=== PATIENT | female | born 1945 | race Caucasian/White ===

== ENCOUNTER → 2020-04-28 13:54 | Outpatient (CLI) | payer MEDICARE, SELFPAY ==
--- NOTE | ~2020-04-28 | MM_ITS ---
EXAMINATION: MM screening [facility] BI w елена HISTORY: Screening mammogram TECHNIQUE: Craniocaudal and mediolateral oblique 3-D tomosynthesis images were obtained and synthetic 2-D images were generated. CAD analysis was submitted and interpreted. COMPARISON: 01/28/2019, 02/08/2018, 02/01/2017 BREAST PARENCHYMAL COMPOSITION: There are scattered areas of fibroglandular density. FINDINGS: Stable left breast masses are considered benign given the lack of interval change. There is no evidence of suspicious mass, calcification, or architectural distortion to suggest malignancy in either breast. There has been no suspicious interval change. IMPRESSION: 1. No mammographic evidence of malignancy. 2. Recommend routine screening mammography in one year. BI-RADS Category 1: Negative Reviewed, dictated and finalized at location A. T TELLER
== END ==
PROVIDERS: Visit Provider Obstetrics & Gynecology Gynecology
DX: Z12.31 Encounter for screening mammogram for malignant neoplasm of breast (principal)
CPT/HCPCS: 77063; 77067

== ENCOUNTER → 2020-09-24 09:38 | Outpatient (CLI) | payer MEDICARE, SELFPAY ==
--- NOTE | ~2020-09-24 | XR_ITS ---
XR thoracic spine 2V DATE: 09/24/2020 10:04 INDICATION: Back pain TECHNIQUE: Standing AP, lateral, swimmer views COMPARISON: None FINDINGS: Degenerative disc disease at C5-6 and C6-7. Diffuse osteopenia. There is degenerative spurring of the thoracic spine, most prominent in the lower thoracic area. No fracture or bone destruction is evident. The thoracic pedicles are intact. No paraspinal soft tiss ue thickening. IMPRESSION: Diffuse osteopenia Degenerative spurring of the thoracic spine Degenerative disc disease at C5-6 and C6-7 Reviewed, dictated and finalized at location A.
--- NOTE | ~2020-09-24 | XR_ITS ---
XR shoulder LT min 2V DATE: 09/24/2020 10:04 INDICATION: Left shoulder pain TECHNIQUE: 4 views COMPARISON: None FINDINGS: There is diffuse osteopenia. No fracture or dislocation, periosteal reaction or bone destru ction or abnormal soft tissue calcification of the left shoulder. IMPRESSION: Diffuse osteopenia Reviewed, dictated and finalized at location A. IMPRESSION: Diffuse osteopenia
== END ==
PROVIDERS: PCP Internal Medicine; Visit Provider Nurse Practitioner
DX: M85.88 Other specified disorders of bone density and structure, other site (principal); M50.323 Other cervical disc degeneration at C6-C7 level; M50.322 Other cervical disc degeneration at C5-C6 level; M85.812 Other specified disorders of bone density and structure, left shoulder
CPT/HCPCS: 72070; 73030

== ENCOUNTER → 2020-12-02 14:53 | Outpatient (CLI) | payer MEDICARE, SELFPAY ==
--- NOTE | ~2020-12-02 | US_ITS ---
EXAMINATION: US transvaginal EXAM DATE: 12/02/2020 15:32 INDICATION: Post menopausal bleeding. TECHNIQUE: Pelvic transabdominal and transvaginal sonogram was performed. There are multiple graysca le and Doppler images available for interpretation. Comparison is made to prior examination from 03/15. FINDINGS: Uterus measures 5.1 x 3.0 x 3.5 cm, with left fundal region likely an exophytic fibroid me asuring 3.5 cm, unchanged compared to prior CT 2018. Endometrial stripe measures 4 mm, within normal limits. There is no free pelvic fluid. Right adnexa: The ovary is not identified. There is no adnexal mass. Left adnexa: The ovary is not identified. There is no adnexal mass. IMPRESSION: 1. Probable exophytic fibroid. 2. Normal endometrial thickness. Reviewed, dictated and finalized at location A.
== END ==
PROVIDERS: Visit Provider Obstetrics & Gynecology Gynecology
DX: N95.0 Postmenopausal bleeding (principal)
CPT/HCPCS: 76830

== ENCOUNTER 2020-12-07 11:00 | Outpatient (RCR) | payer MEDICARE, SELFPAY ==
[2020-10-19 09:10] VITALS: BP_SYST 140
--- NOTE | 2020-10-19 10:16 | PTOPEVAL ---
PHYSICAL THERAPY EVALUATION AND PLAN OF CARE 10-19-20 Thank you for referring Harsha Wood to [facility], for the diagnosis of L shoulder pain and dorsalgia.? She is scheduled to be seen for therapy? 2 x/week for 4 weeks. Please review, sign, date and return this plan of care KAROLINA. I agree with and certify that the following plan of care is medically necessary. Referring Physician Date Attending Provider: ADDY RiojasC PT Outpatient Evaluation Document 10/19/20 09:10 LUCINDA (Rec: 10/19/20 10:14 LUCINDA [id number]) Outpatient Past Medical History Past Medical History Source of Past Medical History Patient Neurological History Hx Neurological Disorders No Significant History Cardiovascular History Hx Hypertension Yes: meds Hx Other Cardiac Disorders Yes: A-FLUTTER Respiratory History Hx Respiratory Disorders No Significant History Gastrointestinal History Hx Gall Bladder Disease Yes: REMOVED 1999 Hx Gastroesophageal Reflux Disease Yes Hx Hemorrhoids Yes Hx Polyps Yes Genitourinary History Hx Genitourinary Disorders No Significant History Musculoskeletal History Hx Back Pain Yes: chronic back pain- previous chiropractor treatment Hx Joint Replacement Yes: TOTAL RIGHT KNEE REPLACEMENT 2014 Hx Other Musculoskeletal Disorders Yes: L knee pain, need to have L TKR; Hematological History Hx Hematological Disorders No Significant History Endocrine History Hx Endocrine Disorders No Significant History HEENT History Hx Cataracts Yes: STARTING Integumentary History Hx Excision Skin Lesion Yes: melanoma Reproductive History Hx Reproductive Disorders No Significant History Psychosocial History Hx Psychiatric Disorders No Significant History Pain History Has Past Pain Affected Your Daily Life Yes Effective Methods of Pain Control TYLENOL PRN Anesthesia History Hx Anesthesia Reactions No Significant History Other History Hx Cancer Yes: SKIN MELANOMA IN SITU Hx Other Medical Conditions Yes: obesity Evaluation Information Problem Diagnosis L shoulder pain, dorsalgia Onset July 2020 Subjective Information PT orders for shoulder and Query Text:As Reported By Patient/ back pain; pt reports Family shoulder most issues, wanted to begin treatment on shoulder first; then after shoulder completed then will assess back pain; gradual increase in L shoulder pain, without trau
[2020-11-16 10:00] VITALS: BP_SYST 135
--- NOTE | 2020-11-16 10:58 | PTOPEVAL ---
PHYSICAL THERAPY REEVALUATION AND UPDATED PLAN OF CARE 11-16-20 Refer to the clinical summary below for her status today, compared to the initial eval. Continue PT treatment 2x/week for 3 weeks. Thank you for referring Harsha Wood to [facility].? Please review, sign, date and return this plan of care KAROLINA. I agree with and certify that the following plan of care is medically necessary. Referring Physician Date Attending Provider: Kaye Arrington, ADDYC PT Outpatient Re-Evaluation Document 11/16/20 10:00 LUCINDA (Rec: 11/16/20 10:58 LUCINDA [id number]) Subjective Information Harsha reports: is using her Query Text:As Reported By Patient/ arm to do things at home, but Family cannot reach bra strap; frustrated that shoulder is not better; Pain Assessment Timing of Pain Assessment Timing of Pain Assessment Assessment Pain Scale Pain Scale Used Numeric (1 - 10) Self Report Pain Assessment Left Shoulder(s) Reported Pain Level 0 Radicular Pain Location pulling, tight, keep from moving, hurts; pain in thoracic spine/scapula Pain Frequency Chronic,Intermittent Other Pain Description anterior and medial upper humerus Lowest Pain Intensity 0 Greatest Pain Intensity 4 Pain Aggravating Factors Exercise/Activity Other Pain Aggravating Factors reach behind back, reach up/ forward Pain Behaviors Anxious,Grimacing,Guarding Pain Score Pain Score 0: Self Report Additional Pain Score Comments Quick DASH 20% limitation in activity; report can lie on L side 15 min; pain does not wake her up from sleeping, tend to stay on her R side; with L arm cannot reach bra or wash back; can reach into her cabinet; sometimes with sleeping, L 4-5 fingers numb, 1-2x/wk is frustrated with her shoulder and upper back pain; said dr may refer her to orthopedic Discussed with pt MRI, her limitations, her functional level; shoulder anatomy, cervical limitations and upper quadrant complex and issues; she stated she does not want any shoulde
--- NOTE | 2020-11-26 08:21 | PCPTNOTE ---
LATE ENTRY: 11-25-20: Discussed pt with SAL Johnson; added dry needling to plan of care for pain modality; Will discuss pt with Radha Blood PT, who will perform the dry needling.
--- NOTE | 2020-12-07 11:49 | PTOPEVAL ---
PHYSICAL THERAPY DISCHARGE 12-07-20 Refer to the clinical summary below, for her status today, compared to the last reevaluation. Discharge PT services. Thank you for referring Harsha Wood to [facility].? Please review, sign, date and return this Discharge KAROLINA. I agree with and certify that the following plan of care is medically necessary. Referring Physician Date Attending Provider: Kaye Arrington, GUERO-C Document 12/07/20 11:05 LUCINDA (Rec: 12/07/20 11:44 LUCINDA [id number]) Assessment Status Discharge Subjective Information Mrs. Irwin reports: Query Text:As Reported By Patient/ shoulder feels about the same; Family still problems reaching behind back; nothing really helping it; doing exercises at home; before COVID, she was going to the pool and swimming, wants to return to swimming; discussed swimming as a great option for exercise, to gradually increase her activity as tolerated. Harsha agreed to discharge from PT and to contact dr if pain increases or she wants further assessment. Pain Assessment Timing of Pain Assessment Timing of Pain Assessment Assessment Pain Scale Pain Scale Used Numeric (1 - 10) Self Report Pain Assessment Left Shoulder(s) Reported Pain Level 0 Pain Description Aching,Sharp Radicular Pain Location pain at L mid thoracic paraspinals/scapula Pain Frequency Chronic,Intermittent Other Pain Description eases quickly- as soon as stop the motion/pain position Lowest Pain Intensity 0 Greatest Pain Intensity 4 Pain Aggravating Factors Exercise/Activity Other Pain Aggravating Factors reach behind back; take off shirt; can lie on L side 30-60 min; Pain Behaviors Anxious,Grimacing,Guarding Pain Score Pain Score 0: Self Report Additional Pain Score Comments self assessment Quick DASH score of 18% limitation problems with washing back and reaching bra; is R handed, so do not use L arm much, do not notice any problems with it when doing home tasks;
== END 2021-01-05 11:23 | disposition home or self-care (01) ==
LOC: ANHPT 11:00
PROVIDERS: PCP Internal Medicine; Visit Provider Nurse Practitioner
DX: M54.9 Dorsalgia, unspecified (principal); M25.512 Pain in left shoulder
CPT/HCPCS: 97014; 97035; 97110; 97140; 97161; G0283

== ENCOUNTER → 2021-04-30 10:46 | Outpatient (CLI) | payer MEDICARE, SELFPAY ==
--- NOTE | ~2021-04-30 | DEXA_ITS ---
Bone Density Report Name: MILEY RANDALL Age: 76 Sex: Female Ethnicity: White Date of : 1945 Indication: postmenopausal; screening for osteoporosis; Referring Provider: KIERSTEN PARRA Study: Bone densitometry was performed. Exam Date: April 30, 2021 Accession number: [id number] Bone Density: Region BMD T-score Z-score Classification AP Spine (L1-L4) 0.886 -1.5 0.9 Osteopenia Femoral Neck (Left) 0.756 -0.8 1.3 Normal Total Hip (Left) 1.019 0.6 2.4 Normal Femoral Neck (Right) 0.754 -0.9 1.2 Normal Total Hip (Right) 1.041 0.8 2.6 Normal Total Hip Mean 1.030 0.7 2.5 Normal World Health Organization criteria for BMD impression classify patients as: Normal (T-score at or above -1.0), Osteopenia (T-score between -1.0 and -2.5), or Osteoporosis (T-score at or below -2.5). 10-year Fracture Risk(1): Major Osteoporotic Fracture 8.1% Hip Fracture 1.1% Reported Risk Factors: [place] (), Neck BMD=0.754, BMI=43.9 (1) FRAX(R) Version 3.08. Fracture probability calculated for an untreated patient. Fracture probability may be lower if the patient has received treatment. Previous Exams: Region Exam Age BMD T-score BMD Change BMD Change Date g/cm2 vs Baseline vs Previous AP Spine(L1-L4) 04/30/2021 76 0.886 -1.5 -0.033 -0.066* 03/15/2018 73 0.952 -0.9 0.033 0.030* 01/25/2016 70 0.922 -1.1 0.003 0.038* 12/10/2013 68 0.884 -1.5 -0.035 -0.078* 10/03/2010 65 0.962 -0.8 0.043 0.043 06/24/2007 62 0.919 -1.2 Total Hip(Left) 04/30/2021 76 1.019 0.6 -0.081 0.020 03/15/2018 73 1.000 0.5 -0.101 -0.063* 01/25/2016 70 1.062 1.0 -0.039 0.011 12/10/2013 68 1.051 0.9 -0.049 -0.014 10/03/2010 65 1.065 1.0 -0.036 -0.036 06/24/2007 62 1.101 1.3 Total Hip(Right) 04/30/2021 76 1.041 0.8 -0.082 0.041* 03/15/2018 73 0.999 0.5 -0.123 -0.014 01/25/2016 70 1.013 0.6 -0.110 -0.038* 12/10/2013 68 1.051 0.9 -0.071 0.064* 10/03/2010 65 0.988 0.4 -0.135 -0.135 06/24/2007 62 1.123 1.5 *Denotes significance at 95% confidence level, LSC for AP Spine = 0.022 g/cm2, LSC for Total Hip = 0.027 g/cm2 Clinical Information Provided by Patient: Has
--- NOTE | ~2021-04-30 | MM_ITS ---
EXAMINATION: MM screening [facility] BI w елена HISTORY: Screening mammogram TECHNIQUE: Craniocaudal and mediolateral oblique 3-D tomosynthesis images were obtained and synthetic 2-D images were generated. CAD analysis was submitted and interpreted. COMPARISON: 04/28/2020, 02/27/2019, 01/31/2018 BREAST PARENCHYMAL COMPOSITION: There are scattered areas of fibroglandular density. FINDINGS: Scattered benign-appearing calcifications are present. In addition, there are stable bilate ral breast masses considered benign given the lack of interval change. There is no evidence of suspic ious mass, calcification, or architectural distortion to suggest malignancy in either breast. There h as been no suspicious interval change. IMPRESSION: 1. No mammographic evidence of malignancy. 2. Recommend routine screening mammography in one year. BI-RADS Category 2: Benign finding(s). Reviewed, dictated and finalized at location A. AL CARE GIVER
== END ==
PROVIDERS: PCP Internal Medicine; Visit Provider Obstetrics & Gynecology Gynecology
DX: Z12.31 Encounter for screening mammogram for malignant neoplasm of breast (principal); Z78.0 Asymptomatic menopausal state; M85.88 Other specified disorders of bone density and structure, other site
CPT/HCPCS: 77063; 77067; 77080

== ENCOUNTER 2021-10-31 12:27 | Emergency (ER) | payer MEDICARE, SELFPAY ==
[2021-10-31 12:41] VITALS: BP 152/94; PULSE 57; RESP 18; TEMP 36.7; O2SAT 98
--- NOTE | 2021-10-31 12:43 | ECG_ITS ---
Measurements Intervals [place] Rate: 150 P: NM: 0 QRS: 10 QRSD: 89 T: 60 QT: 276 QTc: 436 Interpretive Statements ATRIAL FIBRILLATION WITH RAPID VENTRICULAR RESPONSE NONSPECIFIC ST & T-WAVE ABNORMALITY ABNORMAL ECG NO PREVIOUS ECG AVAILABLE FOR COMPARISON Electronically Signed On 10-31-2021 14:53:31 CDT by Ayo Gregg M.D.
--- NOTE | 2021-10-31 12:52 | ED.ARRPALP ---
HPI - Arrhythmia/Palpitations General Chief Complaint: Arrhythmia/Palpitations Stated Complaint: Fast Heart Rate Time Seen by Provider: 10/31/21 12:52 Source: patient Mode of arrival: ambulatory Limitations: no limitations History of Present Illness HPI narrative: 76-year-old female with history of A. fib presents with complaint of palpitations, fatigue, and dyspnea on exertion since this morning. Reports when she woke up and got out of bed she felt like her heart was racing . States that she took her Cardizem and metoprolol and felt better. Did a few chores around the house and when she sat down in chair she noticed that she was still feeling like her heart was racing. Checked her heart rate on a pulse ox and it was 140. Patient states she called both her PCP and her transportation planning technician and they did not answer the phone so she came to the urgent care. She denies chest pain. All systems reviewed and negative except as noted above. Related Data Home Medications Medication Instructions Recorded Confirmed apixaban 5 mg tablet (Eliquis) 5 mg PO BID 03/27/19 10/31/21 cholecalciferol (vitamin D3) 125 50,000 unit PO WEEKLY 03/27/19 10/31/21 mcg (5,000 unit) tablet (Vitamin D3) cranberry 400 mg capsule 400 mg PO DAILY 03/27/19 10/31/21 glucosam 750 mg-chondroi 100 2 tablet PO DAILY 03/27/19 10/31/21 mg-hyalur 1.65 mg-CF borate 108 mg tablet ([facility]) metoprolol succinate 25 mg 25 mg PO DAILY 03/27/19 10/31/21 tablet,extended release 24 hr magnesium oxide,aspartate,citr 400 mg PO DAILY 10/28/19 10/31/21 (Triple Magnesium Complex) conjugated estrogens 0.625 mg/gram 0.625 mg vaginal DAILY 05/03/20 10/31/21 vaginal cream (Premarin) Allergies Allergy/AdvReac Type Severity Reaction Status Date / Time codeine Allergy Mild sick to Verified 10/31/21 12:33 stomach Review of Systems Review of Systems: CONSTITUTIONAL: Denies fever, chills, or sweats. Reports fatigue. EYES: Denies visual changes, redness, or discharge. ENT: Denies rhinorrhea, congestion, sore throat, or otalgia. CARDIOVASCULAR: Denies chest pain. Reports palpitations. RESPIRATORY: Denies cough. Reports dyspnea on exertion. GASTROINTESTINAL: Denies abdominal pain, nausea, vomiting, or diarrhea. GENITOURINARY: Denies dysuria or hematuria. SKIN: Denies rash or itching. MUSCULOSKELETAL: Denies back pain, joint pain, or myalgia. NEUROLOGIC: Denies headache, numbness, or weakness. PSYCHIATRIC: Denies anxiety or depression. All other systems reviewed are negative, except as documented in HPI. [facility] Past Medical History Medical History (Updated 10/31/21 @ 16:06 by Lauren Flaherty PA-C) Atrial flutter GERD (gastroesophageal reflux disease) Hypertension Mixed hyperlipidemia Morbid obesity Osteopenia Family History Family History Mother Asthma Carcinoma of colon Sibling Asthma Family history of malignant melanoma Patient's brother is in good health Diabetes mellitus Father Family history of coronary artery disease, Onset Age: 70 Family history of diabetes mellitus in first degree relative Family history of heart disease in male family member before age 55 Patient's father is Diabetes mellitus Social History Social History Smoking packs per day: 1 Smoking cigarettes per day: 20.0 Years smoked: 20 Smoking pack-years: 20.00 Smoking status: Former smoker Tobacco type: cigarettes Second hand tobacco smoke exposure: Yes Smoking end date: 05/14/84 Alcohol intake: current Alcohol use details: rarely Comments At time of signature, agree with nursing past medical, surgical, social and family history. There is no relevant family history pertinent to the presenting complaint. Exam Narrative: GENERAL: This is a well-nourished, well-developed patient, in no apparent distress. HEAD: n
== END 2021-10-31 13:10 | disposition short-term general hospital (02) ==
PROVIDERS: Emergency Provider Nurse Practitioner Family; PCP Internal Medicine
DX: I48.91 Unspecified atrial fibrillation (principal); Z87.891 Personal history of nicotine dependence; K21.9 Gastro-esophageal reflux disease without esophagitis; I10 Essential (primary) hypertension; E78.2 Mixed hyperlipidemia; E66.01 Morbid (severe) obesity due to excess calories; Z68.41 Body mass index [BMI] 40.0-44.9, adult; M85.80 Other specified disorders of bone density and structure, unspecified site
CPT/HCPCS: 93005; 99213; G0463

== ENCOUNTER 2021-10-31 13:19 | Emergency (ER) | payer MEDICARE, SELFPAY ==
--- NOTE | ~2021-10-31 | XR_ITS ---
EXAMINATION: XR chest 2V DATE: 10/31/2021 13:38 INDICATION: Heart palpitations TECHNIQUE: PA and lateral views of the chest are obtained. COMPARISON: 06/30/2017 FINDINGS: The lungs are free of acute opacities. There is no pleural effusion or pneumothorax. The ca rdiomediastinal silhouette is normal. There is moderate thoracic spondylosis. Surgical clips in the r ight upper quadrant are likely from prior cholecystectomy. IMPRESSION: 1. No acute cardiopulmonary abnormality. Reviewed, dictated and finalized at location A.
--- NOTE | 2021-10-31 13:28 | ECG_ITS ---
Measurements Intervals [place] Rate: 81 P: 43 [place]: 185 QRS: -5 QRSD: 85 T: 25 QT: 342 QTc: 398 Interpretive Statements SINUS RHYTHM MINIMAL VOLTAGE CRITERIA FOR LVH, CONSIDER NORMAL VARIANT BORDERLINE ECG COMPARED TO ECG 10/31/2021 12:53:33 SINUS RHYTHM HAS REPLACED ATRIAL FIBRILLATION WITH RVR Electronically Signed On 10-31-2021 14:57:57 CDT by Ayo Gregg M.D.
[2021-10-31 13:31] VITALS: PULSE 81; RESP 18; O2SAT 98
[2021-10-31 13:36] VITALS: BP 131/78; PULSE 71; RESP 18; TEMP 37.1; O2SAT 98
[2021-10-31 13:59] LABS: Basophils Percent Auto 0.4 % (0.2-1.2); Eosinophils Percent Auto 0.4 % (0-4.4); Hematocrit 42.7 % (37.0-47.0); Hemoglobin 13.6 g/dL (12.0-15.0); Immature Granulocyte Absolute 0.01 K/mm3 (0.00-0.031); Immature Granulocyte Percent A 0.2 % (0-0.5); Lymphocytes Absolute Auto 0.96 K/mm3 (0.9-3.2); Lymphocytes Percent Auto 17.5 % (18.3-44.2); Mean Corpuscular HGB Conc 31.9 g/dl (32-36); Mean Corpuscular Hemoglobin 28.7 pg (26-34); Mean Corpuscular Volume 90.1 fl (80-100); Mean Platelet Volume 10.2 fl (7.4-10.4); Monocytes Absolute Auto 0.4 K/mm3 (0.1-0.6); Monocytes Percent Auto 6.8 % (2.6-8.5); Neutrophils Absolute Auto 4.1 K/mm3 (1.3-6.7); Neutrophils Percent Auto 74.7 % (45.5-73.1); Platelet Count Result 194 k/mm3 (150-375); Red Blood Count 4.74 M/mm3 (4.2-5.4); White Blood Count 5.5 K/mm3 (4.5-10.0)
--- NOTE | 2021-10-31 14:04 | ED.ARRPALP ---
HPI - Arrhythmia/Palpitations General Chief Complaint: Arrhythmia/Palpitations Stated Complaint: abnormal EKG Time Seen by Provider: 10/31/21 13:27 Source: patient Mode of arrival: ambulatory Limitations: no limitations History of Present Illness HPI narrative: This is a 76-year-old female that presents to the emergency department for heart racing. She noted a couple of episodes of feeling as though her heart was racing today. She has known history of atrial flutter. Takes metoprolol, diltiazem and is on Eliquis. Reports she has been taking her medications as prescribed. She noted her heart rate to be in the 140s at home which prompted her to be initially seen at urgent care. She was sent here for further evaluation as her EKG showed A. fib with RVR. Denies any current complaints. Denies chest pain or shortness of breath. Related Data Home Medications Medication Instructions Recorded Confirmed apixaban 5 mg tablet (Eliquis) 5 mg PO BID 03/27/19 10/31/21 cholecalciferol (vitamin D3) 125 50,000 unit PO WEEKLY 03/27/19 10/31/21 mcg (5,000 unit) tablet (Vitamin D3) cranberry 400 mg capsule 400 mg PO DAILY 03/27/19 10/31/21 glucosam 750 mg-chondroi 100 2 tablet PO DAILY 03/27/19 10/31/21 mg-hyalur 1.65 mg-CF borate 108 mg tablet ([facility]) metoprolol succinate 25 mg 25 mg PO DAILY 03/27/19 10/31/21 tablet,extended release 24 hr magnesium oxide,aspartate,citr 400 mg PO DAILY 10/28/19 10/31/21 (Triple Magnesium Complex) conjugated estrogens 0.625 mg/gram 0.625 mg vaginal DAILY 05/03/20 10/31/21 vaginal cream (Premarin) Allergies Allergy/AdvReac Type Severity Reaction Status Date / Time codeine Allergy Mild sick to Verified 10/31/21 12:33 stomach Review of Systems Review of Systems: CONSTITUTIONAL: Denies fever CARDIOVASCULAR: Reports palpitations. Denies chest pain, or edema. RESPIRATORY: Denies dyspnea. All systems reviewed & are unremarkable except as noted in HPI and below PMFSH Past Medical History Medical History (Updated 10/31/21 @ 16:06 by Lauren L. Flaherty, PA-C) Atrial flutter GERD (gastroesophageal reflux disease) Hypertension Mixed hyperlipidemia Morbid obesity Osteopenia Family History Family History Mother Asthma Carcinoma of colon Sibling Asthma Family history of malignant melanoma Patient's brother is in good health Diabetes mellitus Father Family history of coronary artery disease, Onset Age: 70 Family history of diabetes mellitus in first degree relative Family history of heart disease in male family member before age 55 Patient's father is Diabetes mellitus Social History Social History Smoking packs per day: 1 Smoking cigarettes per day: 20.0 Years smoked: 20 Smoking pack-years: 20.00 Smoking status: Former smoker Tobacco type: cigarettes Second hand tobacco smoke exposure: Yes Smoking end date: 05/14/84 Alcohol intake: current Alcohol use details: rarely Exam Narrative: GENERAL: Well-appearing, well-nourished, and in no acute distress. HEAD: Normocephalic, atraumatic. EYES: EOMI. CHEST: Clear to auscultation. No respiratory distress. No wheezes rales or rhonchi HEART: Regular rate and rhythm. No murmur heard. Normal peripheral pulses. EXTREMITIES: Normal range of motion. No edema. SKIN: Warm, dry, no rash. NEURO: No focal deficits. Alert and oriented x3. PSYCH: Normal mood and affect Course Consultations Consultation #1: Spoke with cardiology about patient and work-up who will follow-up in clinic. Date: 10/31/21 Time: 16:03 Vital Signs Vital signs: Vital Signs Pulse Rate 81 10/31/21 13:31 Respiratory Rate 18 10/31/21 13:31 Pulse Oximetry 98 10/31/21 13:31 Temperature 98.7 F 10/31/21 13:36 Pulse Rate 71 10/31/21 13:36 Respiratory Rate 18 10/31/21
[2021-10-31 14:11] LABS: INR 1.1; Prothrombin Time 14.2 Seconds (11.1-14.7)
[2021-10-31 14:29] LABS: Alanine Aminotransferase 13 U/L (6-35); Albumin Level 4.1 g/dL (3.5-5.1); Alkaline Phosphatase 60 U/L (38-126); Anion Gap 5 mmol/L (8-16); Aspartate Amino Transferase 21 U/L (14-36); Bilirubin,Total 0.1 mg/dL (0.2-1.3); Blood Urea Nitrogen 12 mg/dL (7-17); Calcium 8.9 mg/dL (8.4-10.2); Carbon Dioxide 27 mmol/L (22-30); Chloride 108 mmol/L (98-107); Estimated CRCL calculation 58 ml/min; Estimated Glomerular Filt Rate > 60; Glucose 92 mg/dL (65-110); Lipase 72 U/L (23-300); Magnesium 2.1 mg/dL (1.6-2.3); Potassium 4.6 mmol/L (3.4-5.0); Sodium 140 mmol/L (137-145)
[2021-10-31 16:44] VITALS: BP 144/87; PULSE 69; RESP 16; O2SAT 98
== END 2021-10-31 16:30 | disposition home or self-care (01) ==
PROVIDERS: Physician Assistant; Emergency Provider Emergency Medicine; PCP Internal Medicine
DX: I48.92 Unspecified atrial flutter (principal); I10 Essential (primary) hypertension; E78.2 Mixed hyperlipidemia; K21.9 Gastro-esophageal reflux disease without esophagitis; M85.80 Other specified disorders of bone density and structure, unspecified site; E66.01 Morbid (severe) obesity due to excess calories; Z68.41 Body mass index [BMI] 40.0-44.9, adult; Z79.01 Long term (current) use of anticoagulants; Z87.891 Personal history of nicotine dependence; R94.31 Abnormal electrocardiogram [ECG] [EKG]
CPT/HCPCS: 36415; 71046; 80053; 83690; 83735; 84443; 85025; 85610; 85730; 93005; 99284

== ENCOUNTER 2021-12-23 07:34 | Outpatient (CLI) | payer MEDICARE, SELFPAY ==
--- NOTE | 2022-01-22 16:44 | WPDSLEEPSTUD ---
Sleep Study Date of Study: 12/23/21 Ordering Provider: Vale Donnelly MD Interpreting Physician: Ninfa Frazier DO Sleep Study Type: Split Polysomnogram Height: 1.63 m Weight: 113.398 kg Body Mass Index: 42.9 Neck Circumference (inches): 15.5 [place]: 8 Reason for Sleep Study Snoring, nocturia, daytime hypersomnia Sleep History The patient is a 76-year-old female with paroxysmal atrial flutter, hypertension, osteoporosis, GERD and history of tobacco use that had a sleep study ordered by her rn referral for evaluation of sleep apnea. The patient denies awakening from sleep short of breath. She rarely awakens at night with heartburn, belching or cough. She frequently snores and is constantly loud enough that others complain. She occasionally has trouble sleeping when she has a cold. She denies waking up gasping for air throughout the night. She denies having breathing problems at night observed by herself or others. She denies sweating excessively at night. She occasionally has heart palpitations or irregular heartbeats during the night. She occasionally falls asleep during the day but never while driving. She denies sleep paralysis, cataplexy and hypnagogic / hypnopompic hallucinations. She denies having trouble at school or work due to sleepiness. She denies feeling afraid of going to sleep. She occasionally has nightmares. She occasionally remembers her dreams. She denies having thoughts racing through her mind. She denies feeling sad or depressed. She rarely has anxiety. She occasionally has muscular tension. She occasionally notices parts of her body jerk. She occasionally kicks during the night. She denies having crawling and aching feelings in her legs but occasionally has leg pain during the night. She occasionally grinds her teeth during sleep but denies awakening with morning jaw pain. She is occasionally bothered by pain during the day and occasionally awakened by pain during the night. She occasionally wakes up feeling stiff in the morning. She rarely wakes up with sore achy muscles. She denies waking up with pain in the neck, spine or other joints. She goes to bed at 11:00 p.m. on both weekdays and weekends. That length of time it takes her to fall asleep is variable. She wakes up 3 times throughout the night to urinate. He amount of time it takes for her to fall back asleep is variable. She wakes up at 7:30 a.m. on weekdays and at 6:45 a.m. on the weekends. She typically gets 7-9 hours of sleep per night. She stays in bed for 30 minutes after waking up in the morning. She currently lives with her . She denies consuming any caffeinated beverages within 2 hours of bedtime. She does not engage in physical exercise before bedtime. She does watch television before falling asleep. She will occasionally take naps in the afternoon or the evening. The patient drinks 1 caffeinated beverage per day. She quit smoking cigarettes 35 years ago. She denies alcohol and recreational drug use. [facility] Past Medical History Medical History Atrial flutter GERD (gastroesophageal reflux disease) Hypertension Mixed hyperlipidemia Morbid obesity Osteopenia Family History Family History Mother Asthma Carcinoma of colon Sibling Asthma Family history of malignant melanoma Patient's brother is in good health Diabetes mellitus Father Family history of coronary artery disease, Onset Age: 70 Family history of diabetes mellitus in first degree relative Family history of heart disease in male family member before age 55 Patient's father is Diabetes mellitus Social History Social History Smoking packs per day: 1 Smoking cigarettes per day: 20.0 Years smoked: 20 Smoking pack-years: 20.00 Smoking status: Former s
[2022-01-22 16:52] VITALS: BMI 42.9
== END 2021-12-24 07:00 | disposition home or self-care (01) ==
LOC: ANHCSM 12-26 07:34
PROVIDERS: PCP Internal Medicine; Visit Provider Internal Medicine Cardiovascular Disease
DX: G47.30 Sleep apnea, unspecified (principal); G47.33 Obstructive sleep apnea (adult) (pediatric)
CPT/HCPCS: 95811

== ENCOUNTER → 2022-06-14 15:59 | Outpatient (CLI) | payer MEDICARE, SELFPAY ==
--- NOTE | ~2022-06-14 | MM_ITS ---
EXAMINATION: MM screening jeremy BI w елена HISTORY: Screening TECHNIQUE: Craniocaudal and mediolateral oblique 3-D tomosynthesis images were obtained and synthetic 2-D images were generated. CAD analysis was submitted and interpreted. COMPARISON: Comparison to multiple prior studies sequentially, with oldest reviewed study dated 07/2016. BREAST PARENCHYMAL COMPOSITION: There are scattered areas of fibroglandular density. FINDINGS: Stable benign-appearing left breast mass centered in the upper outer quadrant. There is no evidence of suspicious mass, calcification, or architectural distortion to suggest malignancy in eith er breast. There has been no suspicious interval change. IMPRESSION: 1. No mammographic evidence of malignancy. 2. Recommend routine screening mammography in one year. BI-RADS Category 2: Benign finding(s). Reviewed, dictated and finalized at location A. [employer] [employer]
== END ==
PROVIDERS: PCP Internal Medicine; Visit Provider Obstetrics & Gynecology Gynecology
DX: Z12.31 Encounter for screening mammogram for malignant neoplasm of breast (principal)
CPT/HCPCS: 77063; 77067

== ENCOUNTER 2023-09-20 10:12 | Outpatient (CLI) | payer OTHER, SELFPAY ==
--- NOTE | ~2023-09-20 | DEXA_ITS ---
Bone Density Report Name: MILEY RANDALL Age: 78 Sex: Female Ethnicity: White Date of : 1945 Indication: osteopenia; monitoring treatment; Referring Provider: KIERSTEN PARRA Study: Bone densitometry was performed. Exam Date: September 20, 2023 Accession number: [id number] Bone Density: Region BMD T-score Z-score Classification AP Spine (L1-L4) 0.938 -1.0 1.5 Normal Femoral Neck (Left) 0.723 -1.1 1.1 Osteopenia Total Hip (Left) 1.041 0.8 2.7 Normal Femoral Neck (Right) 0.760 -0.8 1.4 Normal Total Hip (Right) 1.035 0.8 2.7 Normal Total Hip Mean 1.038 0.8 2.7 Normal World Health Organization criteria for BMD impression classify patients as: Normal (T-score at or above -1.0), Osteopenia (T-score between -1.0 and -2.5), or Osteoporosis (T-score at or below -2.5). 10-year Fracture Risk: FRAX not reported because: Treated for osteoporosis Previous Exams: Region Exam Age BMD T-score BMD Change BMD Change Date g/cm2 vs Baseline vs Previous AP Spine(L1-L4) 09/20/2023 78 0.938 -1.0 0.018 0.052* 04/30/2021 76 0.886 -1.5 -0.033 -0.066* 03/15/2018 73 0.952 -0.9 0.033 0.030* 01/25/2016 70 0.922 -1.1 0.003 0.038* 12/10/2013 68 0.884 -1.5 -0.035 -0.078* 10/03/2010 65 0.962 -0.8 0.043 0.043 06/24/2007 62 0.919 -1.2 Total Hip(Left) 09/20/2023 78 1.041 0.8 -0.060 0.021 04/30/2021 76 1.019 0.6 -0.081 0.020 03/15/2018 73 1.000 0.5 -0.101 -0.063* 01/25/2016 70 1.062 1.0 -0.039 0.011 12/10/2013 68 1.051 0.9 -0.049 -0.014 10/03/2010 65 1.065 1.0 -0.036 -0.036 06/24/2007 62 1.101 1.3 Total Hip(Right) 09/20/2023 78 1.035 0.8 -0.088 -0.006 04/30/2021 76 1.041 0.8 -0.082 0.041* 03/15/2018 73 0.999 0.5 -0.123 -0.014 01/25/2016 70 1.013 0.6 -0.110 -0.038* 12/10/2013 68 1.051 0.9 -0.071 0.064* 10/03/2010 65 0.988 0.4 -0.135 -0.135 06/24/2007 62 1.123 1.5 *Denotes significance at 95% confidence level, LSC for AP Spine = 0.022 g/cm2, LSC for Total Hip = 0.027 g/cm2 Clinical Information Provided by Patient: Is being treated for osteoporosis Has used the following medications: Fosamax (i.e. alendronate), Vitamin D Patient maximum height was 64.0 Menopause Age: 51
--- NOTE | ~2023-09-20 | MM_ITS ---
EXAMINATION: MM screening jeremy BI w елена HISTORY: Screening mammogram TECHNIQUE: Craniocaudal and mediolateral oblique 3-D tomosynthesis images were obtained and synthetic 2-D images were generated. CAD analysis was submitted and interpreted. COMPARISON: June 14, 2022, April 30, 2021 bilateral screening mammogram examinations BREAST PARENCHYMAL COMPOSITION: There are scattered areas of fibroglandular density. FINDINGS: Biopsy marker on the left; history of prior bilateral benign breast biopsies. Scattered bilateral benign calcifications. There is no evidence of suspicious mass, calcification, or architectural distortion to suggest malignancy in either breast. There has been no suspicious interv al change. IMPRESSION: 1. No mammographic evidence of malignancy. 2. Recommend routine screening mammography in one year. BI-RADS Category 2: Benign finding(s). Reviewed, dictated and finalized at location B.
== END 2023-09-20 10:13 ==
LOC: MICIMG 10:13
PROVIDERS: PCP Obstetrics & Gynecology Gynecology; Visit Provider Obstetrics & Gynecology Gynecology
DX: Z12.31 Encounter for screening mammogram for malignant neoplasm of breast (principal); Z78.0 Asymptomatic menopausal state; M85.852 Other specified disorders of bone density and structure, left thigh
CPT/HCPCS: 77063; 77067; 77080

== ENCOUNTER 2024-09-03 00:51 | Day surgery (SDC) | payer OTHER, SELFPAY ==
[2024-08-25 14:49] VITALS: BMI 42.9
--- NOTE | 2024-08-25 15:06 | PC.NURSE ---
Spoke with patient regarding medication Eliquis. Patient verbalizes understanding that the last dose is to be taken on 08/30/24 and the Endoscopist will instruct them when to restart after the procedure.
[2024-09-03] VITALS (14 sets, daily range): BP systolic 138–174; BP diastolic 64–103; PULSE 87–133; RESP 16–29; TEMP 35.9; O2SAT 96–98
--- OUTSIDE RECORDS SUMMARY | 2024-09-03 00:55 | XMS_ITS | Clinical Summary ---
Author Organization [facility] Address [address] [address] Care Team Providers Care Wash Driller Helper Name Role Phone Seven Duran MD Primary Care Provider [phone] Source Comments [facility],non-owned Affiliates and Associated Physician Practices is amultiple site organization consisting of ambulatory clinics and hospital sitesin [place], [place], [place] and [place]. This disclosure is being madepursuant to the Care Everywhere program and may not contain all information available regarding this patient. Last updated 18.[facility] [employer] Allergies Active Allergy Reactions Criticality Noted Date Comments Codeine Nausea and/or Vomiting Low 06/22/2016 Medications * Be aware that medications may not be up to date on this document. Alwaysverify current medications with the patient. vitamin D, ergocalciferol, (DRISDOL) 95080 UNITS capsule 3 04/18/2016 Activ e solifenacin (VESICARE) 5 MG tablet 4 06/06/2016 Active verapamil CR (ISOPTIN-SR) 240 MG tablet 0 06/06/2016 Active raloxifene (EVISTA) 60 MG tablet 4 06/06/2016 Active aspirin (ASPIRIN) 81 MG tablet Take 81 mg by mouth DAILY. 06/22/2016 Active omeprazole (PRILOSEC) 40 MG capsule 1 05/23/2016 Active lisinopril (PRINIVIL; ZESTRIL) 20 MG tablet 1 05/23/2016 Active Encounters Date Type Department Care Team Description 08/25/2024 Lab Requisition [facility] - DermPath Lab [address] [place] [address] Kaye Santos DO 07/24/2024 Lab Requisition 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 Gender Identity Not on file Sexual Orientation Not on file Last Filed Vital Signs Vital Sign Reading Time Taken Comments Blood Pressure 119/88 07/25/2016 3:22 PM CDT Pulse 74 07/25/2016 3:22 PM CDT Temperature - - Respiratory Rate - - Oxygen Saturation 92% 07/25/2016 3:22 PM CDT Inhaled Oxygen Concentration - - Weight 113.9 kg (251 lb) 07/25/2016 1:56 PM CDT Height 162.6 cm (5' 4 ) 07/25/2016 1:56 PM CDT Body Mass Index 43.08 07/25/2016 1:56 PM CDT Plan of Treatment Health Maintenance Due Date Last Done Comments BONE DENSITY TESTING 1945 MEDICARE AWV 12 MONTHS 1945 HEPATITIS C SCREENING 02/03/1964 DTAP/TDAP/TD VACCINES (1 - Tdap) 1965 PNEUMOCOCCAL VACCINE 50+ (1 of 1 - PCV) 02/08/1996 ZOSTER VACCINE (1 of 2) 02/08/1996 Respiratory Syncytial Virus (RSV) Vaccine Pt: or over 60 yrs (1 - 1-dose 75+ series) 2021 COVID-19 VACCINE ( - 2023-2 5 season) 2024 DEPRESSION SCREENING 05/14/2024 INFLUENZA VACCINE (Season Ended) 2025 HEPATITIS B VACCINE Aged Out No longe r eligible based on patient's age to complete this topic HIB VACCINE Aged Out No longer eligi ble based on patient's age to complete this topic HPV VACCINE Aged Out No longer eligi ble based on patient's age to complete this topic MENINGOCOCCAL (Group B) VACC INE SHARED DECISION-MAKING Aged Out No longer eligibl e based on patient's age to complete this topic MENINGOCOCCAL GROUPS A/C/Y/W VACCINE Aged Out No longer eligible b ased on patient's age to complete this topic Procedures Procedure Name Priority Date/Time Associated Diagnosis Comments DERMATOPATHOLOGY Routine 08/25/2024 7:56 AM CDT DERMATOPATHOLOGY Routine 07/24/2024 10:1 0 AM CDT from Last 3 Months Results * DERMATOPATHOLOGY (08/25/2024 7:56 AM CDT) Only the most recent of2 resultswithin the time period is included. Case Report Dermatopathology Report Case: [id number] Authorizing Provider: Kaye Santos DO Collected: 08/25/2024 07:56 AM Ordering Location: [facility] - Received: 08/26/2024 07:01 AM DermPath Lab Pathologist: Apolonia Horan MD Specimen: Skin, right lower back 12:07 PM CDT DERMATOPATHOLOGY LABORATORY Final Diagnosis Specimen A. SKIN, right lower back: DERMAL SCAR RESIDUAL SQUAMOUS CELL CARCINOMA IN SITU NOT IDENTIFIED (L90.5) 12:07 PM CDT DERMATOPATHOLOGY LABORATORY at 1207 CDT Clinical History SCCIS bx Proven Please check margins/prior biopsy 12:07 PM CDT DERMATOPATHOLOGY LABORATORY Gross Description Specimen A: Received is one formalin filled container labeled with the patient's name and designated right lower back. The specimen consists of a non-oriented ellipse of skin measuring [id number] mm. The epidermal surface is unremarkable. The margin is inked green. The 12 o'clock and 6 o'clock tips are submitted in cassette 1. The remainder of the ellipse is serially sectioned and submitted in cassette 2-3. Jar 0. 5 12:07 PM CDT DERMATOPATHOLOGY LABORATORY Microscopic Description Specimen A. SKIN, right lower back: There are fibroblasts and collagen bundles oriented parallel to the skin surface. There are elongated blood vessels, some of which are oriented perpendicular to the skin surface. No residual squamous cell carcinoma in situ is identified. 5 12:07 PM CDT DERMATOPATHOLOGY LABORATORY Disclaimer An external and internal positive and negative controls are appropriate for the histochemical, immunohistochemical and immunofluorescence stain(s) in this case (if any), except where stated explicitly. The performance characteristics of the stain(s) cited in this report were developed and its performance characteristic determined by the Dermatopathology Laboratory at [facility], directed by Dr. Tri Echavarria. These tests need not be, and therefore are not, approved by the [place] Food and Drug Administration. The tests are used for clinical purposes. Billing Codes Specimen Charges Stain Charges 56254 1 5 12:07 PM CDT DERMATOPATHOLOGY LABORATORY Embedded Images 5 12:07 PM CDT DERMATOPATHOLOGY LABORATORY Pathology/Cytolo gy TISSUE SPECIMEN FROM SKIN / Unknown 08/25/2024 7:56 AM CDT 08/26/2024 7:01 AM CDT us Kaye Santos DO LAB - PATHOLOGY/CYTOLOGY ORDERABLES Final Result DERMATOPATHOLOGY LABORATORY [facility] - Department of Dermatology [address], [address] [phone] from Last 3 Months Insurance MEDICARE [facility] [place] MEDICARE Care Teams Wash Driller Helper Relationship Specialty Start Date End Date Seven Duran MD [address] [facility] [address] [place] [address] PCP - General 06/01/16
--- OUTSIDE RECORDS SUMMARY | 2024-09-03 00:55 | XMS_ITS | Encounter Summary ---
Author Organization [facility] Address [facility] [facility] [place] [address] Care Team Providers Care Electrical Software Engineer Name Role Phone Seven Duran MD Primary Care Provider [phone] Encounter Details Date Type Department Care Team (Late st Contact Info) Description 08/25/2024 Lab Requisition [facility] - DermPath Lab [address] [place] [phone] Kaye Santos DO [address] 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 Gender Identity Not on file Sexual Orientation Not on file documented as of this encounter Plan of Treatment Not on file documented as of this encounter Procedures Procedure Name Priority Date/Time Associated Diagnosis Comments DERMATOPATHOLOGY Routine 08/25/2024 7:56 AM CDT documented in this encounter Results * DERMATOPATHOLOGY (08/25/2024 7:56 AM CDT) Case Report Dermatopathology Report Case: [id number] Authorizing Provider: Kaye Santos DO Collected: 08/25/2024 07:56 AM Ordering Location: [facility] - Received: 08/26/2024 07:01 AM DermPath Lab Pathologist: Apolonia Horan MD Specimen: Skin, right lower back 12:07 PM T DERMATOPATHOLOGY LABORATORY Final Diagnosis Specimen A. SKIN, [...] of a non-oriented ellipse of skin measuring [id number] mm. The epidermal surface is unremarkable. The margin is inked green. The 12 o'clock and 6 o'clock tips are submitted in cassette 1. The remainder of the ellipse is serially sectioned and submitted in cassette 2-3. Jar 0. 12:07 PM CDT DERMATOPATHOLOGY LABORATORY Microscopic Description Specimen A. SKIN, right lower back: There are fibroblasts and collagen bundles oriented parallel to the skin surface. There are elongated blood vessels, some of which are oriented perpendicular to the skin surface. No residual squamous cell carcinoma in situ is identified. 12:07 PM CDT DERMATOPATHOLOGY LABORATORY Disclaimer An external and internal positive and negative controls are appropriate for the histochemical, immunohistochemical and immunofluorescence stain(s) in this case (if any), except where stated explicitly. The performance characteristics of the stain(s) cited in this report were developed and its performance characteristic determined by the Dermatopathology Laboratory at [facility], directed by Dr. Tri Echavarria. These tests need not be, and therefore are not, approved by the [place] Food and Drug Administration. The tests are used for clinical purposes. Billing Codes Specimen Charges Stain Charges 79233 1 12:07 PM CDT DERMATOPATHOLOGY LABORATORY Embedded Images 12:07 PM CDT DERMATOPATHOLOGY LABORATORY Pathology/Cytolo gy TISSUE SPECIMEN FROM SKIN / Unknown 08/25/2024 7:56 AM CDT 08/26/2024 7:01 AM CDT us Kaye Santos DO LAB - PATHOLOGY/CYTOLOGY ORDERABLES Final Result DERMATOPATHOLOGY LABORATORY [facility] - Department of Dermatology [facility] Specialized Medicine [address], [address] [phone] documented in this encounter Visit Diagnoses Not on filedocumented in this encounter Care Teams Electrical Software Engineer Relationship Specialty Start Date End Date Seven Duran MD [address] [place] [phone] PCP - General 06/01/16 documented as of this encounter
--- OUTSIDE RECORDS SUMMARY | 2024-09-03 00:55 | XMS_ITS | Encounter Summary ---
Author Organization [facility] Address [address] [place] [address] Care Team Providers Care Wild Life Manager Name Role Phone Seven Duran MD Primary Care Provider [phone] Encounter Details Date Type Department Care Team (Late st Contact Info) Description 09/23/[address] 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 DermPath Lab Received: 09/23/2020 12:59 PM Pathologist: Jeanine mEmanuel MD Specimen: Skin, nail clippings 1:36 PM CDT DERMATOPATHOLOGY LABORATORY Final Diagnosis Specimen A. SKIN, nail clippings: COMPACT KERATIN CONSISTENT WITH NAIL PLATE (L60.8) (see microscopic description) 1:36 PM CDT DERMATOPATHOLOGY LABORATORY Clinical History PAS stain, R/O fungus. 1:36 PM CDT DERMATOPATHOLOGY LABORATORY Gross Description Specimen A: Received is one formalin filled container labeled with the patient's name and designated nail clippings. The specimen consists of a nail clipping (5 pieces) measuring [id number], [id number], 1v9n6rv, 0a7g2ui, & 7g4n6ix. 1:36 PM CDT DERMATOPATHOLOGY LABORATORY Microscopic Description Specimen A. SKIN, nail clippings: Sections show nail plate. Periodic acid-Aba (PAS) stained sections do not highlight fungal organisms. Clusters of bacteria are present. 1:36 PM CDT DERMATOPATHOLOGY LABORATORY Disclaimer An external and internal positive and negative controls are appropriate for the histochemical, immunohistochemical and immunofluorescence stain(s) in this case (if any), except where stated explicitly. The performance characteristics of the stain(s) cited in this report were developed and its performance characteristic determined by the Dermatopathology Laboratory at [facility], directed by Dr. Tri Echavarria. These tests need not be, and therefore are not, approved by the [place] Food and Drug Administration. The tests are used for clinical purposes. Billing Codes Specimen Charges Stain Charges 80327 1 35322 1 1:36 PM CDT DERMATOPATHOLOGY LABORATORY Embedded Images 1:36 PM CDT DERMATOPATHOLOGY LABORATORY Pathology/Cytolo gy TISSUE SPECIMEN FROM SKIN / Unknown 09/22/2020 3:33 AM CDT 09/23/2020 12:59 PM CDT Yoel Patricio MD LAB - PATHOLOGY/CYTOLOGY ORD ERABLES Final Result DERMATOPATHOLOGY LABORATORY [facility] - Department of Dermatology [facility] Specialized Medicine [address] [place] [address], [address] [phone] documented in this encounter Visit Diagnoses Not on filedocumented in this encounter Care Teams Wild Life Manager Relationship Specialty Start Date End Date Seven Duran MD [address] [facility] [address] [place] [address] PCP - General 06/01/16 documented as of this encounter
--- OUTSIDE RECORDS SUMMARY | 2024-09-03 00:55 | XMS_ITS | Clinical Summary ---
Author Organization [facility] [address] Address [address] [place] [address] Care Team Providers Care Utility Helicopter Repairer Name Role Phone Jesus Bolanos NP Primary Care Provider Allergies Active Allergy Reactions Criticality Noted Date Comments Codeine Nausea only,Nausea And Vomiting Low 01/2017 Medications lisinopril (PRINIVIL,ZESTRIL ) 10 mg tabletIndications :Essential hypertension Take 1 tablet (10 mg total) by mouth daily 90 tablet 3 9 Active ergocalciferol (VITAMIN D) 50,000 unit capsule TK 1 C PO Q WEEK 0 Active glucosamine-chond roitin 500-400 mg tablet Take 1 tablet by mouth 3 (three) times a day Active cranberry fruit extract (cranberry extract) 300 mg tablet Take 1 tablet by mouth daily Active alendronate (FOSAMAX) 70 mg tablet 2 Active omeprazole (PriLOSEC) 40 mg capsule 2 Active apixaban (Eliquis) 5 mg tabletIndications :atrial fibrillation Take 1 tablet (5 mg total) by mouth 2 (two) times a day 180 tablet 3 4 Active metoprolol tartrate (LOPRESSOR) 25 mg immediate release tabletIndications :PAF (paroxysmal atrial fibrillation) (HCC) Take 1 tablet (25 mg total) by mouth every hour as needed (fast heart beats) Maximum two tablets, then seek medical attention. 180 tablet 1 4 Active Tiadylt ER 120 mg 24 hr capsuleIndication s:Typical atrial flutter (HCC),Essential hypertension TAKE 1 CAPSULE BY MOUTH EVERY DAY 90 capsule 1 5 Active metoprolol XL (TOPROL-XL) 50 mg extended release tabletIndications :Typical atrial flutter (HCC) TAKE 1 TABLET BY MOUTH EVERY DAY 90 tablet 1 5 Active Active Problems Problem Noted Date Diagnosed Date SILVERIO (obstructive sleep apnea) 01/29/2022 Lower extremity edema 01/23/2022 Paroxysmal atrial fibrillation 12/13/2021 Excessive daytime sleepiness 12/13/2021 Sleep-disordered breathing 12/13/2021 Class 3 obesity 12/13/2021 Body mass index 40.0-44.9, adult (CMS/HCC) 12/13 Bradycardia 12/30/2019 Hypercholesteremia 12/30/2019 Morbid obesity with BMI of 40.0-44.9, adult 01/2019 Chronic anticoagulation 12/30/2017 Diastolic dysfunction without heart failure 09/2017 Essential hypertension 07/16/2017 Paroxysmal atrial flutter (CMS/HCC) Resolved Problems Problem Noted Date Diagnosed Date Resolved Date Dizziness 12/30/2019 01/10/2021 Surgical History Surgery Date Site/Laterality Comments CHOLECYSTECTOMY REPLACEMENT TOTAL KNEE JOINT REPLACEMENT Medical History Medical History Date Comments Atrial flutter (HCC) Arthritis 05/2020 Heart disease 2017 Hypertension 1990 Osteoporosis 2019 Sleep apnea 2021 Family History Medical History Relation Name Comments Heart attack Father Manjit age 70 of heart attck Hypertension Father Manjit Kidney failure Maternal Grandmother Asthma Mother Rosa Atrial fibrillation Mother Rosa Cancer Mother Rosa Colon cancer Mother Rosa Asthma Sister Stacy Diabetes Sister Stacy Hearing loss Sister Stacy Obesity Sister Stacy Relation Name Status Comments Father Manjit Maternal Grandmother Mother Rosa Sister Stacy Social History Tobacco Use Types Packs/Day Years Used Date Smoking Tobacco: Former Cigarettes 0.8 20 0 10/12/1964 - 05/14/1984 Smokeless Tobacco: Never Alcohol Use Standard Drinks/Week Comments Yes 0 (1 standard drink = 0.6 oz pur e alcohol) Personal Safety Answer Date Recorded Getting School Help Needed Not on file 05/03 Comments Unknown Sex and Gender Information Value Date Recorded Sex Assigned at Not on file 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 Gender Identity Female 01/03/2021 12:55 PM CDT Sexual Orientation Straight 01/03/2021 12 :55 PM CDT Obstetrics History Last Filed Vital Signs Vital Sign Reading Time Taken Comments Blood Pressure 118/80 09/07/2023 3:37 PM CDT Pulse 62 09/07/2023 3:37 PM CDT Temperature - - Respiratory Rate 29 12/25/2017 2:14 PM CDT Oxygen Saturation 97% 09/07/2023 3:37 PM CDT Inhaled Oxygen Concentration - - Weight 120.3 kg (265 lb 4.8 oz) 09/07/2023 3:37 PM CDT Height 162.6 cm (5' 4 ) 09/07/2023 3:37 PM CDT Body Mass Index 45.54 09/07/2023 3:37 PM CDT Plan of Treatment Health Maintenance Due Date Last Done Comments Depression Screening 1945 Fall Risk Assessment 1945 Hepatitis C Screening 1945 Osteoporosis Screening-Bone Density Scan 1945 Hepatitis B Screening 02/08/1964 Zoster Vaccine (1 of 2) 02/08/1996 Well Visit 65+ 2011 Covid-19 Vaccine (3 - 2023-2 5 season) 2024 07/21/2020, 06/22/2020 DTaP/Tdap/Td Vaccine (2 - Td or Tdap) 11/27/2027 11/26/2017 Pneumococcal vaccine 65+ Completed 019, 02/10/2019, 02/24/2015 Influenza Vaccine Completed 02/19/2024, , 02/10/2019, Additional history exists [facility] [employer] PPO Care Teams Utility Helicopter Repairer Relationship Specialty Start Date End Date Jesus Bolanos NP [address] [place] [address] PCP - General Nurse Practitioner 12/05/22
--- OUTSIDE RECORDS SUMMARY | 2024-09-03 00:55 | XMS_ITS | Encounter Summary ---
Author Organization [facility] Address [address] [facility] [place] [address] Care Team Providers Care Structural Design Engineer Name Role Phone Seven Duran MD Primary Care Provider [phone] Encounter Details Date Type Department Care Team (Late st Contact Info) Description 05/31/2018 Lab Requisition [facility] DermPath Lab [address] [place] [address] Yoel Patricio MD [address] [place] [address] Social History Tobacco Use Types Packs/Day Years Used Date Smoking Tobacco: Former Alcohol Use Standard Drinks/Week Comments Yes 0 (1 standard drink = 0.6 oz pur e alcohol) Comments Unknown Sex and Gender Information Value Date Recorded Sex Assigned at Not on file Legal Sex Female 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 INDUSTRIAL Gender Identity Not on file Sexual Orientation Not on file documented as of this encounter Plan of Treatment Not on file documented as of this encounter Procedures Procedure Name Priority Date/Time Associated Diagnosis Comments DERMATOPATHOLOGY Routine 05/30/2018 12:0 0 AM MANAGER INDUSTRIAL documented in this encounter Results * DERMATOPATHOLOGY (05/30/2018 12:00 AM MANAGER INDUSTRIAL) Case Report Dermatopathology Report Case: [id number] Authorizing Provider: Yoel Patricio MD Collected: 05/30/2018 12:00 AM Pathologist: Zahida Crowley MD Received: 05/31/2018 01:33 PM Specimen: Skin, left upper back 1:04 PM [facility] DERMATOPATHOLOGY LABORATORY Final Diagnosis Specimen A. 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 Check margins. 1:04 PM [facility] DERMATOPATHOLOGY LABORATORY Gross Description Specimen A: Received is one formalin filled container labeled with the patients name and designated left upper back. The specimen consists of a shave (2 pieces) removal measuring [id number], [id number], the margin is inked green. Jar 0. 1:04 PM [facility] DERMATOPATHOLOGY LABORATORY Microscopic Description Specimen A. SKIN, left upper back: Sections show hyperkeratosis, papillomatosis, hypergranulosis, and acanthosis. These histological findings can be seen in a verruca vulgaris or a seborrheic keratosis. This lesion is present at the margin of the specimen. The epidermis also shows parakeratosis, full thickness disorderly maturation of keratinocytes, mitoses at different levels, and dyskeratotic cells. This lesion is not present at the sampled margin of the specimen. 1:04 PM [facility] DERMATOPATHOLOGY LABORATORY Disclaimer An external and internal positive and negative controls are appropriate for the histochemical, immunohistochemical and immunofluorescence stain(s) in this case (if any), except where stated explicitly. The performance characteristics of the stain(s) cited in this report were developed and its performance characteristic determined by the Dermatopathology Laboratory at [facility], directed by Dr. Tri Echavarria. These tests need not be, and therefore are not, approved by the [place] Food and Drug Administration. The tests are used for clinical purposes. Billing Codes Specimen Charges Stain Charges 15389 1 1:04 PM [facility] DERMATOPATHOLOGY LABORATORY Embedded Images 1:04 PM [facility] DERMATOPATHOLOGY LABORATORY Pathology/Cytolog y TISSUE SPECIMEN FROM SKIN / Unknown 05/30/2018 05/31/2018 1:33 PM MANAGER INDUSTRIAL us Yoel Patricio MD LAB - PATHOLOGY/CYTOLOGY ORD ERABLES Final Result DERMATOPATHOLOGY LABORATORY [facility] - Department of Dermatology [address] [place] [address], 5th Floor Lab [address] [phone] documented in this encounter Visit Diagnoses Not on filedocumented in this encounter Care Teams Structural Design Engineer Relationship Specialty Start Date End Date Seven Duran MD [address] [facility] [address] [place] [address] PCP - General 06/01/16 documented as of this encounter
--- OUTSIDE RECORDS SUMMARY | 2024-09-03 00:55 | XMS_ITS | Clinical Summary ---
Author Organization [facility] Address [address] [place] [address] Care Team Providers Care Biology Instructor Name Role Phone Unavailable Primary Care Provider Unavailabl e Immunizations Immunization Administration Dates Next Due Covid-19, Mrna, Lnp-s, PF, 1 00 mcg/0.5 mL Dose (Moderna) 07/21/2020,06/22/2020 Social History Tobacco Use Types Packs/Day Years Used Date Smoking Tobacco: Never Assessed Comments Unknown Sex and Gender Information Value Date Recorded Sex Assigned at Not on file Legal Sex Female 10:47 AM CDT Gender Identity Not on file Sexual Orientation Not on file Plan of Treatment Health Maintenance Due Date Last Done Comments DEXA Bone Density 1945 Hepatitis C Virus (HCV) Screening 1945 Zoster Immunization (1 of 2) 02/08/1996 Respiratory Syncytial Virus (RSV) Immunization (Adult) (1 - 1-dose 75+ series) 2021 Influenza Immunization (#1) 01/13/202401/12, 02/12/2019, 02/10/2019, Additional history exists SARS-COV-2 Immunization ( season) 2024 08/19/2021, 03/10/2021, 07/21/2020, Additional history exists DTaP/Tdap/Td Immunization Discontinued 11/26/2017 TdaP Immunization Completed 11/26/2017 Pneumococcal Immunization (50+ years) Completed 02/12/2019, 02/10/2019, 02/24/2015 Hepatitis B Immunization Aged Out No longer eligible based on patient's age to complete this topic Meningococcal Immunization (ACWY) Aged Out No longer eligible based on patient's age to complete this topic Rotavirus Immunization Aged Out No lo nger eligible based on patient's age to complete this topic
--- OUTSIDE RECORDS SUMMARY | 2024-09-03 00:55 | XMS_ITS | Encounter Summary ---
Author Organization [facility] Address [facility] [place] [address] Care Team Providers Care Asphalt Screed Operator Name Role Phone Seven Duran MD Primary Care Provider [phone] Encounter Details Date Type Department Care Team (Late st Contact Info) Description 07/24/2024 Lab Requisition [facility] - DermPath Lab [address] [facility] [place] [phone] Kaye Santos DO [address] [facility] [address] [place] [address] Social History Tobacco Use Types Packs/Day Years Used Date Smoking Tobacco: Former Alcohol Use Standard Drinks/Week Comments Yes 0 (1 standard drink = 0.6 oz pur e alcohol) Comments Unknown Sex and Gender Information Value Date Recorded Sex Assigned at Not on file Legal Sex Female 5:39 PM VIDEO TAPE DUPLICATOR Gender Identity Not on file Sexual Orientation Not on file documented as of this encounter Plan of Treatment Not on file documented as of this encounter Procedures Procedure Name Priority Date/Time Associated Diagnosis Comments DERMATOPATHOLOGY Routine 07/24/2024 10:1 0 AM CDT documented in this encounter Results * DERMATOPATHOLOGY (07/24/2024 10:10 AM CDT) Case Report Dermatopathology Report Case: [id number] Authorizing Provider: Kaye Santos DO Collected: 07/24/2024 10:10 AM Ordering Location: [facility] - Received: 07/25/2024 07:09 AM DermPath Lab Pathologist: Jeanine Emmanuel MD Specimens: A) - Skin, right ventral forearm B) - Skin, right lower back 2:22 PM [facility] DERMATOPATHOLOGY LABORATORY Final Diagnosis Specimen A. SKIN, right ventral forearm: SEBORRHEIC KERATOSIS, IRRITATED AND INFLAMED (L82.0) Specimen B. 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 The specimen consists of a shave biopsy measuring 4x3x1 mm. Jar 0. Specimen B: Received is one formalin filled container labeled with the patient's name and designated right lower back. The specimen consists of a shave biopsy measuring 9x6x1 mm. Jar 0. 2:22 PM [facility] DERMATOPATHOLOGY LABORATORY Microscopic Description Specimen A. SKIN, right ventral forearm: Sections show acanthosis, papillomatosis, hyperkeratosis, and squamous eddies. There is a lymphohistiocytic infiltrate within the papillary dermis. Specimen B. SKIN, right lower back: The epidermis shows parakeratosis, full thickness disorderly maturation of keratinocytes, mitoses at different levels, and dyskeratotic cells. 2:22 PM [facility] DERMATOPATHOLOGY LABORATORY Disclaimer An external and internal positive and negative controls are appropriate for the histochemical, immunohistochemical and immunofluorescence stain(s) in this case (if any), except where stated explicitly. The performance characteristics of the stain(s) cited in this report were developed and its performance characteristic determined by the Dermatopathology Laboratory at [facility], directed by Dr. Tri Echavarria. These tests need not be, and therefore are not, approved by the [place] Food and Drug Administration. The tests are used for clinical purposes. Billing Codes Specimen Charges Stain Charges 78500 98250 1 1 2:22 PM CDT DERMATOPATHOLOGY LABORATORY Embedded Images 2:22 PM CDT DERMATOPATHOLOGY LABORATORY Pathology/Cytology TISSUE SPECIMEN FROM SKIN / Unknown 07/24/2024 10:10 AM CDT 07/25/2024 7:09 AM CDT Miscellaneous samples (specimen) TISSUE SPECIMEN FROM SKIN / Unknown 07/24/2024 10:10 AM CDT 07/25/2024 7:09 AM CDT us Kaye Santos DO LAB - PATHOLOGY/CYTOLOGY ORDERABLES Final Result DERMATOPATHOLOGY LABORATORY [facility] - Department of Dermatology [facility] [address] [place] [address], [address] [phone] documented in this encounter Visit Diagnoses Not on filedocumented in this encounter Care Teams Asphalt Screed Operator Relationship Specialty Start Date End Date Seven Duran MD [address] [facility] [address] [place] [address] PCP - General 06/01/16 documented as of this encounter
--- OUTSIDE RECORDS SUMMARY | 2024-09-03 00:55 | XMS_ITS | Referral Summary ---
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
--- OUTSIDE RECORDS SUMMARY | 2024-09-03 00:55 | XMS_ITS | Encounter Summary ---
Author Organization [facility] Address [address] [facility] [place] [address] Care Team Providers Care Olive Packer Name Role Phone Seven Duran MD Primary Care Provider [phone] Encounter Details Date Type Department Care Team (Late st Contact Info) Description 04/28/2020 Lab Requisition [facility] DermPath Lab [address] [place] [address] Yoel Patricio MD [address] [place] [address] Social History Tobacco Use Types Packs/Day Years Used Date Smoking Tobacco: Former Alcohol Use Standard Drinks/Week Comments Yes 0 (1 standard drink = 0.6 oz pur e alcohol) Comments Unknown Sex and Gender Information Value Date Recorded Sex Assigned at Not on file Legal Sex Female 5:39 PM CMM OPERATOR Gender Identity Not on file Sexual Orientation Not on file documented as of this encounter Plan of Treatment Not on file documented as of this encounter Procedures Procedure Name Priority Date/Time Associated Diagnosis Comments DERMATOPATHOLOGY Routine 04/27/2020 12:0 0 AM CMM OPERATOR documented in this encounter Results * DERMATOPATHOLOGY (04/27/2020 12:00 AM CMM OPERATOR) Case Report Dermatopathology Report Case: [id number] Authorizing Provider: Yoel Patricio MD Collected: 04/27/2020 12:00 AM Ordering Location: [facility] DermPath Lab Received: 04/28/2020 12:00 PM Pathologist: Kim Echavarria MD Specimen: Skin, right lower lat calf 0 4:48 PM CMM OPERATOR DERMATOPATHOLOGY LABORATORY Final Diagnosis Specimen A. SKIN, right lower lat calf: BASAL CELL CARCINOMA, NODULAR TYPE (C44.712) 0 4:48 PM CMM OPERATOR DERMATOPATHOLOGY LABORATORY Clinical History R/O HAK, BCC, SCC, other dermatitis. 0 4:48 PM CMM OPERATOR DERMATOPATHOLOGY LABORATORY Gross Description Specimen A: Received is one formalin filled container labeled with the patient's name and designated right lower lat calf. The specimen consists of a shave biopsy measuring [id number]. Jar 0. 0 4:48 PM CMM OPERATOR DERMATOPATHOLOGY LABORATORY Microscopic Description Specimen A. SKIN, right lower lat calf: Within the dermis there are aggregates of basaloid cells with a high nuclear to cytoplasmic ratio and peripheral palisading. 0 4:48 PM CMM OPERATOR DERMATOPATHOLOGY LABORATORY Disclaimer An external and internal positive and negative controls are appropriate for the histochemical, immunohistochemical and immunofluorescence stain(s) in this case (if any), except where stated explicitly. The performance characteristics of the stain(s) cited in this report were developed and its performance characteristic determined by the Dermatopathology Laboratory at [facility], directed by Dr. Tri Echavarria. These tests need not be, and therefore are not, approved by the [place] Food and Drug Administration. The tests are used for clinical purposes. Billing Codes Specimen Charges Stain Charges 88832 1 0 4:48 PM CMM OPERATOR DERMATOPATHOLOGY LABORATORY Embedded Images 0 4:48 PM CMM OPERATOR DERMATOPATHOLOGY LABORATORY Pathology/Cytolog y TISSUE SPECIMEN FROM SKIN / Unknown 04/27/2020 04/28/2020 12:00 PM CMM OPERATOR us Yoel Patricio MD LAB - PATHOLOGY/CYTOLOGY ORD ERABLES Final Result DERMATOPATHOLOGY LABORATORY [facility] - Department of Dermatology [address], [address] [phone] documented in this encounter Visit Diagnoses Not on filedocumented in this encounter Care Teams Olive Packer Relationship Specialty Start Date End Date Seven Duran MD [address] [facility] [address] [place] [phone] PCP - General 06/01/16 documented as of this encounter
--- OUTSIDE RECORDS SUMMARY | 2024-09-03 00:55 | XMS_ITS | Encounter Summary ---
Author Organization [facility] Address [address] [facility] [place] [address] Care Team Providers Care Water Team Leader Name Role Phone Seven Duran MD Primary Care Provider [phone] Encounter Details Date Type Department Care Team (Late st Contact Info) Description 01/08/2019 Lab Requisition [facility] DermPath Lab [address] [place] [address] Yoel Patricio MD [address] [place] [address] Social History Tobacco Use Types Packs/Day Years Used Date Smoking Tobacco: Former Alcohol Use Standard Drinks/Week Comments Yes 0 (1 standard drink = 0.6 oz pur e alcohol) Comments Unknown Sex and Gender Information Value Date Recorded Sex Assigned at Not on file 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 Female 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 Gender Identity Not on file Sexual Orientation Not on file documented as of this encounter Plan of Treatment Not on file documented as of this encounter Procedures Procedure Name Priority Date/Time Associated Diagnosis Comments DERMATOPATHOLOGY Routine 01/07/2019 12:0 0 AM CDT documented in this encounter Results * DERMATOPATHOLOGY (01/07/2019 12:00 AM CDT) Case Report Dermatopathology Report Case: [id number] Authorizing Provider: Yoel Patricio MD Collected: 01/07/2019 12:00 AM Ordering Location: [facility] DermPath Lab Received: 01/08/2019 12:49 PM Pathologist: Kim Echavarria MD Specimen: Skin, left lat AC fossa 4:46 PM CDT DERMATOPATHOLOGY LABORATORY Final Diagnosis Specimen A. SKIN, left lat AC fossa: LICHEN PLANUS-LIKE KERATOSIS (BENIGN LICHENOID KERATOSIS) (L82.1) 4:46 PM CDT DERMATOPATHOLOGY LABORATORY Clinical History R/O Arrieta's, HAK, SCC, BCC. 4:46 PM CDT DERMATOPATHOLOGY LABORATORY Gross Description Specimen A: Received is one formalin filled container labeled with the patient's name and designated left lat AC fossa. The specimen consists of a shave biopsy measuring [id number]. Jar 0. 4:46 PM CDT DERMATOPATHOLOGY LABORATORY Microscopic Description Specimen A. SKIN, left lat AC fossa: The epidermis is mildly acanthotic. There is a lichenoid infiltrate with vacuolar changes of basilar keratinocytes and scattered necrotic keratinocytes. 4:46 PM CDT DERMATOPATHOLOGY LABORATORY Disclaimer An external and internal positive and negative controls are appropriate for the histochemical, immunohistochemical and immunofluorescence stain(s) in this case (if any), except where stated explicitly. The performance characteristics of the stain(s) cited in this report were developed and its performance characteristic determined by the Dermatopathology Laboratory at [facility], directed by Dr. Tri Echavarria. These tests need not be, and therefore are not, approved by the [place] Food and Drug Administration. The tests are used for clinical purposes. Billing Codes Specimen Charges Stain Charges [id number] 1 4:46 PM CDT DERMATOPATHOLOGY LABORATORY Embedded Images 4:46 PM CDT DERMATOPATHOLOGY LABORATORY Pathology/Cytolog y TISSUE SPECIMEN FROM SKIN / Unknown 01/07/2019 01/08/2019 12:49 PM CDT us Yoel Patricio MD LAB - PATHOLOGY/CYTOLOGY ORD ERABLES Final Result DERMATOPATHOLOGY LABORATORY [facility] - Department of Dermatology [address] 5[address] Lab [address] [phone] documented in this encounter Visit Diagnoses Not on filedocumented in this encounter Care Teams Water Team Leader Relationship Specialty Start Date End Date Seven Duran MD [address] [facility] [address] [place] [phone] PCP - General 06/01/16 documented as of this encounter
[2024-09-03] MEDS: LACTATED RINGERS 1,000 ML 150 ML IV CONT (06:34)
--- NOTE | 2024-09-03 06:46 | P.PNAN_ITS ---
Anes - Initial Pre Proc Eval Procedure: Operation Date: 09/03/24 07:30 Proposed Procedures p Colonoscopy - Cody Dominguez MD Date/Time: 09/03/24 06:46 Surgeon: Cody Dominguez MD Pre Op Diagnosis: personal hx of colon polyps Patient Data Age: 79 Gender: F Height: 1.63 m Weight: 118.9 kg Last Vital Signs Temp 35.9 C L 09/03/24 06:24 Pulse 87 09/03/24 06:24 Resp 18 09/03/24 06:24 BP 168/91 H 09/03/24 06:24 Pulse Ox 97 09/03/24 06:24 O2 Del Method Room Air 09/03/24 06:24 Allergies Allergy/AdvReac Type Severity Reaction Status Date / Time codeine Allergy Mild sick to Verified 09/03/24 06:19 stomach Home Medications ?Medication ?Instructions ?Recorded ?Confirmed ?Type apixaban 5 mg tablet (Eliquis) 5 mg PO BID 03/27/19 09/03/24 History cranberry fruit 400 mg capsule 400 mg PO DAILY 03/27/19 09/03/24 History diltiazem HCl 120 mg capsule,24 120 mg PO DAILY #30 caps 05/03/20 09/03/24 Rx hr,extended release cholecalciferol (vitamin D3) 125 50,000 unit PO .COMPLEX 01/24/22 09/03/24 History mcg (5,000 unit) tablet (Vitamin D3) metoprolol succinate 25 mg 50 mg PO DAILY 01/24/22 09/03/24 History tablet,extended release 24 hr metoprolol tartrate 25 mg tablet 25 mg PO .prn 08/02/22 08/25/24 History glucosamine-chondroitin 250 mg-200 2 tablet PO DAILY 08/31/23 09/03/24 History mg tablet (Osteo Bi-Flex) lisinopril 10 mg tablet 10 mg PO DAILY #90 tabs 04/21/24 09/03/24 Rx omeprazole 40 mg capsule,delayed 40 mg PO .COMPLEX #90 caps 07/14/24 09/03/24 Rx release Patient hx anesthesia problems: none Family hx anesthesia problems: none Results Review: All pre-operative results and documents have been reviewed as part of the pre- operative evaluation. [facility] Past Medical History Medical History SILVERIO (obstructive sleep apnea) CPAP Gallbladder disorder Osteopenia Mixed hyperlipidemia GERD (gastroesophageal reflux disease) Morbid obesity Hypertension Atrial flutter Surgical History Surgical History Status post right knee replacement Hx of cholecystectomy Family History Family History Mother Asthma Carcinoma of colon Sibling Asthma Family history of malignant melanoma Patient's brother is in good health Diabetes mellitus Father Family history of coronary artery disease, Onset Age: 70 Family history of diabetes mellitus in first degree relative Family history of heart disease in male family member before age 55 Patient's father is Diabetes mellitus Social History Social History Smoking packs per day: 1 Smoking cigarettes per day: 20.0 Years smoked: 20 Smoking pack-years: 20.00 Smoking status: Former smoker Tobacco type: cigarettes Second hand tobacco smoke exposure: Yes Smoking end date: 05/14/84 Alcohol intake: current Alcohol use details: rarely Substance use: never Substance use type: does not use Current Housing: Decline to Answer Concerned About Future Housing: Decline to Answer Difficulty Paying Gas/Electric Bills: Decline to Answer Difficulty Paying for Meds: Decline to Answer Currently Unemployed: Decline to Answer Education: Decline to Answer Difficulty w/ Childcare or Family Care: Decline to Answer Living arrangements: with family Spiritual care concerns: No Anes - Eval Final PreProcedure Day of Procedure 09/03/24 06:46 Patient weight: morbidly obese Heart: regular rate and rhythm Lungs: clear to auscultation Airway: Mallampati scale class II Neurological: alert and oriented Last oral intake: >/= 8 hours ASA classification: III Emergent: no Anesthetic plan: proceed Anesthesia type and monitoring: general GIVS and standard monitoring Results Review: All pre-operative results and documents have been reviewed as part of the pre- operative evaluation. Informed Consent: The patient's anesthetic plan and its attendant risks and benefits were discussed with the patient/family/POA. Questions were solicited and answers provided to the satisfaction of the patient/family/POA.
--- NOTE | 2024-09-03 07:37 | PM.IMHP ---
H&P: HPI History of Present Illness Date/Time: 09/03/24 07:37 Chief Complaint: History of colon polyps Narrative: The patient has a history of colonic polyps, the last colonoscopy was 5 years ago. Review of Systems Review of Systems: All systems reviewed & are unremarkable except as noted in HPI and below PMFSH Past Medical History Medical History SILVERIO (obstructive sleep apnea) CPAP Gallbladder disorder Osteopenia Mixed hyperlipidemia GERD (gastroesophageal reflux disease) Morbid obesity Hypertension Atrial flutter Surgical History Surgical History Status post right knee replacement Hx of cholecystectomy Family History Family History Mother Asthma Carcinoma of colon Sibling Asthma Family history of malignant melanoma Patient's brother is in good health Diabetes mellitus Father Family history of coronary artery disease, Onset Age: 70 Family history of diabetes mellitus in first degree relative Family history of heart disease in male family member before age 55 Patient's father is Diabetes mellitus Social History Social History Smoking packs per day: 1 Smoking cigarettes per day: 20.0 Years smoked: 20 Smoking pack-years: 20.00 Smoking status: Former smoker Tobacco type: cigarettes Second hand tobacco smoke exposure: Yes Smoking end date: 05/14/84 Alcohol intake: current Alcohol use details: rarely Substance use: never Substance use type: does not use Current Housing: Decline to Answer Concerned About Future Housing: Decline to Answer Difficulty Paying Gas/Electric Bills: Decline to Answer Difficulty Paying for Meds: Decline to Answer Currently Unemployed: Decline to Answer Education: Decline to Answer Difficulty w/ Childcare or Family Care: Decline to Answer Living arrangements: with family Spiritual care concerns: No Meds Home Medications and Allergies Home Medications ?Medication ?Instructions ?Recorded ?Confirmed ?Type apixaban 5 mg tablet (Eliquis) 5 mg PO BID 03/27/19 09/03/24 History cranberry fruit 400 mg capsule 400 mg PO DAILY 03/27/19 09/03/24 History diltiazem HCl 120 mg capsule,24 120 mg PO DAILY #30 caps 05/03/20 09/03/24 Rx hr,extended release cholecalciferol (vitamin D3) 125 50,000 unit PO .COMPLEX 01/24/22 09/03/24 History mcg (5,000 unit) tablet (Vitamin D3) metoprolol succinate 25 mg 50 mg PO DAILY 01/24/22 09/03/24 History tablet,extended release 24 hr metoprolol tartrate 25 mg tablet 25 mg PO .prn 08/02/22 08/25/24 History glucosamine-chondroitin 250 mg-200 2 tablet PO DAILY 08/31/23 09/03/24 History mg tablet (Osteo Bi-Flex) lisinopril 10 mg tablet 10 mg PO DAILY #90 tabs 04/21/24 09/03/24 Rx omeprazole 40 mg capsule,delayed 40 mg PO .COMPLEX #90 caps 07/14/24 09/03/24 Rx release Allergies Allergy/AdvReac Type Severity Reaction Status Date / Time codeine Allergy Mild sick to Verified 09/03/24 06:19 stomach Vital Signs Vital Signs - 24 hr 09/03/24 06:24 Temperature 96.7 F L Pulse Rate 87 Respiratory Rate 18 Blood Pressure 168/91 H Pulse Oximetry 97 Oxygen Delivery Room Air Exam Const: General: cooperative and healthy appearing Resp: Effort & Inspection: normal respiratory effort and able to speak in complete sentences Auscultation: clear to auscultation bilaterally Cardio: Rate: regular rate Rhythm: regular rhythm GI: Inspection: normal to inspection GI Palp: No No hepatosplenomegaly present Auscultation: normal bowel sounds Rectal Exam: deferred Skin: General skin exam: normal color Psych: Appearance: grossly normal Mental Status: mental status grossly normal Assessment and Plan Assessment and plan (1) Encounter for colonoscopy due to history of colonic polyp: Code(s): Z12.11 - Encounter for screening for malignant neoplasm of colon; Z86.010 - Personal history of colon polyps Status: Acute Assessment and Plan: The patient is deemed a good candidate for the procedure. Consent signed. Will proceed.
[2024-09-03] MEDS: METOPROLOL TARTRATE INJ 5 MG/5 ML VIAL 2.5 MG IV PUSH (08:12)
[2024-09-03] MEDS: METOPROLOL TARTRATE INJ 5 MG/5 ML VIAL IV PUSH (08:28)
[2024-09-03] MEDS: dilTIAZem HCl INJ 25 MG/5 ML VIAL IV PUSH (08:53)
--- NOTE | 2024-09-03 09:16 | ECG_ITS ---
Test Date: 2024-09-03 09:24:24 Measurements Intervals [place] Rate: 126 P: 0 [place]: 0 QRS: 16 QRSD: 89 T: 71 QT: 297 QTc: 430 Interpretive Statements ATRIAL FIBRILLATION WITH RAPID VENTRICULAR RESPONSE NONSPECIFIC ST & T-WAVE ABNORMALITY- INF/HIGH LAT LEADS BASELINE ARTIFACT- I, II, III, AVR, AVL A,VF, V1-V2 ABNORMAL ECG No previous ECG available for comparison Electronically Signed On 09-03-2024 09:28:21 CDT by Chris Malone D.O.
--- NOTE | 2024-09-03 09:29 | SUR.PHASEII ---
Pt heart rate 100-130's. Pt EKG shows Atrial Fibrillation with RVR. Dr. Marinelli Anesthesiologist aware, pt given Metoprolol and Diltiazem IV as ordered. Heart rate continues to stay 100-130's. Call out to pt personal insurance advisor Santos Lowe per Dr. Marinelli.
--- NOTE | 2024-09-03 09:49 | SUR.PHASEII ---
Addendum entered by Saundra Thompson RN 09/03/24 10:17: Report given to embedded software design engineer in Emergency Dept. as well as bedside RN in ED. RN updated on medications given in PACU. EKG and cardiology note given to [employer]. Original Note: Dr. Marinelli spoke with Dr. Santos Lowe. Orders to admit pt at this time. Pt updated. Pt to go Emergency Room for admission.
== END 2024-09-03 10:01 | disposition home or self-care (01) ==
PROVIDERS: PCP Internal Medicine; Referring Provider Obstetrics & Gynecology Gynecology; Visit Provider Internal Medicine Gastroenterology
PROC: 0DJD8ZZ Inspection of Lower Intestinal Tract, Via Natural or Artificial Opening Endoscopic (ICD-10-PCS; CPT 45378; principal; 2024-09-03 07:30)
DX: Z12.11 Encounter for screening for malignant neoplasm of colon (principal); K51.40 Inflammatory polyps of colon without complications; K57.30 Diverticulosis of large intestine without perforation or abscess without bleeding; E78.2 Mixed hyperlipidemia; K21.9 Gastro-esophageal reflux disease without esophagitis; I10 Essential (primary) hypertension; I48.92 Unspecified atrial flutter; G47.33 Obstructive sleep apnea (adult) (pediatric); Z99.89 Dependence on other enabling machines and devices; K82.9 Disease of gallbladder, unspecified; M85.88 Other specified disorders of bone density and structure, other site; E66.01 Morbid (severe) obesity due to excess calories; Z68.42 Body mass index [BMI] 45.0-49.9, adult; Z79.01 Long term (current) use of anticoagulants; Z98.890 Other specified postprocedural states; Z90.49 Acquired absence of other specified parts of digestive tract; Z87.891 Personal history of nicotine dependence; Z80.0 Family history of malignant neoplasm of digestive organs; Z80.8 Family history of malignant neoplasm of other organs or systems; Z82.49 Family history of ischemic heart disease and other diseases of the circulatory system
CPT/HCPCS: 45385; 88305; 93005; J2003; J2704; J7120

== ENCOUNTER 2024-09-03 10:04 | Emergency (ER) | payer OTHER, SELFPAY ==
[2024-09-03] VITALS (27 sets, daily range): BP systolic 121–192; BP diastolic 77–111; PULSE 58–159; RESP 13–26; TEMP 36.1–36.9; O2SAT 94–98
--- NOTE | ~2024-09-03 | XR_ITS ---
Clinical Indication: Tachycardia PA and lateral views of the chest: Comparison: 10/31/2021 Findings: The lungs are clear, without evidence of focal consolidation or pleural effusion. Cardiome diastinal silhouette is within normal limits. Bones and soft tissues are unremarkable. Impression: Normal chest. Reviewed, dictated and finalized at location . Impression: Normal chest.
--- NOTE | 2024-09-03 10:12 | ECG_ITS ---
Test Date: 2024-09-03 10:15:07 Measurements Intervals [place] Rate: 131 P: 0 [place]: 0 QRS: 6 QRSD: 90 T: 67 QT: 291 QTc: 429 Interpretive Statements ATRIAL FIBRILLATION WITH RAPID VENTRICULAR RESPONSE LEFT VENTRICULAR HYPERTROPHY WITH ST-T CHANGE BASELINE ARTIFACT- I, II, III, AVR, AVL ABNORMAL ECG Compared to ECG 09/03/2024 09:24:24 NO SIGNIFICANT CHANGE Electronically Signed On 09-03-2024 10:41:42 CDT by Chris Malone D.O.
[2024-09-03 10:28] LABS: Basophils Percent Auto 0.5 % (0.2-1.2); Eosinophils Percent Auto 0.7 % (0-4.4); Hematocrit 44.1 % (37.0-47.0); Hemoglobin 13.8 g/dL (12.0-15.0); Immature Granulocyte Absolute 0.01 K/mm3 (0.00-0.031); Immature Granulocyte Percent A 0.2 % (0-0.5); Lymphocytes Absolute Auto 0.76 K/mm3 (0.9-3.2); Lymphocytes Percent Auto 12.7 % (18.3-44.2); Mean Corpuscular HGB Conc 31.3 g/dl (32-36); Mean Corpuscular Hemoglobin 27.9 pg (26-34); Mean Corpuscular Volume 89.1 fl (80-100); Mean Platelet Volume 10.3 fl (7.4-10.4); Monocytes Absolute Auto 0.3 K/mm3 (0.1-0.6); Monocytes Percent Auto 5.7 % (2.6-8.5); Neutrophils Absolute Auto 4.8 K/mm3 (1.3-6.7); Neutrophils Percent Auto 80.2 % (45.5-73.1); Platelet Count Result 191 k/mm3 (150-375); Red Blood Count 4.95 M/mm3 (4.2-5.4); Red Cell Distribution Width 13.4 % (11.5-14.5)
[2024-09-03 10:39] LABS: Alanine Aminotransferase 18 U/L (6-35); Albumin Level 4.3 g/dL (3.5-5.1); Alkaline Phosphatase 72 U/L (38-126); Anion Gap 11 mmol/L (4-12); Aspartate Amino Transferase 21 U/L (14-36); Bilirubin,Total 0.4 mg/dL (0.2-1.3); Blood Urea Nitrogen 10 mg/dL (7-17); Calcium 9.3 mg/dL (8.4-10.2); Carbon Dioxide 25 mmol/L (22-30); Chloride 107 mmol/L (98-107); Estimated CRCL calculation 65 ml/min; Estimated Glomerular Filt Rate > 60; Glucose 97 mg/dL (65-110); Lipase 62 U/L (23-300); Potassium 3.8 mmol/L (3.4-5.0); Sodium 143 mmol/L (137-145)
[2024-09-03 10:46] LABS: Prothrombin Time 13.2 Seconds (11.1-14.7)
[2024-09-03 10:47] LABS: Partial Thromboplastin Time 27.8 Seconds (22.3-36.8)
[2024-09-03 10:50] LABS: Troponin I < 0.012 ng/mL (0.000-0.034)
--- OUTSIDE RECORDS SUMMARY | 2024-09-03 11:26 | XMS_ITS | Encounter Summary ---
Author Organization [facility] Address [address] [place] [address] Care Team Providers Care Mounting Machine Operator Name Role Phone Seven Duran MD Primary Care Provider [phone] Encounter Details Date Type Department Care Team (Late st Contact Info) Description 04/28/2020 Lab Requisition [facility] [address] [place] [address] Yoel Patricio MD [address] [place] [address] Social History Tobacco Use Types Packs/Day Years Used Date Smoking Tobacco: Former Alcohol Use Standard Drinks/Week Comments Yes 0 (1 standard drink = 0.6 oz pur e alcohol) Comments Unknown Sex and Gender Information Value Date Recorded Sex Assigned at Not on file Legal Sex Female 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 PARK Gender Identity Not on file Sexual Orientation Not on file documented as of this encounter Plan of Treatment Not on file documented as of this encounter Procedures Procedure Name Priority Date/Time Associated Diagnosis Comments DERMATOPATHOLOGY Routine 04/27/2020 12:0 0 AM MANAGER PARK documented in this encounter Results * DERMATOPATHOLOGY (04/27/2020 12:00 AM MANAGER PARK) Case Report Dermatopathology Report Case: [id number] Authorizing Provider: Yoel Patricio MD Collected: 04/27/2020 12:00 AM Ordering Location: [facility] Received: 04/28/2020 12:00 PM Pathologist: Kim Echavarria MD Specimen: Skin, right lower lat calf 0 4:48 PM [facility] Final Diagnosis Specimen A. 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 0 4:48 PM [facility] Gross Description Specimen A: Received is one formalin filled container labeled with the patient's name and designated right lower lat calf. The specimen consists of a shave biopsy measuring [id number]. Jar 0. 0 4:48 PM [facility] Microscopic Description Specimen A. SKIN, right lower lat calf: Within the dermis there are aggregates of basaloid cells with a high nuclear to cytoplasmic ratio and peripheral palisading. 0 4:48 PM [facility] Disclaimer An external and internal positive and negative controls are appropriate for the histochemical, immunohistochemical and immunofluorescence stain(s) in this case (if any), except where stated explicitly. The performance characteristics of the stain(s) cited in this report were developed and its performance characteristic determined by the Dermatopathology Laboratory at [facility], directed by Dr. Tri Echavarria. These tests need not be, and therefore are not, approved by the [place] Food and Drug Administration. The tests are used for clinical purposes. Billing Codes Specimen Charges Stain Charges 32759 1 0 4:48 PM [facility] Embedded Images 0 4:48 PM [facility] Pathology/Cytolog y TISSUE SPECIMEN FROM SKIN / Unknown 04/27/2020 04/28/2020 12:00 PM MANAGER PARK us Yoel Patricio MD LAB - PATHOLOGY/CYTOLOGY ORD ERABLES Final Result DERMATOPATHOLOGY LABORATORY [facility] - Department of Dermatology [address], [address] [phone] documented in this encounter Visit Diagnoses Not on filedocumented in this encounter Care Teams Mounting Machine Operator Relationship Specialty Start Date End Date Seven Duran MD [address] [facility] [address] [place] [address] PCP - General 06/01/16 documented as of this encounter
--- OUTSIDE RECORDS SUMMARY | 2024-09-03 11:26 | XMS_ITS | Encounter Summary ---
Author Organization [facility] Address [address] [place] [address] Care Team Providers Care Music Box Mechanic Name Role Phone Seven Duran MD Primary Care Provider [phone] Encounter Details Date Type Department Care Team (Late st Contact Info) Description 05/31/2018 Lab Requisition [facility] [address] [place] [address] Yoel Patricio MD [address] [place] [address] Social History Tobacco Use Types Packs/Day Years Used Date Smoking Tobacco: Former Alcohol Use Standard Drinks/Week Comments Yes 0 (1 standard drink = 0.6 oz pur e alcohol) Comments Unknown Sex and Gender Information Value Date Recorded Sex Assigned at Not on file Legal Sex Female 5:39 PM BEEF SPECIALIST Gender Identity Not on file Sexual Orientation Not on file documented as of this encounter Plan of Treatment Not on file documented as of this encounter Procedures Procedure Name Priority Date/Time Associated Diagnosis Comments DERMATOPATHOLOGY Routine 05/30/2018 12:0 0 AM BEEF SPECIALIST documented in this encounter Results * DERMATOPATHOLOGY (05/30/2018 12:00 AM BEEF SPECIALIST) Case Report Dermatopathology Report Case: [id number] Authorizing Provider: Yoel Patricio MD Collected: 05/30/2018 12:00 AM Pathologist: Zahida Crowley MD Received: 05/31/2018 01:33 PM Specimen: Skin, left upper back 1:04 PM [facility] DERMATOPATHOLOGY LABORATORY Final Diagnosis Specimen A. 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 Check margins. 1:04 PM [facility] DERMATOPATHOLOGY LABORATORY Gross Description Specimen A: Received is one formalin filled container labeled with the patients name and designated left upper back. The specimen consists of a shave (2 pieces) removal measuring 3e0h1my, 0l9r3mt, the margin is inked green. Jar 0. 1:04 PM [facility] DERMATOPATHOLOGY LABORATORY Microscopic Description Specimen A. [...] sampled margin of the specimen. 1:04 PM [facility] DERMATOPATHOLOGY LABORATORY Disclaimer An external and internal positive and negative controls are appropriate for the histochemical, immunohistochemical and immunofluorescence stain(s) in this case (if any), except where stated explicitly. The performance characteristics of the stain(s) cited in this report were developed and its performance characteristic determined by the Dermatopathology Laboratory at [facility], directed by Dr. Tri Echavarria. These tests need not be, and therefore are not, approved by the [place] Food and Drug Administration. The tests are used for clinical purposes. Billing Codes Specimen Charges Stain Charges 28357 1 1:04 PM [facility] DERMATOPATHOLOGY LABORATORY Embedded Images 1:04 PM [facility] DERMATOPATHOLOGY LABORATORY Pathology/Cytolog y TISSUE SPECIMEN FROM SKIN / Unknown 05/30/2018 05/31/2018 1:33 PM BEEF SPECIALIST us Yoel Patricio MD LAB - PATHOLOGY/CYTOLOGY ORD ERABLES Final Result DERMATOPATHOLOGY LABORATORY [facility] - Department of Dermatology [address] [place] [address], 5th Floor Lab [address] [phone] documented in this encounter Visit Diagnoses Not on filedocumented in this encounter Care Teams Music Box Mechanic Relationship Specialty Start Date End Date Seven Duran MD [address] [facility] [address] [place] [address] PCP - General 06/01/16 documented as of this encounter
--- OUTSIDE RECORDS SUMMARY | 2024-09-03 11:26 | XMS_ITS | Referral Summary ---
Author Organization [facility] [address] Address [address] [place] [address] Care Team Providers Care Clinical Rehab Specialist Name Role Phone Jesus Bolanos NP Primary Care Provider Encounters Date Type Department Care Team Description 09/03/2024 Telephone [facility] Cardiology [address] [place] [address] Santos Lowe MD from Last 3 Months Allergies Active Allergy Reactions Criticality Noted Date [...] on file Legal Sex Female 12:31 AM PLANT SAFETY ENGINEER Gender Identity Female 01/03/2021 12:55 PM CDT [...] Plan of Treatment Not on file Insurance [facility] MEDICARE [employer] PPO Care Teams Clinical Rehab Specialist Relationship Specialty Start Date End Date Jesus Bolanos NP [address] [place], [place] [phone] PCP - General Nurse Practitioner 12/05/22
--- OUTSIDE RECORDS SUMMARY | 2024-09-03 11:26 | XMS_ITS | Clinical Summary ---
Author Organization [facility] [address] Address [address] [place] [address] Care Team Providers Care Priest Name Role Phone Jesus Bolanos NP Primary [...] Diagnosed Date Resolved Date Dizziness 12/30/2019 01/10/2021 Encounters Date Type Department Care Team Description 09/03/2024 Telephone [facility] Cardiology [address] [place] [address] Santos Lowe MD from Last 3 Months Surgical History Surgery Date Site/Laterality Comments CHOLECYSTECTOMY REPLACEMENT TOTAL KNEE JOINT REPLACEMENT Medical History Medical History Date Comments Atrial flutter (HCC) Arthritis 05/2020 Heart disease 2018 Hypertension 1990 Osteoporosis 2019 Sleep apnea 2021 [...] on file Legal Sex Female 12:31 AM HUMAN RESOURCE CONSULTANT Gender Identity Female 01/03/2021 12:55 PM CDT [...] 02/19/2024, , 02/10/2019, Additional history exists Insurance [employer] MEDICARE [facility] ADVANTAGE CHOICE PPO Care Teams Priest Relationship Specialty Start Date End Date Jesus Bolanos NP [address] [place] [address] PCP - General Nurse Practitioner 12/05/22
--- OUTSIDE RECORDS SUMMARY | 2024-09-03 11:26 | XMS_ITS | Encounter Summary ---
Author Organization [facility] Address [address] [facility] [place] [address] Care Team Providers Care Magnaflux Operator Name Role Phone Seven Duran MD Primary Care Provider [phone] Encounter Details Date Type Department Care Team (Late st Contact Info) Description 09/23/2020 Lab Requisition [facility] DermPath Lab [address] [place] [address] Yoel Patricio MD [address] [place] [address] Social History Tobacco Use Types Packs/Day Years Used Date Smoking Tobacco: Former Alcohol Use Standard Drinks/Week Comments Yes 0 (1 standard drink = 0.6 oz pur e alcohol) Comments Unknown Sex and Gender Information Value Date Recorded Sex Assigned at Not on file Legal Sex Female 5:39 PM INSPECTOR MOTOR VEHICLES Gender Identity Not on file Sexual Orientation Not on file documented as of this encounter Plan of Treatment Not on file documented as of this encounter Procedures Procedure Name Priority Date/Time Associated Diagnosis Comments DERMATOPATHOLOGY Routine 09/22/2020 3:33 AM CDT documented in this encounter Results * DERMATOPATHOLOGY (09/22/2020 3:33 AM CDT) Case Report Dermatopathology Report Case: [id number] Authorizing Provider: Yoel Patricio MD Collected: 09/22/2020 03:33 AM Ordering Location: [facility] Derm[facility] Lab Received: 09/23/2020 12:59 PM Pathologist: Jeanine Emmanuel MD Specimen: Skin, nail clippings 1:36 PM [...] of a nail clipping (5 pieces) measuring 7g5o6cf, 2e0x1nq, 9n6s3og, 6a2n1xx, & 0m7s0sr. 1:36 PM CDT DERMATOPATHOLOGY LABORATORY Microscopic Description [...] characteristic determined by the Dermatopathology Laboratory at [facility], directed by Dr. Tri Echavarria. These tests need not be, and therefore are not, approved by the [place] Food and Drug Administration. The tests are used for clinical purposes. Billing Codes Specimen Charges Stain Charges 64316 1 12806 1 1:36 PM CDT DERMATOPATHOLOGY LABORATORY Embedded Images 1:36 PM CDT DERMATOPATHOLOGY LABORATORY Pathology/Cytolo gy TISSUE SPECIMEN FROM SKIN / Unknown 09/22/2020 3:33 AM CDT 09/23/2020 12:59 PM CDT Yoel Patricio MD LAB - PATHOLOGY/CYTOLOGY ORD ERABLES Final Result DERMATOPATHOLOGY LABORATORY [facility] - Department of Dermatology [facility] [address] [place] [address], [address] [phone] documented in this encounter Visit Diagnoses Not on filedocumented in this encounter Care Teams Magnaflux Operator Relationship Specialty Start Date End Date Seven Duran MD [address] [facility] [address] [place] [address] PCP - General 06/01/16 documented as of this encounter
--- OUTSIDE RECORDS SUMMARY | 2024-09-03 11:26 | XMS_ITS | Encounter Summary ---
Author Organization [facility] Address [address] [place] [address] Care Team Providers Care Culinary Art Teacher Name Role Phone Jesus Bolanos NP Primary Care Provider [phone] Encounter Details Date Type Department Care Team (Late st Contact Info) Description 09/03/2024 Telephone [facility] Cardiology [address] [place] [address] Santos Lowe MD [address] [address] Social History Tobacco Use Types Packs/Day Years [...] on file Legal Sex Female 12:31 AM NUCLEAR TECHNOLOGIST Gender Identity Female 01/03/2021 12:55 PM CDT Sexual Orientation Straight 01/03/2021 12 :55 PM CDT documented as of this encounter Miscellaneous Notes * Telephone Encounter - Leonor Cline RN - 09/03/2024 9:36 AM CDT Forwarded message on to RP. * Telephone Encounter - Yolanda Garrido - 09/03/2024 9:18 AM CDT Hero DE LUNA from GI lab requesting call from RP in regard to patients HR being 137. States she justhad a colonscopy done. Dr. Marinelli #: [phone] documented in this encounter Plan of Treatment Not on file documented as of this encounter Visit Diagnoses Not on filedocumented in this encounter Care Teams Culinary Art Teacher Relationship Specialty Start Date End Date Jesus Bolanos NP [address] [place] [address] PCP - General Nurse Practitioner 12/05/22 documented as of this encounter
--- OUTSIDE RECORDS SUMMARY | 2024-09-03 11:26 | XMS_ITS | Encounter Summary ---
Author Organization [facility] Address [address] [facility] [place] [address] Care Team Providers Care Second Operator Name Role Phone Seven Duran MD Primary Care Provider [phone] Encounter Details Date Type Department Care Team (Late st Contact Info) Description 01/08/2019 Lab Requisition [facility] DermPath Lab [address] [place] [address] Yoel Patricio MD [address] [place] [address] Social History Tobacco Use Types Packs/Day Years Used Date Smoking Tobacco: Former Alcohol Use Standard Drinks/Week Comments Yes 0 (1 standard drink = 0.6 oz pur e alcohol) Comments Unknown Sex and Gender Information Value Date Recorded Sex Assigned at Not on file 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[employer] Gender Identity Not on file Sexual Orientation Not on file documented as of this encounter Plan of Treatment Not on file documented as of this encounter Procedures Procedure Name Priority Date/Time Associated Diagnosis Comments DERMATOPATHOLOGY Routine 01/07/2019 12:0 0 AM CDT documented in this encounter Results * DERMATOPATHOLOGY (01/07/2019 12:00 AM CDT) Case Report Dermatopathology Report Case: [id number] Authorizing Provider: Yoel Patricio MD Collected: 01/07/2019 12:00 AM Ordering Location: [facility] DermPath Lab Received: 01/08/2019 12:49 PM Pathologist: [...] specimen consists of a shave biopsy measuring 5q6v4ul. Jar 0. 4:46 PM CDT DERMATOPATHOLOGY LABORATORY [...] characteristic determined by the Dermatopathology Laboratory at [facility], directed by Dr. Tri Echavarria. These tests need not be, and therefore are not, approved by the [place] Food and Drug Administration. The tests are used for clinical purposes. Billing Codes Specimen Charges Stain Charges 56666 1 4:46 PM CDT DERMATOPATHOLOGY LABORATORY Embedded Images 4:46 PM CDT DERMATOPATHOLOGY LABORATORY Pathology/Cytolog y TISSUE SPECIMEN FROM SKIN / Unknown 01/07/2019 01/08/2019 12:49 PM CDT us Yoel Patricio MD LAB - PATHOLOGY/CYTOLOGY ORD ERABLES Final Result DERMATOPATHOLOGY LABORATORY [facility] - Department of Dermatology [address], 5[address] Floor Lab [address] [phone] documented in this encounter Visit Diagnoses Not on filedocumented in this encounter Care Teams Second Operator Relationship Specialty Start Date End Date Seven Duran MD [address] [facility] [address] [place] [address] PCP - General 06/01/16 documented as of this encounter
--- OUTSIDE RECORDS SUMMARY | 2024-09-03 11:26 | XMS_ITS | Encounter Summary ---
Author Organization [facility] Address [facility] [facility] [place] [address] Care Team Providers Care Third Rigger Name Role Phone Seven Duran MD Primary Care Provider [phone] Encounter Details Date Type Department Care Team (Late st Contact Info) Description 07/24/2024 Lab Requisition [facility] - DermPath Lab [address] [facility], [place] [phone] Kaye Santos DO [address] [facility] [place] 3 DEPT [place] [address] Social History Tobacco Use Types Packs/Day Years Used Date Smoking Tobacco: Former Alcohol Use Standard Drinks/Week Comments Yes 0 (1 standard drink = 0.6 oz pur e alcohol) Comments Unknown Sex and Gender Information Value Date Recorded Sex Assigned at Not on file 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 Gender Identity Not on file Sexual Orientation Not on file documented as of this encounter Plan of Treatment Not on file documented as of this encounter Procedures Procedure Name Priority Date/Time Associated Diagnosis Comments DERMATOPATHOLOGY Routine 07/24/2024 10:1 0 AM CDT documented in this encounter Results * DERMATOPATHOLOGY (07/24/2024 10:10 AM CDT) Case Report Dermatopathology Report Case: [id number] Authorizing Provider: Kaye Santos DO Collected: 07/24/2024 10:10 AM Ordering Location: [facility] - Received: 07/25/2024 07:09 AM DermPath Lab Pathologist: Jeanine Emmanuel MD Specimens: A) - Skin, right ventral forearm B) - Skin, right lower back 2:22 PM [facility] DERMATOPATHOLOGY LABORATORY Final Diagnosis Specimen A. SKIN, right ventral forearm: SEBORRHEIC KERATOSIS, IRRITATED AND INFLAMED (L82.0) Specimen B. 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 Jar 0. 2:22 PM [facility] DERMATOPATHOLOGY LABORATORY Microscopic Description Specimen A. SKIN, right ventral forearm: Sections show acanthosis, papillomatosis, hyperkeratosis, and squamous eddies. There is a lymphohistiocytic infiltrate within the papillary dermis. Specimen B. SKIN, right lower back: The epidermis shows parakeratosis, full thickness disorderly maturation of keratinocytes, mitoses at different levels, and dyskeratotic cells. 2:22 PM [facility] DERMATOPATHOLOGY LABORATORY Disclaimer An external and internal positive and negative controls are appropriate for the histochemical, immunohistochemical and immunofluorescence stain(s) in this case (if any), except where stated explicitly. The performance characteristics of the stain(s) cited in this report were developed and its performance characteristic determined by the Dermatopathology Laboratory at [facility], directed by Dr. Tri Echavarria. These tests need not be, and therefore are not, approved by the [place] Food and Drug Administration. The tests are used for clinical purposes. Billing Codes Specimen Charges Stain Charges 43693 27803 1 1 2:22 PM CDT DERMATOPATHOLOGY LABORATORY Embedded Images 2:22 PM CDT DERMATOPATHOLOGY LABORATORY Pathology/Cytology TISSUE SPECIMEN FROM SKIN / Unknown 07/24/2024 10:10 AM CDT 07/25/2024 7:09 AM CDT Miscellaneous samples (specimen) TISSUE SPECIMEN FROM SKIN / Unknown 07/24/2024 10:10 AM CDT 07/25/2024 7:09 AM CDT us Kaye Santos DO LAB - PATHOLOGY/CYTOLOGY ORDERABLES Final Result DERMATOPATHOLOGY LABORATORY [facility] - Department of Dermatology [facility] Specialized Medicine [address] [place] [address], [address] [phone] documented in this encounter Visit Diagnoses Not on filedocumented in this encounter Care Teams Third Rigger Relationship Specialty Start Date End Date Seven Duran MD [address] [facility] [address] [place] [phone] PCP - General 06/01/16 documented as of this encounter
--- OUTSIDE RECORDS SUMMARY | 2024-09-03 11:26 | XMS_ITS | Clinical Summary ---
Author Organization [facility] Address [address] [place] [id number] Care Team Providers Care Data Processing Equipment Repairer Name Role Phone Unavailable Primary Care Provider [...]
--- OUTSIDE RECORDS SUMMARY | 2024-09-03 11:26 | XMS_ITS | Clinical Summary ---
Author Organization [facility] Address [address] [place] [address] Care Team Providers Care Scrip Clerk Name Role Phone Seven Duran MD Primary Care Provider [phone] [facility],non-owned Affiliates and Associated Physician Practices is amultiple site organization consisting of ambulatory clinics and hospital sitesin [place], [place], [place] and [place]. This disclosure is being madepursuant to the Care Everywhere program and may not contain all information available regarding this patient. Last updated 18.[facility] [employer] Allergies Active Allergy Reactions Criticality Noted Date Comments Codeine Nausea and/or Vomiting Low 06/22/2016 Medications * Be aware that medications may not be up to date on this document. Alwaysverify current medications with the patient. vitamin D, ergocalciferol, (DRISDOL) 87959 UNITS capsule 3 04/18/2016 Activ e solifenacin [...] [facility] Derm[facility] Lab [address] [facility], [place] [address] Kaye Santos DO 07/24/2024 Lab Requisition [facility] - DermPath Lab [address] 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 Case Report Dermatopathology Report Case: [id number] Authorizing Provider: Kaye Santos DO Collected: 08/25/2024 07:56 AM Ordering Location: [facility] - Received: 08/26/2024 07:01 AM [...] of a non-oriented ellipse of skin measuring 73i12r3 mm. The epidermal surface is unremarkable. The [...] characteristic determined by the Dermatopathology Laboratory at [facility], directed by Dr. Tri Echavarria. These tests need not be, and therefore are not, approved by the [place] Food and Drug Administration. The tests are used for clinical purposes. Billing Codes Specimen Charges Stain Charges 76363 1 5 12:07 PM CDT DERMATOPATHOLOGY LABORATORY Embedded Images 5 12:07 PM CDT DERMATOPATHOLOGY LABORATORY Pathology/Cytolo gy TISSUE SPECIMEN FROM SKIN / Unknown 08/25/2024 7:56 AM CDT 08/26/2024 7:01 AM CDT us Kaye Santos DO LAB - PATHOLOGY/CYTOLOGY ORDERABLES Final Result DERMATOPATHOLOGY LABORATORY [facility] - Department of Dermatology [address], [address] [phone] from Last 3 Months Insurance MEDICARE [facility] MEDICARE Care Teams Scrip Clerk Relationship Specialty Start Date End Date Seven Duran MD [address] [facility] [address] [place] [address] PCP - General 06/01/16
--- OUTSIDE RECORDS SUMMARY | 2024-09-03 11:26 | XMS_ITS | Encounter Summary ---
Author Organization [facility] Address [facility] [place] [address] Care Team Providers Care Pumper Gauger Apprentice Name Role Phone Seven Duran MD Primary Care Provider [phone] Encounter Details Date Type Department Care Team (Late st Contact Info) Description 08/25/2024 Lab Requisition [facility] - DermPath Lab [address] [facility], [place] [phone] Kaye Santos DO [address] [facility] 3 [place] [address] Social History Tobacco Use Types Packs/Day Years Used Date Smoking Tobacco: Former Alcohol Use Standard Drinks/Week Comments Yes 0 (1 standard drink = 0.6 oz pur e alcohol) Comments Unknown Sex and Gender Information Value Date Recorded Sex Assigned at Not on file 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 Gender Identity Not on file Sexual Orientation Not on file documented as of this encounter Plan of Treatment Not on file documented as of this encounter Procedures Procedure Name Priority Date/Time Associated Diagnosis Comments DERMATOPATHOLOGY Routine 08/25/2024 7:56 AM CDT documented in this encounter Results * DERMATOPATHOLOGY (08/25/2024 7:56 AM CDT) Case Report Dermatopathology Report Case: [id number] Authorizing Provider: Kaye Santos DO Collected: 08/25/2024 07:56 AM Ordering Location: [facility] - Received: 08/26/2024 07:01 AM [...] of a non-oriented ellipse of skin measuring 68p09y8 mm. The epidermal surface is unremarkable. The [...] characteristic determined by the Dermatopathology Laboratory at [facility], directed by Dr. Tri Echavarria. These tests need not be, and therefore are not, approved by the [place] Food and Drug Administration. The tests are used for clinical purposes. Billing Codes Specimen Charges Stain Charges 12513 1 12:07 PM CDT DERMATOPATHOLOGY LABORATORY Embedded Images 12:07 PM CDT DERMATOPATHOLOGY LABORATORY Pathology/Cytolo gy TISSUE SPECIMEN FROM SKIN / Unknown 08/25/2024 7:56 AM CDT 08/26/2024 7:01 AM CDT us Kaye Santos DO LAB - PATHOLOGY/CYTOLOGY ORDERABLES Final Result DERMATOPATHOLOGY LABORATORY [facility] - Department of Dermatology [facility] Specialized Medicine [address] [facility], 3rd Floor [address] [phone] documented in this encounter Visit Diagnoses Not on filedocumented in this encounter Care Teams Pumper Gauger Apprentice Relationship Specialty Start Date End Date Seven Duran MD [address] [facility] [address] [place] [phone] PCP - General 06/01/16 documented as of this encounter
--- NOTE | 2024-09-03 11:41 | ED.ARRPALP ---
HPI - Arrhythmia/Palpitations General Chief Complaint: Arrhythmia/Palpitations Stated Complaint: Afib w RVR from GI lab Time Seen by Provider: 09/03/24 11:29 Source: patient Mode of arrival: ambulatory Limitations: no limitations History of Present Illness HPI narrative: 79 YEARS OLD WHITE FEMALE STATUS POST COLONOSCOPY THIS MORNING, DURING RECOVERY FOUND OUT TO HAVE AFIB WITH RVR. PATIENT DENYING ANY SYMPTOMS. HISTORY OF AFIB, A FLUTTER ON ELIQUIS WHICH STOPPED 5 DAYS AGO, HAD HER REGULAR METOPROLOL 50 MG THIS MORNING PRIOR TO COLONOSCOPY. CURRENTLY PATIENT IS ASYMPTOMATIC. SHE DENIES ANY FEVER, CHILLS, NAUSEA, VOMITING, CHEST PAIN, SHORTNESS OF BREATH OR BACK PAIN. Related Data Home Medications ?Medication ?Instructions ?Recorded ?Confirmed ?Last Taken ?Type apixaban 5 mg tablet (Eliquis) 5 mg PO BID 03/27/19 09/03/24 08/30/24 History cranberry fruit 400 mg capsule 400 mg PO DAILY 03/27/19 09/03/24 09/02/24 History cholecalciferol (vitamin D3) 125 50,000 unit PO .COMPLEX 01/24/22 09/03/24 08/26/24 History mcg (5,000 unit) tablet (Vitamin D3) metoprolol succinate 25 mg 50 mg PO DAILY 01/24/22 09/03/24 09/03/24 History tablet,extended release 24 hr metoprolol tartrate 25 mg tablet 25 mg PO .prn 08/02/22 08/25/24 Unknown History glucosamine-chondroitin 250 mg-200 2 tablet PO DAILY 08/31/23 09/03/24 09/02/24 History mg tablet (Osteo Bi-Flex) Allergies Allergy/AdvReac Type Severity Reaction Status Date / Time codeine Allergy Mild sick to Verified 09/03/24 10:11 stomach Review of Systems Review of Systems: All systems reviewed & are unremarkable except as noted in HPI and below PMFSH Past Medical History Medical History (Updated 09/03/24 @ 12:56 by Olesya Duncan PA-C) Vitamin D deficiency Diastolic dysfunction Paroxysmal atrial flutter Paroxysmal atrial fibrillation Gastroesophageal reflux disease Obstructive sleep apnea on CPAP Osteopenia Mixed hyperlipidemia Morbid obesity Hypertension Surgical History Surgical History (Updated 09/03/24 @ 12:43 by Olesya Duncan PA-C) History of colonoscopy with polypectomy History of cholecystectomy History of right knee joint replacement Family History Family History Mother Asthma Carcinoma of colon Sibling Asthma Family history of malignant melanoma Patient's brother is in good health Diabetes mellitus Father Family history of coronary artery disease, Onset Age: 70 Family history of diabetes mellitus in first degree relative Family history of heart disease in male family member before age 55 Patient's father is Diabetes mellitus Social History Social History (Updated 09/03/24 @ 12:50 by Olesya Duncan PA-C) 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 Smoking packs per day: 1 Smoking cigarettes per day: 20.0 Years smoked: 20 Smoking pack-years: 20.00 Smoking status: Former smoker Tobacco type: cigarettes Second hand tobacco smoke exposure: Yes Smoking end date: 05/14/84 Alcohol intake: current Alcohol use details: rarely Substance use: never Substance use type: does not use Current Housing: Decline to Answer Concerned About Future Housing: Decline to Answer Difficulty Paying Gas/Electric Bills: Decline to Answer Difficulty Paying for Meds: Decline to Answer Currently Unemployed: Decline to Answer Education: Decline to Answer Difficulty w/ Childcare or Family Care: Decline to Answer Living arrangements: with family Spiritual care concerns: No Exam Narrative: GENERAL APPEARANCE: WELL-DEVELOPED, WELL-NOURISHED SKIN: NORMAL COLOR HEAD: NORMOCEPHALIC, NONTRAUMATIC EYES: CLEAR CONJUNCTIVA ENT: OROPHARYNX NORMAL, EARS NORMAL, NOSE NORMAL NECK: SUPPLE, NONTENDER CHEST AND RESPIRATORY: AIRWAY PATENT, NO RESPIRATORY DISTRESS, NO ACCESSORY MUSCLE USE HEART: TACHYCARDIA, IRREGULAR IRREGULARITY ABDOMEN: SOFT, NONTENDER, NO ORGANOMEGALY, QUIET BOWEL SOUNDS VASCULAR: NORMAL PERIPHERAL PULSES, NORMAL CAPILLARY REFILL. MUSCULOSKELETAL: NORMAL RANGE OF MOTION, NONTENDER BACK NEUROLOGIC: ALERT AND ORIENTED ?3, DRAMATIC TEACHER IS NORMAL TESTED, NO GROSS MOTOR DEFICIT Course Consultations Consultation #1: DR. REYES DISCHARGED HOME Date: 09/03/24 Time: 13:52 Vital Signs Vital signs: Vital Signs Temperature 36.1 C L 09/03/24 10:06 Pulse Rate 127 H 09/03/24 10:06 Respiratory Rate 18 09/03/24 10:06 Blood Pressure 128/94 H 09/03/24 10:06 Pulse Oximetry 95 09/03/24 10:06 Oxygen Delivery Room Air 09/03/24 10:06 Temperature 36.9 C 09/03/24 10:13 Pulse Rate 62 09/03/24 13:48 Respiratory Rate 13 09/03/24 13:33 Blood Pressure 141/77 H 09/03/24 13:48 Pulse Oximetry 97 09/03/24 13:33 Oxygen Delivery Room Air 09/03/24 10:13 MDM - Arrhythmia/Palpitations MDM Narrative Medical decision making narrative: PATIENT CAME TO THE ED FROM GI LAB WITH AFIB WITH RVR POST COLONOSCOPY THIS MORNING. PATIENT IS ASYMPTOMATIC. VITAL SIGNS SHOWING BLOOD PRESSURE 128 OVER 94, HEART RATE OF 127 OTHERWISE WITHIN NORMAL LIMIT PHYSICAL EXAMINATION SHOWING A COMFORTABLE PATIENT, ASYMPTOMATIC, MONITOR SHOWING AFIB WITH RVR UP TO 140 BEATS PER MINUTE DIFFERENTIAL DIAGNOSIS ANXIETY LIKE SYMPTOMS, ELECTROLYTE IMBALANCE, DEHYDRATION, LESS LIKELY CORONARY ARTERY DISEASE, BLOOD WORKUP TODAY INCLUDES CBC, CMP, TROPONIN SHOWED INSIGNIFICANT ABNORMALITY CHEST X-RAY SHOWED NO ACUTE ABNORMALITY EKG ON ARRIVAL SHOWED AFIB WITH RVR. DIAGNOSIS AFIB WITH RVR, AT THE TIME OF ADMISSION PATIENT CONVERTED TO NORMAL SINUS RHYTHM, REPEATED EKG SHOWING NORMAL SINUS RHYTHM AT 61 BEATS PER MINUTE, PATIENT STILL ASYMPTOMATIC, DISCHARGED HOME DISCUSSED WITH DR. REYES Differential Diagnosis Differential diagnosis: Likely other ( ABOVE) Medical Records Attestation: I reviewed the patient's medical records. Lab Data Attestation: I reviewed the patient's lab results. 09/03/24 10:21 09/03/24 10:21 Labs: Lab Results 09/03/24 Range/Units 10:21 WBC 6.0 (4.5-10.0) K/mm3 RBC 4.95 (4.2-5.4) M/mm3 Hgb 13.8 (12.0-15.0) g/dL Hct 44.1 (37.0-47.0) % MCV 89.1 (80-100) fl MCH 27.9 (26-34) pg MCHC 31.3 L (32-36) g/dl RDW 13.4 (11.5-14.5) % Plt Count 191 (150-375) k/mm3 MPV 10.3 (7.4-10.4) fl Immature Gran % (Auto) 0.2 (0-0.5) % Neut % (Auto) 80.2 H (45.5-73.1) % Lymph % (Auto) 12.7 L (18.3-44.2) % [place] % (Auto) 5.7 (2.6-8.5) % Eos % (Auto) 0.7 (0-4.4) % Baso % (Auto) 0.5 (0.2-1.2) % Lymph # (Auto) 0.76 L (0.9-3.2) K/mm3 [place] # (Auto) 0.3 (0.1-0.6) K/mm3 Eos # (Auto) 0.0 (0-0.3) K/mm3 Baso # (Auto) 0.0 (0.0-0.1) K/mm3 Abs Immat Gran (auto) 0.01 (0.00-0.031) K/mm3 Absolute Neuts (auto) 4.8 (1.3-6.7) K/mm3 Absolute Nucleated RBC 0.000 (0.0-0.012) K/mm3 Nucleated RBC % 0.0 (0.0-0.2) % PT 13.2 (11.1-14.7) Seconds INR 1.0 APTT 27.8 (22.3-36.8) Seconds Sodium 143 (137-145) mmol/L Potassium 3.8 (3.4-5.0) mmol/L Chloride 107 (98-107) mmol/L Carbon Dioxide 25 (22-30) mmol/L Anion Gap 11 (4-12) mmol/L BUN 10 (7-17) mg/dL Creatinine 0.79 (0.7-1.0) mg/dL Estim Creat Clear Calc 65 ml/min Estimated GFR > 60 (59 - ) Glucose 97 (65-110) mg/dL Calcium 9.3 (8.4-10.2) mg/dL Total Bilirubin 0.4 (0.2-1.3) mg/dL AST 21 (14-36) U/L ALT 18 (6-35) U/L Alkaline Phosphatase 72 (38-126) U/L Troponin I < 0.012 (0.000-0.034) ng/mL Total Protein 8.0 (6.3-8.2) g/dL Albumin 4.3 (3.5-5.1) g/dL Lipase 62 (23-300) U/L Imaging Data Radiologist's impression: Impressions Chest X-Ray 09/03/24 10:53 Impression: Normal chest. Discharge Plan Discharge Clinical Impression: Atrial fibrillation with rapid ventricular response Patient Disposition: Still a Patient Condition: Stable
[2024-09-03] MEDS: dilTIAZem HCl INJ 25 MG/5 ML VIAL 10 MG IV PUSH (11:51)
[2024-09-03] MEDS: dilTIAZem 100 MG/100 ML 100 MG/100 ML BAG IV CONT (11:52)
--- NOTE | 2024-09-03 12:35 | PM.IMHP ---
[facility] Past Medical History Medical History (Updated 09/03/24 @ 12:56 by Olesya Duncan PA-C) Vitamin D deficiency Diastolic dysfunction Paroxysmal atrial flutter Paroxysmal atrial fibrillation Gastroesophageal reflux disease Obstructive sleep apnea on CPAP Osteopenia Mixed hyperlipidemia Morbid obesity Hypertension Surgical History Surgical History (Updated 09/03/24 @ 12:43 by Olesya Duncan PA-C) History of colonoscopy with polypectomy History of cholecystectomy History of right knee joint replacement Family History Family History Mother Asthma Carcinoma of colon Sibling Asthma Family history of malignant melanoma Patient's brother is in good health Diabetes mellitus Father Family history of coronary artery disease, Onset Age: 70 Family history of diabetes mellitus in first degree relative Family history of heart disease in male family member before age 55 Patient's father is Diabetes mellitus Social History Social History (Updated 09/03/24 @ 12:50 by Olesya Duncan PA-C) 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 Smoking packs per day: 1 Smoking cigarettes per day: 20.0 Years smoked: 20 Smoking pack-years: 20.00 Smoking status: Former smoker Tobacco type: cigarettes Second hand tobacco smoke exposure: Yes Smoking end date: 05/14/84 Alcohol intake: current Alcohol use details: rarely Substance use: never Substance use type: does not use Current Housing: Decline to Answer Concerned About Future Housing: Decline to Answer Difficulty Paying Gas/Electric Bills: Decline to Answer Difficulty Paying for Meds: Decline to Answer Currently Unemployed: Decline to Answer Education: Decline to Answer Difficulty w/ Childcare or Family Care: Decline to Answer Living arrangements: with family Spiritual care concerns: No Meds Home Medications and Allergies Home Medications ?Medication ?Instructions ?Recorded ?Confirmed ?Type apixaban 5 mg tablet (Eliquis) 5 mg PO BID 03/27/19 09/03/24 History cranberry fruit 400 mg capsule 400 mg PO DAILY 03/27/19 09/03/24 History diltiazem HCl 120 mg capsule,24 120 mg PO DAILY #30 caps 05/03/20 09/03/24 Rx hr,extended release cholecalciferol (vitamin D3) 125 50,000 unit PO .COMPLEX 01/24/22 09/03/24 History mcg (5,000 unit) tablet (Vitamin D3) metoprolol succinate 25 mg 50 mg PO DAILY 01/24/22 09/03/24 History tablet,extended release 24 hr metoprolol tartrate 25 mg tablet 25 mg PO .prn 08/02/22 08/25/24 History glucosamine-chondroitin 250 mg-200 2 tablet PO DAILY 08/31/23 09/03/24 History mg tablet (Osteo Bi-Flex) lisinopril 10 mg tablet 10 mg PO DAILY #90 tabs 04/21/24 09/03/24 Rx omeprazole 40 mg capsule,delayed 40 mg PO .COMPLEX #90 caps 07/14/24 09/03/24 Rx release Allergies Allergy/AdvReac Type Severity Reaction Status Date / Time codeine Allergy Mild sick to Verified 09/03/24 10:11 stomach
--- OUTSIDE RECORDS SUMMARY | 2024-09-03 13:31 | XMS_ITS | Encounter Summary ---
Author Organization [facility] Address [address] [facility] [place] [address] Care Team Providers Care Acute Care Surgeon Name Role Phone Seven Duran MD Primary Care Provider [phone] Encounter Details Date Type Department Care Team (Late st Contact Info) Description 04/28/2020 Lab Requisition [facility] DermPath Lab [address] [place] [address] Yoel Patricio MD [address] [place] [address] Social History Tobacco Use Types Packs/Day Years Used Date Smoking Tobacco: Former Alcohol Use Standard Drinks/Week Comments Yes 0 (1 standard drink = 0.6 oz pur e alcohol) Comments Unknown Sex and Gender Information Value Date Recorded Sex Assigned at Not on file Legal Sex Female 5:39 PM TECHNICAL ARTIST Gender Identity Not on file Sexual Orientation Not on file documented as of this encounter Plan of Treatment Not on file documented as of this encounter Procedures Procedure Name Priority Date/Time Associated Diagnosis Comments DERMATOPATHOLOGY Routine 04/27/2020 12:0 0 AM TECHNICAL ARTIST documented in this encounter Results * DERMATOPATHOLOGY (04/27/2020 12:00 AM TECHNICAL ARTIST) Case Report Dermatopathology Report Case: [id number] Authorizing Provider: Yoel Patricio MD Collected: 04/27/2020 12:00 AM Ordering Location: [facility] DermPath Lab Received: 04/28/2020 12:00 PM Pathologist: Kim Echavarria MD Specimen: Skin, right lower lat calf 0 4:48 PM TECHNICAL ARTIST DERMATOPATHOLOGY LABORATORY Final Diagnosis Specimen A. SKIN, right lower lat calf: BASAL CELL CARCINOMA, NODULAR TYPE (C44.712) 0 4:48 PM TECHNICAL ARTIST DERMATOPATHOLOGY LABORATORY Clinical History R/O HAK, BCC, SCC, other dermatitis. 0 4:48 PM TECHNICAL ARTIST DERMATOPATHOLOGY LABORATORY Gross Description Specimen A: Received is one formalin filled container labeled with the patient's name and designated right lower lat calf. The specimen consists of a shave biopsy measuring 9s2s4at. Jar 0. 0 4:48 PM TECHNICAL ARTIST DERMATOPATHOLOGY LABORATORY Microscopic Description Specimen A. SKIN, right lower lat calf: Within the dermis there are aggregates of basaloid cells with a high nuclear to cytoplasmic ratio and peripheral palisading. 0 4:48 PM TECHNICAL ARTIST DERMATOPATHOLOGY LABORATORY Disclaimer An external and internal positive and negative controls are appropriate for the histochemical, immunohistochemical and immunofluorescence stain(s) in this case (if any), except where stated explicitly. The performance characteristics of the stain(s) cited in this report were developed and its performance characteristic determined by the Dermatopathology Laboratory at [facility], directed by Dr. Tri Echavarria. These tests need not be, and therefore are not, approved by the [place] Food and Drug Administration. The tests are used for clinical purposes. Billing Codes Specimen Charges Stain Charges 96389 1 0 4:48 PM TECHNICAL ARTIST DERMATOPATHOLOGY LABORATORY Embedded Images 0 4:48 PM TECHNICAL ARTIST DERMATOPATHOLOGY LABORATORY Pathology/Cytolog y TISSUE SPECIMEN FROM SKIN / Unknown 04/27/2020 04/28/2020 12:00 PM TECHNICAL ARTIST us Yoel Patricio MD LAB - PATHOLOGY/CYTOLOGY ORD ERABLES Final Result DERMATOPATHOLOGY LABORATORY [facility] - Department of Dermatology [address], [address] [phone] documented in this encounter Visit Diagnoses Not on filedocumented in this encounter Care Teams Acute Care Surgeon Relationship Specialty Start Date End Date Seven Duran MD [address] [facility] [address] [place] [address] PCP - General 06/01/16 documented as of this encounter
--- OUTSIDE RECORDS SUMMARY | 2024-09-03 13:31 | XMS_ITS | Encounter Summary ---
Author Organization [facility] Address [address] [facility] [place] [address] Care Team Providers Care Arbor Press Operator Name Role Phone Seven Duran MD Primary Care Provider Encounter Details Date Type Department Care Team (Late st Contact Info) Description 05/31/2018 Lab Requisition [facility] DermPath Lab [address] [place] [address] Yoel Patricio MD [address] [place] [address] Social History Tobacco Use Types Packs/Day Years Used Date Smoking Tobacco: Former Alcohol Use Standard Drinks/Week Comments Yes 0 (1 standard drink = 0.6 oz pur e alcohol) Comments Unknown Sex and Gender Information Value Date Recorded Sex Assigned at Not on file Legal Sex Female 5:39 PM BUILDING COORDINATOR Gender Identity Not on file Sexual Orientation Not on file documented as of this encounter Plan of Treatment Not on file documented as of this encounter Procedures Procedure Name Priority Date/Time Associated Diagnosis Comments DERMATOPATHOLOGY Routine 05/30/2018 12:0 0 AM BUILDING COORDINATOR documented in this encounter Results * DERMATOPATHOLOGY (05/30/2018 12:00 AM BUILDING COORDINATOR) Case Report Dermatopathology Report Case: [id number] Authorizing Provider: Yoel Patricio MD Collected: 05/30/2018 12:00 AM Pathologist: Zahida Crowley MD Received: 05/31/2018 01:33 PM Specimen: Skin, left upper back 1:04 PM [facility] DERMATOPATHOLOGY LABORATORY Final Diagnosis Specimen A. 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 Check margins. 1:04 PM [facility] DERMATOPATHOLOGY LABORATORY Gross Description Specimen A: Received is one formalin filled container labeled with the patients name and designated left upper back. The specimen consists of a shave (2 pieces) removal measuring 9a6m5qa, 3p1i9xw, the margin is inked green. Jar 0. 1:04 PM [facility] DERMATOPATHOLOGY LABORATORY Microscopic Description Specimen [...] sampled margin of the specimen. 1:04 PM [facility] DERMATOPATHOLOGY LABORATORY Disclaimer An external and internal positive and negative controls are appropriate for the histochemical, immunohistochemical and immunofluorescence stain(s) in this case (if any), except where stated explicitly. The performance characteristics of the stain(s) cited in this report were developed and its performance characteristic determined by the Dermatopathology Laboratory at [facility], directed by Dr. Tri Echavarria. These tests need not be, and therefore are not, approved by the [place] Food and Drug Administration. The tests are used for clinical purposes. Billing Codes Specimen Charges Stain Charges 94900 1 1:04 PM [facility] DERMATOPATHOLOGY LABORATORY Embedded Images 1:04 PM [facility] DERMATOPATHOLOGY LABORATORY Pathology/Cytolog y TISSUE SPECIMEN FROM SKIN / Unknown 05/30/2018 05/31/2018 1:33 PM BUILDING COORDINATOR us Yoel Patricio MD LAB - PATHOLOGY/CYTOLOGY ORD ERABLES Final Result DERMATOPATHOLOGY LABORATORY [facility] - Department of Dermatology [address] [place] [address], 5th Floor Lab [address] [phone] documented in this encounter Visit Diagnoses Not on filedocumented in this encounter Care Teams Arbor Press Operator Relationship Specialty Start Date End Date Seven Duran MD [address] [facility] [address] [place] [address] PCP - General 06/01/16 documented as of this encounter
--- OUTSIDE RECORDS SUMMARY | 2024-09-03 13:31 | XMS_ITS | Clinical Summary ---
Author Organization [facility] Address [address] [place] [address] Care Team Providers Care Merchandising Professor Name Role Phone Unavailable Primary Care Provider [...]
--- OUTSIDE RECORDS SUMMARY | 2024-09-03 13:31 | XMS_ITS | Encounter Summary ---
Author Organization [facility] Address [address] [facility] [place] [address] Care Team Providers Care House Cleaner Supervisor Name Role Phone Seven Duran MD Primary Care Provider [phone] Encounter Details Date Type Department Care Team (Late st Contact Info) Description 01/08/2019 Lab Requisition [facility] DermPath Lab [address] [place] [address] Yoel Patricio MD [address] [place] [address] Social History Tobacco Use Types Packs/Day Years Used Date Smoking Tobacco: Former Alcohol Use Standard Drinks/Week Comments Yes 0 (1 standard drink = 0.6 oz pur e alcohol) Comments Unknown Sex and Gender Information Value Date Recorded Sex Assigned at Not on file Legal Sex Female 5:39 PM BARIATRIC COORDINATOR Gender Identity Not on file Sexual Orientation Not on file documented as of this encounter Plan of Treatment Not on file documented as of this encounter Procedures Procedure Name Priority Date/Time Associated Diagnosis Comments DERMATOPATHOLOGY Routine 01/07/2019 12:0 0 AM CDT documented in this encounter Results * DERMATOPATHOLOGY (01/07/2019 12:00 AM CDT) Case Report Dermatopathology Report Case: [id number] Authorizing Provider: Yoel Patricio MD Collected: 01/07/2019 12:00 AM Ordering Location: [facility] DermPath Lab Received: 01/08/2019 12:49 PM [...] specimen consists of a shave biopsy measuring 6y3f3ur. Jar 0. 4:46 PM CDT DERMATOPATHOLOGY LABORATORY [...] determined by the Dermatopathology Laboratory at [facility], directed by Dr. Tri Echavarria. These tests need not be, and therefore are not, approved by the [place] Food and Drug Administration. The tests are used for clinical purposes. Billing Codes Specimen Charges Stain Charges 25546 1 4:46 PM CDT DERMATOPATHOLOGY LABORATORY Embedded Images 4:46 PM CDT DERMATOPATHOLOGY LABORATORY Pathology/Cytolog y TISSUE SPECIMEN FROM SKIN / Unknown 01/07/2019 01/08/2019 12:49 PM CDT us Yoel Patricio MD LAB - PATHOLOGY/CYTOLOGY ORD ERABLES Final Result DERMATOPATHOLOGY LABORATORY [facility] - Department of Dermatology [address] 5[address] Lab [address] [phone] documented in this encounter Visit Diagnoses Not on filedocumented in this encounter Care Teams House Cleaner Supervisor Relationship Specialty Start Date End Date Seven Duran MD [address] [place] [address] [place] [address] PCP - General 06/01/16 documented as of this encounter
--- OUTSIDE RECORDS SUMMARY | 2024-09-03 13:31 | XMS_ITS | Clinical Summary ---
Author Organization [facility] [address] Address [address] [place] [address] Care Team Providers Care Photoengraving Etcher Apprentice Name Role Phone Jesus Bolanos NP Primary [...] Type Department Care Team Description 09/03/2024 Telephone [facility] Cardiology [address] [place] [address] Santos Lowe MD from Last [...] on file Legal Sex Female 12:31 AM [place] WAREHOUSE MANAGER Gender Identity Female 01/03/2021 12:55 PM CDT [...] 02/10/2019, Additional history exists Insurance [employer] MEDICARE [facility] ADVANTAGE CHOICE PPO Care Teams Photoengraving Etcher Apprentice Relationship Specialty Start Date End Date Jesus Bolanos NP [address] [place] [address] PCP - General Nurse Practitioner 12/05/22
--- OUTSIDE RECORDS SUMMARY | 2024-09-03 13:32 | XMS_ITS | Referral Summary ---
Author Organization [facility] [address] Address [address] [place] [address] Care Team Providers Care Fisheries Technical Officer Name Role Phone Jesus Bolanos NP Primary Care Provider Encounters Date Type Department Care Team Description 09/03/2024 Telephone [facility] Medical [facility] Cardiology [address] [place] [address] Santos Lowe MD from Last [...] on file Legal Sex Female 12:31 AM LEAD INFRASTRUCTURE ARCHITECT Gender Identity Female 01/03/2021 12:55 PM CDT [...] Plan of Treatment Not on file Insurance [facility] MEDICARE [employer] ADVANTAGE CHOICE PPO Care Teams Fisheries Technical Officer Relationship Specialty Start Date End Date Jesus Bolanos NP [address] [place], [place] [id number] PCP - General Nurse Practitioner 12/05/22
--- OUTSIDE RECORDS SUMMARY | 2024-09-03 13:32 | XMS_ITS | Encounter Summary ---
Author Organization [facility] Address [address] [place] [address] Care Team Providers Care Graduate Engineer Name Role Phone Jesus Bolanos NP Primary Care Provider Encounter Details Date Type Department Care Team (Late st Contact Info) Description 09/03/2024 Telephone [facility] Medical [facility] Cardiology [address] [place] [address] Santos Lowe MD [address] [address] Social History Tobacco Use Types [...] on file Legal Sex Female 12:31 AM TIE MAKER Gender Identity Female 01/03/2021 12:55 PM CDT [...] justhad a colonscopy done. Dr. Marinelli #: [phone] documented in this encounter Plan of Treatment Not on file documented as of this encounter Visit Diagnoses Not on filedocumented in this encounter Care Teams Graduate Engineer Relationship Specialty Start Date End Date Jesus Bolanos NP [address] [place] [address] PCP - General Nurse Practitioner 12/05/22 documented as of this encounter
--- OUTSIDE RECORDS SUMMARY | 2024-09-03 13:32 | XMS_ITS | Clinical Summary ---
Author Organization [facility] Address [address] [facility] [place] [address] Care Team Providers Care Wood Finisher Apprentice Name Role Phone Seven Duran MD Primary Care Provider Source Comments [facility],non-owned Affiliates and Associated Physician Practices is amultiple site organization consisting of ambulatory clinics and hospital sitesin [place], [place], [place] and [place]. This disclosure is being madepursuant to the Care Everywhere program and may not contain all information available regarding this patient. Last updated 18.[facility] Repair Report Allergies Active Allergy Reactions Criticality Noted Date Comments Codeine Nausea and/or Vomiting Low 06/22/2016 Medications * Be aware that medications may not be up to date on this document. Alwaysverify current medications with the patient. vitamin D, ergocalciferol, (DRISDOL) 56539 UNITS capsule 3 04/18/2016 Activ e solifenacin [...] [facility] - DermPath Lab [address] [facility], [place] [address] Kaye Santos DO 07/24/2024 Lab Requisition [facility] - DermPath Lab [address] [facility], [place] [address] Kaye Santos DO from Last 3 Months [...] on file Legal Sex Female 5:39 PM PHOTOGRAPHIC DEVELOPER AND PRINTER Gender Identity Not on file Sexual Orientation [...] is included. Case Report Dermatopathology Report Case: [id number] Authorizing Provider: Kaye Santos DO Collected: 08/25/2024 07:56 AM Ordering Location: [facility] - Received: [...] of a non-oriented ellipse of skin measuring 07l96b3 mm. The epidermal surface is unremarkable. The [...] characteristic determined by the Dermatopathology Laboratory at [facility], directed by Dr. Tri Echavarria. These tests need not be, and therefore are not, approved by the [place] Food and Drug Administration. The tests are used for clinical purposes. Billing Codes Specimen Charges Stain Charges 14365 1 5 12:07 PM CDT DERMATOPATHOLOGY LABORATORY Embedded Images 5 12:07 PM CDT DERMATOPATHOLOGY LABORATORY Pathology/Cytolo gy TISSUE SPECIMEN FROM SKIN / Unknown 08/25/2024 7:56 AM CDT 08/26/2024 7:01 AM CDT us Kaye Santos DO LAB - PATHOLOGY/CYTOLOGY ORDERABLES Final Result DERMATOPATHOLOGY LABORATORY [facility] - Department of Dermatology [address], [address] [phone] from Last 3 Months Insurance MEDICARE [facility] [employer]ENCE MEDICARE Care Teams Wood Finisher Apprentice Relationship Specialty Start Date End Date Seven Duran MD [address] [facility] [address] [place] [address] PCP - General 06/01/16
--- OUTSIDE RECORDS SUMMARY | 2024-09-03 13:32 | XMS_ITS | Encounter Summary ---
Author Organization [facility] Address [facility] [place] [address] Care Team Providers Care Associate Professor Of Biostatistics Name Role Phone Seven Duran MD Primary Care Provider Encounter Details Date Type Department Care Team (Late st Contact Info) Description 07/24/2024 Lab Requisition [facility] Lab [address] [facility], [place] [address] Kaye Santos DO [address] [facility] 3 [place] [address] Social History Tobacco Use Types Packs/Day Years Used Date Smoking Tobacco: Former Alcohol Use Standard Drinks/Week Comments Yes 0 (1 standard drink = 0.6 oz pur e alcohol) Comments Unknown Sex and Gender Information Value Date Recorded Sex Assigned at Not on file Legal Sex Female 5:39 PM PROTECTIVE SERVICES SOCIAL WORKER Gender Identity Not on file Sexual Orientation Not on file documented as of this encounter Plan of Treatment Not on file documented as of this encounter Procedures Procedure Name Priority Date/Time Associated Diagnosis Comments DERMATOPATHOLOGY Routine 07/24/2024 10:1 0 AM CDT documented in this encounter Results * DERMATOPATHOLOGY (07/24/2024 10:10 AM CDT) Case Report Dermatopathology Report Case: [id number] Authorizing Provider: Kaye Santos DO Collected: 07/24/2024 10:10 AM Ordering Location: [facility] - Received: 07/25/2024 07:09 AM DermPath Lab Pathologist: Jeanine Emmanuel MD Specimens: A) - Skin, right ventral forearm B) - Skin, right lower back 2:22 PM [facility] DERMATOPATHOLOGY LABORATORY Final Diagnosis Specimen A. SKIN, right ventral forearm: SEBORRHEIC KERATOSIS, IRRITATED AND INFLAMED (L82.0) Specimen B. 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 Jar 0. 2:22 PM [facility] DERMATOPATHOLOGY LABORATORY Microscopic Description Specimen A. SKIN, right ventral forearm: Sections show acanthosis, papillomatosis, hyperkeratosis, and squamous eddies. There is a lymphohistiocytic infiltrate within the papillary dermis. Specimen B. SKIN, right lower back: The epidermis shows parakeratosis, full thickness disorderly maturation of keratinocytes, mitoses at different levels, and dyskeratotic cells. 2:22 PM [facility] DERMATOPATHOLOGY LABORATORY Disclaimer An external and internal positive and negative controls are appropriate for the histochemical, immunohistochemical and immunofluorescence stain(s) in this case (if any), except where stated explicitly. The performance characteristics of the stain(s) cited in this report were developed and its performance characteristic determined by the Dermatopathology Laboratory at [facility], directed by Dr. Tri Echavarria. These tests need not be, and therefore are not, approved by the [place] Food and Drug Administration. The tests are used for clinical purposes. Billing Codes Specimen Charges Stain Charges 01171 18110 1 1 2:22 PM CDT DERMATOPATHOLOGY LABORATORY Embedded Images 2:22 PM CDT DERMATOPATHOLOGY LABORATORY Pathology/Cytology TISSUE SPECIMEN FROM SKIN / Unknown 07/24/2024 10:10 AM CDT 07/25/2024 7:09 AM CDT Miscellaneous samples (specimen) TISSUE SPECIMEN FROM SKIN / Unknown 07/24/2024 10:10 AM CDT 07/25/2024 7:09 AM CDT us Kaye Santos DO LAB - PATHOLOGY/CYTOLOGY ORDERABLES Final Result DERMATOPATHOLOGY LABORATORY [facility] - Department of Dermatology [facility] Specialized Medicine [address] [place] [address], [address] [phone] documented in this encounter Visit Diagnoses Not on filedocumented in this encounter Care Teams Associate Professor Of Biostatistics Relationship Specialty Start Date End Date Seven Duran MD [address] [facility] [address] [place] [address] PCP - General 06/01/16 documented as of this encounter
--- OUTSIDE RECORDS SUMMARY | 2024-09-03 13:32 | XMS_ITS | Encounter Summary ---
Author Organization [facility] Address [address] [facility] [place] [address] Care Team Providers Care Tube Turner Name Role Phone Seven Duran MD Primary Care Provider [phone] Encounter Details Date Type Department Care Team (Late st Contact Info) Description 09/23/2020 Lab Requisition [facility] DermPath Lab [address] [place] [address] Yoel Patricio MD [address] [place] [address] Social History Tobacco Use Types Packs/Day Years Used Date Smoking Tobacco: Former Alcohol Use Standard Drinks/Week Comments Yes 0 (1 standard drink = 0.6 oz pur e alcohol) Comments Unknown Sex and Gender Information Value Date Recorded Sex Assigned at Not on file Legal Sex Female 5:39 PM TECHNICAL SPECIALIST CYTOLOGY Gender Identity Not on file Sexual Orientation Not on file documented as of this encounter Plan of Treatment Not on file documented as of this encounter Procedures Procedure Name Priority Date/Time Associated Diagnosis Comments DERMATOPATHOLOGY Routine 09/22/2020 3:33 AM CDT documented in this encounter Results * DERMATOPATHOLOGY (09/22/2020 3:33 AM CDT) Case Report Dermatopathology Report Case: [id number] Authorizing Provider: Yoel Patricio MD Collected: 09/22/2020 03:33 AM Ordering Location: [facility] DermPath Lab Received: 09/23/2020 12:59 PM Pathologist: [...] of a nail clipping (5 pieces) measuring 2n4x7yg, 5n0w6bb, 3y4c4tk, 6k8d1mo, & 6q2e5tu. 1:36 PM CDT DERMATOPATHOLOGY LABORATORY Microscopic Description [...] by the Dermatopathology Laboratory at [facility], directed by Dr. Tri Echavarria. These tests need not be, and therefore are not, approved by the [place] Food and Drug Administration. The tests are used for clinical purposes. Billing Codes Specimen Charges Stain Charges 93768 1 44851 1 1:36 PM CDT DERMATOPATHOLOGY LABORATORY Embedded Images 1:36 PM CDT DERMATOPATHOLOGY LABORATORY Pathology/Cytolo gy TISSUE SPECIMEN FROM SKIN / Unknown 09/22/2020 3:33 AM CDT 09/23/2020 12:59 PM CDT Yoel Patricio MD LAB - PATHOLOGY/CYTOLOGY ORD ERABLES Final Result DERMATOPATHOLOGY LABORATORY [facility] - Department of Dermatology [facility] Specialized Medicine [address] [place] [address], [address] [phone] documented in this encounter Visit Diagnoses Not on filedocumented in this encounter Care Teams Tube Turner Relationship Specialty Start Date End Date Seven Duran MD [address] [facility] [address] [place] [address] PCP - General 06/01/16 documented as of this encounter
--- OUTSIDE RECORDS SUMMARY | 2024-09-03 13:32 | XMS_ITS | Encounter Summary ---
Author Organization [facility] Address [facility] [place] [address] Care Team Providers Care Narrow Fabrics Weaver Name Role Phone Seven Duran MD Primary Care Provider [phone] Encounter Details Date Type Department Care Team (Late st Contact Info) Description 08/25/2024 Lab Requisition [facility] - DermPath Lab [address] [facility], [place] [address] Kaye Santos DO [address] [facility] 3 [place] [address] Social History Tobacco Use Types Packs/Day Years Used Date Smoking Tobacco: Former Alcohol Use Standard Drinks/Week Comments Yes 0 (1 standard drink = 0.6 oz pur e alcohol) Comments Unknown Sex and Gender Information Value Date Recorded Sex Assigned at Not on file Legal Sex Female 5:39 PM CARD CHECKER Gender Identity Not on file Sexual Orientation Not on file documented as of this encounter Plan of Treatment Not on file documented as of this encounter Procedures Procedure Name Priority Date/Time Associated Diagnosis Comments DERMATOPATHOLOGY Routine 08/25/2024 7:56 AM CDT documented in this encounter Results * DERMATOPATHOLOGY (08/25/2024 7:56 AM CDT) Case Report Dermatopathology Report Case: [id number] Authorizing Provider: Kaye Santos DO Collected: 08/25/2024 07:56 AM Ordering Location: [facility] - Received: 08/26/2024 [...] of a non-oriented ellipse of skin measuring 30z68e1 mm. The epidermal surface is unremarkable. The [...] by the Dermatopathology Laboratory at [facility], directed by Dr. Tri Echavarria. These tests need not be, and therefore are not, approved by the [place] Food and Drug Administration. The tests are used for clinical purposes. Billing Codes Specimen Charges Stain Charges 46156 1 12:07 PM CDT DERMATOPATHOLOGY LABORATORY Embedded Images 12:07 PM CDT DERMATOPATHOLOGY LABORATORY Pathology/Cytolo gy TISSUE SPECIMEN FROM SKIN / Unknown 08/25/2024 7:56 AM CDT 08/26/2024 7:01 AM CDT us Kaye Santos DO LAB - PATHOLOGY/CYTOLOGY ORDERABLES Final Result DERMATOPATHOLOGY LABORATORY [facility] - Department of Dermatology [facility] Special[facility] Medicine [address] [facility], 3rd Floor [address] [phone] documented in this encounter Visit Diagnoses Not on filedocumented in this encounter Care Teams Narrow Fabrics Weaver Relationship Specialty Start Date End Date Seven Duran MD [address] [facility] [address] [place] [phone] PCP - General 06/01/16 documented as of this encounter
--- NOTE | 2024-09-03 13:53 | ECG_ITS ---
Test Date: 2024-09-03 13:37:44 Measurements Intervals [place] Rate: 61 P: 25 VA: 171 QRS: -3 QRSD: 88 T: 23 QT: 401 QTc: 406 Interpretive Statements SINUS RHYTHM LEFT VENTRICULAR HYPERTROPHY BORDERLINE R WAVE PROGRESSION, ANTERIOR LEADS BASELINE ARTIFACT- I, II, III, AVR, AVL, AVF, V1-V6 BORDERLINE ECG Compared to ECG 09/03/2024 10:15:07 Atrial fibrillation no longer present Electronically Signed On 09-03-2024 14:17:50 CDT by Chris Malone D.O.
[2024-09-03 14:06] LABS: Troponin I < 0.012 ng/mL (0.000-0.034)
== END 2024-09-03 14:10 | disposition home or self-care (01) ==
PROVIDERS: Emergency Provider Emergency Medicine; PCP Internal Medicine
DX: I48.20 Chronic atrial fibrillation, unspecified (principal); Z79.01 Long term (current) use of anticoagulants; E55.9 Vitamin D deficiency, unspecified; K21.9 Gastro-esophageal reflux disease without esophagitis; G47.33 Obstructive sleep apnea (adult) (pediatric); Z99.89 Dependence on other enabling machines and devices; E78.2 Mixed hyperlipidemia; I10 Essential (primary) hypertension; Z96.651 Presence of right artificial knee joint; Z87.891 Personal history of nicotine dependence
CPT/HCPCS: 36415; 71046; 80053; 83690; 84484; 85025; 85610; 85730; 93005; 96374; 99284

== ENCOUNTER 2024-09-23 08:09 | Outpatient (CLI) | payer OTHER, SELFPAY ==
--- NOTE | ~2024-09-23 | MM_ITS ---
EXAMINATION: MM screening [facility] BI w елена HISTORY: Screening mammogram TECHNIQUE: Craniocaudal and mediolateral oblique 3-D tomosynthesis images were obtained and synthetic 2-D images were generated. CAD analysis was submitted and interpreted. COMPARISON: 09/20/2023, 06/14/2022, 04/30/2021, 04/28/2020 BREAST PARENCHYMAL COMPOSITION:Not Dense. There are scattered areas of fibroglandular density. FINDINGS: No suspicious mass, calcification, or architectural distortion are identified in either denia ast to suggest malignancy. There has been no suspicious interval change. IMPRESSION: No mammographic evidence of malignancy. Recommend routine screening mammography in one year. BI-RADS Category 1: Negative Reviewed, dictated and finalized at location .
== END 2024-09-23 08:10 | disposition home or self-care (01) ==
LOC: MICIMG 08:09
PROVIDERS: PCP Internal Medicine; Visit Provider Obstetrics & Gynecology Gynecology
DX: Z12.31 Encounter for screening mammogram for malignant neoplasm of breast (principal)
CPT/HCPCS: 77063; 77067

== ENCOUNTER 2025-01-10 14:19 | Inpatient (IN) | payer OTHER, SELFPAY ==
[2025-01-10] VITALS (12 sets, daily range): BP systolic 120–163; BP diastolic 73–90; PULSE 90–137; RESP 12–18; TEMP 36.4–36.7; O2SAT 96–98; BMI 45.4; BMI 46.3
--- NOTE | ~2025-01-10 | XR_ITS ---
EXAMINATION: XR chest 1V portable, 01/10/2025 15:36 CDT HISTORY: heart racing, h/o AFIB COMPARISON: No comparisons available. Technique: Single view. Findings: The lungs are clear, no effusion. No pneumothorax. Heart is normal size. Mediastinal and hilar contours are within normal limits. Bony thorax no acute abnormality. Impression: No acute cardiopulmonary abnormality. Reviewed, dictated and finalized at location A. Impression: No acute cardiopulmonary abnormality.
--- OUTSIDE RECORDS SUMMARY | 2025-01-10 14:21 | XMS_ITS | Encounter Summary ---
Author Organization [facility] Address [address] [facility] [place] [address] Care Team Providers Care Clinical Nurse Name Role Phone Seven Duran MD Primary Care Provider [phone] Encounter Details Date Type Department Care Team (Late st Contact Info) Description 05/31/2018 Lab Requisition [facility] Care DermPath Lab [address] [place] [address] Yoel Patricio MD [address] [place] [address] Social History Tobacco Use Types Packs/Day Years Used Date Smoking Tobacco: Former Alcohol Use Standard Drinks/Week Comments Yes 0 (1 standard drink = 0.6 oz pur e alcohol) Comments Unknown Sex and Gender Information Value Date Recorded Sex Assigned at Not on file Legal Sex Female 5:39 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 Gender Identity Not on file Sexual Orientation Not on file documented as of this encounter Plan of Treatment Not on file documented as of this encounter Procedures Procedure Name Priority Date/Time Associated Diagnosis Comments DERMATOPATHOLOGY Routine 05/30/2018 12:0 0 AM GEODETIC COMPUTATOR documented in this encounter Results * DERMATOPATHOLOGY (05/30/2018 12:00 AM GEODETIC COMPUTATOR) Case Report Dermatopathology Report Case: [id number] Authorizing Provider: Yoel Patricio MD Collected: 05/30/2018 12:00 AM Pathologist: Zahida Crowley MD Received: 05/31/2018 01:33 PM Specimen: Skin, left upper back 1:04 PM [facility] DERMATOPATHOLOGY LABORATORY Final Diagnosis Specimen A. 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 Check margins. 1:04 PM [facility] DERMATOPATHOLOGY LABORATORY Gross Description Specimen A: Received is one formalin filled container labeled with the patients name and designated left upper back. The specimen consists of a shave (2 pieces) removal measuring 6b6y9jq, 0s7z9oc, the margin is inked green. Jar 0. 1:04 PM [facility] DERMATOPATHOLOGY LABORATORY Microscopic Description Specimen A. SKIN, [...] of the specimen. 1:04 PM [facility] DERMATOPATHOLOGY LABORATORY Disclaimer An external and internal positive and negative controls are appropriate for the histochemical, immunohistochemical and immunofluorescence stain(s) in this case (if any), except where stated explicitly. The performance characteristics of the stain(s) cited in this report were developed and its performance characteristic determined by the Dermatopathology Laboratory at [facility], directed by Dr. Tri Echavarria. These tests need not be, and therefore are not, approved by the [place] Food and Drug Administration. The tests are used for clinical purposes. Billing Codes Specimen Charges Stain Charges 41417 1 1:04 PM [facility] DERMATOPATHOLOGY LABORATORY Embedded Images 1:04 PM [facility] DERMATOPATHOLOGY LABORATORY Pathology/Cytolog y TISSUE SPECIMEN FROM SKIN / Unknown 05/30/2018 05/31/2018 1:33 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 us Yoel Patricio MD LAB - PATHOLOGY/CYTOLOGY ORD ERABLES Final Result DERMATOPATHOLOGY LABORATORY [facility] - Department of Dermatology [address] [place] [address], 5th Floor Lab [address] [phone] documented in this encounter Visit Diagnoses Not on filedocumented in this encounter Care Teams Clinical Nurse Relationship Specialty Start Date End Date Seven Duran MD [address] [facility] [address] [place] [address] PCP - General 06/01/16 documented as of this encounter
--- OUTSIDE RECORDS SUMMARY | 2025-01-10 14:21 | XMS_ITS | Clinical Summary ---
Author Organization [facility] Address [address] [facility] [place] [place] [address] Care Team Providers Care Cd Mixer Helper Name Role Phone Seven Duran MD Primary Care Provider [phone] Source Comments [facility],non-[facility] [place] Affiliates and Associated Physician Practices is amultiple site organization consisting of ambulatory clinics and hospital sitesin [place], [place], [place] and [place]. This disclosure is being madepursuant to the Care Everywhere program and may not contain all information available regarding this patient. Last updated 18.[facility] Allergies Active Allergy Reactions Criticality Noted Date Comments Codeine Nausea and/or Vomiting Low 06/22/2016 Medications * Be aware that medications may not be up to date on this document. Alwaysverify current medications with the patient. vitamin D, ergocalciferol, (DRISDOL) 48596 UNITS capsule 3 04/18/2016 Activ e solifenacin (VESICARE) 5 MG tablet 4 06/06/2016 Active verapamil CR (ISOPTIN-SR) 240 MG tablet 0 06/06/2016 Active raloxifene (EVISTA) 60 MG tablet 4 06/06/2016 Active aspirin (ASPIRIN) 81 MG tablet Take 81 mg by mouth DAILY. 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 Gender Identity Not on file Sexual Orientation [...] 1:56 PM CDT Height 162.6 cm (5' 4) 07/25/2016 1:56 PM CDT Body Mass Index [...] season) 2024 DEPRESSION SCREENING 05/14/2024 INFLUENZA VACCINE (#1) 2025 HEPATITIS B VACCINE Aged Out No [...] on patient's age to complete this topic Insurance MEDICARE [facility] [employer] MED[employer]ARE [employer]ENCE MEDICARE ADV PPO SELF PAY NO INSURANCE Member Subscriber Plan / Payer (Ef fective for All Dates) Name:Miley Wood Member ID:Not on file Relation to Subscriber:Not on file Name:MILEY WOOD Subscriber ID:Not on file (Home) Address: [address] [place] [id number] Payer ID:Not on file Group ID:Not on file Type:Self Pay Address: [place], [place] Care Teams Cd Mixer Helper Relationship Specialty Start Date End Date Seven Duran MD [address] [place] [address] [place] [phone] PCP - General 06/01/16
--- OUTSIDE RECORDS SUMMARY | 2025-01-10 14:21 | XMS_ITS | Encounter Summary ---
Author Organization [facility] Address [facility] [place] [address] Care Team Providers Care Network Management Specialist Name Role Phone Seven Duran MD Primary Care Provider [phone] Encounter Details Date Type Department Care Team (Late st Contact Info) Description 07/24/2024 Lab Requisition [facility] DermPath Lab [address] [facility], [place] [phone] Kaye Santos DO [address] [facility] 3 [place] [address] Social History Tobacco Use Types Packs/Day Years Used Date Smoking Tobacco: Former Alcohol Use Standard Drinks/Week Comments Yes 0 (1 standard drink = 0.6 oz pur e alcohol) Comments Unknown Sex and Gender Information Value Date Recorded Sex Assigned at Not on file 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 Gender Identity Not on file Sexual Orientation Not on file documented as of this encounter Plan of Treatment Not on file documented as of this encounter Procedures Procedure Name Priority Date/Time Associated Diagnosis Comments DERMATOPATHOLOGY Routine 07/24/2024 10:1 0 AM CDT documented in this encounter Results * DERMATOPATHOLOGY (07/24/2024 10:10 AM CDT) Case Report Dermatopathology Report Case: [id number] Authorizing Provider: Kaye Santos DO Collected: 07/24/2024 10:10 AM Ordering Location: [facility] - Received: 07/25/2024 07:09 AM DermPath Lab Pathologist: Jeanine Emmanuel MD Specimens: A) - Skin, right ventral forearm B) - Skin, right lower back 2:22 PM [facility] DERMATOPATHOLOGY LABORATORY Final Diagnosis Specimen A. SKIN, right ventral forearm: SEBORRHEIC KERATOSIS, IRRITATED AND INFLAMED (L82.0) Specimen B. 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 Jar 0. 2:22 PM [facility] DERMATOPATHOLOGY LABORATORY Microscopic Description Specimen A. SKIN, right ventral forearm: Sections show acanthosis, papillomatosis, hyperkeratosis, and squamous eddies. There is a lymphohistiocytic infiltrate within the papillary dermis. Specimen B. SKIN, right lower back: The epidermis shows parakeratosis, full thickness disorderly maturation of keratinocytes, mitoses at different levels, and dyskeratotic cells. 2:22 PM T DERMATOPATHOLOGY LABORATORY Disclaimer An external and internal [...] purposes. Billing Codes Specimen Charges Stain Charges 23737 44383 1 1 03/17/202 5 2:22 PM CDT DERMATOPATHOLOGY LABORATORY Embedded Images 2:22 PM CDT DERMATOPATHOLOGY LABORATORY Pathology/Cytology TISSUE SPECIMEN FROM SKIN / Unknown 07/24/2024 10:10 AM CDT 07/25/2024 7:09 AM CDT Miscellaneous samples (specimen) TISSUE SPECIMEN FROM SKIN / Unknown 07/24/2024 10:10 AM CDT 07/25/2024 7:09 AM CDT us Kaye Santos DO LAB - PATHOLOGY/CYTOLOGY ORDERABLES Final Result DERMATOPATHOLOGY LABORATORY [facility] - Department of Dermatology [facility] Specialized Medicine [address] [place] [address], [address] [phone] documented in this encounter Visit Diagnoses Not on filedocumented in this encounter Care Teams Network Management Specialist Relationship Specialty Start Date End Date Seven Duran MD [address] [facility] [address] [place] [address] PCP - General 06/01/16 documented as of this encounter
--- OUTSIDE RECORDS SUMMARY | 2025-01-10 14:21 | XMS_ITS | Encounter Summary ---
Author Organization [facility] Address [address] [place] [address] Care Team Providers Care Jacquard Card Cutter Name Role Phone Seven Duran MD Primary Care Provider [phone] Encounter Details Date Type Department Care Team (Late st Contact Info) Description 01/08/2019 Lab Requisition [facility] DermPath Lab [address] [place] [address] Yoel Patricio MD [address] [place] [address] Social History Tobacco Use Types Packs/Day Years Used Date Smoking Tobacco: Former Alcohol Use Standard Drinks/Week Comments Yes 0 (1 standard drink = 0.6 oz pur e alcohol) Comments Unknown Sex and Gender Information Value Date Recorded Sex Assigned at Not on file 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 Female 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 Gender Identity Not on file Sexual Orientation Not on file documented as of this encounter Plan of Treatment Not on file documented as of this encounter Procedures Procedure Name Priority Date/Time Associated Diagnosis Comments DERMATOPATHOLOGY Routine 01/07/2019 12:0 0 AM CDT documented in this encounter Results * DERMATOPATHOLOGY (01/07/2019 12:00 AM CDT) Case Report Dermatopathology Report Case: [id number] Authorizing Provider: Yoel Ptaricio MD Collected: 01/07/2019 12:00 AM Ordering Location: [facility] DermPath Lab Received: 01/08/2019 12:49 PM Pathologist: Kim Echavarria MD Specimen: Skin, left lat AC fossa 4:46 PM CDT DERMATOPATHOLOGY LABORATORY Final Diagnosis Specimen A. SKIN, left lat AC fossa: LICHEN PLANUS-LIKE KERATOSIS (BENIGN LICHENOID KERATOSIS) (L82.1) 4:46 PM CDT DERMATOPATHOLOGY LABORATORY at 1646 CDT Clinical History R/O Arrieta's, HAK, SCC, BCC. 4:46 PM CDT DERMATOPATHOLOGY LABORATORY Gross Description Specimen A: Received is one formalin filled container labeled with the patient's name and designated left lat AC fossa. The specimen consists of a shave biopsy measuring 7g3m5md. Jar 0. 4:46 PM CDT DERMATOPATHOLOGY LABORATORY [...] characteristic determined by the Dermatopathology Laboratory at [facility], directed by Dr. Tri Echavarria. These tests need not be, and therefore are not, approved by the [place] Food and Drug Administration. The tests are used for clinical purposes. Billing Codes Specimen Charges Stain Charges 08020 1 4:46 PM CDT DERMATOPATHOLOGY LABORATORY Embedded Images 4:46 PM CDT DERMATOPATHOLOGY LABORATORY Pathology/Cytolog y TISSUE SPECIMEN FROM SKIN / Unknown 01/07/2019 01/08/2019 12:49 PM CDT us Yoel Patricio MD LAB - PATHOLOGY/CYTOLOGY ORD ERABLES Final Result DERMATOPATHOLOGY LABORATORY [facility] - Department of Dermatology [address] [facility], 5th Floor Lab B [address] [phone] documented in this encounter Visit Diagnoses Not on filedocumented in this encounter Care Teams Jacquard Card Cutter Relationship Specialty Start Date End Date Seven Duran MD [address] [facility] [address] [place] [phone] PCP - General 06/01/16 documented as of this encounter
--- OUTSIDE RECORDS SUMMARY | 2025-01-10 14:21 | XMS_ITS | Encounter Summary ---
Author Organization [facility] Address [address] [facility] [place] [address] Care Team Providers Care Clinical Product Specialist Name Role Phone Seven Duran MD Primary Care Provider [phone] Encounter Details Date Type Department Care Team (Late st Contact Info) Description 09/23/2020 Lab Requisition [facility] DermPath Lab [address] [facility] [place] [address] Yoel Patricio MD [address] [place] [address] Social History Tobacco Use Types Packs/Day Years Used Date Smoking Tobacco: Former Alcohol Use Standard Drinks/Week Comments Yes 0 (1 standard drink = 0.6 oz pur e alcohol) Comments Unknown Sex and Gender Information Value Date Recorded Sex Assigned at Not on file 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 Gender Identity Not on file Sexual Orientation Not on file documented as of this encounter Plan of Treatment Not on file documented as of this encounter Procedures Procedure Name Priority Date/Time Associated Diagnosis Comments DERMATOPATHOLOGY Routine 09/22/2020 3:33 AM CDT documented in this encounter Results * DERMATOPATHOLOGY (09/22/2020 3:33 AM CDT) Case Report Dermatopathology Report Case: [id number] Authorizing Provider: Yoel Patricio MD Collected: 09/22/2020 03:33 AM Ordering Location: [facility] DermPath Lab Received: 09/23/2020 12:59 PM Pathologist: Jeanine Emmanuel MD Specimen: Skin, nail clippings 1:36 PM CDT DERMATOPATHOLOGY LABORATORY Final Diagnosis Specimen A. SKIN, nail clippings: COMPACT KERATIN CONSISTENT WITH NAIL PLATE (L60.8) (see microscopic description) 1:36 PM CDT DERMATOPATHOLOGY LABORATORY at 1336 CDT Clinical History PAS stain, R/O fungus. 1:36 PM CDT DERMATOPATHOLOGY LABORATORY Gross Description Specimen A: Received is one formalin filled container labeled with the patient's name and designated nail clippings. The specimen consists of a nail clipping (5 pieces) measuring 7p2s8qu, 2s1z0xd, 2q3j2wd, 1h3g8qf, & 1f9y8cp. 1:36 PM CDT DERMATOPATHOLOGY LABORATORY Microscopic Description [...] characteristic determined by the Dermatopathology Laboratory at [facility], directed by Dr. Tri Echavarria. These tests need not be, and therefore are not, approved by the [place] Food and Drug Administration. The tests are used for clinical purposes. Billing Codes Specimen Charges Stain Charges 72974 1 74614 1 1:36 PM CDT DERMATOPATHOLOGY LABORATORY Embedded Images 1:36 PM CDT DERMATOPATHOLOGY LABORATORY Pathology/Cytolo gy TISSUE SPECIMEN FROM SKIN / Unknown 09/22/2020 3:33 AM CDT 09/23/2020 12:59 PM CDT Yoel Patricio MD LAB - PATHOLOGY/CYTOLOGY ORD ERABLES Final Result DERMATOPATHOLOGY LABORATORY [facility] - Department of Dermatology [facility] Specialized Medicine [address] [place] [address], [address]rd Floor [address] [phone] documented in this encounter Visit Diagnoses Not on filedocumented in this encounter Care Teams Clinical Product Specialist Relationship Specialty Start Date End Date Seven Duran MD [address] [facility] [address] [place] [address] PCP - General 06/01/16 documented as of this encounter
--- OUTSIDE RECORDS SUMMARY | 2025-01-10 14:21 | XMS_ITS | Clinical Summary ---
Author Organization [facility] Address [address] [place] [phone] Care Team Providers Care Wood Car Builder Name Role Phone Unavailable Primary Care Provider [...] Health Maintenance Due Date Last Done Comments Hepatitis C Virus (HCV) Screening 1945 Zoster Immunization (1 of 2) 02/08/1996 Respiratory Syncytial Virus (RSV) Immunization (Adult) (1 - 1-dose 75+ series) 2021 SARS-COV-2 Immunization ( season) 2024 08/19/2021, 03/10/2021, 07/21/2020, Additional history exists Influenza Immunization (#1) 01/12/202501/12, 02/12/2019, 02/10/2019, Additional history exists DTaP/Tdap/Td Immunization Discontinued 11/26/2017 TdaP Immunization Completed 11/26/2017 Pneumococcal Immunization (50+ years) Completed 02/12/2019, 02/10/2019, 02/24/2015 Hepatitis B Immunization Aged Out No longer eligible based on patient's age to complete this topic Human Papillomavirus (HPV) Immunization Aged Out No longer eligible based on patient's age to complete this topic Meningococcal Immunization (ACWY) Aged Out No longer eligible based on patient's age to complete this topic Rotavirus Immunization Aged Out No lo nger eligible based on patient's age to complete this topic
--- OUTSIDE RECORDS SUMMARY | 2025-01-10 14:21 | XMS_ITS | Encounter Summary ---
Author Organization [facility] Address [address] [place] [address] Care Team Providers Care Bull Ladle Tender Name Role Phone Seven Duran MD Primary Care Provider [phone] Encounter Details Date Type Department Care Team (Late st Contact Info) Description 04/28/2020 Lab Requisition [facility] [address] [place] [address] Yoel Patricio MD [address] [place] [address] Social History Tobacco Use Types Packs/Day Years Used Date Smoking Tobacco: Former Alcohol Use Standard Drinks/Week Comments Yes 0 (1 standard drink = 0.6 oz pur e alcohol) Comments Unknown Sex and Gender Information Value Date Recorded Sex Assigned at Not on file 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 Sex Female 5:39 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 Gender Identity Not on file Sexual Orientation Not on file documented as of this encounter Plan of Treatment Not on file documented as of this encounter Procedures Procedure Name Priority Date/Time Associated Diagnosis Comments DERMATOPATHOLOGY Routine 04/27/2020 12:0 0 AM JOB DEVELOPER documented in this encounter Results * DERMATOPATHOLOGY (04/27/2020 12:00 AM JOB DEVELOPER) Case Report Dermatopathology Report Case: [id number] Authorizing Provider: Yoel Patricio MD Collected: 04/27/2020 12:00 AM Ordering Location: [facility] Received: 04/28/2020 12:00 PM Pathologist: Kim Echavarria MD Specimen: Skin, right lower lat calf 0 4:48 PM [facility] Final Diagnosis Specimen A. SKIN, right lower lat calf: BASAL CELL CARCINOMA, NODULAR TYPE (C44.712) 0 4:48 PM [facility] DERMATOPATHOLOGY [facility]ORATORY at 1648 JOB DEVELOPER Clinical History R/O HAK, BCC, SCC, other dermatitis. 0 4:48 PM JOB DEVELOPER DERMATOPATHOLOGY LABORATORY Gross Description Specimen A: Received is one formalin filled container labeled with the patient's name and designated right lower lat calf. The specimen consists of a shave biopsy measuring [id number]. Jar 0. 0 4:48 PM [facility] DERMATOPATHOLOGY [facility]OR[facility]ORY Microscopic Description Specimen A. SKIN, right lower lat calf: Within the dermis there are aggregates of basaloid cells with a high nuclear to cytoplasmic ratio and peripheral palisading. 0 4:48 PM [facility] DERMATOPATHOLOGY [facility]OR[facility]ORY Disclaimer An external and internal positive and negative controls are appropriate for the histochemical, immunohistochemical and immunofluorescence stain(s) in this case (if any), except where stated explicitly. The performance characteristics of the stain(s) cited in this report were developed and its performance characteristic determined by the Dermatopathology Laboratory at [facility], directed by Dr. Tri Echavarria. These tests need not be, and therefore are not, approved by the [place] Food and Drug Administration. The tests are used for clinical purposes. Billing Codes Specimen Charges Stain Charges 91020 1 0 4:48 PM [facility] DERMATOPATH[facility]Y [facility] Embedded Images 0 4:48 PM [facility]MAT[facility] Pathology/Cytolog y TISSUE SPECIMEN FROM SKIN / Unknown 04/27/2020 04/28/2020 12:00 PM [facility] Yoel Patricio MD LAB - PATHOLOGY/CYTOLOGY ORD ERABLES Final Result DERMATOPATHOLOGY LABORATORY [facility] - Department of Dermatology [address], [address] [phone] documented in this encounter Visit Diagnoses Not on filedocumented in this encounter Care Teams Bull Ladle Tender Relationship Specialty Start Date End Date Sevne Duran MD [address] [facility] [address] [place] [id number] PCP - General 06/01/16 documented as of this encounter
--- OUTSIDE RECORDS SUMMARY | 2025-01-10 14:21 | XMS_ITS | Encounter Summary ---
Author Organization [facility] Address [facility] [place] [address] Care Team Providers Care Registered Pharmacist Name Role Phone Seven Duran MD Primary Care Provider [phone] Encounter Details Date Type Department Care Team (Late st Contact Info) Description 08/25/2024 Lab Requisition [facility] - [facility] [address] [facility] [place] [id number] Kaye Santos DO [address] 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 Gender Identity Not on file Sexual Orientation Not on file documented as of this encounter Plan of Treatment Not on file documented as of this encounter Procedures Procedure Name Priority Date/Time Associated Diagnosis Comments DERMATOPATHOLOGY Routine 08/25/2024 7:56 AM CDT documented in this encounter Results * DERMATOPATHOLOGY (08/25/2024 7:56 AM CDT) Case Report Dermatopathology Report Case: [id number] Authorizing Provider: Kaye Santos DO Collected: 08/25/2024 07:56 AM Ordering Location: [facility] - Received: 08/26/2024 07:01 AM [...] of a non-oriented ellipse of skin measuring 61x13s6 mm. The epidermal surface is unremarkable. The [...] characteristic determined by the Dermatopathology Laboratory at [facility], directed by Dr. Tri Echavarria. These tests need not be, and therefore are not, approved by the [place] Food and Drug Administration. The tests are used for clinical purposes. Billing Codes Specimen Charges Stain Charges 55586 1 12:07 PM CDT DERMATOPATHOLOGY LABORATORY Embedded Images 12:07 PM CDT DERMATOPATHOLOGY LABORATORY Pathology/Cytolo gy TISSUE SPECIMEN FROM SKIN / Unknown 08/25/2024 7:56 AM CDT 08/26/2024 7:01 AM CDT us Kaye Santos DO LAB - PATHOLOGY/CYTOLOGY ORDERABLES Final Result DERMATOPATHOLOGY LABORATORY [facility] - Department of Dermatology [facility] [address] [place] [address], [address] [phone] documented in this encounter Visit Diagnoses Not on filedocumented in this encounter Care Teams Registered Pharmacist Relationship Specialty Start Date End Date Seven Duran MD [address] [facility] [address] [place] [id number] PCP - General 06/01/16 documented as of this encounter
--- NOTE | 2025-01-10 14:25 | ECG_ITS ---
Test Date: 2025-01-10 15:28:16 Measurements Intervals [place] Rate: 110 P: 0 NH: 0 QRS: -1 QRSD: 98 T: 22 QT: 321 QTc: 435 Interpretive Statements ATRIAL FIBRILLATION WITH RAPID VENTRICULAR RESPONSE LEFT VENTRICULAR HYPERTROPHY ABNORMAL ECG ABNORMAL RHYTHM ECG Compared to ECG 09/03/2024 13:37:44 Sinus rhythm no longer present Electronically Signed On 01-10-2025 15:42:11 CDT by Chris Malone D.O.
[2025-01-10 14:46] LABS: Hematocrit 44.0 % (37.0-47.0); Hemoglobin 14.0 g/dL (12.0-15.0); Immature Granulocyte Percent A 0.2 % (0-0.5); Lymphocytes Absolute Auto 1.86 K/mm3 (0.9-3.2); Mean Corpuscular HGB Conc 31.8 g/dl (32-36); Mean Corpuscular Hemoglobin 28.5 pg (26-34); Mean Corpuscular Volume 89.6 fl (80-100); Nucleated Red Blood Cells Absolute Auto 0.000 K/mm3 (0.0-0.012); Nucleated Red Blood Cells Perc 0.0 % (0.0-0.2); Platelet Count Result 203 k/mm3 (150-375); Red Blood Count 4.91 M/mm3 (4.2-5.4); White Blood Count 6.0 K/mm3 (4.5-10.0)
--- NOTE | 2025-01-10 14:46 | ED.GENADULT ---
HPI - General Adult General Chief complaint: Arrhythmia/Palpitations Stated complaint: high heart rate, afib rvr Time Seen by Provider: 01/10/25 14:30 History of Present Illness HPI narrative: 71-year-old female history of atrial fibrillation presenting to the emergency department for evaluation for AFib with RVR. Patient does take a long-acting metoprolol and she had been instructed by her cotton tipper to take additional short-acting metoprolol and if she was having episodes of rapid heart rate. Patient did this yesterday and felt that this did help with her symptoms but then he and today she began having rapid ventricular response again. Patient denies any nausea vomiting diarrhea recent illnesses coughs colds fevers pain with urination or other signs of infection. Patient states she has been taking medication as directed. Patient denies any associated chest pain or shortness of breath. Related Data Home Medications ?Medication ?Instructions ?Recorded ?Confirmed ?Last Taken ?Type apixaban 5 mg tablet (Eliquis) 5 mg PO BID 03/27/19 11/26/24 08/30/24 History cranberry fruit 400 mg capsule 400 mg PO DAILY 03/27/19 11/26/24 09/02/24 History cholecalciferol (vitamin D3) 125 50,000 unit PO .COMPLEX 01/24/22 11/26/24 08/26/24 History mcg (5,000 unit) tablet (Vitamin D3) metoprolol succinate 25 mg 50 mg PO DAILY 01/24/22 11/26/24 09/03/24 History tablet,extended release 24 hr metoprolol tartrate 25 mg tablet 25 mg PO .prn 08/02/22 11/26/24 Unknown History glucosamine-chondroitin 250 mg-200 2 tablet PO DAILY 08/31/23 11/26/24 09/02/24 History mg tablet (Osteo Bi-Flex) Allergies Allergy/AdvReac Type Severity Reaction Status Date / Time codeine Allergy Mild sick to Verified 11/26/24 08:39 stomach Review of Systems Review of Systems: All systems reviewed & are unremarkable except as noted in HPI and below PMFSH Past Medical History Medical History Vitamin D deficiency Diastolic dysfunction Paroxysmal atrial flutter Paroxysmal atrial fibrillation Gastroesophageal reflux disease Obstructive sleep apnea on CPAP Osteopenia Mixed hyperlipidemia Morbid obesity Hypertension Surgical History Surgical History History of colonoscopy with polypectomy History of cholecystectomy History of right knee joint replacement Family History Family History Mother Asthma Carcinoma of colon Sibling Asthma Family history of malignant melanoma Patient's brother is in good health Diabetes mellitus Father Family history of coronary artery disease, Onset Age: 70 Family history of diabetes mellitus in first degree relative Family history of heart disease in male family member before age 55 Patient's father is Diabetes mellitus Social History Social History 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 Smoking packs per day: 1 Smoking cigarettes per day: 20.0 Years smoked: 20 Smoking pack-years: 20.00 Smoking status: Never smoker Tobacco type: cigarettes Second hand tobacco smoke exposure: Yes Smoking end date: 05/14/84 Alcohol intake: never Alcohol use details: rarely Substance use: never Substance use type: does not use Lack of Transportation: No Lack of Food: Never True Current Housing: I Have Housing Concerned About Future Housing: No Difficulty Paying Gas/Electric Bills: No Difficulty Paying for Meds: No Currently Unemployed: No Education: Decline to Answer Difficulty w/ Childcare or Family Care: No Living arrangements: with family Spiritual care concerns: No Exam Narrative: APPEARANCE: Well appearing, no pain, no distress, well-nourished. HEAD: normocephalic, atraumatic. EYES: PERRLA/EOMI, conjunctivae clear. NOSE: Normal no drainage EARS:TMS clear with good light reflex. THROAT: Pharynx clear, no exudate. NECK: Supple. No adenopathy, no masses. RESPIRATORY: Airway patent, respirations nonlabored. Clear to auscultation bilaterally, no rales, rhonchi, wheezing. CARDIOVASCULAR: AFib with rapid ventricular response ABDOMINAL: Soft, nontender, nondistended, normal bowel sounds MUSCULOSKELETAL: Moves all extremities. Strength/ROM intact, No edema, No calf tenderness. NEURO: Alert. Cranial nerves II through XII intact. Grossly intact SKIN: Warm, dry. Normal Color Course Vital Signs Vital signs: Vital Signs Temperature 98.0 F 01/10/25 14:31 Pulse Rate 130 H 01/10/25 14:31 Respiratory Rate 12 01/10/25 14:31 Blood Pressure 155/87 H 01/10/25 14:31 Pulse Oximetry 97 01/10/25 14:31 Oxygen Delivery Room Air 01/10/25 14:31 Temperature 97.6 F 01/10/25 17:03 Pulse Rate 114 H 01/10/25 17:03 Respiratory Rate 17 01/10/25 16:16 Blood Pressure 163/77 H 01/10/25 17:03 Pulse Oximetry 98 01/10/25 17:03 Oxygen Delivery Room Air 01/10/25 14:31 Medical Decision Making MDM Narrative Medical decision making narrative: 79-year-old female on Eliquis presents emergency department for evaluation for AFib with rapid ventricular response. Patient is always in AFib but she is typically rate controlled. Patient does take a long-acting metoprolol and patient has not missed any of her meds. In the emergency department patient was started on Cardizem bolus and Cardizem infusion. Case was discussed with hospitalist patient was accepted for admission to the IMU. Critical Care Procedure Note Authorized and Performed by: Se Clayton Total critical care time: Approximately 36 minutes Due to a high probability of clinically significant, life threatening deterioration, the patient required my highest level of preparedness to intervene emergently and I personally spent this critical care time directly and personally managing the patient. This critical care time included obtaining a history; examining the patient; pulse oximetry; ordering and review of studies; arranging urgent treatment with development of a management plan; evaluation of patient's response to treatment; frequent reassessment; and, discussions with other providers. This critical care time was performed to assess and manage the high probability of imminent, life-threatening deterioration that could result in multi-organ failure. It was exclusive of separately billable procedures and treating other patients and teaching time. Please see MDM section and the rest of the note for further information on patient assessment and treatment. Vital Signs Vital Signs: Vital Signs Temperature 98.0 F 01/10/25 14:31 Pulse Rate 130 H 01/10/25 14:31 Respiratory Rate 12 01/10/25 14:31 Blood Pressure 155/87 H 01/10/25 14:31 Pulse Oximetry 97 01/10/25 14:31 Oxygen Delivery Room Air 01/10/25 14:31 Temperature 97.6 F 01/10/25 17:03 Pulse Rate 114 H 01/10/25 17:03 Respiratory Rate 17 01/10/25 16:16 Blood Pressure 163/77 H 01/10/25 17:03 Pulse Oximetry 98 01/10/25 17:03 Oxygen Delivery Room Air 01/10/25 14:31 Lab Data 01/10/25 14:40 01/10/25 14:40 Labs: Lab Results 01/10/25 01/10/25 Range/Units 14:39 14:40 WBC 6.0 (4.5-10.0) K/mm3 RBC 4.91 (4.2-5.4) M/mm3 Hgb 14.0 (12.0-15.0) g/dL Hct 44.0 (37.0-47.0) % MCV 89.6 (80-100) fl MCH 28.5 (26-34) pg MCHC 31.8 L (32-36) g/dl RDW 13.4 (11.5-14.5) % Plt Count 203 (150-375) k/mm3 MPV 10.8 H (7.4-10.4) fl Immature Gran % (Auto) 0.2 (0-0.5) % Neut % (Auto) 60.1 (45.5-73.1) % Lymph % (Auto) 31.2 (18.3-44.2) % Dolores % (Auto) 7.7 (2.6-8.5) % Eos % (Auto) 0.5 (0-4.4) % Baso % (Auto) 0.3 (0.2-1.2) % Lymph # (Auto) 1.86 (0.9-3.2) K/mm3 Dolores # (Auto) 0.5 (0.1-0.6) K/mm3 Eos # (Auto) 0.0 (0-0.3) K/mm3 Baso # (Auto) 0.0 (0.0-0.1) K/mm3 Abs Immat Gran (auto) 0.01 (0.00-0.031) K/mm3 Absolute Neuts (auto) 3.6 (1.3-6.7) K/mm3 Absolute Nucleated RBC 0.000 (0.0-0.012) K/mm3 Nucleated RBC % 0.0 (0.0-0.2) % PT 15.4 H (11.1-14.7) Seconds INR 1.2 APTT 31.5 (22.3-36.8) Seconds Sodium 141 (137-145) mmol/L Potassium 3.6 (3.4-5.0) mmol/L Chloride 103 (98-107) mmol/L Carbon Dioxide 27 (22-30) mmol/L Anion Gap 11 (4-12) mmol/L BUN 14 (7-17) mg/dL Creatinine 0.91 (0.7-1.0) mg/dL Estim Creat Clear Calc 57 ml/min Estimated GFR 60 (59 - ) Glucose 94 (65-110) mg/dL Calcium 9.6 (8.4-10.2) mg/dL Magnesium 1.9 (1.6-2.3) mg/dL Total Bilirubin 0.4 (0.2-1.3) mg/dL AST 24 (14-36) U/L ALT 17 (6-35) U/L Alkaline Phosphatase 63 (38-126) U/L Troponin I < 0.012 (0.000-0.034) ng/mL Total Protein 8.1 (6.3-8.2) g/dL Albumin 4.6 (3.5-5.1) g/dL Lipase 49 (23-300) U/L TSH (Reflex) 3.090 (0.465-4.68) uIU/mL Critical Care Time Critical Care Time Critical Care Time: Yes Total Critical Care Time: 36 Discharge Plan Discharge Clinical Impression: Atrial fibrillation with rapid ventricular response Patient Disposition: Still a Patient Condition: Serious
[2025-01-10] MEDS: dilTIAZem 100 MG/100 ML 100 MG/100 ML BAG IV CONT (14:50)
[2025-01-10] MEDS: ASPIRIN 81 MG CHEWABLE TABLET 324 MG PO (14:51)
[2025-01-10 14:58] LABS: INR 1.2; Partial Thromboplastin Time 31.5 Seconds (22.3-36.8); Prothrombin Time 15.4 Seconds (11.1-14.7)
[2025-01-10 15:00] LABS: Alanine Aminotransferase 17 U/L (6-35); Albumin Level 4.6 g/dL (3.5-5.1); Alkaline Phosphatase 63 U/L (38-126); Anion Gap 11 mmol/L (4-12); Aspartate Amino Transferase 24 U/L (14-36); Bilirubin,Total 0.4 mg/dL (0.2-1.3); Blood Urea Nitrogen 14 mg/dL (7-17); Calcium 9.6 mg/dL (8.4-10.2); Carbon Dioxide 27 mmol/L (22-30); Chloride 103 mmol/L (98-107); Estimated CRCL calculation 57 ml/min; Estimated Glomerular Filt Rate 60; Glucose 94 mg/dL (65-110); Lipase 49 U/L (23-300); Potassium 3.6 mmol/L (3.4-5.0); Sodium 141 mmol/L (137-145); Total Protein 8.1 g/dL (6.3-8.2)
[2025-01-10 15:07] LABS: Magnesium 1.9 mg/dL (1.6-2.3)
[2025-01-10 15:10] LABS: Troponin I < 0.012 ng/mL (0.000-0.034)
[2025-01-10 15:38] LABS: Thyroid Stimulating Hormone Reflex 3.090 uIU/mL (0.465-4.68)
[2025-01-10] MEDS: LACTATED RINGERS 1,000 ML 999 ML IV CONT (15:43)
--- NOTE | 2025-01-10 15:48 | P.HP_ITS ---
H&P: HPI History of Present Illness Date/Time: 01/10/25 15:48 Chief Complaint: AFib with RVR Narrative: 71-year-old female patient with AFib with RVR. Patient states that she is on extended-release metoprolol at home, and was told by her provider ever her rates over 120 to also add insert release metoprolol to help. She states that she did that yesterday and held with her rate. She states that when she tried to do that today it is per her a to not go below 100 so she presented to the hospital. Patient has no respiratory complaints, no GI complaints no signs of soft tissue infection. CBC and CMP within normal limits. Chest x-ray with no acute process. EKG in the emergency room shows AFib with RVR rate of 110. Patient was placed on a Cardizem drip and is now rate controlled. Review of Systems Review of Systems: 12 systems were reviewed and are negativ e except for as per HPI. [facility] Past Medical History Medical History Vitamin D deficiency Diastolic dysfunction Paroxysmal atrial flutter Paroxysmal atrial fibrillation Gastroesophageal reflux disease Obstructive sleep apnea on CPAP Osteopenia Mixed hyperlipidemia Morbid obesity Hypertension Surgical History Surgical History History of colonoscopy with polypectomy History of cholecystectomy History of right knee joint replacement Family History Family History Mother Asthma Carcinoma of colon Sibling Asthma Family history of malignant melanoma Patient's brother is in good health Diabetes mellitus Father Family history of coronary artery disease, Onset Age: 70 Family history of diabetes mellitus in first degree relative Family history of heart disease in male family member before age 55 Patient's father is Diabetes mellitus Social History Social History 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 Smoking packs per day: 1 Smoking cigarettes per day: 20.0 Years smoked: 20 Smoking pack-years: 20.00 Smoking status: Never smoker Tobacco type: cigarettes Second hand tobacco smoke exposure: Yes Smoking end date: 05/14/84 Alcohol intake: never Alcohol use details: rarely Substance use: never Substance use type: does not use Lack of Transportation: No Lack of Food: Never True Current Housing: I Have Housing Concerned About Future Housing: No Difficulty Paying Gas/Electric Bills: No Difficulty Paying for Meds: No Currently Unemployed: No Education: Decline to Answer Difficulty w/ Childcare or Family Care: No Living arrangements: with family Spiritual care concerns: No Meds Home Medications and Allergies Home Medications ?Medication ?Instructions ?Recorded ?Confirmed ?Type apixaban 5 mg tablet (Eliquis) 5 mg PO BID 03/27/19 History cranberry fruit 400 mg capsule 400 mg PO DAILY 9 01/10/25 History diltiazem HCl 120 mg capsule,24 120 mg PO DAILY #30 ca ps 05/03/20 01/10/25 Rx hr,extended release cholecalciferol (vitamin D3) 125 50,000 unit PO .COMPL EX 01/24/22 01/10/25 History mcg (5,000 unit) tablet (Vitamin D3) metoprolol succinate 25 mg 50 mg PO DAILY 01/24/22 History tablet,extended release 24 hr metoprolol tartrate 25 mg tablet 25 mg PO .prn 08/02/2 3 01/10/25 History glucosamine-chondroitin 250 mg-200 2 tablet PO DAILY 0 08/31/23 01/10/25 History mg tablet (Osteo Bi-Flex) omeprazole 40 mg capsule,delayed 40 mg PO .COMPLEX #90 caps 07/14/24 01/10/25 Rx release lisinopril 10 mg tablet See Rx Instructions .Route 0 10/15/24 01/10/25 Rx .COMPLEX #90 tabs Allergies Allergy/AdvReac Type Severity Reaction Status Date / Time codeine Allergy Mild sick to Verified 11/26/24 08:39 stomach Vital Signs Vital Signs - 24 hr 01/10/25 14:31 01/10/25 14:36 01/10/25 14:50 Temperature 98.0 F Pulse Rate 130 H 137 H 124 H Respiratory Rate 12 Blood Pressure 155/87 H 124/90 Pulse Oximetry 97 Oxygen Delivery Room Air 01/10/25 15:19 01/10/25 15:31 Temperature Pulse Rate 122 H 125 H Respiratory Rate 18 Blood Pressure 139/81 140/77 Pulse Oximetry 96 Oxygen Delivery Exam Narrative: General: well appearing, appears stated age. HEENT: normocephalic, atraumatic. Mucous membranes moist. EOMI, PERRLA, bilateral sclera anicteric, no conjunctival injection. Neck supple without JVD, lymphadenopathy, or bruit. Respiratory: clear to ascultation bilaterally. No rales/rhonic/wheezes. Cardiovascular: Regular rate and rhythm, normal S1-S2 upon ascultation. No murmurs, rubs, or clicks. PMI is nondisplaced, capillary refill less than 3 second. Abdomen: Soft, round, no pulsatile masses, nondistended and nontender. No rebound, no guarding. No CVA tenderness, no hepatosplenomegaly. Bowel sounds present to all four quadrants. No high pitch or tinkling sounds, resonant to percussion. Extremities: No cyanosis, clubbing, or edema present. Pulses are palpable 2/2. Active ROM to all four extremities. Neuro: Alert and orientated x 4. PERRLA. Cranial nerves 2-12 intact without focal deficit. Skin: Warm, dry, and intact, without rash, erythema, or lesion. Psych: pleasant, cooperative, normal speech, normal affect, no hallucinations, no dysarthia H&P: Results Labs Labs: Short CBC 01/10/25 Range/Units 14:40 WBC 6.0 (4.5-10.0) K/mm3 Hgb 14.0 (12.0-15.0) g/dL Hct 44.0 (37.0-47.0) % Plt Count 203 (150-375) k/mm3 BMP 01/10/25 14:40 Sodium 141 Potassium 3.6 Chloride 103 Carbon Dioxide 27 BUN 14 Creatinine 0.91 Glucose 94 Calcium 9.6 Cardiac Enzymes 01/10/25 Range/Units 14:40 Troponin I < 0.012 (0.000-0.034) ng/mL Liver Function 01/10/25 Range/Units 14:40 Total Bilirubin 0.4 (0.2-1.3) mg/dL AST 24 (14-36) U/L ALT 17 (6-35) U/L Alkaline Phosphatase 63 (38-126) U/L Albumin 4.6 (3.5-5.1) g/dL Assessment and Plan Assessment and plan (1) Atrial fibrillation with rapid ventricular response: Code(s): I48.91 - Unspecified atrial fibrillation Status: Acute Assessment and Plan: Unknown cause at this time Cardiology consulted Bina dsouza Admit to [facility] Holding p.o. diltiazem while on the drip Continue metoprolol Continue Eliquis (2) Essential (primary) hypertension: Code(s): I10 - Essential (primary) hypertension Status: Acute Assessment and Plan: Continue lisinopril (3) Diastolic dysfunction: Code(s): I51.89 - Other ill-defined heart diseases Status: Acute Assessment and Plan: Patient does not appear to be on diuretics Quality VTE Prophylaxis VTE prophylaxis: mechanical ordered and pharmacologic ordered Hospitalist MIPS Advance Care Plan I have confirmed that the patient's Advanced Care Plan is present, code status is documented, or surrogate decision maker is listed in patient medical record.: Yes Medication Reconciliation I have utilized all available resources to obtain, update and review the patients current medications (includes all prescriptions, OTC, herbals, cannabis , and nutritional supplements).: Yes
[2025-01-10 16:07] LABS: Add Urine Microscopic? YES; Appearance Urine Cloudy (Clear); Glucose Urine UA Negative (Negative); Leukocyte Esterase Ur Negative LEU/UL (Negative); Nitrate Urine Negative (Negative); Non Pathogenic Casts 0-2; Specific Grav Ur 1.006 (1.001-1.035)
--- NOTE | 2025-01-10 16:28 | ADMGEN ---
This patient, Harsha Wood, was admitted to IMU Room 202-01 @ 1628. Patient/family oriented to hospital policies and general routines including ID bracelet, bed and alarms, visiting hours, pain management, procedures, bathroom and other care routines, personal items, smoking policy, room service/diet, and visiting hours. Information on how to activate the Rapid Response Team has been discussed. Patient/Family are encouraged to report perceived risks to care and to ask questions if they do not understand what they are told or what they should do.
[2025-01-10 18:40] LABS: Troponin I < 0.012 ng/mL (0.000-0.034)
[2025-01-10 20:56] LABS: Troponin I < 0.012 ng/mL (0.000-0.034)
[2025-01-10] MEDS: DOCUSATE SODIUM 100 MG CAPSULE PO (21:09)
[2025-01-10] MEDS: APIXABAN 5 MG TABLET PO (22:28)
[2025-01-10] MEDS: ACETAMINOPHEN 325 MG TABLET 650 MG PO (23:25)
[2025-01-10] MEDS: dilTIAZem 100 MG/100 ML 100 MG/100 ML BAG 10 MG IV CONT (23:55)
[2025-01-11] VITALS (24 sets, daily range): BP systolic 102–151; BP diastolic 58–97; PULSE 57–138; RESP 14–25; TEMP 36.4–36.9; O2SAT 95–100
[2025-01-11 04:06] LABS: Hematocrit 38.9 % (37.0-47.0); Hemoglobin 12.4 g/dL (12.0-15.0); Immature Granulocyte Percent A 0.2 % (0-0.5); Lymphocytes Absolute Auto 1.37 K/mm3 (0.9-3.2); Mean Corpuscular HGB Conc 31.9 g/dl (32-36); Mean Corpuscular Hemoglobin 28.3 pg (26-34); Mean Corpuscular Volume 88.8 fl (80-100); Nucleated Red Blood Cells Absolute Auto 0.000 K/mm3 (0.0-0.012); Nucleated Red Blood Cells Perc 0.0 % (0.0-0.2); Platelet Count Result 182 k/mm3 (150-375); Red Blood Count 4.38 M/mm3 (4.2-5.4); White Blood Count 4.4 K/mm3 (4.5-10.0)
[2025-01-11 04:28] LABS: Anion Gap 6 mmol/L (4-12); Blood Urea Nitrogen 13 mg/dL (7-17); Calcium 9.1 mg/dL (8.4-10.2); Carbon Dioxide 29 mmol/L (22-30); Chloride 105 mmol/L (98-107); Estimated CRCL calculation 62 ml/min; Estimated Glomerular Filt Rate > 60; Glucose 95 mg/dL (65-110); Potassium 3.8 mmol/L (3.4-5.0); Sodium 140 mmol/L (137-145)
[2025-01-11] MEDS: DOCUSATE SODIUM 100 MG CAPSULE PO ×2 (08:17→21:18)
[2025-01-11] MEDS: APIXABAN 5 MG TABLET PO ×2 (08:17→21:18)
[2025-01-11] MEDS: PANTOPRAZOLE 40 MG TABLET PO ×2 (08:17→21:18)
[2025-01-11] MEDS: METOPROLOL SUCCINATE EXT REL 50 MG TABCR PO (08:17)
--- NOTE | 2025-01-11 08:48 | P.PNIM_ITS ---
Progress Note: A&P Assessment and Plan (1) Atrial fibrillation with rapid ventricular response: Code(s): I48.91 - Unspecified atrial fibrillation Status: Acute Assessment and Plan: Unknown cause at this time Cardiology consulted Cardizem drip Admit to U TSH normal Ordered echocardiogram Started on amiodarone drip Possible cardioversion Sunday Holding p.o. diltiazem while on the drip Continue metoprolol Continue Eliquis (2) Essential (primary) hypertension: Code(s): I10 - Essential (primary) hypertension Status: Acute Assessment and Plan: Continue lisinopril (3) Diastolic dysfunction: Code(s): I51.89 - Other ill-defined heart diseases Status: Acute Assessment and Plan: Patient does not appear to be on diuretics Subjective Date/time seen: 01/11/25 08:48 Interval history: Patient started on amiodarone drip. During the evaluation, the patient reports that she takes metoprolol 25 mg if her heart rate rises above 120, repeats the dose in 30 minutes, and if it still worsens to 120, seeks medical care. Review of Systems Review of Systems: 12 systems were reviewed and are negativ e except for as per HPI. Exam Narrative: General: well appearing, appears stated age. HEENT: normocephalic, atraumatic. Mucous membranes moist. EOMI, PERRLA, bilateral sclera anicteric, no conjunctival injection. Neck supple without JVD, lymphadenopathy, or bruit. Respiratory: clear to ascultation bilaterally. No rales/rhonic/wheezes. Cardiovascular: Regular rate and rhythm, normal S1-S2 upon ascultation. No murmurs, rubs, or clicks. PMI is nondisplaced, capillary refill less than 3 second. Abdomen: Soft, round, no pulsatile masses, nondistended and nontender. No rebound, no guarding. No CVA tenderness, no hepatosplenomegaly. Bowel sounds present to all four quadrants. No high pitch or tinkling sounds, resonant to percussion. Extremities: No cyanosis, clubbing, or edema present. Pulses are palpable 2/2. Active ROM to all four extremities. Neuro: Alert and orientated x 4. PERRLA. Cranial nerves 2-12 intact without focal deficit. Skin: Warm, dry, and intact, without rash, erythema, or lesion. Psych: pleasant, cooperative, normal speech, normal affect, no hallucinations, no dysarthia Objective Data Vital Signs Vital Signs: Vital Signs - 24 hr 01/10/25 14:31 01/10/25 14:36 01/10/25 14:50 Temperature 98.0 F Pulse Rate 130 H 137 H 124 H Respiratory Rate 12 Blood Pressure 155/87 H 124/90 Pulse Oximetry 97 Oxygen Delivery Room Air 01/10/25 15:19 01/10/25 15:31 01/10/25 16:16 Temperature Pulse Rate 122 H 125 H 90 Respiratory Rate 18 17 Blood Pressure 139/81 140/77 142/82 H Pulse Oximetry 96 96 Oxygen Delivery 01/10/25 17:03 01/10/25 17:43 01/10/25 18:00 Temperature 97.6 F Pulse Rate 114 H 111 H Respiratory Rate Blood Pressure 163/77 H Pulse Oximetry 98 Oxygen Delivery CPAP 01/10/25 20:00 01/10/25 20:00 01/10/25 20:00 Temperature 97.9 F Pulse Rate 100 102 H Respiratory Rate 16 Blood Pressure 120/73 Pulse Oximetry 96 Oxygen Delivery Room Air 01/10/25 22:00 01/10/25 22:47 01/10/25 23:55 Temperature Pulse Rate 96 107 H Respiratory Rate 18 Blood Pressure 147/87 H Pulse Oximetry Oxygen Delivery CPAP 01/11/25 00:00 01/11/25 00:00 01/11/25 00:00 Temperature 98.2 F Pulse Rate 107 H 85 Respiratory Rate 16 Blood Pressure 147/87 H Pulse Oximetry 100 Oxygen Delivery Room Air 01/11/25 01:56 01/11/25 02:00 01/11/25 02:03 Temperature 98.1 F Pulse Rate 91 100 91 Respiratory Rate 16 Blood Pressure 102/58 L 102/58 L Pulse Oximetry 97 Oxygen Delivery 01/11/25 04:00 01/11/25 04:00 01/11/25 04:00 Temperature 98.4 F Pulse Rate 85 84 Respiratory Rate 14 Blood Pressure 123/75 Pulse Oximetry 95 Oxygen Delivery Room Air 01/11/25 04:00 01/11/25 06:00 01/11/25 06:00 Temperature Pulse Rate 84 92 96 Respiratory Rate 16 Blood Pressure 123/84 120/77 129/65 Pulse Oximetry 97 Oxygen Delivery 01/11/25 06:00 01/11/25 07:58 01/11/25 08:00 Temperature 97.6 F Pulse Rate 82 108 H 109 H Respiratory Rate 20 16 Blood Pressure 146/88 H Pulse Oximetry 96 97 Oxygen Delivery Room Air 01/11/25 08:17 Temperature Pulse Rate 103 H Respiratory Rate Blood Pressure Pulse Oximetry Oxygen Delivery Intake/Output Intake/Output: Intake & Output 01/08/25 01/09/25 01/10/25 01/11/25 23:59 23:59 23:59 23:59 Intake Total 1242.4 410.8 Output Total 200 1550 Balance 1042.4 -1139.2 Meds/Results Medications: Active Medications Generic Name Dose Route Start Last Admin Trade Name Freq PRN Reason Stop Dose Admin Acetaminophen 650 mg 01/10/25 15:51 01/10/25 23:25 Acetaminophen 325 Mg Tablet PO 650 mg Q4H PRN Administration Mild Pain (1-3) or Fever Apixaban 5 mg 01/10/25 21:40 01/11/25 08:17 Apixaban 5 Mg Tablet PO 5 mg Q12HR MICHAEL Administration Docusate Sodium 100 mg 01/10/25 15:51 01/11/25 08:17 Docusate Sodium 100 Mg Capsule PO 100 mg BID PRN Administration Constipation Diltiazem HCl 100 mg in 100 mls @ 10 mls/hr 01/11/25 00:00 01/11/25 06:00 Cardizem 100 Mg/100 Ml IV CONT 10 mg/hr .Q10H MICHAEL 10 mls/hr 10 MG/HR Infusion Lisinopril 10 mg 01/10/25 22:05 01/10/25 22:29 Lisinopril 10 Mg Tablet BY MOUTH 10 mg QHS MICHAEL Administration Metoprolol Succinate 50 mg 01/11/25 09:00 01/11/25 08:17 Metoprolol Succinate Ext Rel 50 Mg Tabcr PO 50 mg DAILY MICHAEL Administration Pantoprazole Sodium 40 mg 01/11/25 09:00 01/11/25 08:17 Pantoprazole 40 Mg Tablet PO 40 mg Q48H MICHAEL Administration Pantoprazole Sodium 40 mg 01/11/25 21:00 Pantoprazole 40 Mg Tablet PO Q48H [facility] Radiology Results: ITS Impressions Chest X-Ray 01/10/25 15:45 Impression: No acute cardiopulmonary abnormality. Labs Labs: Laboratory Results - last 24 hr 01/10/25 01/10/25 01/10/25 14:39 14:40 15:59 WBC 6.0 RBC 4.91 Hgb 14.0 Hct 44.0 MCV 89.6 MCH 28.5 MCHC 31.8 L RDW 13.4 Plt Count 203 MPV 10.8 H Immature Gran % (Auto) 0.2 Neut % (Auto) 60.1 Lymph % (Auto) 31.2 Angelina % (Auto) 7.7 Eos % (Auto) 0.5 Baso % (Auto) 0.3 Lymph # (Auto) 1.86 Angelina # (Auto) 0.5 Eos # (Auto) 0.0 Baso # (Auto) 0.0 Abs Immat Gran (auto) 0.01 Absolute Neuts (auto) 3.6 Absolute Nucleated RBC 0.000 Nucleated RBC % 0.0 PT 15.4 H INR 1.2 APTT 31.5 Sodium 141 Potassium 3.6 Chloride 103 Carbon Dioxide 27 Anion Gap 11 BUN 14 Creatinine 0.91 Estim Creat Clear Calc 57 Estimated GFR 60 Glucose 94 Calcium 9.6 Magnesium 1.9 Total Bilirubin 0.4 AST 24 ALT 17 Alkaline Phosphatase 63 Troponin I < 0.012 Total Protein 8.1 Albumin 4.6 Lipase 49 TSH (Reflex) 3.090 Urine Color Yellow Urine Appearance Cloudy H Urine pH 6.5 Ur Specific [place] 1.006 Urine Protein Negative Urine Glucose (UA) Negative Urine Ketones Negative Ur Blood (Man) Negative Urine Nitrate Negative Urine Bilirubin Negative Urine Urobilinogen 0.2 Leukocyte Esterase Rfl Negative Urine RBC 0-2 Urine WBC 0-5 Ur Squamous Epith Cells Occasional Urine Bacteria None seen Urine Casts 0-2 01/10/25 01/10/25 01/11/25 18:08 20:08 03:42 WBC 4.4 L RBC 4.38 Hgb 12.4 Hct 38.9 MCV 88.8 MCH 28.3 MCHC 31.9 L RDW 13.4 Plt Count 182 MPV 10.7 H Immature Gran % (Auto) 0.2 Neut % (Auto) 60.0 Lymph % (Auto) 31.0 Angelina % (Auto) 7.2 Eos % (Auto) 0.9 Baso % (Auto) 0.7 Lymph # (Auto) 1.37 Angelina # (Auto) 0.3 Eos # (Auto) 0.0 Baso # (Auto) 0.0 Abs Immat Gran (auto) 0.01 Absolute Neuts (auto) 2.7 Absolute Nucleated RBC 0.000 Nucleated RBC % 0.0 PT INR APTT Sodium 140 Potassium 3.8 Chloride 105 Carbon Dioxide 29 Anion Gap 6 BUN 13 Creatinine 0.85 Estim Creat Clear Calc 62 Estimated GFR > 60 Glucose 95 Calcium 9.1 Magnesium Total Bilirubin AST ALT Alkaline Phosphatase Troponin I < 0.012 < 0.012 Total Protein Albumin Lipase TSH (Reflex) Urine Color Urine Appearance Urine pH Ur Specific [place] Urine Protein Urine Glucose (UA) Urine Ketones Ur Blood (Man) Urine Nitrate Urine Bilirubin Urine Urobilinogen Leukocyte Esterase Rfl Urine RBC Urine WBC Ur Squamous Epith Cells Urine Bacteria Urine Casts Quality VTE Prophylaxis VTE prophylaxis: mechanical ordered and pharmacologic ordered Hospitalist MIPS Advance Care Plan I have confirmed that the patient's Advanced Care Plan is present, code status is documented, or surrogate decision maker is listed in patient medical record.: Yes Medication Reconciliation I have utilized all available resources to obtain, update and review the patients current medications (includes all prescriptions, OTC, herbals, cannabis, and nutritional supplements).: Yes
--- NOTE | 2025-01-11 10:21 | P.CONCA_ITS ---
Assessment and Plan Assessment and plan (1) Atrial fibrillation with rapid ventricular response: Code(s): I48.91 - Unspecified atrial fibrillation Status: Acute Plan Paroxysmal in atrial fibrillation with RVR Hypertension controlled Mixed dyslipidemia Morbid Obesity Plan Continue diltiazem infusion and wean off as tolerated Start amiodarone 150 mg over 10 minutes in 1 milligram/minute for 6 hours and have a mg per minute afterward Continue Eliquis 5 mg b.i.d. Transthoracic echocardiogram History of Present Illness History of Present Illness Consult date/time: 01/11/25 10:21 Reason For Visit: atrial fibrillation with rvr Narrative: 79-year-old female patient presented hospital with acute onset palpitation. Palpitation started 2 days ago has been getting worse. She has been taking metoprolol XL 50 mg daily and she took 2 tablets of metoprolol tartrate 25 mg without improvement and her heart rate. Patient noted heart rate has been running 120s. She was admitted to the hospital started on diltiazem drip heart rate has been improving since then. She has been compliant with oral anticoagulation Eliquis 5 mg b.i.d.. [facility] Past Medical History Medical History Vitamin D deficiency Diastolic dysfunction Paroxysmal atrial flutter Paroxysmal atrial fibrillation Gastroesophageal reflux disease Obstructive sleep apnea on CPAP Osteopenia Mixed hyperlipidemia Morbid obesity Hypertension Surgical History Surgical History History of colonoscopy with polypectomy History of cholecystectomy History of right knee joint replacement Family History Family History Mother Asthma Carcinoma of colon Sibling Asthma Family history of malignant melanoma Patient's brother is in good health Diabetes mellitus Father Family history of coronary artery disease, Onset Age: 70 Family history of diabetes mellitus in first degree relative Family history of heart disease in male family member before age 55 Patient's father is Diabetes mellitus Social History Social History 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 Smoking packs per day: 1 Smoking cigarettes per day: 20.0 Years smoked: 20 Smoking pack-years: 20.00 Smoking status: Never smoker Tobacco type: cigarettes Second hand tobacco smoke exposure: Yes Smoking end date: 05/14/84 Alcohol intake: never Alcohol use details: rarely Substance use: never Substance use type: does not use Lack of Transportation: No Lack of Food: Never True Current Housing: I Have Housing Concerned About Future Housing: No Difficulty Paying Gas/Electric Bills: No Difficulty Paying for Meds: No Currently Unemployed: No Education: Decline to Answer Difficulty w/ Childcare or Family Care: No Living arrangements: with family Spiritual care concerns: No Meds Home Medications and Allergies Home Medications ?Medication ?Instructions ?Recorded ?Confirmed ?Type apixaban 5 mg tablet (Eliquis) 5 mg PO BID 03/27/19 History cranberry fruit 400 mg capsule 400 mg PO DAILY 9 01/10/25 History diltiazem HCl 120 mg capsule,24 120 mg PO DAILY #30 ca ps 05/03/20 01/10/25 Rx hr,extended release cholecalciferol (vitamin D3) 125 50,000 unit PO .COMPL EX 01/24/22 01/10/25 History mcg (5,000 unit) tablet (Vitamin D3) metoprolol succinate 25 mg 50 mg PO DAILY 01/24/22 History tablet,extended release 24 hr metoprolol tartrate 25 mg tablet 25 mg PO .prn 08/02/2 3 01/10/25 History glucosamine-chondroitin 250 mg-200 2 tablet PO DAILY 0 08/31/23 01/10/25 History mg tablet (Osteo Bi-Flex) omeprazole 40 mg capsule,delayed 40 mg PO .COMPLEX #90 caps 07/14/24 01/10/25 Rx release lisinopril 10 mg tablet See Rx Instructions .Route 0 10/15/24 01/10/25 Rx .COMPLEX #90 tabs Allergies Allergy/AdvReac Type Severity Reaction Status Date / Time codeine Allergy Mild sick to Verified 11/26/24 08:39 stomach Vital Signs Vital Signs - 24 hr 01/10/25 14:31 01/10/25 14:36 01/10/25 14:50 Temperature 36.7 C Pulse Rate 130 H 137 H 124 H Respiratory Rate 12 Blood Pressure 155/87 H 124/90 Pulse Oximetry 97 Oxygen Delivery Room Air 01/10/25 15:19 01/10/25 15:31 01/10/25 16:16 Temperature Pulse Rate 122 H 125 H 90 Respiratory Rate 18 17 Blood Pressure 139/81 140/77 142/82 H Pulse Oximetry 96 96 Oxygen Delivery 01/10/25 17:03 01/10/25 17:43 01/10/25 18:00 Temperature 36.4 C Pulse Rate 114 H 111 H Respiratory Rate Blood Pressure 163/77 H Pulse Oximetry 98 Oxygen Delivery CPAP 01/10/25 20:00 01/10/25 20:00 01/10/25 20:00 Temperature 36.6 C Pulse Rate 100 102 H Respiratory Rate 16 Blood Pressure 120/73 Pulse Oximetry 96 Oxygen Delivery Room Air 01/10/25 22:00 01/10/25 22:47 01/10/25 23:55 Temperature Pulse Rate 96 107 H Respiratory Rate 18 Blood Pressure 147/87 H Pulse Oximetry Oxygen Delivery CPAP 01/11/25 00:00 01/11/25 00:00 01/11/25 00:00 Temperature 36.8 C Pulse Rate 107 H 85 Respiratory Rate 16 Blood Pressure 147/87 H Pulse Oximetry 100 Oxygen Delivery Room Air 01/11/25 01:56 01/11/25 02:00 01/11/25 02:03 Temperature 36.7 C Pulse Rate 91 100 91 Respiratory Rate 16 Blood Pressure 102/58 L 102/58 L Pulse Oximetry 97 Oxygen Delivery 01/11/25 04:00 01/11/25 04:00 01/11/25 04:00 Temperature 36.9 C Pulse Rate 85 84 Respiratory Rate 14 Blood Pressure 123/75 Pulse Oximetry 95 Oxygen Delivery Room Air 01/11/25 04:00 01/11/25 06:00 01/11/25 06:00 Temperature Pulse Rate 84 92 96 Respiratory Rate 16 Blood Pressure 123/84 120/77 129/65 Pulse Oximetry 97 Oxygen Delivery 01/11/25 06:00 01/11/25 07:58 01/11/25 08:00 Temperature 36.4 C Pulse Rate 82 108 H 109 H Respiratory Rate 20 16 Blood Pressure 146/88 H Pulse Oximetry 96 97 Oxygen Delivery Room Air 01/11/25 08:17 01/11/25 10:04 01/11/25 10:05 Temperature Pulse Rate 103 H 103 H 117 H Respiratory Rate Blood Pressure 125/78 125/78 Pulse Oximetry Oxygen Delivery Exam 2 Const: General: comfortable and no acute distress Other: Able to lie flat HENMT: Face/Nose/Sinus: Normal nares present and no epistaxis Mouth: Yes moist mucous membranes Eyes: Sclera: sclerae normal Pupils: Equal, round and reactive pupils present Neck: Neck: supple and no JVD Carotids: no bruits Resp: Auscultation: clear to auscultation bilaterally and lung sounds not diminished Other: No chest wall tenderness Cardio: Rate: regular rate Rhythm: regular rhythm Heart sounds: no gallops, no murmurs and no rubs GI: GI Palp: Yes Soft to palpation and No Tenderness to palpation present (GI) Auscultation: normal bowel sounds Skin: General skin exam: normal color, rashes and/or lesions noted and no erythema Other: Warm Neuro: Cranial nerves: Yes Equal, round and reactive pupils present Speech: normal speech Other: No obvious focal deficit or facial asymmetry Extrem: General: no edema Other: Normal capillary refills Intact distal pulses. Results Labs and Meds 01/11/25 03:42 01/11/25 03:42 Lab results: Cardiac Enzymes 01/10/25 01/10/25 01/10/25 Range/Units 14:40 18:08 20:08 AST 24 (14-36) U/L Troponin I < 0.012 < 0.012 < 0.012 (0.000-0.034) ng/mL Coagulation 01/10/25 Range/Units 14:40 PT 15.4 H (11.1-14.7) Seconds APTT 31.5 (22.3-36.8) Seconds CBC 01/10/25 01/11/25 Range/Units 14:40 03:42 WBC 6.0 4.4 L (4.5-10.0) K/mm3 RBC 4.91 4.38 (4.2-5.4) M/mm3 Hgb 14.0 12.4 (12.0-15.0) g/dL Hct 44.0 38.9 (37.0-47.0) % Plt Count 203 182 (150-375) k/mm3 Lymph # (Auto) 1.86 1.37 (0.9-3.2) K/mm3 Person # (Auto) 0.5 0.3 (0.1-0.6) K/mm3 Eos # (Auto) 0.0 0.0 (0-0.3) K/mm3 Baso # (Auto) 0.0 0.0 (0.0-0.1) K/mm3 Comprehensive Metabolic Panel 01/10/25 01/11/25 Range/Units 14:40 03:42 Sodium 141 140 (137-145) mmol/L Potassium 3.6 3.8 (3.4-5.0) mmol/L Chloride 103 105 (98-107) mmol/L Carbon Dioxide 27 29 (22-30) mmol/L BUN 14 13 (7-17) mg/dL Creatinine 0.91 0.85 (0.7-1.0) mg/dL Glucose 94 95 (65-110) mg/dL Calcium 9.6 9.1 (8.4-10.2) mg/dL AST 24 (14-36) U/L ALT 17 (6-35) U/L Alkaline Phosphatase 63 (38-126) U/L Total Protein 8.1 (6.3-8.2) g/dL Albumin 4.6 (3.5-5.1) g/dL Intake and Output 01/10/25 01/11/25 01/11/25 23:59 07:59 15:59 Intake Total 1240 410.8 600 Output Total 200 1550 Balance 1040 -1139.2 600 Intake: IV 1000 60.8 Lactated Ringers 1,000 ml @ 999 1000 mls/hr IV CONT .Q1H1M STA Rx#: [id number] dilTIAZem 100 MG/100 ML 100 mg 60.8 In 100 ml @ 10 MG/HR 10 mls/hr IV CONT .Q10H [facility] Rx#:[id number] Oral 240 350 600 Output: Urine 200 1550 Patient Weight 01/11/25 23:59 Weight 117.5 kg
--- NOTE | 2025-01-11 23:30 | PCRCNOTE ---
RT visited patient to see if able to troubleshoot why she could not tolerate the CPAP mask the previous night. States that there was air blowing on her face and noise coming from the mask. She was agreeable to trying it on again; mask adjustment made and tubing adjusted for the relief area of the tubing to blow away from her. This solved the issue for her and she was willing and able to wear it this pm.
[2025-01-12] VITALS (13 sets, daily range): BP systolic 128–152; BP diastolic 60–76; PULSE 49–70; RESP 16–17; TEMP 36.8–36.9; O2SAT 94–100
--- NOTE | 2025-01-12 | ECHO_ITS ---
Patient Info Name: Harsha Wood Age: 79 years : 1945 Gender: Female Ht: 64 in Wt: 259 lbs BSA: 2.37 m2 HR: 60 bpm BP: 133 / 64 mmHg Heart Rhythm: Sinus Rhythm Technical Quality: Fair Exam Date: 01/12/2025 7:53 AM Patient Status: I Admit Date: 01/11/2025 Exam Type: CA echo doppler color flow Complete two-dimensional, color flow and Doppler transthoracic echocardiogram is performed. Staff Referring Physician: Se Clayton Computer Systems Designer: Ebony Morillo Attending Provider: Jackelyn Moralez Summary 1. Complete two-dimensional, color flow and Doppler transthoracic echocardiogram is performed. 2. Left ventricular chamber dimension is normal. 3. Left ventricular systolic function is normal, estimated at 65-70. 4. The left ventricular diastolic function is grade I diastolic dysfunction. 5. Right ventricular chamber dimension is normal. 6. Right ventricular systolic function is normal. Left Ventricle Left ventricular chamber dimension is normal. Left ventricular systolic function is normal, estimated at 65-70. There is no increased left ventricular wall thickness. Left ventricular septal wall motion is normal. The left ventricular diastolic function is grade I diastolic dysfunction. Right Ventricle Right ventricular chamber dimension is normal. Right ventricular systolic function is normal. Left Atria Left atrial chamber dimension is normal. Right Atria Right atrial chamber dimension is normal. Aortic Valve There is no aortic valve sclerosis. There is no aortic valve stenosis. There is no aortic valve regurgitation. Pulmonic Valve The pulmonic valve is not well visualized. Mitral Valve The mitral valve has normal leaflets. There is no mitral valve stenosis. There is no mitral valve regurgitation. Tricuspid Valve The tricuspid valve leaflets are normal. There is no significant tricuspid valve stenosis. There is no tricuspid valve regurgitation. Pericardium/Pleural The pericardium appears normal. There is no pericardial effusion. Inferior Vena Cava Normal inferior vena cava with >50% collapse upon inspiration consistent with normal right atrial pressure, 5 mmHg. Aorta The aortic root size at the sinus of Valsalva is normal. The prox ascending aorta size is normal. Left Ventricular Outflow Tract Name Value Normal LVOT 2D LVOT Diameter 2.0 cm LVOT Doppler LVOT Peak Velocity 98 cm/s LVOT Peak Gradient 4 mmHg LVOT Mean Gradient 2 mmHg LVOT VTI 20 cm LVOT VTI/AV VTI Ratio 0.5 LVOT Stroke Volume 60 ml LVOT CO 3.3 l/min LVOT CI 1.4 l/min/m2 Pulmonic Valve Name Value Normal RVOT Doppler RVOT Peak Velocity 73 cm/s RVOT Peak Gradient 2 mmHg PV Doppler PV Peak Velocity 95 cm/s PV Peak Gradient 4 mmHg Mitral Valve Name Value Normal MV Diastolic Function MV E Peak Velocity 85 cm/s MV A Peak Velocity 87 cm/s MV E/A 1.0 MV Decel Time (PW) 164 ms MV Annular TDI MV E/e' (Septal) 16.1 MV E/e' (Lateral) 13.0 MV E/e' (Average) 14.5 Tricuspid Valve Name Value Normal Estimated PAP/RSVP RA Pressure 5 mmHg <=5 TV Annular TDI TV Lateral Whit s' Velocity 12.5 cm/s >=9.5 Aortic Valve Name Value Normal AV Doppler AV Peak Velocity 150 cm/s AV Peak Gradient 9 mmHg AV Mean Gradient 4 mmHg AV VTI 37 cm AV Area (Cont Eq VTI) 1.6 cm2 >=3.0 AV Area (Cont Eq Samson) 2.0 cm2 AV DI (Samson) 0.65 AV Regurgitation 2D LVOT Area 3.0 cm2 Ventricles Name Value Normal LV Dimensions 2D/MM IVS Diastolic Thickness (2D) 0.9 cm 0.6-1.0 LVID Diastole (2D) 4.5 cm 3.8-5.2 LVIW Diastolic Thickness (2D) 0.9 cm 0.6-0.9 LVID Systole (2D) 2.7 cm 2.2-3.5 LVOT Diameter 2.0 cm LV Mass (2D Cubed) 130.86 g 67.00-162.00 LV Mass Index (2D Cubed) 55 g/m2 43-95 Relative Wall Thickness (2D) 0.42 <=0.42 LV Fractional Shortening/Ejection Fraction 2D/MM LV Fractional Shortening (2D) 40 % 27-45 LV EF (2D Teichholz) 71 % LV Diastolic Volume (4C MOD) 75 ml LV EF (4C MOD) 67 % LV Diastolic Volume (2C MOD) 85 ml LV EF (2C MOD) 69 % LV Diastolic Volume (BP MOD) 84 ml 46-106 LV Diastolic Volume Index (BP MOD) 35 ml/m2 29-61 LV Systolic Volume (BP MOD) 26 ml 14-42 LV Systolic Volume Index (BP MOD) 11 ml/m2 8-24 LV EF (BP MOD) 69 % 54-74 LV Diastolic Length (4C) 7.2 cm LV Systolic Length (4C) 5.7 cm LV Stroke Volume (4C MOD) 51 ml Atria Name Value Normal LA Dimensions LA Volume (4C A-L) 75 ml LA Volume (BP A-L) 74 ml RA Dimensions RA Area (4C) 16.3 cm2 <=18.0 Report Signatures
--- NOTE | 2025-01-12 02:07 | PC.NURSE ---
This RN inform Artillery Maintenance Supervisor Dr. Kendrick that patients HR has been dropping in to the mid 40s on Amiodarone 0.5mg continuos IV. Explained that patient converted to sinus rhythm. No new orders at this time, Per the Artillery Maintenance Supervisor the mid 40s is fine if the patient is sleeping.
[2025-01-12 03:46] LABS: Hematocrit 36.5 % (37.0-47.0); Hemoglobin 11.6 g/dL (12.0-15.0); Mean Corpuscular HGB Conc 31.8 g/dl (32-36); Mean Corpuscular Hemoglobin 28.2 pg (26-34); Mean Corpuscular Volume 88.6 fl (80-100); Platelet Count Result 173 k/mm3 (150-375); Red Blood Count 4.12 M/mm3 (4.2-5.4); White Blood Count 4.6 K/mm3 (4.5-10.0)
[2025-01-12 03:59] LABS: Alanine Aminotransferase 10 U/L (6-35); Albumin Level 3.5 g/dL (3.5-5.1); Alkaline Phosphatase 54 U/L (38-126); Anion Gap 6 mmol/L (4-12); Aspartate Amino Transferase 21 U/L (14-36); Bilirubin,Total 0.2 mg/dL (0.2-1.3); Blood Urea Nitrogen 14 mg/dL (7-17); Calcium 9.1 mg/dL (8.4-10.2); Carbon Dioxide 24 mmol/L (22-30); Chloride 107 mmol/L (98-107); Estimated CRCL calculation 60 ml/min; Estimated Glomerular Filt Rate > 60; Glucose 91 mg/dL (65-110); Potassium 3.7 mmol/L (3.4-5.0); Sodium 137 mmol/L (137-145); Total Protein 6.1 g/dL (6.3-8.2)
[2025-01-12] MEDS: METOPROLOL SUCCINATE EXT REL 50 MG TABCR PO (08:44)
[2025-01-12] MEDS: APIXABAN 5 MG TABLET PO (08:44)
--- NOTE | 2025-01-12 10:36 | P.PNCA_ITS ---
Progress Note: A&P Assessment and Plan (1) Atrial fibrillation with rapid ventricular response: Code(s): I48.91 - Unspecified atrial fibrillation Status: Acute Plan Paroxysmal atrial fibrillation currently in sinus rhythm Hypertension controlled Plan Metoprolol XL 50 mg daily Apixaban 5 mg b.i.d. Lisinopril 10 mg daily Follow-up in the cardiology clinic Subjective Date/time seen: 01/12/25 10:36 Interval history: Patient seen for follow-up for atrial fibrillation No acute events Converted back to sinus bradycardia Review of Systems Review of Systems: All systems reviewed & are unremarkable except as noted in HPI and below Exam Const: General: comfortable and no acute distress Other: Able to lie flat HENMT: Face/Nose/Sinus: Normal nares present and no epistaxis Mouth: Yes mo ist mucous membranes Eyes: Sclera: sclerae normal Pupils: Equal, round and reactive pupils present Neck: Neck: supple and no JVD Carotids: no bruits Resp: Auscultation: clear to auscultation bilaterally and lung sounds not diminished Other: No chest wall tenderness Cardio: Rate: regular rate Rhythm: regular rhythm Heart sounds: no gallops, no murmurs and no rubs GI: GI Palp: Yes Soft to palpation and No Tenderness to palpation present (GI) Auscultation: normal bowel sounds Skin: General skin exam: normal color, rashes and/or lesions noted and no erythema Other: Warm Neuro: Cranial nerves: Yes Equal, round and reactive pupils present Speech: normal speech Other: No obvious focal deficit or facial asymmetry Extrem: General: no edema Other: Normal capillary refills Intact distal pulses. Objective Data Vital Signs Vital Signs: Vital Signs - 24 hr 01/11/25 12:00 01/11/25 12:00 01/11/25 12:00 Temperature 36.5 C Pulse Rate 104 H 122 H Respiratory Rate 20 Blood Pressure 143/82 H Pulse Oximetry 98 98 Oxygen Delivery Room Air 01/11/25 12:00 01/11/25 14:00 01/11/25 14:00 Temperature Pulse Rate 104 H 138 H 102 H Respiratory Rate Blood Pressure 143/82 H 117/77 Pulse Oximetry Oxygen Delivery 01/11/25 16:00 01/11/25 16:00 01/11/25 16:00 Temperature 36.6 C Pulse Rate 115 H 115 H Respiratory Rate 20 Blood Pressure 142/97 H 142/97 H Pulse Oximetry 97 97 Oxygen Delivery Room Air 01/11/25 16:00 01/11/25 16:04 01/11/25 16:11 Temperature Pulse Rate 116 H 114 H 115 H Respiratory Rate Blood Pressure 142/97 H Pulse Oximetry Oxygen Delivery 01/11/25 17:50 01/11/25 18:00 01/11/25 18:00 Temperature 36.8 C Pulse Rate 111 H 109 H 111 H Respiratory Rate 20 Blood Pressure 151/94 H 151/94 H Pulse Oximetry 98 Oxygen Delivery 01/11/25 19:16 01/11/25 20:00 01/11/25 20:00 Temperature 36.5 C Pulse Rate 57 L 59 L Respiratory Rate 17 Blood Pressure 148/86 H Pulse Oximetry 99 Oxygen Delivery Room Air 01/11/25 20:00 01/11/25 22:00 01/11/25 22:00 Temperature Pulse Rate 57 L 59 L 59 L Respiratory Rate Blood Pressure 148/86 H 135/65 Pulse Oximetry Oxygen Delivery 01/11/25 23:20 01/12/25 00:00 01/12/25 00:00 Temperature Pulse Rate 59 L Respiratory Rate 25 H Blood Pressure Pulse Oximetry Oxygen Delivery Autopap Room Air 01/12/25 00:00 01/12/25 02:00 01/12/25 02:00 Temperature 36.8 C Pulse Rate 56 L 51 L 62 Respiratory Rate 17 Blood Pressure 142/74 H 131/60 137/65 Pulse Oximetry 94 Oxygen Delivery 01/12/25 02:00 01/12/25 02:59 01/12/25 03:22 Temperature 36.9 C Pulse Rate 49 L 56 L 56 L Respiratory Rate 16 Blood Pressure 128/62 128/62 Pulse Oximetry 94 Oxygen Delivery 01/12/25 03:22 01/12/25 04:00 01/12/25 04:00 Temperature Pulse Rate 56 L 55 L Respiratory Rate Blood Pressure 128/62 Pulse Oximetry Oxygen Delivery Room Air 01/12/25 04:33 01/12/25 06:00 01/12/25 06:00 Temperature Pulse Rate 55 L 58 L 60 Respiratory Rate 17 Blood Pressure 134/76 133/64 Pulse Oximetry Oxygen Delivery 01/12/25 06:12 01/12/25 08:00 01/12/25 08:44 Temperature 36.9 C Pulse Rate 60 61 60 Respiratory Rate 16 Blood Pressure 133/64 152/67 H Pulse Oximetry 100 Oxygen Delivery Intake/Output Intake/Output: Intake & Output 01/09/25 01/10/25 01/11/25 01/12/25 23:59 23:59 23:59 23:59 Intake Total 1242.4 2226.9 376.6 Output Total 200 2050 800 Balance 1042.4 176.9 -423.4 Meds/Results Medications: Active Medications Generic Name Dose Route Start Last Admin Trade Name Freq PRN Reason Stop Dose Admin Acetaminophen 650 mg 01/10/25 15:51 01/10/25 23:25 Acetaminophen 325 Mg Tablet PO 650 mg Q4H PRN Administration Mild Pain (1-3) or Fever Apixaban 5 mg 01/10/25 21:40 01/12/25 08:44 Apixaban 5 Mg Tablet PO 5 mg Q12HR MICHAEL Administration Docusate Sodium 100 mg 01/10/25 15:51 01/11/25 21:18 Docusate Sodium 100 Mg Capsule PO 100 mg BID PRN Administration Constipation Lisinopril 10 mg 01/10/25 22:05 01/11/25 21:18 Lisinopril 10 Mg Tablet BY MOUTH 10 mg QHS MICHAEL Administration Metoprolol Succinate 50 mg 01/11/25 09:00 01/12/25 08:44 Metoprolol Succinate Ext Rel 50 Mg Tabcr PO 50 mg DAILY MICHAEL Administration Pantoprazole Sodium 40 mg 01/11/25 09:00 01/11/25 08:17 Pantoprazole 40 Mg Tablet PO 40 mg Q48H MICHAEL Administration Pantoprazole Sodium 40 mg 01/11/25 21:00 01/11/25 21:18 Pantoprazole 40 Mg Tablet PO 40 mg Q48H MICHAEL Administration Perflutren Lipid Microsphere 0 ml 01/11/25 08:55 Perflutren Lipid Microspheres 1.5 Ml Vial Diluted To 10 Ml Total Volume IV PUSH 01/14/25 08:55 ONCE PRN adequate visualization Protocol Radiology Results: ITS Impressions Chest X-Ray 01/10/25 15:45 Impression: No acute cardiopulmonary abnormality. Labs Labs: Laboratory Results - last 24 hr 01/12/25 03:22 WBC 4.6 RBC 4.12 L Hgb 11.6 L Hct 36.5 L MCV 88.6 MCH 28.2 MCHC 31.8 L RDW 13.4 Plt Count 173 MPV 10.6 H Sodium 137 Potassium 3.7 Chloride 107 Carbon Dioxide 24 Anion Gap 6 BUN 14 Creatinine 0.85 Estim Creat Clear Calc 60 Estimated GFR > 60 Glucose 91 Calcium 9.1 Total Bilirubin 0.2 AST 21 ALT 10 Alkaline Phosphatase 54 Total Protein 6.1 L Albumin 3.5
--- NOTE | 2025-01-12 14:17 | P.DS_ITS ---
DS: Admitting Diagnosis Discharge Date 01/12/2025 Admitting Diagnosis Chest palpitations/chest pressure, found atrial fibrillation with RVR DS: Discharge Diagnosis Discharge Diagnosis (1) Atrial fibrillation with rapid ventricular response: Code(s): I48.91 - Unspecified atrial fibrillation Status: Acute (2) Mixed hyperlipidemia: Code(s): E78.2 - Mixed hyperlipidemia Status: Acute (3) BMI 40.0-44.9, adult: Code(s): Z68.41 - Body mass index [BMI] 40.0-44.9, adult Status: Acute (4) SILVERIO (obstructive sleep apnea): Code(s): G47.33 - Obstructive sleep apnea (adult) (pediatric) Status: Acute Plan Metoprolol XL 50 mg daily Eliquis 5 mg b.i.d. Lisinopril 10 mg daily Follow-up in the cardiology clinic as outpatient in 1 week DS: Summary Hospital Course Reason for hospitalization: Chest palpitation Atrial fibrillation with RVR Hospital Course: Harsha Wood is a 71 year old female with past medical history of will be obesity, obstructive sleep apnea on CPAP, hypertension, paroxysmal atrial fibrillation on Eliquis and metoprolol at home, bilateral lymphedema who is here for chest palpitations that started on Sunday-found to be atrial fibrillation with RVR. Patient was on amiodarone drip and Cardizem. Cardiology consulted and there was a tentative plan for cardioversion however patient was converted to sinus rhythm. This morning, Cardiology evaluated her and cleared her for discharge with metoprolol 50 mg daily, Eliquis 5 mg b.i.d. and lisinopril 10 mg daily. Thoracic echocardiogram was collected that shows EF 65-70% without wall motion abnormality. Grade 1 diastolic dysfunction was noted. 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 Patient was di scharged in stable condition. Patient was counseled to with the use of CPAP regularly. Time Spent with Patient Time attestation: Total time spent providing and/or coordinating discharge services: Exam Narrative: APPEARANCE: Morbid obesity EYES: EOMI HEENT: Normocephalic, atraumatic, OMM RESPIRATORY: No respiratory distress Clear to auscultation bilaterally with no rhonchi wheezing or rales. CARDIOVASCULAR: RRR, S1 and S2 without murmurs rubs or gallops. ABDOMINAL: Soft, nontender, nondistended, no rebound or guarding MSK: Bilateral lymphedema. No bony tenderness throughout either leg and no deformities. NEURO: Awake and alert. Following commands, speech normal, no focal deficits SKIN:: Dry skin, discoloration of the bilateral lower extremity PSYCHIATRIC: Appropriate affect DS: Data Data Completed and Pending Labs on day of discharge: Labs from last 24 hours 01/12/25 03:22 WBC 4.6 RBC 4.12 L Hgb 11.6 L Hct 36.5 L MCV 88.6 MCH 28.2 MCHC 31.8 L RDW 13.4 Plt Count 173 MPV 10.6 H Sodium 137 Potassium 3.7 Chloride 107 Carbon Dioxide 24 Anion Gap 6 BUN 14 Creatinine 0.85 Estim Creat Clear Calc 60 Estimated GFR > 60 Glucose 91 Calcium 9.1 Total Bilirubin 0.2 AST 21 ALT 10 Alkaline Phosphatase 54 Total Protein 6.1 L Albumin 3.5 Discharge Plan Discharge Attending physician on discharge: Jackelyn Moralez Consulting providers: Yan Phillip Discharging Clinician: Jackelyn Moralez Anticipated Discharge Date/Time: 01/12/25 14:08 Patient Disposition: Home Activity: unlimited Diet: regular Discharge Instructions: Please take metoprolol 50 mg once we have chest palpitation and your heart rate is beating more than 120 If you do not feel the chest palpitations,Please call your primary care physician or Cardiology Patient Instructions: Apixaban (By mouth), A-fib (Atrial Fibrillation) (ED) Patient Language: Solomon Islander Stand Alone Forms: General Discharge Information Follow-up/Referrals: Yogesh Tamayo DO [Primary Care Provider, Internal Medicine] - 1 Week Discharge Medications: New metoprolol tartrate 50 mg tablet 50 mg PO ONCE Qty: 20 0RF Continued metoprolol tartrate 25 mg tablet 25 mg PO .prn glucosamine-chondroitin [Osteo Bi-Flex] 250-200 mg tablet 2 tablet PO DAILY Rx Instructions: give after food/meal cholecalciferol (vitamin D3) [Vitamin D3] 125 mcg (5,000 unit) tablet 50,000 unit PO .COMPLEX Rx Instructions: 50,000 units orally the first and 15th every month cranberry fruit 400 mg Capsule 400 mg PO DAILY Eliquis 5 mg Tablet 5 mg PO BID Patient Comments: Instructed to stop pre-procedure on 03/29/19. metoprolol succinate 25 mg tablet extended release 24 hr 50 mg PO DAILY omeprazole 40 mg capsule,delayed release(DR/EC) 40 mg PO .COMPLEX Qty: 90 1RF Rx Instructions: 40 mg PO; every other day lisinopril 10 mg tablet See Rx Instructions .ROUTE .COMPLEX Qty: 90 1RF Dose Instruction: TAKE 1 TABLET BY MOUTH EVERY DAY Rx Instructions: TAKE 1 TABLET BY MOUTH EVERY DAY Held diltiazem HCl 120 mg capsule,extended release 24 hr 120 mg PO DAILY Qty: 30 0RF Hold Instructions: Resume on 02/21/25. Hold Cardizem and TIBC your director of online merchandising Date of admission: 01/11/25 14:20 Primary Care Provider: Yogesh Tamayo Admitting Provider: Jackelyn Moralez Attending physician on admission: Jackelyn Moralez Condition: Serious
== END 2025-01-12 15:33 | disposition home or self-care (01) | DRG 309 ==
LOC: ANHED 14:45 → ANHIMU 16:05
PROVIDERS: General Practice; Nurse Practitioner Gerontology; Admitting Provider Student in an Organized Health Care Education/Training Program; Emergency Provider Emergency Medicine; PCP Internal Medicine; Visit Provider Student in an Organized Health Care Education/Training Program
DX: I48.0 Paroxysmal atrial fibrillation (principal); Z68.41 Body mass index [BMI] 40.0-44.9, adult; E55.9 Vitamin D deficiency, unspecified; E78.2 Mixed hyperlipidemia; E66.01 Morbid (severe) obesity due to excess calories; G47.33 Obstructive sleep apnea (adult) (pediatric); I11.9 Hypertensive heart disease without heart failure; K21.9 Gastro-esophageal reflux disease without esophagitis; M85.80 Other specified disorders of bone density and structure, unspecified site; Z99.89 Dependence on other enabling machines and devices; Z90.49 Acquired absence of other specified parts of digestive tract; Z96.651 Presence of right artificial knee joint; Z79.01 Long term (current) use of anticoagulants
CPT/HCPCS: 36415; 71045; 80048; 80053; 81001; 83690; 83735; 84443; 84484; 85025; 85027; 85610; 85730; 93005; 93306; 94002; 96366; 96367; 96374; 99285; A9270; G0378; J0282; J1163; J7120

== ENCOUNTER 2025-05-07 13:54 | Inpatient (IN) | payer OTHER, SELFPAY ==
[2025-05-07] VITALS (28 sets, daily range): BP systolic 117–160; BP diastolic 71–102; PULSE 59–154; RESP 14–26; TEMP 36.4–36.6; O2SAT 92–98; BMI 45.1
--- NOTE | ~2025-05-07 | XR_ITS ---
EXAMINATION: XR chest 2V 05/07/2025 14:33 INDICATION: Chest palpitations PROCEDURE: 2 view chest COMPARISON: Comparison to multiple prior studies sequentially, with oldest reviewed study dated 06/30/2017. FINDINGS: The lungs are clear. The cardiomediastinal silhouette is within normal limits. There are no pleural effusions. There is no pneumothorax suspected. IMPRESSION: 1: NO ACUTE CARDIOPULMONARY DISEASE. Reviewed, dictated and finalized at location [facility]
--- NOTE | 2025-05-07 13:56 | ECG_ITS ---
Test Date: 2025-05-07 14:11:31 Measurements Intervals [place] Rate: 136 P: 0 CT: 0 QRS: 6 QRSD: 79 T: 71 QT: 281 QTc: 424 Interpretive Statements ATRIAL FIBRILLATION WITH RAPID VENTRICULAR RESPONSE BASELINE ARTIFACT- I, III, AVR, AVL, AVF ABNORMAL ECG Compared to ECG 01/10/2025 15:28:16 HEART RATE HAS INCREASED Electronically Signed On 05-07-2025 16:37:42 TODDLER NANNY by Chris Malone D.O.
--- OUTSIDE RECORDS SUMMARY | 2025-05-07 13:56 | XMS_ITS | Encounter Summary ---
Author Organization [facility] Address [address] [facility] [place] [address] Care Team Providers Care Pump Servicer Name Role Phone Seven Duran MD Primary Care Provider [phone] Encounter Details Date Type Department Care Team (Late st Contact Info) Description 01/08/2019 Lab Requisition [facility] DermPath Lab [address] [place] [address] Yoel Patricio MD [address] [place] [address] Social History Tobacco Use Types Packs/Day Years Used Date Smoking Tobacco: Former Alcohol Use Standard Drinks/Week Comments Yes 0 (1 standard drink = 0.6 oz pur e alcohol) Comments Unknown Sex and Gender Information Value Date Recorded Sex Assigned at Not on file 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.] specimen consists of a shave biopsy measuring 7o9n3rd. Jar 0. 4:46 PM CDT DERMATOPATHOLOGY LABORATORY [...] by the Dermatopathology Laboratory at [facility], directed by Dr. Tri Echavarria. These tests need not be, and therefore are not, approved by the [place] Food and Drug Administration. The tests are used for clinical purposes. Billing Codes Specimen Charges Stain Charges 91701 1 4:46 PM CDT DERMATOPATHOLOGY LABORATORY Embedded Images 4:46 PM CDT DERMATOPATHOLOGY LABORATORY Pathology/Cytolog y TISSUE SPECIMEN FROM SKIN / Unknown 01/07/2019 01/08/2019 12:49 PM CDT us Yoel Patricio MD LAB - PATHOLOGY/CYTOLOGY ORD ERABLES Final Result DERMATOPATHOLOGY LABORATORY [facility] - Department of Dermatology [address] [facility], 5th Floor Lab [address] [phone] documented in this encounter Visit Diagnoses Not on filedocumented in this encounter Care Teams Pump Servicer Relationship Specialty Start Date End Date Seven Duran MD [address] [facility] [address] [place] [address] PCP - General 06/01/16 documented as of this encounter
--- OUTSIDE RECORDS SUMMARY | 2025-05-07 13:56 | XMS_ITS | Encounter Summary ---
Author Organization [facility] Address [facility] [facility] [place] [address] Care Team Providers Care Electroplater Name Role Phone Seven Duran MD Primary Care Provider [phone] Encounter Details Date Type Department Care Team (Late st Contact Info) Description 02/05/2025 Lab Requisition [facility] - DermPath Lab [address] [facility] [place] [id number] Kaye Santos DO [address] [facility] [address] [place] [address] Neoplasm of uncertain behavior of skin Social History Tobacco Use Types Packs/Day Years Used Date Smoking Tobacco: Former Alcohol Use Standard Drinks/Week Comments Yes 0 (1 standard drink = 0.6 oz pur e alcohol) Comments Unknown Sex and Gender Information Value Date Recorded Sex Assigned at Not on file 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 Gender Identity Not on file Sexual Orientation Not on file documented as of this encounter Plan of Treatment Not on file documented as of this encounter Procedures Procedure Name Priority Date/Time Associated Diagnosis Comments DERMATOPATHOLOGY Routine 02/05/2025 9:00 AM CDT Neoplasm of uncertain behavior of skin documented in this encounter Results * DERMATOPATHOLOGY (02/05/2025 9:00 AM CDT) Case Report Dermatopathology Report Case: [id number] Authorizing Provider: Kaye Santos DO Collected: 02/05/2025 09:00 AM Ordering Location: [facility] - Received: 02/06/2025 07:03 AM DermPath Lab Pathologist: Jeanine Emmanuel MD Specimen: Skin, right upper back 3:05 PM CDT DERMATOPATHOLOGY LABORATORY Final Diagnosis Specimen A. 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 The specimen consists of a shave biopsy measuring 10x7x1 mm. Jar 0. 3:05 PM CDT DERMATOPATHOLOGY LABORATORY Microscopic Description Specimen A. SKIN, right upper back: The epidermis shows parakeratosis, full thickness disorderly maturation of keratinocytes, mitoses at different levels, and dyskeratotic cells. 3:05 PM CDT DERMATOPATHOLOGY LABORATORY Disclaimer An external and internal positive and negative controls are appropriate for the histochemical, immunohistochemical and immunofluorescence stain(s) in this case (if any), except where stated explicitly. The performance characteristics of the stain(s) cited in this report were developed and its performance characteristic determined by the Dermatopathology Laboratory at [facility], directed by Dr. Tri Echavarria. These tests need not be, and therefore are not, approved by the [place] Food and Drug Administration. The tests are used for clinical purposes. Billing Codes Specimen Charges Stain Charges 70517 1 3:05 PM CDT DERMATOPATHOLOGY LABORATORY Embedded Images 3:05 PM CDT DERMATOPATHOLOGY LABORATORY Pathology/Cytolo gy TISSUE SPECIMEN FROM SKIN / Unknown 02/05/2025 9:00 AM CDT 02/06/2025 7:03 AM CDT us Kaye Santos DO LAB - PATHOLOGY/CYTOLOGY ORDERABLES Final Result DERMATOPATHOLOGY LABORATORY [facility] - Department of Dermatology [facility] [address] [place] [address], [address] [phone] documented in this encounter Visit Diagnoses Diagnosis Neoplasm of uncertain behavior of skin documented in this encounter Care Teams Electroplater Relationship Specialty Start Date End Date Seven Duran MD [address] [facility] [address] [place] [address] PCP - General 06/01/16 documented as of this encounter
--- OUTSIDE RECORDS SUMMARY | 2025-05-07 13:56 | XMS_ITS | Encounter Summary ---
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 Social History Tobacco Use Types Packs/Day Years Used Date Smoking Tobacco: Former Alcohol Use Standard Drinks/Week Comments Yes 0 (1 standard drink = 0.6 oz pur e alcohol) Comments Unknown Sex and Gender Information Value Date Recorded Sex Assigned at Not on file 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 Gender Identity Not on file Sexual Orientation Not on file documented as of this encounter Plan of Treatment Not on file documented as of this encounter Procedures Procedure Name Priority Date/Time Associated Diagnosis Comments DERMATOPATHOLOGY Routine 03/05/2025 6:30 AM CDT 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 The specimen consists of a non-oriented ellipse of skin measuring 40a36v3 mm. The epidermal surface is unremarkable. The margin is inked green. The 12 o'clock and 6 o'clock tips are submitted in cassette 1. The remainder of the ellipse is serially sectioned and submitted in cassette 2-3. Jar 0. 2:31 PM CDT DERMATOPATHOLOGY LABORATORY Microscopic Description Specimen A. SKIN, right upper back: The epidermis shows parakeratosis, full thickness disorderly maturation of keratinocytes, mitoses at different levels, and dyskeratotic cells. This lesion is not present at the margin of the specimen. There are fibroblasts and collagen bundles oriented parallel to the skin surface with elongated blood vessels, some of which are oriented perpendicular to the skin surface. 2:31 PM CDT DERMATOPATHOLOGY LABORATORY Disclaimer An external and internal positive and negative controls are appropriate for the histochemical, immunohistochemical and immunofluorescence stain(s) in this case (if any), except where stated explicitly. The performance characteristics of the stain(s) cited in this report were developed and its performance characteristic determined by the Dermatopathology Laboratory at [facility], directed by Dr. Tri Echavarria. These tests need not be, and therefore are not, approved by the [place] Food and Drug Administration. The tests are used for clinical purposes. 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
--- OUTSIDE RECORDS SUMMARY | 2025-05-07 13:56 | XMS_ITS | Encounter Summary ---
Author Organization [facility] Address [facility] [place] [address] Care Team Providers Care Sole Tier Name Role Phone Seven Duran MD Primary Care Provider [phone] Encounter Details Date Type Department Care Team (Late st Contact Info) Description 07/24/2024 Lab Requisition [facility]нд[facility] - DermPath Lab [address] [facility], [place] [id number] Kaye Santos DO [address] 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 Gender Identity Not on file Sexual Orientation Not on file documented as of this encounter Plan of Treatment Not on file documented as of this encounter Procedures Procedure Name Priority Date/Time Associated Diagnosis Comments DERMATOPATHOLOGY Routine 07/24/2024 10:1 0 AM CDT documented in this encounter Results * DERMATOPATHOLOGY (07/24/2024 10:10 AM CDT) Case Report Dermatopathology Report Case: [id number] Authorizing Provider: Kaye Santos DO Collected: 07/24/2024 10:10 AM Ordering Location: [facility] - Received: 07/25/2024 07:09 [...] characteristic determined by the Dermatopathology Laboratory at [facility], directed by Dr. Tri Echavarria. These tests need not be, and therefore are not, approved by the [place] Food and Drug Administration. The tests are used for clinical purposes. Billing Codes Specimen Charges Stain Charges 32994 26478 1 1 03/17/202 5 2:22 PM CDT DERMATOPATHOLOGY LABORATORY Embedded Images 2:22 PM CDT DERMATOPATHOLOGY LABORATORY Pathology/Cytology TISSUE SPECIMEN FROM SKIN / Unknown 07/24/2024 10:10 AM CDT 07/25/2024 7:09 AM CDT Miscellaneous samples (specimen) TISSUE SPECIMEN FROM SKIN / Unknown 07/24/2024 10:10 AM CDT 07/25/2024 7:09 AM CDT us Kaye Santos DO LAB - PATHOLOGY/CYTOLOGY ORDERABLES Final Result DERMATOPATHOLOGY LABORATORY [facility] - Department of Dermatology [facility] Medicine [address] [place] [address], [address] [phone] documented in this encounter Visit Diagnoses Not on filedocumented in this encounter Care Teams Sole Tier Relationship Specialty Start Date End Date Seven Duran MD [address] [facility] [address] [place] [address] PCP - General 06/01/16 documented as of this encounter
--- OUTSIDE RECORDS SUMMARY | 2025-05-07 13:56 | XMS_ITS | Encounter Summary ---
Author Organization [facility] Address [facility] [place] [address] Care Team Providers Care Teacher Selection Specialist Name Role Phone Seven Duran MD Primary Care Provider [phone] Encounter Details Date Type Department Care Team (Late st Contact Info) Description 08/25/2024 Lab Requisition [facility] - Derm[facility] Lab [address] [facility], [place] [phone] Kaye Santos DO [address] [facility] 3 [place] [address] Social History Tobacco Use Types Packs/Day Years Used Date Smoking Tobacco: Former Alcohol Use Standard Drinks/Week Comments Yes 0 (1 standard drink = 0.6 oz pur e alcohol) Comments Unknown Sex and Gender Information Value Date Recorded Sex Assigned at Not on file 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 - Received: 08/26/2024 [...] of a non-oriented ellipse of skin measuring 12o21s9 mm. The epidermal surface is unremarkable. The [...] characteristic determined by the Dermatopathology Laboratory at [facility], directed by Dr. Tri Echavarria. These tests need not be, and therefore are not, approved by the [place] Food and Drug Administration. The tests are used for clinical purposes. Billing Codes Specimen Charges Stain Charges 73851 1 12:07 PM CDT DERMATOPATHOLOGY LABORATORY Embedded Images 12:07 PM CDT DERMATOPATHOLOGY LABORATORY Pathology/Cytolo gy TISSUE SPECIMEN FROM SKIN / Unknown 08/25/2024 7:56 AM CDT 08/26/2024 7:01 AM CDT us Kaye Santos DO LAB - PATHOLOGY/CYTOLOGY ORDERABLES Final Result DERMATOPATHOLOGY LABORATORY [facility] - Department of Dermatology [facility] Specialized Medicine [address] [place] [address], [address] [phone] documented in this encounter Visit Diagnoses Not on filedocumented in this encounter Care Teams Teacher Selection Specialist Relationship Specialty Start Date End Date Seven Duran MD [address] [facility] 204 [place] [address] PCP - General 06/01/16 documented as of this encounter
--- OUTSIDE RECORDS SUMMARY | 2025-05-07 13:56 | XMS_ITS | Clinical Summary ---
Author Organization [facility] Address [address] [place] [address] Care Team Providers Care Selling Manager Name Role Phone Unavailable Primary Care Provider [...] 1-dose 75+ series) 2021 Influenza Immunization (#1) 01/12/202501/12, 02/12/2019, 02/10/2019, Additional history exists SARS-COV-2 Immunization ( season) 2025 08/19/2021, 03/10/2021, 07/21/2020, Additional history exists DTaP/Tdap/Td [...]
--- OUTSIDE RECORDS SUMMARY | 2025-05-07 13:56 | XMS_ITS | Clinical Summary ---
Author Organization [facility] Address [address] [facility] [place] [address] Care Team Providers Care Occ Med Physician Name Role Phone Seven Duran MD Primary Care Provider [phone] Source Comments [facility],non-owned Affiliates and Associated Physician Practices is amultiple site organization consisting of ambulatory clinics and hospital sitesin [place], [place], [place] and [place]. This disclosure is being madepursuant to the Care Everywhere program and may not contain all information available regarding this patient. Last updated 18.[facility] Allergies Active Allergy Reactions Criticality Noted Date Comments Codeine Nausea and/or Vomiting Low 06/22/2016 Medications * Be aware that medications may not be up to date on this document. Alwaysverify current medications with the patient. 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 02/05/2025 Lab Requisition [facility] - DermPath Lab [address] [facility], [place] [address] Kaye Santos, DO Neoplasm of uncertain behavior of skin from Last 3 Months Family History Medical [...] on file 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 Gender Identity Not on file Sexual Orientation [...] TESTING 1945 MEDICARE AWV 12 MONTHS 1945 DTAP/TDAP/TD VACCINES (1 - Tdap) 1965 PNEUMOCOCCAL VACCINE 50+ (1 of 1 - PCV) 02/08/1996 ZOSTER VACCINE (1 of 2) 02/08/1996 Respiratory Syncytial Virus (RSV) Vaccine Pt: or over 60 yrs (1 - 1-dose 75+ series) 2021 DEPRESSION SCREENING 05/14/2024 COVID-19 VACCINE ( - 2024-2 6 season) 2025 INFLUENZA VACCINE (#1) 2025 HEPATITIS B VACCINE [...] 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 Case Report Dermatopathology Report Case: [id number] Authorizing Provider: Kaye Santos DO Collected: 03/05/2025 06:30 AM Ordering Location: [facility] - Received: 03/05/2025 02:00 PM [...] of a non-oriented ellipse of skin measuring 95g66s1 mm. The epidermal surface is unremarkable. The [...] purposes. Billing Codes Specimen Charges Stain Charges 81972 1 2:31 PM CDT DERMATOPATHOLOGY LABORATORY Embedded Images 2:31 PM CDT DERMATOPATHOLOGY LABORATORY Pathology/Cytolo gy TISSUE SPECIMEN FROM SKIN / Unknown 03/05/2025 6:30 AM CDT 03/05/2025 2:00 PM CDT us Kaye Santos DO LAB - PATHOLOGY/CYTOLOGY ORDERABLES Final Result DERMATOPATHOLOGY LABORATORY [facility] - Department of Dermatology [facility] Medicine [address] [place] [address], [address]rd [address] [phone] from Last 3 Months Insurance MEDICARE AARP [facility] MEDICARE ADV PPO SELF PAY NO INSURANCE Member Subscriber Plan / Payer (Ef fective for All Dates) Name:Miley Randall Member ID:Not on file Relation to Subscriber:Not on file Name:MILEY RANDALL Subscriber ID:Not on file (Home) Address: [address] [place] [id number] Payer ID:Not on file Group ID:Not on file Type:Self Pay Address: [place], [place] Care Teams Occ Med Physician Relationship Specialty Start Date End Date Seven Duran MD [address] [facility] [address] [place] [address] PCP - General 06/01/16
--- OUTSIDE RECORDS SUMMARY | 2025-05-07 13:56 | XMS_ITS | Encounter Summary ---
Author Organization [facility] Address [address] [facility] [place] [address] Care Team Providers Care Library Serials Assistant Name Role Phone Seven Duran MD Primary Care Provider [phone] Encounter Details Date Type Department Care Team (Late st Contact Info) Description 04/28/[address] 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 DermPath Lab Received: 04/28/2020 12:00 PM Pathologist: Kim Echavarria MD Specimen: Skin, right lower lat calf 0 4:48 PM [facility] DERMATOPATHOLOGY LABORATORY Final Diagnosis Specimen A. SKIN, right lower lat calf: BASAL CELL CARCINOMA, NODULAR TYPE (C44.712) 0 4:48 PM [facility] DERMATOPATHOLOGY LABORATORY at [address] MANAGER INTEGRATED Clinical History R/O HAK, BCC, SCC, other dermatitis. 0 4:48 PM MANAGER INTEGRATED DERMATOPATHOLOGY LABORATORY Gross Description Specimen A: Received is one formalin filled container labeled with the patient's name and designated right lower lat calf. The specimen consists of a shave biopsy measuring [id number]. Jar 0. 0 4:48 PM [facility] DERMATOPATHOLOGY LABORATORY Microscopic Description Specimen A. SKIN, right lower lat calf: Within the dermis there are aggregates of basaloid cells with a high nuclear to cytoplasmic ratio and peripheral palisading. 0 4:48 PM [facility] DERMATOPATHOLOGY LABORATORY Disclaimer An external and internal positive and negative controls are appropriate for the histochemical, immunohistochemical and immunofluorescence stain(s) in this case (if any), except where stated explicitly. The performance characteristics of the stain(s) cited in this report were developed and its performance characteristic determined by the Dermatopathology Laboratory at [facility], directed by Dr. Tri Echavarria. These tests need not be, and therefore are not, approved by the [place] Food and Drug Administration. The tests are used for clinical purposes. Billing Codes Specimen Charges Stain Charges 81537 1 0 4:48 PM [facility] DERMATOPATHOLOGY LABORATORY Embedded Images 0 4:48 PM [facility] DERMATOPATHOLOGY LABORATORY Pathology/Cytolog y TISSUE SPECIMEN FROM SKIN / Unknown 04/27/2020 04/28/2020 12:00 PM [facility] Yoel Patricio MD LAB - PATHOLOGY/CYTOLOGY ORD ERABLES Final Result DERMATOPATHOLOGY LABORATORY [facility] - Department of Dermatology [address], [address] [phone] documented in this encounter Visit Diagnoses Not on filedocumented in this encounter Care Teams Library Serials Assistant Relationship Specialty Start Date End Date Seven Duran MD [address] [facility] [address] [place] [address] PCP - General 06/01/16 documented as of this encounter
--- OUTSIDE RECORDS SUMMARY | 2025-05-07 13:56 | XMS_ITS | Encounter Summary ---
Author Organization [facility] Address [address] [facility] [place] [address] Care Team Providers Care Iron Piler Name Role Phone Seven Duran MD Primary Care Provider [phone] Encounter Details Date Type Department Care Team (Late st Contact Info) Description 09/23/2020 Lab Requisition [facility] DermPath Lab [address] [facility] [place] [address] Yoel Patricio MD [address] [place] [address] Social History Tobacco Use Types Packs/Day Years Used Date Smoking Tobacco: Former Alcohol Use Standard Drinks/Week Comments Yes 0 (1 standard drink = 0.6 oz pur e alcohol) Comments Unknown Sex and Gender Information Value Date Recorded Sex Assigned at Not on file 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 Gender Identity Not on file Sexual Orientation Not on file documented as of this encounter Plan of Treatment Not on file documented as of this encounter Procedures Procedure Name Priority Date/Time Associated Diagnosis Comments DERMATOPATHOLOGY Routine 09/22/2020 3:33 AM CDT documented in this encounter Results * DERMATOPATHOLOGY (09/22/2020 3:33 AM CDT) Case Report Dermatopathology Report Case: [id number] Authorizing Provider: Yoel Patricio MD Collected: 09/22/2020 03:33 AM Ordering Location: [facility] DermPath Lab Received: 09/23/2020 12:59 PM Pathologist: [...] of a nail clipping (5 pieces) measuring 7s2v6pr, 3t4s8fp, 6w2g4ri, 5u0v6zy, & 2x4i4dh. 1:36 PM CDT DERMATOPATHOLOGY LABORATORY Microscopic Description [...] purposes. Billing Codes Specimen Charges Stain Charges 61773 1 82492 1 1:36 PM CDT DERMATOPATHOLOGY LABORATORY Embedded Images 1:36 PM CDT DERMATOPATHOLOGY LABORATORY Pathology/Cytolo gy TISSUE SPECIMEN FROM SKIN / Unknown 09/22/2020 3:33 AM CDT 09/23/2020 12:59 PM CDT Yoel Patricio MD LAB - PATHOLOGY/CYTOLOGY ORD ERABLES Final Result DERMATOPATHOLOGY LABORATORY [facility] - Department of Dermatology [facility] Specialized Medicine [address] [place] [address], [address] [phone] documented in this encounter Visit Diagnoses Not on filedocumented in this encounter Care Teams Iron Piler Relationship Specialty Start Date End Date Seven Duran MD [address] [facility] [address] [place] [address] PCP - General 06/01/16 documented as of this encounter
--- OUTSIDE RECORDS SUMMARY | 2025-05-07 13:56 | XMS_ITS | Encounter Summary ---
Author Organization [facility] Address [address] [facility] [place] [address] Care Team Providers Care Optician Apprentice Name Role Phone Seven Duran MD Primary Care Provider [phone] Encounter Details Date Type Department Care Team (Late st Contact Info) Description 05/31/2018 Lab Requisition [facility] DermPath Lab [address] [place] [address] Yoel Patricio MD [address] [place] [address] Social History Tobacco Use Types Packs/Day Years Used Date Smoking Tobacco: Former Alcohol Use Standard Drinks/Week Comments Yes 0 (1 standard drink = 0.6 oz pur e alcohol) Comments Unknown Sex and Gender Information Value Date Recorded Sex Assigned at Not on file 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 Gender Identity Not on file Sexual Orientation Not on file documented as of this encounter Plan of Treatment Not on file documented as of this encounter Procedures Procedure Name Priority Date/Time Associated Diagnosis Comments DERMATOPATHOLOGY Routine 05/30/2018 12:0 0 AM SENIOR FINANCIAL ACCOUNTANT documented in this encounter Results * DERMATOPATHOLOGY (05/30/2018 12:00 AM SENIOR FINANCIAL ACCOUNTANT) Case Report Dermatopathology Report Case: [id number] Authorizing Provider: Yoel Patricio MD Collected: 05/30/2018 12:00 AM Pathologist: Zahida Crowley MD Received: 05/31/2018 01:33 PM Specimen: Skin, left upper back 1:04 PM [facility] DERMATOPATHOLOGY LABORATORY Final Diagnosis Specimen A. 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 Check margins. 1:04 PM [facility] DERMATOPATHOLOGY LABORATORY Gross Description Specimen A: Received is one formalin filled container labeled with the patients name and designated left upper back. The specimen consists of a shave (2 pieces) removal measuring 4h2a1be, 9j2w4em, the margin is inked green. Jar 0. 1:04 PM [facility] DERMATOPATHOLOGY LABORATORY Microscopic Description Specimen A. SKIN, [...] sampled margin of the specimen. 1:04 PM [facility] DERMATOPATHOLOGY LABORATORY Disclaimer An external and internal positive and negative controls are appropriate for the histochemical, immunohistochemical and immunofluorescence stain(s) in this case (if any), except where stated explicitly. The performance characteristics of the stain(s) cited in this report were developed and its performance characteristic determined by the Dermatopathology Laboratory at [facility], directed by Dr. Tri Echavarria. These tests need not be, and therefore are not, approved by the [place] Food and Drug Administration. The tests are used for clinical purposes. Billing Codes Specimen Charges Stain Charges 45110 1 1:04 PM [facility] DERMATOPATHOLOGY LABORATORY Embedded Images 1:04 PM [facility] DERMATOPATHOLOGY LABORATORY Pathology/Cytolog y TISSUE SPECIMEN FROM SKIN / Unknown 05/30/2018 05/31/2018 1:33 PM SENIOR FINANCIAL ACCOUNTANT us Yoel Patricio MD LAB - PATHOLOGY/CYTOLOGY ORD ERABLES Final Result DERMATOPATHOLOGY LABORATORY [facility] - Department of Dermatology [address] [place] [address], 5th Floor Lab [address] [phone] documented in this encounter Visit Diagnoses Not on filedocumented in this encounter Care Teams Optician Apprentice Relationship Specialty Start Date End Date Seven Duran MD [address] [facility] [address] [place] [address] PCP - General 06/01/16 documented as of this encounter
[2025-05-07 14:16] LABS: Hematocrit 43.8 % (37.0-47.0); Hemoglobin 14.1 g/dL (12.0-15.0); Immature Granulocyte Percent A 0.2 % (0-0.5); Lymphocytes Absolute Auto 1.36 K/mm3 (0.9-3.2); Mean Corpuscular HGB Conc 32.2 g/dl (32-36); Mean Corpuscular Hemoglobin 28.3 pg (26-34); Mean Corpuscular Volume 87.8 fl (80-100); Nucleated Red Blood Cells Absolute Auto 0.000 K/mm3 (0.0-0.012); Nucleated Red Blood Cells Perc 0.0 % (0.0-0.2); Platelet Count Result 249 k/mm3 (150-375); Red Blood Count 4.99 M/mm3 (4.2-5.4); White Blood Count 5.5 K/mm3 (4.5-10.0)
[2025-05-07 14:17] LABS: Add Urine Microscopic? NO; Appearance Urine Clear (Clear); Glucose Urine UA Negative (Negative); Leukocyte Esterase Ur Negative LEU/UL (Negative); Nitrate Urine Negative (Negative); Specific Grav Ur 1.006 (1.001-1.035)
[2025-05-07] MEDS: SODIUM CHLORIDE 0.9% IV 1,000 ML 999 ML IV CONT (14:23)
[2025-05-07 14:26] LABS: Alanine Aminotransferase 16 U/L (6-35); Albumin Level 4.3 g/dL (3.5-5.1); Alkaline Phosphatase 67 U/L (38-126); Anion Gap 11 mmol/L (4-12); Aspartate Amino Transferase 27 U/L (14-36); Bilirubin,Total 0.4 mg/dL (0.2-1.3); Blood Urea Nitrogen 17 mg/dL (7-17); Calcium 9.7 mg/dL (8.4-10.2); Carbon Dioxide 20 mmol/L (22-30); Chloride 110 mmol/L (98-107); Estimated CRCL calculation 50 ml/min; Estimated Glomerular Filt Rate 51; Glucose 99 mg/dL (65-110); Lipase 76 U/L (23-300); Potassium 4.3 mmol/L (3.4-5.0); Sodium 141 mmol/L (137-145); Total Protein 7.8 g/dL (6.3-8.2)
[2025-05-07 14:27] LABS: INR 1.1; Prothrombin Time 14.4 Seconds (11.1-14.7)
[2025-05-07 14:28] LABS: Partial Thromboplastin Time 32.1 Seconds (22.3-36.8)
--- NOTE | 2025-05-07 14:34 | ED_ITS ---
HPI - Arrhythmia/Palpitations General Chief Complaint: Arrhythmia/Palpitations Stated Complaint: I'm in afib Time Seen by Provider: 05/07/25 14:02 Source: patient Mode of arrival: ambulatory Limitations: no limitations History of Present Illness HPI narrative: This is a 80-year-old female with history of AFib on Eliquis, hyperlipidemia, SILVERIO who presents the ED for AFib. Patient states that she woke up this morning and felt that she was in AFib again. She checked her heart rate and it was 120 is 130 so she took her p.r.n. 50 mg metoprolol tartrate and addendum improved so she took an additional dose but it persisted prompting her to come to the ED. She does note some mild dyspnea on exertion. Denies chest pain, fevers, chills, nausea, vomiting. Does note that she had cataract surgery last week and was placed on a steroid for this. Related Data Home Medications ?Medication ?Instructions ?Recorded ?Confirmed ?Last Taken ?Type apixaban 5 mg tablet (Eliquis) 5 mg PO BID 03/27/1901/10/25 09:00 History 5 mg cranberry fruit 400 mg capsule 400 mg PO DAILY 9 04/29/25 01/10/25 09:00 History 400 mg cholecalciferol (vitamin D3) 125 50,000 unit PO .COMPL EX 01/24/22 04/29/25 12/26/24 History mcg (5,000 unit) tablet (Vitamin D3) glucosamine-chondroitin 250 mg-200 2 tablet PO DAILY 0 08/31/23 04/29/25 01/10/25 09:00 History mg tablet (Osteo Bi-Flex) 2 tabs Allergies Allergy/AdvReac Type Severity Reaction Status Date / Time codeine AdvReac Mild sick to Verified 05/07/25 14:17 stomach Review of Systems 2 Review of Systems: All systems reviewed & are unremarkable except as noted in HPI and below PMFSH Past Medical History Medical History Obstructive sleep apnea on CPAP Personal history 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 Chronic back pain History of hemorrhoids Vitamin D deficiency Diastolic dysfunction Paroxysmal atrial flutter Paroxysmal atrial fibrillation Gastroesophageal reflux disease Osteopenia Mixed hyperlipidemia Morbid obesity Hypertension Surgical History Surgical History History of colonoscopy with polypectomy History of cholecystectomy History of right knee joint replacement Family History Family History Mother Asthma Carcinoma of colon Sibling Asthma Family history of malignant melanoma Patient's brother is in good health Diabetes mellitus Father Family history of coronary artery disease, Onset Age: 70 Family history of diabetes mellitus in first degree relative Family history of heart disease in male family member before age 55 Patient's father is Diabetes mellitus Social History Social History 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 Smoking packs per day: 1 Smoking cigarettes per day: 20.0 Years smoked: 20 Smoking pack-years: 20.00 Smoking status: Never smoker Tobacco type: cigarettes Second hand tobacco smoke exposure: Yes Smoking end date: 05/14/84 Alcohol intake: never Alcohol use details: rarely Substance use: never Substance use type: does not use Lack of Transportation: No Lack of Food: Never True Current Housing: I Have Housing Concerned About Future Housing: No Difficulty Paying Gas/Electric Bills: No Difficulty Paying for Meds: No Currently Unemployed: No Education: Decline to Answer Difficulty w/ Childcare or Family Care: No Living arrangements: with family Spiritual care concerns: No Exam 2 Narrative: APPEARANCE: No acute distress, nontoxic, resting in bed EYES: EOMI HEENT: Normocephalic, atraumatic, OMM RESPIRATORY: No respiratory distress Clear to auscultation bilaterally with no rhonchi wheezing or rales. CARDIOVASCULAR: Irregularly irregular without murmurs rubs or gallops. ABDOMINAL: Soft, nontender, nondistended, no rebound or guarding MUSCULOSKELETAl: Moves all extremities. 1+ pitting edema to bilateral lower extremities up to the knees NEURO: Awake and alert. Following commands, speech normal, no focal deficits SKIN:: Warm, dry. No rashes lesions or abrasions PSYCHIATRIC: Normal affect/mood, Course Vital Signs Vital signs: Vital Signs Temperature 97.9 F 05/07/25 14:08 Pulse Rate 139 H 05/07/25 14:08 Respiratory Rate 19 05/07/25 14:08 Blood Pressure 135/78 05/07/25 14:08 Pulse Oximetry 95 05/07/25 14:08 Oxygen Delivery Room Air 05/07/25 14:08 Temperature 97.9 F 05/07/25 14:08 Pulse Rate 125 H 05/07/25 17:25 Respiratory Rate 20 05/07/25 17:16 Blood Pressure 117/87 05/07/25 17:25 Pulse Oximetry 97 05/07/25 17:16 Oxygen Delivery Room Air 05/07/25 14:08 [facility] MDM Narrative Medical decision making narrative: 80-year-old female Presenting for AFib. On initial evaluation patient was in no acute distress afebrile, hemodynamic stable. Differentials include but are not limited to: AFib with RVR, electrolyte abnormality, ACS Notable exam findings: Irregularly irregular her rhythm, heart and lungs otherwise clear. I personally reviewed the patient's lab result. Notable lab findings: CBC and CMP without significant abnormalities. UA clear. I personally reviewed the patient's images and interpret as follows: Chest x- ray: Normal cardiac silhouette, no consolidations, no pleural effusions, no pulmonary vascular congestion I personally reviewed the patient's EKGs: AFib with RVR rate of 136, normal axis, no acute ST or T-wave changes Patient was given Cardizem bolus with slight improvement of rate to the 120s. She is given additional bolus and started a Cardizem drip. She will require admission for further rate control. Case was discussed with hospitalist who will admit the patient. Differential Diagnosis Differential Diagnosis: AFib with RVR, electrolyte abnormality, ACS Lab Data 05/07/25 14:08 05/07/25 14:08 Labs: Lab Results 05/07/25 05/07/25 Range/Units 14:08 14:11 WBC 5.5 (4.5-10.0) K/mm3 RBC 4.99 (4.2-5.4) M/mm3 Hgb 14.1 (12.0-15.0) g/dL Hct 43.8 (37.0-47.0) % MCV 87.8 (80-100) fl MCH 28.3 (26-34) pg MCHC 32.2 (32-36) g/dl RDW 13.3 (11.5-14.5) % Plt Count 249 (150-375) k/mm3 MPV 10.0 (7.4-10.4) fl Immature Gran % (Auto) 0.2 (0-0.5) % Neut % (Auto) 64.5 (45.5-73.1) % Lymph % (Auto) 24.9 (18.3-44.2) % Telfair % (Auto) 8.2 (2.6-8.5) % Eos % (Auto) 1.5 (0-4.4) % Baso % (Auto) 0.7 (0.2-1.2) % Lymph # (Auto) 1.36 (0.9-3.2) K/mm3 Telfair # (Auto) 0.5 (0.1-0.6) K/mm3 Eos # (Auto) 0.1 (0-0.3) K/mm3 Baso # (Auto) 0.0 (0.0-0.1) K/mm3 Abs Immat Gran (auto) 0.01 (0.00-0.031) K/mm3 Absolute Neuts (auto) 3.5 (1.3-6.7) K/mm3 Absolute Nucleated RBC 0.000 (0.0-0.012) K/mm3 Nucleated RBC % 0.0 (0.0-0.2) % PT 14.4 (11.1-14.7) Seconds INR 1.1 APTT 32.1 (22.3-36.8) Seconds Sodium 141 (137-145) mmol/L Potassium 4.3 (3.4-5.0) mmol/L Chloride 110 H (98-107) mmol/L Carbon Dioxide 20 L (22-30) mmol/L Anion Gap 11 (4-12) mmol/L BUN 17 (7-17) mg/dL Creatinine 1.05 H (0.7-1.0) mg/dL Estim Creat Clear Calc 50 ml/min Estimated GFR 51 L (59 - ) Glucose 99 (65-110) mg/dL Calcium 9.7 (8.4-10.2) mg/dL Total Bilirubin 0.4 (0.2-1.3) mg/dL AST 27 (14-36) U/L ALT 16 (6-35) U/L Alkaline Phosphatase 67 (38-126) U/L Troponin I < 0.012 (0.000-0.034) ng/mL Total Protein 7.8 (6.3-8.2) g/dL Albumin 4.3 (3.5-5.1) g/dL Lipase 76 (23-300) U/L Urine Color Yellow (Yellow) Urine Appearance Clear (Clear) Urine pH 6.5 (5.0-9.0) Ur Specific Lee 1.006 (1.001-1.035) Urine Protein Negative (Negative) mg/dL Urine Glucose (UA) Negative (Negative) mg/dL Urine Ketones Negative (Negative) mg/dL Ur Blood (Man) Negative (Negative) Urine Nitrate Negative (Negative) Urine Bilirubin Negative (Negative) Urine Urobilinogen 0.2 (<2.0) mg/dL Leukocyte Esterase Rfl Negative (Negative) OLAYINKA/UL Imaging Data Radiologist's impression: ITS Impressions Chest X-Ray 05/07/25 14:41 IMPRESSION: 1: NO ACUTE CARDIOPULMONARY DISEASE. Critical Care Time Critical Care Time Critical Care Time: Yes Indication: Afib with RVR Time Type: Intermittent Initial evaluation, discuss w/ involved parties, attempting to gather old records: 10 minutes Documenting medical record: 5 minutes Review of results (EKG's, labs, imaging): 5 minutes Serial repeat bedside evaluation: 10 minutes Discussing case with multiple memebers of the care team and consultants: 5 minutes Total Critical Care Time: 35 Discharge Plan Discharge Clinical Impression: Atrial fibrillation with rapid ventricular response Patient Disposition: Still a Patient Condition: Stable
[2025-05-07 14:38] LABS: Troponin I < 0.012 ng/mL (0.000-0.034)
--- OUTSIDE RECORDS SUMMARY | 2025-05-07 15:32 | XMS_ITS | Clinical Summary ---
Author Organization [facility] Address [address] [place] [id number] Care Team Providers Care Consultant Intern Name Role Phone Unavailable Primary Care Provider [...]
--- OUTSIDE RECORDS SUMMARY | 2025-05-07 15:32 | XMS_ITS | Encounter Summary ---
Author Organization [facility] Address [address] [place] [address] Care Team Providers Care Outreach Specialist Name Role Phone Seven Duran MD Primary Care Provider [phone] Encounter Details Date Type Department Care Team (Late st Contact Info) Description 05/31/2018 Lab Requisition [facility] Care DermPath Lab [address] [place] [address] Yoel Patricio MD [address] [place] [address] Social History Tobacco Use Types Packs/Day Years Used Date Smoking Tobacco: Former Alcohol Use Standard Drinks/Week Comments Yes 0 (1 standard drink = 0.6 oz pur e alcohol) Comments Unknown Sex and Gender Information Value Date Recorded Sex Assigned at Not on file 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 Sex 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 Gender Identity Not on file Sexual Orientation Not on file documented as of this encounter Plan of Treatment Not on file documented as of this encounter Procedures Procedure Name Priority Date/Time Associated Diagnosis Comments DERMATOPATHOLOGY Routine 05/30/2018 12:0 0 AM FREIGHT TRUCKER documented in this encounter Results * DERMATOPATHOLOGY (05/30/2018 12:00 AM FREIGHT TRUCKER) Case Report Dermatopathology Report Case: [id number] Authorizing Provider: Yoel Patricio MD Collected: 05/30/2018 12:00 AM Pathologist: Zahida Crowley MD Received: 05/31/2018 01:33 PM Specimen: Skin, left upper back 1:04 PM [facility] DERMATOPATHOLOGY LABORATORY Final Diagnosis Specimen A. 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 Check margins. 1:04 PM [facility] DERMATOPATHOLOGY LABORATORY Gross Description Specimen A: Received is one formalin filled container labeled with the patients name and designated left upper back. The specimen consists of a shave (2 pieces) removal measuring [id number], [id number], the margin is inked green. Jar 0. 1:04 PM [facility] DERMATOPATHOLOGY LABORATORY Microscopic Description Specimen [...] sampled margin of the specimen. 1:04 PM [facility] DERMATOPATHOLOGY LABORATORY Disclaimer An external [...] purposes. Billing Codes Specimen Charges Stain Charges 50680 1 1:04 PM [facility] DERMATOPATHOLOGY LABORATORY Embedded Images 1:04 PM [facility] DERMATOPATHOLOGY LABORATORY Pathology/Cytolog y TISSUE SPECIMEN FROM SKIN / Unknown 05/30/2018 05/31/2018 1:33 PM FREIGHT TRUCKER us Yoel Patricio MD LAB - PATHOLOGY/CYTOLOGY ORD ERABLES Final Result DERMATOPATHOLOGY LABORATORY [facility] - Department of Dermatology [address] [place] [address], 5th Floor Lab [address] [phone] documented in this encounter Visit Diagnoses Not on filedocumented in this encounter Care Teams Outreach Specialist Relationship Specialty Start Date End Date Seven Duran MD [address] [facility] [address] [place] [address] PCP - General 06/01/16 documented as of this encounter
--- OUTSIDE RECORDS SUMMARY | 2025-05-07 15:32 | XMS_ITS | Encounter Summary ---
Author Organization [facility] Address [address] [facility] [place] [address] Care Team Providers Care Mounter Saxophones Name Role Phone Seven Duran MD Primary Care Provider [phone] Encounter Details Date Type Department Care Team (Late st Contact Info) Description 01/08/2019 Lab Requisition [facility] DermPath Lab [address] [place] [address] Yoel Patricio MD [address] [place] [address] Social History Tobacco Use Types Packs/Day Years Used Date Smoking Tobacco: Former Alcohol Use Standard Drinks/Week Comments Yes 0 (1 standard drink = 0.6 oz pur e alcohol) Comments Unknown Sex and Gender Information Value Date Recorded Sex Assigned at Not on file 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..] specimen consists of a shave biopsy measuring [id number]. Jar 0. 4:46 PM CDT DERMATOPATHOLOGY LABORATORY [...] determined by the Dermatopathology Laboratory at [facility], directed by Dr. Tri Echavarria. These tests need not be, and therefore are not, approved by the [place] Food and Drug Administration. The tests are used for clinical purposes. Billing Codes Specimen Charges Stain Charges 11387 1 4:46 PM CDT DERMATOPATHOLOGY LABORATORY Embedded Images 4:46 PM CDT DERMATOPATHOLOGY LABORATORY Pathology/Cytolog y TISSUE SPECIMEN FROM SKIN / Unknown 01/07/2019 01/08/2019 12:49 PM CDT us Yoel Patricio MD LAB - PATHOLOGY/CYTOLOGY ORD ERABLES Final Result DERMATOPATHOLOGY LABORATORY [facility] - Department of Dermatology [address] [facility], 5th Floor Lab [address] [phone] documented in this encounter Visit Diagnoses Not on filedocumented in this encounter Care Teams Mounter Saxophones Relationship Specialty Start Date End Date Seven Duran MD [address] [facility] [address] [place] [address] PCP - General 06/01/16 documented as of this encounter
--- OUTSIDE RECORDS SUMMARY | 2025-05-07 15:32 | XMS_ITS | Encounter Summary ---
Author Organization [facility] Address [address] [facility] [place] [address] Care Team Providers Care Horticulture Teacher Name Role Phone Seven Duran MD Primary Care Provider [phone] Encounter Details Date Type Department Care Team (Late st Contact Info) Description 04/28/2020 Lab Requisition [facility] DermPath Lab [address] [place] [address] Yoel Patricio MD [address] [place] [address] Social History Tobacco Use Types Packs/Day Years Used Date Smoking Tobacco: Former Alcohol Use Standard Drinks/Week Comments Yes 0 (1 standard drink = 0.6 oz pur e alcohol) Comments Unknown Sex and Gender Information Value Date Recorded Sex Assigned at Not on file Legal Sex Female 5:39 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 FABRICATING SUPERVISOR Gender Identity Not on file Sexual Orientation Not on file documented as of this encounter Plan of Treatment Not on file documented as of this encounter Procedures Procedure Name Priority Date/Time Associated Diagnosis Comments DERMATOPATHOLOGY Routine 04/27/2020 12:0 0 AM STEEL FABRICATING SUPERVISOR documented in this encounter Results * DERMATOPATHOLOGY (04/27/2020 12:00 AM STEEL FABRICATING SUPERVISOR) Case Report Dermatopathology Report Case: [id number] Authorizing Provider: Yoel Patricio MD Collected: 04/27/2020 12:00 AM Ordering Location: [facility] DermPath Lab Received: 04/28/2020 12:00 PM Pathologist: Kim Echavarria MD Specimen: Skin, right lower lat calf 0 4:48 PM [facility] DERMATOPATHOLOGY LABORATORY Final Diagnosis Specimen A. 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 0 4:48 PM STEEL FABRICATING SUPERVISOR DERMATOPATHOLOGY LABORATORY Gross Description Specimen A: Received is one formalin filled container labeled with the patient's name and designated right lower lat calf. The specimen consists of a shave biopsy measuring [id number]. Jar 0. 0 4:48 PM [facility] DERMATOPATHOLOGY LABORATORY Microscopic Description Specimen A. SKIN, right lower lat calf: Within the dermis there are aggregates of basaloid cells with a high nuclear to cytoplasmic ratio and peripheral palisading. 0 4:48 PM [facility] DERMATOPATHOLOGY LABORATORY Disclaimer An external and internal positive and negative controls are appropriate for the histochemical, immunohistochemical and immunofluorescence stain(s) in this case (if any), except where stated explicitly. The performance characteristics of the stain(s) cited in this report were developed and its performance characteristic determined by the Dermatopathology Laboratory at [facility], directed by Dr. Tri Echavarria. These tests need not be, and therefore are not, approved by the [place] Food and Drug Administration. The tests are used for clinical purposes. Billing Codes Specimen Charges Stain Charges 66615 1 0 4:48 PM [facility] DERMATOPATHOLOGY LABORATORY Embedded Images 0 4:48 PM [facility] DERMATOPATHOLOGY LABORATORY Pathology/Cytolog y TISSUE SPECIMEN FROM SKIN / Unknown 04/27/2020 04/28/2020 12:00 PM [facility] Yoel Patricio MD LAB - PATHOLOGY/CYTOLOGY ORD ERABLES Final Result DERMATOPATHOLOGY LABORATORY [facility] - Department of Dermatology [address], [address] [phone] documented in this encounter Visit Diagnoses Not on filedocumented in this encounter Care Teams Horticulture Teacher Relationship Specialty Start Date End Date Seven Duran MD [address] [facility] [address] [place] [address] PCP - General 06/01/16 documented as of this encounter
--- OUTSIDE RECORDS SUMMARY | 2025-05-07 15:33 | XMS_ITS | Encounter Summary ---
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 Social History Tobacco Use Types Packs/Day Years Used Date Smoking Tobacco: Former Alcohol Use Standard Drinks/Week Comments Yes 0 (1 standard drink = 0.6 oz pur e alcohol) Comments Unknown Sex and Gender Information Value Date Recorded Sex Assigned at Not on file 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 Sex 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 Gender Identity Not on file Sexual Orientation Not on file documented as of this encounter Plan of Treatment Not on file documented as of this encounter Procedures Procedure Name Priority Date/Time Associated Diagnosis Comments DERMATOPATHOLOGY Routine 03/05/2025 6:30 AM CDT 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 The epidermal surface is unremarkable. The [...] determined by the Dermatopathology Laboratory at [facility], directed by Dr. Tri Echavarria. These tests need not be, and therefore are not, approved by the [place] Food and Drug Administration. The tests are used for clinical purposes. 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
--- OUTSIDE RECORDS SUMMARY | 2025-05-07 15:33 | XMS_ITS | Encounter Summary ---
Author Organization [facility] Address [facility] [facility] [place] [address] Care Team Providers Care Outpatient Interviewing Clerk Name Role Phone Seven Duran MD Primary Care Provider [phone] Encounter Details Date Type Department Care Team (Late st Contact Info) Description 08/25/2024 Lab Requisition [facility] - DermPath Lab [address] [facility], [place] [phone] Kaye Santos DO [address] [facility] [address] [place] [address] Social History Tobacco Use Types Packs/Day Years Used Date Smoking Tobacco: Former Alcohol Use Standard Drinks/Week Comments Yes 0 (1 standard drink = 0.6 oz pur e alcohol) Comments Unknown Sex and Gender Information Value Date Recorded Sex Assigned at Not on file 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 Gender Identity Not on file Sexual Orientation Not on file documented as of this encounter Plan of Treatment Not on file documented as of this encounter Procedures Procedure Name Priority Date/Time Associated Diagnosis Comments DERMATOPATHOLOGY Routine 08/25/2024 7:56 AM CDT documented in this encounter Results * DERMATOPATHOLOGY (08/25/2024 7:56 AM CDT) Case Report Dermatopathology Report Case: [id number] Authorizing Provider: Kaye Santos DO Collected: 08/25/2024 07:56 AM Ordering Location: [facility] - Received: 08/26/2024 07:01 AM [...] of a non-oriented ellipse of skin measuring [id number] mm. The epidermal surface is unremarkable. The [...] determined by the Dermatopathology Laboratory at [facility], directed by Dr. Tri Echavarria. These tests need not be, and therefore are not, approved by the [place] Food and Drug Administration. The tests are used for clinical purposes. Billing Codes Specimen Charges Stain Charges 69903 1 12:07 PM CDT DERMATOPATHOLOGY LABORATORY Embedded Images 12:07 PM CDT DERMATOPATHOLOGY LABORATORY Pathology/Cytolo gy TISSUE SPECIMEN FROM SKIN / Unknown 08/25/2024 7:56 AM CDT 08/26/2024 7:01 AM CDT us Kaye Santos DO LAB - PATHOLOGY/CYTOLOGY ORDERABLES Final Result DERMATOPATHOLOGY LABORATORY [facility] - Department of Dermatology [facility] [address] [place] [address], [address] [phone] documented in this encounter Visit Diagnoses Not on filedocumented in this encounter Care Teams Outpatient Interviewing Clerk Relationship Specialty Start Date End Date Seven Duran MD [address] [facility] [address] [place] [phone] PCP - General 06/01/16 documented as of this encounter
--- OUTSIDE RECORDS SUMMARY | 2025-05-07 15:33 | XMS_ITS | Encounter Summary ---
Author Organization [facility] Address [address] [facility] [place] [address] Care Team Providers Care Sales Developer Name Role Phone Seven Duran MD Primary Care Provider [phone] Encounter Details Date Type Department Care Team (Late st Contact Info) Description 09/23/2020 Lab Requisition [facility] DermPath Lab [address] [facility] [place] [address] Yoel Patricio MD [address] [place] [address] Social History Tobacco Use Types Packs/Day Years Used Date Smoking Tobacco: Former Alcohol Use Standard Drinks/Week Comments Yes 0 (1 standard drink = 0.6 oz pur e alcohol) Comments Unknown Sex and Gender Information Value Date Recorded Sex Assigned at Not on file 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 Gender Identity Not on file Sexual Orientation Not on file documented as of this encounter Plan of Treatment Not on file documented as of this encounter Procedures Procedure Name Priority Date/Time Associated Diagnosis Comments DERMATOPATHOLOGY Routine 09/22/2020 3:33 AM CDT documented in this encounter Results * DERMATOPATHOLOGY (09/22/2020 3:33 AM CDT) Case Report Dermatopathology Report Case: [id number] Authorizing Provider: Yoel Patricio MD Collected: 09/22/2020 03:33 AM Ordering Location: [facility] Derm[facility] Received: 09/23/2020 12:59 PM [...] of a nail clipping (5 pieces) measuring 4a1v7sg, 3n3z3vr, 2g0c5od, 7h4d7zx, & 4q8q0ts. 1:36 PM CDT DERMATOPATHOLOGY LABORATORY Microscopic Description [...] purposes. Billing Codes Specimen Charges Stain Charges 25316 1 65740 1 1:36 PM CDT DERMATOPATHOLOGY LABORATORY Embedded Images 1:36 PM CDT DERMATOPATHOLOGY LABORATORY Pathology/Cytolo gy TISSUE SPECIMEN FROM SKIN / Unknown 09/22/2020 3:33 AM CDT 09/23/2020 12:59 PM CDT Yoel Patricio MD LAB - PATHOLOGY/CYTOLOGY ORD ERABLES Final Result DERMATOPATHOLOGY LABORATORY [facility] - Department of Dermatology [facility] Special[facility] Medicine [address] [place] [address], [address] [phone] documented in this encounter Visit Diagnoses Not on filedocumented in this encounter Care Teams Sales Developer Relationship Specialty Start Date End Date Seven Duran MD [address] [facility] [address] [place] [address] PCP - General 06/01/16 documented as of this encounter
--- OUTSIDE RECORDS SUMMARY | 2025-05-07 15:33 | XMS_ITS | Encounter Summary ---
Author Organization [facility] Address [facility] [place] [address] Care Team Providers Care Environmental Studies Department Chair Name Role Phone Seven Duran MD Primary Care Provider [phone] Encounter Details Date Type Department Care Team (Late st Contact Info) Description 02/05/2025 Lab Requisition [facility] - DermPath Lab [address] [facility] [place] [id number] Kaye Santos DO [address] [facility] 3 [place] [address] Neoplasm of uncertain behavior of skin Social History Tobacco Use Types Packs/Day Years Used Date Smoking Tobacco: Former Alcohol Use Standard Drinks/Week Comments Yes 0 (1 standard drink = 0.6 oz pur e alcohol) Comments Unknown Sex and Gender Information Value Date Recorded Sex Assigned at Not on file 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 Gender Identity Not on file Sexual Orientation Not on file documented as of this encounter Plan of Treatment Not on file documented as of this encounter Procedures Procedure Name Priority Date/Time Associated Diagnosis Comments DERMATOPATHOLOGY Routine 02/05/2025 9:00 AM CDT Neoplasm of uncertain behavior of skin documented in this encounter Results * DERMATOPATHOLOGY (02/05/2025 9:00 AM CDT) Case Report Dermatopathology Report Case: [id number] Authorizing Provider: Kaye Santos DO Collected: 02/05/2025 09:00 AM Ordering Location: [facility] - Received: 02/06/2025 07:03 [...] characteristic determined by the Dermatopathology Laboratory at [facility], directed by Dr. Tri Echavarria. These tests need not be, and therefore are not, approved by the [place] Food and Drug Administration. The tests are used for clinical purposes. Billing Codes Specimen Charges Stain Charges 25780 1 3:05 PM CDT DERMATOPATHOLOGY LABORATORY Embedded Images 3:05 PM CDT DERMATOPATHOLOGY LABORATORY Pathology/Cytolo gy TISSUE SPECIMEN FROM SKIN / Unknown 02/05/2025 9:00 AM CDT 02/06/2025 7:03 AM CDT us Kaye Santos DO LAB - PATHOLOGY/CYTOLOGY ORDERABLES Final Result DERMATOPATHOLOGY LABORATORY [facility] - Department of Dermatology [facility] [address] [place] [address], [address] [phone] documented in this encounter Visit Diagnoses Diagnosis Neoplasm of uncertain behavior of skin documented in this encounter Care Teams Environmental Studies Department Chair Relationship Specialty Start Date End Date Seven Duran MD [address] [facility] [address] [place] [address] PCP - General 06/01/16 documented as of this encounter
--- OUTSIDE RECORDS SUMMARY | 2025-05-07 15:33 | XMS_ITS | Encounter Summary ---
Author Organization [facility] Address [facility] [address] Care Team Providers Care Forestry Conservation Worker Name Role Phone Seven Duran MD Primary Care Provider [phone] Encounter Details Date Type Department Care Team (Late st Contact Info) Description 07/24/2024 Lab Requisition [facility] - DermPath Lab [address] [facility] [place] [id number] Kaye Santos DO [address] [facility] 3 [place] [address] Social History Tobacco Use Types Packs/Day Years Used Date Smoking Tobacco: Former Alcohol Use Standard Drinks/Week Comments Yes 0 (1 standard drink = 0.6 oz pur e alcohol) Comments Unknown Sex and Gender Information Value Date Recorded Sex Assigned at Not on file 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 Gender Identity Not on file Sexual Orientation Not on file documented as of this encounter Plan of Treatment Not on file documented as of this encounter Procedures Procedure Name Priority Date/Time Associated Diagnosis Comments DERMATOPATHOLOGY Routine 07/24/2024 10:1 0 AM CDT documented in this encounter Results * DERMATOPATHOLOGY (07/24/2024 10:10 AM CDT) Case Report Dermatopathology Report Case: [id number] Authorizing Provider: Kaye Santos DO Collected: 07/24/2024 10:10 AM Ordering Location: [facility] - Received: 07/25/2024 07:09 AM DermPath Lab Pathologist: Jeanine Emmanuel MD Specimens: A) - Skin, right ventral forearm B) - Skin, right lower back 2:22 PM [facility] DERMATOPATHOLOGY LABORATORY Final Diagnosis Specimen A. SKIN, right ventral forearm: SEBORRHEIC KERATOSIS, IRRITATED AND INFLAMED (L82.0) Specimen B. 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 Jar 0. 2:22 PM [facility] NAMED [facility] DERMATOPATHOLOGY LABORATORY Microscopic Description Specimen A. [...] purposes. Billing Codes Specimen Charges Stain Charges 16726 03216 1 1 03/17/202 5 2:22 PM CDT DERMATOPATHOLOGY LABORATORY Embedded Images 2:22 PM CDT DERMATOPATHOLOGY LABORATORY Pathology/Cytology TISSUE SPECIMEN FROM SKIN / Unknown 07/24/2024 10:10 AM CDT 07/25/2024 7:09 AM CDT Miscellaneous samples (specimen) TISSUE SPECIMEN FROM SKIN / Unknown 07/24/2024 10:10 AM CDT 07/25/2024 7:09 AM CDT us Kaye Santos DO LAB - PATHOLOGY/CYTOLOGY ORDERABLES Final Result DERMATOPATHOLOGY LABORATORY [facility] - Department of Dermatology [facility] Specialized Medicine [address] [place] [address], [address] [phone] documented in this encounter Visit Diagnoses Not on filedocumented in this encounter Care Teams Forestry Conservation Worker Relationship Specialty Start Date End Date Seven Duran MD [address] [facility] [address] [place] [address] PCP - General 06/01/16 documented as of this encounter
--- OUTSIDE RECORDS SUMMARY | 2025-05-07 15:33 | XMS_ITS | Clinical Summary ---
Author Organization [facility] [employer] Address [address] [facility] [place] [address] Care Team Providers Care Bill Hiker Name Role Phone Seven Duran MD Primary Care Provider [phone] Source Comments [facility],non-owned Affiliates and Associated Physician Practices is amultiple site organization consisting of ambulatory clinics and hospital sitesin [place], [place], [place] and [place]. This disclosure is being madepursuant to the Care Everywhere program and may not contain all information available regarding this patient. Last updated 18.[facility] [employer] Allergies Active Allergy Reactions Criticality Noted Date Comments Codeine Nausea and/or Vomiting Low 06/22/2016 Medications * Be aware that medications may not be up to date on this document. Alwaysverify current medications with the patient. vitamin D, ergocalciferol, (DRISDOL) 67962 UNITS capsule 3 04/18/2016 Activ e solifenacin [...] [facility] [address] [facility] [place] [address] Kaye Santos, DO Carcinoma in situ of skin of trunk 02/05/2025 Lab Requisition [facility] - DermPath Lab [address] 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 Case Report Dermatopathology Report Case: [id number] Authorizing Provider: Kaye Santos DO Collected: 03/05/2025 06:30 AM Ordering Location: [facility] - Received: 03/05/2025 02:00 [...] of a non-oriented ellipse of skin measuring 93a11l2 mm. The epidermal surface is unremarkable. The [...] purposes. Billing Codes Specimen Charges Stain Charges 78155 1 2:31 PM CDT DERMATOPATHOLOGY LABORATORY Embedded Images 2:31 PM CDT DERMATOPATHOLOGY LABORATORY Pathology/Cytolo gy TISSUE SPECIMEN FROM SKIN / Unknown 03/05/2025 6:30 AM CDT 03/05/2025 2:00 PM CDT us Kaye Santos DO LAB - PATHOLOGY/CYTOLOGY ORDERABLES Final Result DERMATOPATHOLOGY LABORATORY [facility] - Department of Dermatology [facility] Medicine [address] [place] [address], [address] [phone] from Last 3 Months Insurance MEDICARE [employer] [facility] MEDICARE ADV PPO SELF PAY NO INSURANCE Member Subscriber Plan / Payer (Ef fective for All Dates) Name:Miley Randall Member ID:Not on file Relation to Subscriber:Not on file Name:MILEY RANDALL Subscriber ID:Not on file (Home) Address: [address] [place] [id number] Payer ID:Not on file Group ID:Not on file Type:Self Pay Address: [place], [place] Care Teams Bill Hiker Relationship Specialty Start Date End Date Seven Duran MD [address] [facility] [address] [place] [address] PCP - General 06/01/16
[2025-05-07] MEDS: dilTIAZem 100 MG/100 ML 100 MG/100 ML BAG IV CONT (15:43)
--- NOTE | 2025-05-07 16:09 | PM.IMHP2 ---
H&P: HPI History of Present Illness Date/Time: 05/07/25 16:09 Chief Complaint: Palpitations Narrative: 80 y/o F with PMH of pAfib, pAFlutter, HTN, diastolic dysfunction, GERD, hyperlipidemia, and SILVERIO on CPAP presents here with palpitations. The patient presents here from home on 05/07 for further evaluation of palpitations. She reports onset of palpitations this morning upon awakening. She reports she took her home metoprolol 50 mg ER which initially improved her symptoms. However the feeling that her heart rate was going fast returned which prompted her to take 2 doses of metoprolol tartrate 25 mg (total 50 mg IR) around 11:30 a.m. She denies any associated chest pain, shortness of breath, recent illness, dizziness, lightheadedness, abdominal pain, nausea, or vomiting. She has a past medical history significant for paroxysmal atrial fibrillation and paroxysmal atrial flutter for which she is on the Metoprolol as well as Eliquis. She follows with Cardiology at [facility]. Patient does note that she recently had cataract surgery on Sunday, 05/04, and is now on prednisolone and moxifloxacin eyedrops. Initial VS at presentation: 97.9? F, HR 139, R 19, 135/78, and 95% on RA. ED workup showed: No leukocytosis, no anemia, normal coags, creatinine 1.05 and GFR 51, initial troponin negative, and UA unremarkable. CXR showed no acute cardiopulmonary disease. EKG showed AFib with RVR, rate 136. 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 Chronic back pain History of hemorrhoids Vitamin D deficiency Diastolic dysfunction Paroxysmal atrial flutter Paroxysmal atrial fibrillation Gastroesophageal reflux disease Osteopenia Mixed hyperlipidemia Morbid obesity Hypertension Surgical History Surgical History History of colonoscopy with polypectomy History of cholecystectomy History of right knee joint replacement Family History Family History Mother Asthma Carcinoma of colon Sibling Asthma Family history of malignant melanoma Patient's brother is in good health Diabetes mellitus Father Family history of coronary artery disease, Onset Age: 70 Family history of diabetes mellitus in first degree relative Family history of heart disease in male family member before age 55 Patient's father is Diabetes mellitus Social History Social History 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 Smoking packs per day: 1 Smoking cigarettes per day: 20.0 Years smoked: 20 Smoking pack-years: 20.00 Smoking status: Former smoker Tobacco type: cigarettes Second hand tobacco smoke exposure: Yes Smoking end date: 05/14/84 Alcohol intake: never Alcohol use details: rarely Substance use: never Substance use type: does not use Lack of Transportation: No Lack of Food: Never True Current Housing: I Have Housing Concerned About Future Housing: No Difficulty Paying Gas/Electric Bills: No Difficulty Paying for Meds: No Currently Unemployed: No Education: Associate Degree Difficulty w/ Childcare or Family Care: No Living arrangements: with family Spiritual care concerns: No Meds Home Medications and Allergies Home Medications ?Medication ?Instructions ?Recorded ?Confirmed ?Type apixaban 5 mg tablet (Eliquis) 5 mg PO BID 03/27/19 05/07/25 History cranberry fruit 400 mg capsule 400 mg PO DAILY 03/27/19 05/07/25 History cholecalciferol (vitamin D3) 125 50,000 unit PO .COMPLEX 01/24/22 05/07/25 History mcg (5,000 unit) tablet (Vitamin D3) omeprazole 40 mg capsule,delayed 40 mg PO .COMPLEX #90 caps 07/14/24 05/07/25 Rx release metoprolol tartrate 50 mg tablet 50 mg PO .COMPLEX #20 tabs 01/13/25 05/07/25 Rx metoprolol succinate 25 mg 50 mg (2 x 25 mg) PO DAILY #90 tabs 01/15/25 05/07/25 Rx tablet,extended release 24 hr lisinopril 10 mg tablet See Rx Instructions .Route 04/10/25 05/07/25 Rx .COMPLEX #90 tabs Allergies Allergy/AdvReac Type Severity Reaction Status Date / Time codeine AdvReac Mild sick to Verified 05/07/25 18:39 stomach Vital Signs Vital Signs - 24 hr 05/07/25 14:08 05/07/25 14:11 05/07/25 14:15 Temperature 97.9 F Pulse Rate 139 H 154 H 124 H Respiratory Rate 19 22 H Blood Pressure 135/78 Pulse Oximetry 95 96 Oxygen Delivery Room Air 05/07/25 14:15 05/07/25 14:16 05/07/25 14:37 Temperature Pulse Rate 125 H 126 H 99 Respiratory Rate 16 18 14 Blood Pressure 135/78 Pulse Oximetry 94 97 96 Oxygen Delivery 05/07/25 14:45 05/07/25 15:43 05/07/25 15:53 Temperature Pulse Rate 127 H 148 H 117 H Respiratory Rate 16 17 Blood Pressure 139/102 H 160/92 H Pulse Oximetry 92 98 Oxygen Delivery Exam Const: General: comfortable and no acute distress Other: , female, nontoxic appearance HENMT: Face/Nose/Sinus: Normal nares present Mouth: Yes moist mucous membranes Eyes: General: appearance normal, both eyes and all related structures Sclera: sclerae normal Pupils: Equal, round and reactive pupils present EOM: EOMs intact bilaterally Resp: Effort & Inspection: normal respiratory effort Auscultation: clear to auscultation bilaterally Cardio: Rate: tachycardic (110-120) Rhythm: abnormal rhythm Other: Rhythm consistent with atrial fibrillation. No murmur or rub. GI: Other: Abdomen soft, nondistended, nontender. Normoactive bowel sounds in all quadrants. Skin: General skin exam: normal color and no rashes or lesions noted Wounds: no wounds Neuro: Speech: normal speech Motor exam (neuro): 5/5 motor strength present throughout Sensory Exam: normal sensation Other: A&O x4 Extrem: Other: Trace edema to bilateral lower extremities, symmetric and nonpitting. Psych: Mental Status: mental status grossly normal Affect: normal affect Other: Good insight and judgment, pleasant Results Labs Labs: Short CBC 05/07/25 Range/Units 14:08 WBC 5.5 (4.5-10.0) K/mm3 Hgb 14.1 (12.0-15.0) g/dL Hct 43.8 (37.0-47.0) % Plt Count 249 (150-375) k/mm3 BMP 05/07/25 14:08 Sodium 141 Potassium 4.3 Chloride 110 H Carbon Dioxide 20 L BUN 17 Creatinine 1.05 H Glucose 99 Calcium 9.7 Cardiac Enzymes 05/07/25 Range/Units 14:08 Troponin I < 0.012 (0.000-0.034) ng/mL Liver Function 05/07/25 Range/Units 14:08 Total Bilirubin 0.4 (0.2-1.3) mg/dL AST 27 (14-36) U/L ALT 16 (6-35) U/L Alkaline Phosphatase 67 (38-126) U/L Albumin 4.3 (3.5-5.1) g/dL Urine 05/07/25 Range/Units 14:11 Urine Color Yellow (Yellow) Urine Appearance Clear (Clear) Urine pH 6.5 (5.0-9.0) Ur Specific [place] 1.006 (1.001-1.035) Urine Protein Negative (Negative) mg/dL Urine Glucose (UA) Negative (Negative) mg/dL Quality VTE Prophylaxis VTE prophylaxis: pharmacologic ordered Assessment and Plan Assessment and plan (1) Atrial fibrillation with rapid ventricular response: Code(s): I48.91 - Unspecified atrial fibrillation Status: Acute Assessment and Plan: Patient presents here with palpitations that started upon awakening the morning of 1225. Initially improved with 50 mg p.o. of metoprolol at home, however palpitations returned and she took additional dose of metoprolol 50 mg at home. Despite additional dose she continued to have palpitations. Upon arrival to the emergency department she was found to be in AFib with RVR, rate in the 130s-140s. She has a past medical history significant for paroxysmal atrial fibrillation and paroxysmal atrial flutter. She is on metoprolol ER 50 mg daily and Eliquis. She follows with [facility] for her cardiac care. -initially given to IV push doses of diltiazem 50 mg. Started on diltiazem gtt on 05/07, HR proved from 140s to 110/120. Will give additional 10 mg IVP. -hold home metoprolol -continue Eliquis -TSH last within normal limits on 11/18/2024 -echo, previous (01/2025) reviewed. Showed an estimated EF of 65-70%, grade 1 diastolic dysfunction, no significant valvular disease -initial troponin negative, trending -cardiology consulted -admission to IMU with telemetry monitoring (2) Essential (primary) hypertension: Code(s): I10 - Essential (primary) hypertension Status: Acute Assessment and Plan: - chronic, currently 138/75, stable. - continue home medications: Lisinopril - monitor (3) Diastolic dysfunction: Code(s): I51.89 - Other ill-defined heart diseases Status: Acute Assessment and Plan: - No current evidence of volume overload, does have trace edema to her bilateral ankles that is nonpitting in no adventitious lung sounds or evidence of pulmonary edema on CXR. - Patient has history of grade 1 diastolic dysfunction with and preserved EF. - Last echo completed in January of 2025, see report for details (4) SILVERIO (obstructive sleep apnea): Code(s): G47.33 - Obstructive sleep apnea (adult) (pediatric) Status: Acute Assessment and Plan: - continue home CPAP Plan Diet: Heart healthy GI Prophylaxis: N/a DVT Prophylaxis: Eliquis IV fluids: 1L bolus Lines/Tubes: pIV Code Status: Full code Prior Studies I have reviewed the following patient records and this information was taken into consideration when formulating the assessment and plan.: previous labs, previous ER visits, previous hospitalizations and previous clinic visits Time Spent with Patient Time with patient: less than 45 minutes Hospitalist MIPS Advance Care Plan I have confirmed that the patient's Advanced Care Plan is present, code status is documented, or surrogate decision maker is listed in patient medical record.: Yes Medication Reconciliation I have utilized all available resources to obtain, update and review the patients current medications (includes all prescriptions, OTC, herbals, cannabis, and nutritional supplements).: Yes
[2025-05-07] MEDS: dilTIAZem 100 MG/100 ML 100 MG/100 ML BAG 7.5 MG IV CONT (16:31)
--- NOTE | 2025-05-07 17:27 | WPCEDHO ---
ED Hand Off Checklist All vitals saved: yes IV Site documented: yes All med administrations documented: yes Triage Note Triage Note pt to ED for c/o afib RVR. pt 05/07/25 14:08 says she noticed her heart going this fast when she woke up this AM, pt was told to take metoprolol 50mg when this happens , pt took it and felt a little better but her HR went back up, pt took more metoprolol 50mg around 1130. pt takes Eliquis for her afib, last taken today. pt did have cataract surgery on Sunday and has been taking eye drops, prednisolone sodium phosphate moxifloxacin bromfenac. pt follows up with cardiology at this facility. pt denies chest pain and SOB Allergies codeine Adverse Reaction (Mild, Verified 05/07/25 14:17) sick to stomach Family History (Last Reviewed 05/07/25 @ 16:47 by Nancy Leos, PRINT OPERATOR) Mother Asthma Carcinoma of colon Sibling Asthma Family history of malignant melanoma Patient's brother is in good health Diabetes mellitus Father Family history of coronary artery disease Family history of diabetes mellitus in first degree relative Family history of heart disease in male family member before age 55 Patient's father is Diabetes mellitus Active Medications including assessments/comments Diltiazem HCl (Cardizem 100 Mg/100 Ml) 100 mg in 100 mls @ 10 mls/hr IV CONT .Q10H STA; Protocol Stop: 05/08/25 02:27 Last Titration: 05/07/25 17: Dose: 10 mg/hr, 10 mls/hr Documented By: LAZ Infusion/Titration Document 05/07/25 17: LAZ (Rec: 05/07/25 17: LAZ [id number]) Intake IV Site Peripheral Access Right Antecubital Intake 6.8 Cumulative Intake ( 6.8 bag) Cumulative Intake ( 6.8 Rx) Container Volume 93.2 Waste Amount 0 Dosing Dose Rate 10 Infusion Rate 10 Cumulative Dose 6.8 Increase/Decrease Increased Elapsed Time Elapsed Time ( 54m minutes) Diltiazem Infusion Assessment Document 05/07/25 17:25 LAZ (Rec: 05/07/25 17: LAZ [id number]) Infusion Action Diltiazem Infusion Titrated/Rate Changed Action Pulse Pulse Rate (60-100) 125 H Blood Pressure Blood Pressure (100/ 117/87 60-140/90) Blood Pressure Mean 97 Admin: 05/07/25 16:31 Dose: 7.5 mg/hr, 7.5 mls/hr Documented By: LAZ Infusion/Titration Document 05/07/25 16:31 LAZ (Rec: 05/07/25 16:31 LAZ [id number]) Intake IV Site Peripheral Access Right Antecubital Container Volume 100 Waste Amount 0 Dosing Dose Rate 7.5 Infusion Rate 7.5 Increase/Decrease Started Elapsed Time Elapsed Time ( 0m minutes) Diltiazem Infusion Assessment Document 05/07/25 16:31 LAZ (Rec: 05/07/25 16:31 LAZ [id number]) Infusion Action Diltiazem Infusion Titrated/Rate Changed Action Pulse Pulse Rate (60-100) 102 H Blood Pressure Blood Pressure (100/ 138/75 60-140/90) Blood Pressure Mean 96 Administered/Completed Medications Discontinued Medications Diltiazem HCl (Diltiazem Hcl Inj 25 Mg/5 Ml Vial) 15 mg IV PUSH ONCE STA Stop: 05/07/25 14:14 Last Admin: 05/07/25 14:23 Dose: 15 mg Documented By: LZA Diltiazem HCl (Diltiazem Hcl Inj 25 Mg/5 Ml Vial) 15 mg IV PUSH ONCE STA Stop: 05/07/25 15:20 Last Admin: 05/07/25 15:42 Dose: 15 mg Documented By: LAZ Sodium Chloride (Normal Saline Iv) 1,000 mls @ 999 mls/hr IV CONT .Q1H1M STA Stop: 05/07/25 15:13 Last Infusion: 05/07/25 15:24 Dose: Infused Documented By: Admin: 05/07/25 14:23 Dose: 999 mls/hr Documented By: LAZ Diltiazem HCl (Cardizem 100 Mg/100 Ml) 100 mg in 100 mls @ 5 mls/hr IV CONT .Q20H STA Stop: 05/08/25 11:18 Last Infusion: 05/07/25 16:43 Dose: Infused Documented By: Admin: 05/07/25 15:43 Dose: 5 mg/hr, 5 mls/hr Documented By: LAZ Interventions/Assessments Cardiac Monitoring Start: 05/07/25 13:55 Freq: Status: Active Protocol: Document 05/07/25 14:15 KNW (Rec: 05/07/25 14:15 KNW [id number]) Manager Metrology Assessment Manager Metrology Yes Applied Pulse Rate (60-100) 124 H EKG Rythm Atrial Fibrillation IV / Saline Lock, Insert Start: 05/07/25 13:56 Freq: STAT Status: Active Protocol: Document 05/07/25 15:43 KNW (Rec: 05/07/25 15:46 KNW [id number]) IV Assessment Peripheral Access Left Antecubital IV Catheter Access Initiated IV Insertion Date 05/07/25 IV Insertion Time 15:46 Catheter Gauge 20 IV Insertion 2 Attempts Ultrasound Used for No Placement IV Site Assessment WNL IV Care and WNL Maintenance PA: Cardiovascular Assessment Start: 05/07/25 13:55 Freq: Status: Active Protocol: Document 05/07/25 14:16 KNW (Rec: 05/07/25 14:16 KNW [id number]) Cardiovascular Assessment Cardiovascular Palpitations Symptoms Heart Sounds Normal Skin Description Normal Color Jugular Vein None Distention Chest Pain Assessment Chest Pain Intensity 0 Last Vital Signs Temperature 97.9 F 05/07/25 14:08 Pulse Rate 125 H 05/07/25 17:25 Respiratory Rate 20 05/07/25 17:16 Pulse Oximetry 97 05/07/25 17:16 Blood Pressure 117/87 05/07/25 17:25 Blood Pressure Mean 97 05/07/25 17:25 Blood Pressure Position Sitting 05/07/25 15:53 Oxygen Delivery Room Air 05/07/25 14:08 Weight 122.2 kg 05/07/25 14:08 Last Result - Abnormals Only Chloride 110 mmol/L (98-107) H 05/07/25 14:08 Carbon Dioxide 20 mmol/L (22-30) L 05/07/25 14:08 Creatinine 1.05 mg/dL (0.7-1.0) H 05/07/25 14:08 Estimated GFR 51 (59-) L 05/07/25 14:08 Most Recent Suicide Severity Rating Suicide Severity Rating NO RISK INDICATED 05/07/25 14:08
--- NOTE | 2025-05-07 18:15 | PC.NURSE ---
Patient arrived to the floor via stretcher from the ER. Denies chest pain or discomfort at this time. Vital signs obtained. monitor worker placed on and functioning at this time. Cardizem drip infusing through IV pump at the time of arrival. Patient states that she is comfortable at this time. Patient further states that she recently had cataract surgery and is on eye drops and wanted to verify with the provider if it is ok to take the medications as she was told that her irregular rhythm may have been caused by the eye drops. This RN verified with the provider that the eye drops are ok for her to take and not related to her heart rhythm. The patient also states that she is told she will need to tape her eye lids closed at night. This RN stated that she would pass that along. No acute distress noted at this time.
[2025-05-07 19:22] LABS: Troponin I < 0.012 ng/mL (0.000-0.034)
[2025-05-07 22:10] LABS: Troponin I < 0.012 ng/mL (0.000-0.034)
[2025-05-08] VITALS (24 sets, daily range): BP systolic 122–151; BP diastolic 55–94; PULSE 54–127; RESP 16–20; TEMP 36.4–36.8; O2SAT 94–99
[2025-05-08] MEDS: ACETAMINOPHEN 325 MG TABLET 650 MG PO (01:55)
[2025-05-08 04:13] LABS: Hematocrit 42.0 % (37.0-47.0); Hemoglobin 13.4 g/dL (12.0-15.0); Immature Granulocyte Percent A 0.2 % (0-0.5); Lymphocytes Absolute Auto 1.20 K/mm3 (0.9-3.2); Mean Corpuscular HGB Conc 31.9 g/dl (32-36); Mean Corpuscular Hemoglobin 28.0 pg (26-34); Mean Corpuscular Volume 87.9 fl (80-100); Nucleated Red Blood Cells Absolute Auto 0.000 K/mm3 (0.0-0.012); Nucleated Red Blood Cells Perc 0.0 % (0.0-0.2); Platelet Count Result 218 k/mm3 (150-375); Red Blood Count 4.78 M/mm3 (4.2-5.4); White Blood Count 5.3 K/mm3 (4.5-10.0)
[2025-05-08 04:36] LABS: Anion Gap 10 mmol/L (4-12); Blood Urea Nitrogen 13 mg/dL (7-17); Calcium 8.8 mg/dL (8.4-10.2); Carbon Dioxide 21 mmol/L (22-30); Chloride 109 mmol/L (98-107); Estimated CRCL calculation 58 ml/min; Estimated Glomerular Filt Rate > 60; Glucose 95 mg/dL (65-110); Potassium 3.6 mmol/L (3.4-5.0); Sodium 140 mmol/L (137-145)
[2025-05-08] MEDS: dilTIAZem 100 MG/100 ML 100 MG/100 ML BAG 10 MG IV CONT (04:49)
--- NOTE | 2025-05-08 08:04 | P.PNIM_ITS ---
Assessment and Plan Assessment and Plan (1) Atrial fibrillation with rapid ventricular response: Code(s): I48.91 - Unspecified atrial fibrillation Status: Acute Assessment and Plan: Patient presents here with palpitations that started upon awakening the morning of 1225. Upon arrival to the emergency department she was found to be in AFib with RVR, rate in the 130s-140s. She has a past medical history significant for paroxysmal atrial fibrillation and paroxysmal atrial flutter. She is on metoprolol ER 50 mg daily and Eliquis. - started on IV cardizem and converted to NSR -continue Eliquis -echo, previous (01/2025) reviewed. Showed an estimated EF of 65-70%, grade 1 diastolic dysfunction, no significant valvular disease -initial troponin negative, trending -cardiology consulted - stopped metoprolol and started sotalol load (2) Essential (primary) hypertension: Code(s): I10 - Essential (primary) hypertension Status: Acute Assessment and Plan: - chronic, currently 138/75, stable. - continue home medications: Lisinopril - monitor (3) Diastolic dysfunction: Code(s): I51.89 - Other ill-defined heart diseases Status: Acute Assessment and Plan: - No current evidence of volume overload, does have trace edema to her bilateral ankles that is nonpitting in no adventitious lung sounds or evidence of pulmonary edema on CXR. - Patient has history of grade 1 diastolic dysfunction with and preserved EF. - Last echo completed in January of 2025, see report for details (4) SILVERIO (obstructive sleep apnea): Code(s): G47.33 - Obstructive sleep apnea (adult) (pediatric) Status: Acute Assessment and Plan: - continue home CPAP Plan DVT Prophylaxis: Eliquis Code Status: Full code Dispo: home after sotalol load Medical Record Review I have reviewed the following patient records and this information was taken into consideration when formulating the assessment and plan.: previous labs Subjective Date/time seen: 05/08/25 08:04 Interval history: Patient seen and examined at bedside. Patient spontaneously converted to normal sinus rhythm this morning. Upon my evaluation she is complaining of some mild dizziness. Denies chest pain or shortness of breath. Noted Cardiology recommendations to start sotalol. Review of Systems Review of Systems: All systems reviewed & are unremarkable except as noted in HPI and below Exam Narrative: General: NAD Eyes: EOMI ENT: neck supple Cardiovascular: Regular rate, bradycardic Respiratory: Clear to auscultation, respirations even and unlabored on RA Gastrointestinal: Soft, non tender Genitourinary: no suprapubic tenderness Musculoskeletal: No edema Skin: warm, dry Neuro: Alert. Psych: Mood appropriate Objective Data Vital Signs Vital Signs: Vital Signs - 24 hr 05/07/25 14:08 05/07/25 14:11 05/07/25 14:15 Temperature 97.9 F Pulse Rate 139 H 154 H 124 H Respiratory Rate 19 22 H Blood Pressure 135/78 Pulse Oximetry 95 96 Oxygen Delivery Room Air 05/07/25 14:15 05/07/25 14:16 05/07/25 14:37 Temperature Pulse Rate 125 H 126 H 99 Respiratory Rate 16 18 14 Blood Pressure 135/78 Pulse Oximetry 94 97 96 Oxygen Delivery 05/07/25 14:45 05/07/25 15:28 05/07/25 15:30 Temperature Pulse Rate 127 H 133 H 119 H Respiratory Rate 16 14 26 H Blood Pressure Pulse Oximetry 92 98 Oxygen Delivery 05/07/25 15:31 05/07/25 15:43 05/07/25 15:45 Temperature Pulse Rate 127 H 148 H 129 H Respiratory Rate 19 14 Blood Pressure 139/102 H 139/102 H Pulse Oximetry 97 98 Oxygen Delivery 05/07/25 15:53 05/07/25 15:54 05/07/25 16:00 Temperature Pulse Rate 117 H 125 H 108 H Respiratory Rate 17 15 15 Blood Pressure 160/92 H 160/92 H Pulse Oximetry 98 98 96 Oxygen Delivery 05/07/25 16:01 05/07/25 16:15 05/07/25 16:16 Temperature Pulse Rate 105 H 111 H 118 H Respiratory Rate 16 18 17 Blood Pressure 124/85 126/85 Pulse Oximetry 96 96 97 Oxygen Delivery 05/07/25 16:31 05/07/25 16:43 05/07/25 16:54 Temperature Pulse Rate 102 H 102 H 108 H Respiratory Rate 18 Blood Pressure 138/75 138/75 Pulse Oximetry 97 Oxygen Delivery 05/07/25 17:00 05/07/25 17:01 05/07/25 17:15 Temperature Pulse Rate 125 H 135 H 109 H Respiratory Rate 17 18 16 Blood Pressure 127/83 Pulse Oximetry 98 97 97 Oxygen Delivery 05/07/25 17:16 05/07/25 17:25 05/07/25 17:55 Temperature 97.5 F L Pulse Rate 103 H 125 H 115 H Respiratory Rate 20 20 Blood Pressure 117/87 117/87 152/74 H Pulse Oximetry 97 97 Oxygen Delivery 05/07/25 19:58 05/07/25 20:00 05/07/25 20:00 Temperature 97.9 F Pulse Rate 59 L 85 Respiratory Rate 20 Blood Pressure 120/71 120/71 Pulse Oximetry 97 Oxygen Delivery Room Air 05/07/25 20:00 05/07/25 22:00 05/07/25 22:00 Temperature Pulse Rate 89 93 103 H Respiratory Rate Blood Pressure 140/77 Pulse Oximetry Oxygen Delivery 05/08/25 00:00 05/08/25 00:00 05/08/25 00:00 Temperature 97.9 F Pulse Rate 98 96 Respiratory Rate 20 Blood Pressure 132/69 Pulse Oximetry 94 Oxygen Delivery Room Air 05/08/25 00:00 05/08/25 01:42 05/08/25 02:00 Temperature Pulse Rate 99 104 H 104 H Respiratory Rate Blood Pressure 132/69 122/55 L 122/55 L Pulse Oximetry Oxygen Delivery 05/08/25 02:00 05/08/25 02:59 05/08/25 04:00 Temperature Pulse Rate 87 98 Respiratory Rate Blood Pressure Pulse Oximetry Oxygen Delivery Room Air 05/08/25 04:00 05/08/25 04:49 05/08/25 06:00 Temperature 97.6 F Pulse Rate 96 101 H 106 H Respiratory Rate 20 Blood Pressure 133/76 133/76 138/64 Pulse Oximetry 97 Oxygen Delivery 05/08/25 06:00 05/08/25 08:00 Temperature 98.3 F Pulse Rate 106 H 57 L Respiratory Rate 20 Blood Pressure 146/94 H Pulse Oximetry 95 Oxygen Delivery Intake/Output Intake/Output: Intake & Output 05/05/25 05/06/25 05/07/25 05/08/25 23:59 23:59 23:59 23:59 Intake Total 1402.6 171.8 Output Total 200 500 Balance 1202.6 -328.2 Meds/Results Medications: Active Medications Generic Name Dose Route Start Last Admin Trade Name Freq PRN Reason Stop Dose Admin Acetaminophen 650 mg 05/07/25 17:02 05/08/25 01:55 Acetaminophen 325 Mg Tablet PO 650 mg Q6H PRN Administration Mild Pain (1-3) or Fever Apixaban 5 mg 05/08/25 09:00 Apixaban 5 Mg Tablet PO BID MICHAEL Calcium Carbonate 200 mg 05/07/25 17:02 Calcium Carbonate (Tums) 500 Mg (200 Mg Elemental) PO Q6H PRN Indigestion Docusate Sodium 100 mg 05/07/25 17:02 Docusate Sodium 100 Mg Capsule PO Q12H PRN Constipation Ergocalciferol 1,250 mcg 05/28/25 09:00 Ergocalciferol (Vitamin D2) 1,250 Mcg (50,000 Units) Capsule PO MONTHLY MICHAEL Ergocalciferol 1,250 mcg 05/14/25 09:00 Ergocalciferol (Vitamin D2) 1,250 Mcg (50,000 Units) Capsule PO MONTHLY MICHAEL Diltiazem HCl 100 mg in 100 mls @ 10 mls/hr 05/08/25 04:45 05/08/25 06:00 Cardizem 100 Mg/100 Ml IV CONT 10 mg/hr .Q10H MICHAEL 10 mls/hr 10 MG/HR Infusion Lisinopril 10 mg 05/08/25 09:00 Lisinopril 10 Mg Tablet PO DAILY MICHAEL Nonformulary 1 each 05/07/25 19:47 Nutritional XX 05/08/25 19:46 Supplement PRN PRN Nonformulary Drug ( PROTOCOL Cranberry Fruit 400 Mg Capsule) Pantoprazole Sodium 40 mg 05/08/25 09:00 Pantoprazole 40 Mg Tablet PO Q12HR [facility] Radiology Results: ITS Impressions Chest X-Ray 05/07/25 14:41 IMPRESSION: 1: NO ACUTE CARDIOPULMONARY DISEASE. Labs Labs: Laboratory Results - last 24 hr 05/07/25 05/07/25 05/07/25 14:08 14:11 18:55 WBC 5.5 RBC 4.99 Hgb 14.1 Hct 43.8 MCV 87.8 MCH 28.3 MCHC 32.2 RDW 13.3 Plt Count 249 MPV 10.0 Immature Gran % (Auto) 0.2 Neut % (Auto) 64.5 Lymph % (Auto) 24.9 [place] % (Auto) 8.2 Eos % (Auto) 1.5 Baso % (Auto) 0.7 Lymph # (Auto) 1.36 [place] # (Auto) 0.5 Eos # (Auto) 0.1 Baso # (Auto) 0.0 Abs Immat Gran (auto) 0.01 Absolute Neuts (auto) 3.5 Absolute Nucleated RBC 0.000 Nucleated RBC % 0.0 PT 14.4 INR 1.1 APTT 32.1 Sodium 141 Potassium 4.3 Chloride 110 H Carbon Dioxide 20 L Anion Gap 11 BUN 17 Creatinine 1.05 H Estim Creat Clear Calc 50 Estimated GFR 51 L Glucose 99 Calcium 9.7 Total Bilirubin 0.4 AST 27 ALT 16 Alkaline Phosphatase 67 Troponin I < 0.012 < 0.012 Total Protein 7.8 Albumin 4.3 Lipase 76 Urine Color Yellow Urine Appearance Clear Urine pH 6.5 Ur Specific [place] 1.006 Urine Protein Negative Urine Glucose (UA) Negative Urine Ketones Negative Ur Blood (Man) Negative Urine Nitrate Negative Urine Bilirubin Negative Urine Urobilinogen 0.2 Leukocyte Esterase Rfl Negative 05/07/25 05/08/25 21:27 03:56 WBC 5.3 RBC 4.78 Hgb 13.4 Hct 42.0 MCV 87.9 MCH 28.0 MCHC 31.9 L RDW 13.2 Plt Count 218 MPV 10.5 H Immature Gran % (Auto) 0.2 Neut % (Auto) 67.6 Lymph % (Auto) 22.7 [place] % (Auto) 7.6 Eos % (Auto) 1.1 Baso % (Auto) 0.8 Lymph # (Auto) 1.20 [place] # (Auto) 0.4 Eos # (Auto) 0.1 Baso # (Auto) 0.0 Abs Immat Gran (auto) 0.01 Absolute Neuts (auto) 3.6 Absolute Nucleated RBC 0.000 Nucleated RBC % 0.0 PT INR APTT Sodium 140 Potassium 3.6 Chloride 109 H Carbon Dioxide 21 L Anion Gap 10 BUN 13 Creatinine 0.87 Estim Creat Clear Calc 58 Estimated GFR > 60 Glucose 95 Calcium 8.8 Total Bilirubin AST ALT Alkaline Phosphatase Troponin I < 0.012 Total Protein Albumin Lipase Urine Color Urine Appearance Urine pH Ur Specific [place] Urine Protein Urine Glucose (UA) Urine Ketones Ur Blood (Man) Urine Nitrate Urine Bilirubin Urine Urobilinogen Leukocyte Esterase Rfl
[2025-05-08] MEDS: PANTOPRAZOLE 40 MG TABLET PO ×2 (08:08→20:09)
[2025-05-08] MEDS: APIXABAN 5 MG TABLET PO ×2 (08:09→17:54)
--- NOTE | 2025-05-08 08:20 | PC.NURSE ---
spontaneous conversion to sr witnessed on tele, pt had pause and hr is now in the 50s, bp of 150/67 L arm, pt aox4, c/o light headache but no other complaints at this time, strip printed, will continue to monitor
--- NOTE | 2025-05-08 09:02 | ECG_ITS ---
Test Date: 2025-05-08 09:54:28 Measurements Intervals [place] Rate: 52 P: 25 DE: 184 QRS: -5 QRSD: 93 T: 17 QT: 474 QTc: 443 Interpretive Statements SINUS BRADYCARDIA VOLTAGE CRITERIA FOR LVH BORDERLINE T WAVE ABNORMALITY- ANTERIOR LEADS BASELINE ARTIFACT- I, II, AVR BORDERLINE ECG Compared to ECG 05/07/2025 14:11:31 Atrial fibrillation no longer present Electronically Signed On 05-08-2025 20:00:36 RHEUMATOLOGY SPECIALIST by Chris Malone D.O.
--- NOTE | 2025-05-08 09:03 | PM.CNCAR ---
Assessment and Plan Assessment and plan (1) Atrial fibrillation with rapid ventricular response: Code(s): I48.91 - Unspecified atrial fibrillation Status: Acute Plan 80-year-old lady with hypertension, sleep apnea and paroxysmal atrial fibrillation. She enters the hospital yesterday with her 3rd recurrence of her arrhythmia resulting in symptomatic palpitations this year. She had diltiazem added to her regimen from the emergency room and she has converted to sinus rhythm earlier this morning. I am going to recommend stopping the diltiazem infusion as well as shifting her from metoprolol to sotalol for her antiarrhythmic agent. I will start with a low dose of 40 mg q.12 hours since she is relatively bradycardic although this is not too surprising given her baseline metoprolol treatment. Explained to the patient she will be in the hospital for a couple of days getting started on sotalol. She understands this and is agreeable. The recurrences of her arrhythmia have resulted in at least several hospitalizations this year and I believe therefore it is time to consider advancing to a more aggressive antiarrhythmic agent Rolly Choi MD [facility] History of Present Illness History of Present Illness Consult date/time: 05/08/25 09:03 Reason For Visit: Afib with RVR Narrative: This is a very pleasant 80-year-old lady I am seeing at the request of the hospitalist to assist with management of atrial fibrillation. She is known to our practice and previously had been followed by Dr. Donnelly for several years. She was in her usual state of good health when yesterday she noted the onset of palpitations and irregularity of her heart rate earlier in the day and recognized this as a recurrence of her atrial fib and came into the emergency room for evaluation. She normally takes metoprolol succinate daily for her AFib and has a script for metoprolol tartrate to take in a PRN fashion. Despite taking some extra metoprolol she continued to experience atrial fib so she came into the hospital. She is anticoagulated with apixaban and has been compliant with that. She denies any symptoms of shortness of breath chest pain or any other distress other than being aware of her arrhythmia. The patient has a history of paroxysmal AFib dating back to 2018 she has had 5 recurrences of atrial fibrillation between then and today I believe this is her 3rd recurrence of atrial fibrillation in 2024. She has no other cardiac history echocardiogram have not demonstrated any structural pathology she has no history of ischemic heart disease. She does have a history of sleep apnea for which she uses a CPAP device she also has essential hypertension. Review of Systems Constitutional: Constitutional: Reports no additional constitutional complaints Eyes: Eyes: Reports no additional eye complaints ENT: Reports system reviewed and no additional complaints, except as documented Cardiovascular: Cardiovascular: Reports palpitations Respiratory: Respiratory: Reports no additional respiratory complaints Gastrointestinal: Gastrointestinal: Reports no additional gastrointestinal complaints Musculoskeletal: Musculoskeletal: Reports no additional musculoskeletal complaints Integumentary/Breasts: Skin/Breast: Reports system reviewed and no additional complaints, except as docu Neurologic: Reports system reviewed and no additional complaints, except as documented Endocrine: Endocrine: Reports no additional endocrine complaints Hematologic/Lymphatic: Hematologic/Lymphatic: Reports no additional hematologic/lymphatic complaints Allergic/Immunologic: Allergic/Immunologic: Reports no additional allergic/immunologic complaints [facility] Past Medical History Medical History Obstructive sleep apnea on CPAP Personal history 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 Chronic back pain History of hemorrhoids Vitamin D deficiency Diastolic dysfunction Paroxysmal atrial flutter Paroxysmal atrial fibrillation Gastroesophageal reflux disease Osteopenia Mixed hyperlipidemia Morbid obesity Hypertension Surgical History Surgical History History of colonoscopy with polypectomy History of cholecystectomy History of right knee joint replacement Family History Family History Mother Asthma Carcinoma of colon Sibling Asthma Family history of malignant melanoma Patient's brother is in good health Diabetes mellitus Father Family history of coronary artery disease, Onset Age: 70 Family history of diabetes mellitus in first degree relative Family history of heart disease in male family member before age 55 Patient's father is Diabetes mellitus Social History Social History 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 Smoking packs per day: 1 Smoking cigarettes per day: 20.0 Years smoked: 20 Smoking pack-years: 20.00 Smoking status: Former smoker Tobacco type: cigarettes Second hand tobacco smoke exposure: Yes Smoking end date: 05/14/84 Alcohol intake: never Alcohol use details: rarely Substance use: never Substance use type: does not use Lack of Transportation: No Lack of Food: Never True Current Housing: I Have Housing Concerned About Future Housing: No Difficulty Paying Gas/Electric Bills: No Difficulty Paying for Meds: No Currently Unemployed: No Education: Associate Degree Difficulty w/ Childcare or Family Care: No Living arrangements: with family Spiritual care concerns: No Meds Home Medications and Allergies Home Medications ?Medication ?Instructions ?Recorded ?Confirmed ?Type apixaban 5 mg tablet (Eliquis) 5 mg PO BID 03/27/19 05/07/25 History cranberry fruit 400 mg capsule 400 mg PO DAILY 03/27/19 05/07/25 History cholecalciferol (vitamin D3) 125 50,000 unit PO .COMPLEX 01/24/22 05/07/25 History mcg (5,000 unit) tablet (Vitamin D3) omeprazole 40 mg capsule,delayed 40 mg PO .COMPLEX #90 caps 07/14/24 05/07/25 Rx release metoprolol tartrate 50 mg tablet 50 mg PO .COMPLEX #20 tabs 01/13/25 05/07/25 Rx metoprolol succinate 25 mg 50 mg (2 x 25 mg) PO DAILY #90 tabs 01/15/25 05/07/25 Rx tablet,extended release 24 hr lisinopril 10 mg tablet See Rx Instructions .Route 04/10/25 05/07/25 Rx .COMPLEX #90 tabs Allergies Allergy/AdvReac Type Severity Reaction Status Date / Time codeine AdvReac Mild sick to Verified 05/07/25 18:39 stomach Vital Signs Vital Signs - 24 hr 05/07/25 14:08 05/07/25 14:11 05/07/25 14:15 Temperature 36.6 C Pulse Rate 139 H 154 H 124 H Respiratory Rate 19 22 H Blood Pressure 135/78 Pulse Oximetry 95 96 Oxygen Delivery Room Air 05/07/25 14:15 05/07/25 14:16 05/07/25 14:37 Temperature Pulse Rate 125 H 126 H 99 Respiratory Rate 16 18 14 Blood Pressure 135/78 Pulse Oximetry 94 97 96 Oxygen Delivery 05/07/25 14:45 05/07/25 15:28 05/07/25 15:30 Temperature Pulse Rate 127 H 133 H 119 H Respiratory Rate 16 14 26 H Blood Pressure Pulse Oximetry 92 98 Oxygen Delivery 05/07/25 15:31 05/07/25 15:43 05/07/25 15:45 Temperature Pulse Rate 127 H 148 H 129 H Respiratory Rate 19 14 Blood Pressure 139/102 H 139/102 H Pulse Oximetry 97 98 Oxygen Delivery 05/07/25 15:53 05/07/25 15:54 05/07/25 16:00 Temperature Pulse Rate 117 H 125 H 108 H Respiratory Rate 17 15 15 Blood Pressure 160/92 H 160/92 H Pulse Oximetry 98 98 96 Oxygen Delivery 05/07/25 16:01 05/07/25 16:15 05/07/25 16:16 Temperature Pulse Rate 105 H 111 H 118 H Respiratory Rate 16 18 17 Blood Pressure 124/85 126/85 Pulse Oximetry 96 96 97 Oxygen Delivery 05/07/25 16:31 05/07/25 16:43 05/07/25 16:54 Temperature Pulse Rate 102 H 102 H 108 H Respiratory Rate 18 Blood Pressure 138/75 138/75 Pulse Oximetry 97 Oxygen Delivery 05/07/25 17:00 05/07/25 17:01 05/07/25 17:15 Temperature Pulse Rate 125 H 135 H 109 H Respiratory Rate 17 18 16 Blood Pressure 127/83 Pulse Oximetry 98 97 97 Oxygen Delivery 05/07/25 17:16 05/07/25 17:25 05/07/25 17:55 Temperature 36.4 C L Pulse Rate 103 H 125 H 115 H Respiratory Rate 20 20 Blood Pressure 117/87 117/87 152/74 H Pulse Oximetry 97 97 Oxygen Delivery 05/07/25 19:58 05/07/25 20:00 05/07/25 20:00 Temperature 36.6 C Pulse Rate 59 L 85 Respiratory Rate 20 Blood Pressure 120/71 120/71 Pulse Oximetry 97 Oxygen Delivery Room Air 05/07/25 20:00 05/07/25 22:00 05/07/25 22:00 Temperature Pulse Rate 89 93 103 H Respiratory Rate Blood Pressure 140/77 Pulse Oximetry Oxygen Delivery 05/08/25 00:00 05/08/25 00:00 05/08/25 00:00 Temperature 36.6 C Pulse Rate 98 96 Respiratory Rate 20 Blood Pressure 132/69 Pulse Oximetry 94 Oxygen Delivery Room Air 05/08/25 00:00 05/08/25 01:42 05/08/25 02:00 Temperature Pulse Rate 99 104 H 104 H Respiratory Rate Blood Pressure 132/69 122/55 L 122/55 L Pulse Oximetry Oxygen Delivery 05/08/25 02:00 05/08/25 02:59 05/08/25 04:00 Temperature Pulse Rate 87 98 Respiratory Rate Blood Pressure Pulse Oximetry Oxygen Delivery Room Air 05/08/25 04:00 05/08/25 04:49 05/08/25 06:00 Temperature 36.4 C Pulse Rate 96 101 H 106 H Respiratory Rate 20 Blood Pressure 133/76 133/76 138/64 Pulse Oximetry 97 Oxygen Delivery 05/08/25 06:00 05/08/25 08:00 05/08/25 08:05 Temperature 36.8 C Pulse Rate 106 H 57 L 127 H Respiratory Rate 20 Blood Pressure 146/94 H 146/94 H Pulse Oximetry 95 Oxygen Delivery 05/08/25 08:43 05/08/25 08:53 Temperature Pulse Rate 56 L 54 L Respiratory Rate Blood Pressure Pulse Oximetry Oxygen Delivery Exam Const: General: comfortable and no acute distress Other: Pleasant obese woman in no distress HENMT: Mouth: Yes moist mucous membranes Eyes: Sclera: sclerae normal Neck: Neck: supple Resp: Effort & Inspection: normal respiratory effort Auscultation: clear to auscultation bilaterally Cardio: Rate: regular rate and bradycardic GI: GI Palp: Yes Soft to palpation Auscultation: normal bowel sounds Skin: General skin exam: normal color Neuro: Other: Alert and oriented x3 Extrem: General: normal to inspection Results Labs and Meds 05/08/25 03:56 05/08/25 03:56 Lab results: Cardiac Enzymes 05/07/25 05/07/25 05/07/25 Range/Units 14:08 18:55 21:27 AST 27 (14-36) U/L Troponin I < 0.012 < 0.012 < 0.012 (0.000-0.034) ng/mL Coagulation 05/07/25 Range/Units 14:08 PT 14.4 (11.1-14.7) Seconds APTT 32.1 (22.3-36.8) Seconds CBC 05/07/25 05/08/25 Range/Units 14:08 03:56 WBC 5.5 5.3 (4.5-10.0) K/mm3 RBC 4.99 4.78 (4.2-5.4) M/mm3 Hgb 14.1 13.4 (12.0-15.0) g/dL Hct 43.8 42.0 (37.0-47.0) % Plt Count 249 218 (150-375) k/mm3 Lymph # (Auto) 1.36 1.20 (0.9-3.2) K/mm3 [place] # (Auto) 0.5 0.4 (0.1-0.6) K/mm3 Eos # (Auto) 0.1 0.1 (0-0.3) K/mm3 Baso # (Auto) 0.0 0.0 (0.0-0.1) K/mm3 Comprehensive Metabolic Panel 05/07/25 05/08/25 Range/Units 14:08 03:56 Sodium 141 140 (137-145) mmol/L Potassium 4.3 3.6 (3.4-5.0) mmol/L Chloride 110 H 109 H (98-107) mmol/L Carbon Dioxide 20 L 21 L (22-30) mmol/L BUN 17 13 (7-17) mg/dL Creatinine 1.05 H 0.87 (0.7-1.0) mg/dL Glucose 99 95 (65-110) mg/dL Calcium 9.7 8.8 (8.4-10.2) mg/dL AST 27 (14-36) U/L ALT 16 (6-35) U/L Alkaline Phosphatase 67 (38-126) U/L Total Protein 7.8 (6.3-8.2) g/dL Albumin 4.3 (3.5-5.1) g/dL Intake and Output 05/07/25 05/08/25 05/08/25 23:59 07:59 15:59 Intake Total 402.6 51.8 147.9 Output Total 200 500 Balance 202.6 -448.2 147.9 Intake: IV 52.6 51.8 27.9 dilTIAZem 100 MG/100 ML 100 mg 52.6 51.8 27.9 In 100 ml @ 10 MG/HR 10 mls/hr IV CONT .Q10H REPLACED BY [facility] Rx#:[id number] Oral 350 120 Output: Urine 200 500 Patient Weight 05/08/25 23:59 Weight 118.1 kg
[2025-05-08 09:04] LABS: Thyroid Stimulating Hormone Reflex 3.870 uIU/mL (0.465-4.68)
[2025-05-08 09:29] LABS: Magnesium 1.9 mg/dL (1.6-2.3)
--- NOTE | 2025-05-08 09:52 | PC.NURSE ---
baseline ekg being performed now by cardio
[2025-05-08 09:55] LABS: Anion Gap 7 mmol/L (4-12); Blood Urea Nitrogen 12 mg/dL (7-17); Calcium 8.9 mg/dL (8.4-10.2); Carbon Dioxide 24 mmol/L (22-30); Chloride 107 mmol/L (98-107); Estimated CRCL calculation 61 ml/min; Estimated Glomerular Filt Rate > 60; Glucose 101 mg/dL (65-110); Magnesium 1.7 mg/dL (1.6-2.3); Potassium 3.7 mmol/L (3.4-5.0); Sodium 138 mmol/L (137-145)
--- OUTSIDE RECORDS SUMMARY | 2025-05-08 10:17 | XMS_ITS | Encounter Summary ---
Author Organization 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 Social History Tobacco Use Types Packs/Day Years Used Date Smoking Tobacco: Former Alcohol Use Standard Drinks/Week Comments Yes 0 (1 standard drink = 0.6 oz pur e alcohol) Comments Unknown Sex and Gender Information Value Date Recorded Sex Assigned at Not on file 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 The epidermal surface is unremarkable. The [...] purposes. 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
--- OUTSIDE RECORDS SUMMARY | 2025-05-08 10:17 | XMS_ITS | Clinical Summary ---
Author Organization [facility] Address [address] [facility] [place] [address] Care Team Providers Care Child Care Counselor Name Role Phone Seven Duran MD Primary Care Provider [phone] Source Comments [facility],non-owned Affiliates and Associated Physician Practices is amultiple site organization consisting of ambulatory clinics and hospital sitesin [place], [place], [place] and [place]. This disclosure is being madepursuant to the Care Everywhere program and may not contain all information available regarding this patient. Last updated 18.[facility] Allergies Active Allergy Reactions Criticality Noted Date Comments Codeine Nausea and/or Vomiting Low 06/22/2016 Medications * Be aware that medications may not be up to date on this document. Alwaysverify current medications with the patient. 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 The epidermal surface is unremarkable. The [...] purposes. Billing Codes Specimen Charges Stain Charges 57639 1 2:31 PM CDT DERMATOPATHOLOGY LABORATORY Embedded Images 2:31 PM CDT DERMATOPATHOLOGY LABORATORY Pathology/Cytolo gy TISSUE SPECIMEN FROM SKIN / Unknown 03/05/2025 6:30 AM CDT 03/05/2025 2:00 PM CDT Kaye Santos DO LAB - PATHOLOGY/CYTOLOGY ORDERABLES Final Result DERMATOPATHOLOGY LABORATORY [facility] - Department of Dermatology [facility] Medicine [address] [place] [address], [address] [phone] from Last [address] [facility] MEDICARE ADV PPO SELF PAY NO INSURANCE Member Subscriber Plan / Payer (Ef fective for All Dates) Name:Miley Randall Member ID:Not on file Relation to Subscriber:Not on file Name:MILEY RANDALL Subscriber ID:Not on file (Home) Address: [address] [place] [id number] Payer ID:Not on file Group ID:Not on file Type:Self Pay Address: [place], [place] Care Teams Child Care Counselor Relationship Specialty Start Date End Date Seven Duran MD [address] [facility] [address] [place] [address] PCP - General 06/01/16
--- OUTSIDE RECORDS SUMMARY | 2025-05-08 10:17 | XMS_ITS | Encounter Summary ---
Author Organization [facility] Address [facility] [facility] [place] [address] Care Team Providers Care Orthodontic Laboratory Technician Name Role Phone Seven Duran MD Primary Care Provider [phone] Encounter Details Date Type Department Care Team (Late st Contact Info) Description 08/25/2024 Lab Requisition [facility] - Derm[facility] Lab [address] [facility], [place] [id number] Kaye Santos DO [address] [facility] 3 [place] [address] Social History Tobacco Use Types Packs/Day Years Used Date Smoking Tobacco: Former Alcohol Use Standard Drinks/Week Comments Yes 0 (1 standard drink = 0.6 oz pur e alcohol) Comments Unknown Sex and Gender Information Value Date Recorded Sex Assigned at Not on file 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 Gender Identity Not on file Sexual Orientation Not on file documented as of this encounter Plan of Treatment Not on file documented as of this encounter Procedures Procedure Name Priority Date/Time Associated Diagnosis Comments DERMATOPATHOLOGY Routine 08/25/2024 7:56 AM CDT documented in this encounter Results * DERMATOPATHOLOGY (08/25/2024 7:56 AM CDT) Case Report Dermatopathology Report Case: [id number] Authorizing Provider: Kaye Santos DO Collected: 08/25/2024 07:56 AM Ordering Location: [facility] - Received: 08/26/2024 [...] of a non-oriented ellipse of skin measuring 84r60y9 mm. The epidermal surface is unremarkable. The [...] characteristic determined by the Dermatopathology Laboratory at [facility], directed by Dr. Tri Echavarria. These tests need not be, and therefore are not, approved by the [place] Food and Drug Administration. The tests are used for clinical purposes. Billing Codes Specimen Charges Stain Charges 09405 1 12:07 PM CDT DERMATOPATHOLOGY LABORATORY Embedded Images 12:07 PM CDT DERMATOPATHOLOGY LABORATORY Pathology/Cytolo gy TISSUE SPECIMEN FROM SKIN / Unknown 08/25/2024 7:56 AM CDT 08/26/2024 7:01 AM CDT us Kaye Santos DO LAB - PATHOLOGY/CYTOLOGY ORDERABLES Final Result DERMATOPATHOLOGY LABORATORY [facility] - Department of Dermatology [facility] Specialized Medicine [address] [place] [address], [address] [phone] documented in this encounter Visit Diagnoses Not on filedocumented in this encounter Care Teams Orthodontic Laboratory Technician Relationship Specialty Start Date End Date Seven Duran MD [address] [facility] [address] [place] [phone] PCP - General 06/01/16 documented as of this encounter
--- OUTSIDE RECORDS SUMMARY | 2025-05-08 10:17 | XMS_ITS | Encounter Summary ---
Author Organization [facility] Address [address] [facility] [place] [address] Care Team Providers Care Financial Institution Treasurer Name Role Phone Seven Duran MD Primary Care Provider [phone] Encounter Details Date Type Department Care Team (Late st Contact Info) Description 09/23/2020 Lab Requisition [facility] DermPath Lab [address] [facility] [place] [address] Yoel Patricio MD [address] [place] [address] Social History Tobacco Use Types Packs/Day Years Used Date Smoking Tobacco: Former Alcohol Use Standard Drinks/Week Comments Yes 0 (1 standard drink = 0.6 oz pur e alcohol) Comments Unknown Sex and Gender Information Value Date Recorded Sex Assigned at Not on file 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 Gender Identity Not on file Sexual Orientation Not on file documented as of this encounter Plan of Treatment Not on file documented as of this encounter Procedures Procedure Name Priority Date/Time Associated Diagnosis Comments DERMATOPATHOLOGY Routine 09/22/2020 3:33 AM CDT documented in this encounter Results * DERMATOPATHOLOGY (09/22/2020 3:33 AM CDT) Case Report Dermatopathology Report Case: [id number] Authorizing Provider: Yoel Patricio MD Collected: 09/22/2020 03:33 AM Ordering Location: [facility] DermPath Lab Received: 09/23/2020 12:59 [...] of a nail clipping (5 pieces) measuring 5y7c3aw, 3v1m4lr, 3y4u1py, 4r6u3gi, & 3w2o1ex. 1:36 PM CDT DERMATOPATHOLOGY LABORATORY Microscopic Description [...] purposes. Billing Codes Specimen Charges Stain Charges 43075 1 53954 1 1:36 PM CDT DERMATOPATHOLOGY LABORATORY Embedded Images 1:36 PM CDT DERMATOPATHOLOGY LABORATORY Pathology/Cytolo gy TISSUE SPECIMEN FROM SKIN / Unknown 09/22/2020 3:33 AM CDT 09/23/2020 12:59 PM CDT Yoel Patricio MD LAB - PATHOLOGY/CYTOLOGY ORD ERABLES Final Result DERMATOPATHOLOGY LABORATORY [facility] - Department of Dermatology [facility] Specialized Medicine [address] [place] [address], [address] [phone] documented in this encounter Visit Diagnoses Not on filedocumented in this encounter Care Teams Financial Institution Treasurer Relationship Specialty Start Date End Date Seven Duran MD [address] [facility] [address] [place] [address] PCP - General 06/01/16 documented as of this encounter
--- OUTSIDE RECORDS SUMMARY | 2025-05-08 10:17 | XMS_ITS | Encounter Summary ---
Author Organization [facility] Address [address] [place] [address] Care Team Providers Care Puttying And Calking Supervisor Name Role Phone Seven Duran MD Primary Care Provider [phone] Encounter Details Date Type Department Care Team (Late st Contact Info) Description 04/28/2020 Lab Requisition [facility] DermPath Lab [address] [place] [address] Yoel Patricio MD [address] [place] [address] Social History Tobacco Use Types Packs/Day Years Used Date Smoking Tobacco: Former Alcohol Use Standard Drinks/Week Comments Yes 0 (1 standard drink = 0.6 oz pur e alcohol) Comments Unknown Sex and Gender Information Value Date Recorded Sex Assigned at Not on file Legal Sex Female 5:39 PM MONOLOGIST Gender Identity Not on file Sexual Orientation Not on file documented as of this encounter Plan of Treatment Not on file documented as of this encounter Procedures Procedure Name Priority Date/Time Associated Diagnosis Comments DERMATOPATHOLOGY Routine 04/27/2020 12:0 0 AM MONOLOGIST documented in this encounter Results * DERMATOPATHOLOGY (04/27/2020 12:00 AM MONOLOGIST) Case Report Dermatopathology Report Case: [id number] Authorizing Provider: Yoel Patricio MD Collected: 04/27/2020 12:00 AM Ordering Location: [facility] DermPath Lab Received: 04/28/2020 12:00 PM Pathologist: Kim Echavarria MD Specimen: Skin, right lower lat calf 0 4:48 PM [facility] DERMATOPATHOLOGY LABORATORY Final Diagnosis Specimen A. SKIN, right lower lat calf: BASAL CELL CARCINOMA, NODULAR TYPE (C44.712) 0 4:48 PM [facility] DERMATOPATHOLOGY LABORATORY at 1648 MONOLOGIST Clinical History R/O HAK, BCC, SCC, other dermatitis. 0 4:48 PM MONOLOGIST DERMATOPATHOLOGY LABORATORY Gross Description Specimen A: Received is one formalin filled container labeled with the patient's name and designated right lower lat calf. The specimen consists of a shave biopsy measuring [id number]. Jar 0. 0 4:48 PM [facility] DERMATOPATHOLOGY LABORATORY Microscopic Description Specimen A. SKIN, right lower lat calf: Within the dermis there are aggregates of basaloid cells with a high nuclear to cytoplasmic ratio and peripheral palisading. 0 4:48 PM [facility] DERMATOPATHOLOGY LABORATORY Disclaimer An external and internal positive and negative controls are appropriate for the histochemical, immunohistochemical and immunofluorescence stain(s) in this case (if any), except where stated explicitly. The performance characteristics of the stain(s) cited in this report were developed and its performance characteristic determined by the Dermatopathology Laboratory at [facility], directed by Dr. Tri Echavarria. These tests need not be, and therefore are not, approved by the [place] Food and Drug Administration. The tests are used for clinical purposes. Billing Codes Specimen Charges Stain Charges 02089 1 0 4:48 PM [facility] DERMATOPATHOLOGY LABORATORY Embedded Images 0 4:48 PM [facility] DERMATOPATHOLOGY LABORATORY Pathology/Cytolog y TISSUE SPECIMEN FROM SKIN / Unknown 04/27/2020 04/28/2020 12:00 PM [facility] Yoel Patricio MD LAB - PATHOLOGY/CYTOLOGY ORD ERABLES Final Result DERMATOPATHOLOGY LABORATORY [facility] - Department of Dermatology [address], [address] [phone] documented in this encounter Visit Diagnoses Not on filedocumented in this encounter Care Teams Puttying And Calking Supervisor Relationship Specialty Start Date End Date Seven Duran MD [address] [facility] [address] [place] [address] PCP - General 06/01/16 documented as of this encounter
--- OUTSIDE RECORDS SUMMARY | 2025-05-08 10:17 | XMS_ITS | Clinical Summary ---
Author Organization [facility] Address [address] [place] [id number] Care Team Providers Care Dining Room Cashier Name Role Phone Unavailable Primary Care Provider [...]
--- OUTSIDE RECORDS SUMMARY | 2025-05-08 10:17 | XMS_ITS | Clinical Summary ---
Author Organization [facility] [address] Address [address] [place] [address] Care Team Providers Care Slab Inspector Name Role Phone Jesus Bolanos NP Primary Care Provider Allergies Active Allergy Reactions Criticality Noted Date Comments Codeine Nausea only,Nausea And Vomiting Low 01/2017 Medications lisinopril (PRINIVIL,ZESTRI L) 10 mg tabletIndication s:Essential hypertension Take 1 tablet (10 mg total) by mouth daily 90 tablet 3 9 Active Additional Information Patient not taking.Reported on 01/29/2025 ergocalciferol (VITAMIN D) 50,000 unit capsule TK 1 C PO Q WEEK 0 Active glucosamine-roma droitin 500-400 mg tablet Take 1 tablet by mouth 3 (three) times a day Active cranberry fruit extract (cranberry extract) 300 mg tablet Take 1 tablet by mouth daily Active omeprazole (PriLOSEC) 40 mg capsule 2 Active apixaban (Eliquis) 5 mg tabletIndication s:Typical atrial flutter (HCC) TAKE 1 TABLET BY MOUTH TWICE A DAY 180 tablet 3 5 Active metoprolol XL (TOPROL-XL) 50 mg extended release tabletIndication s:Typical atrial flutter (HCC) TAKE 1 TABLET BY MOUTH EVERY DAY 90 tablet 1 5 Active metoprolol tartrate (LOPRESSOR) 50 mg immediate release tablet 50 MG ORALLY TAKE IN ADDITION TO METOPROLOL SUCCINATE 50MG DAILY IF HEART RATE IS OVER 120. 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 Gender Identity Female 01/03/2021 12:55 PM CDT Sexual Orientation Straight 01/03/2021 12 :55 PM CDT Last Filed Vital Signs Vital Sign Reading Time Taken Comments Blood Pressure 132/80 01/29/2025 1:23 PM CDT Pulse 67 01/29/2025 1:23 PM CDT Temperature - - Respiratory Rate 29 12/25/2017 2:14 PM CDT Oxygen Saturation 98% 01/29/2025 1:23 PM CDT Inhaled Oxygen Concentration - - Weight 119.4 kg (263 lb 4.8 oz) 01/29/2025 1:23 PM CDT Height 162.6 cm (5' 4) 01/29/2025 1:23 PM CDT Body Mass Index 45.2 01/29/2025 1:23 PM CDT Plan of Treatment Health Maintenance Due Date Last Done Comments Depression Screening 1945 Fall Risk Assessment 1945 Hepatitis C Screening 1945 Osteoporosis Screening-Bone Density Scan 1945 Hepatitis B Screening 02/08/1964 Zoster Vaccine (2 of 3) 12/05/2010 10/10/2010 Well Visit 65+ 2011 Covid-19 Vaccine (6 - 2024-2 6 season) 2025 02/06/2023, 08/19/2021, 03/10/2021, Additional history exists Influenza Vaccine (#1) 2025 , 02/06/2023, 02/23/2022, Additional history exists DTaP/Tdap/Td Vaccine (3 - Td or Tdap) 11/27/2027 11/26/2017, 10/10/2010 Pneumococcal vaccine 65+ Completed 019, 02/10/2019, 02/25/2015, Additional history exists Insurance [facility] MEDICARE [employer] PPO Care Teams Slab Inspector Relationship Specialty Start Date End Date Jesus Bolanos NP [address] [place] [address] PCP - General Nurse Practitioner 12/05/22
--- OUTSIDE RECORDS SUMMARY | 2025-05-08 10:17 | XMS_ITS | Encounter Summary ---
Author Organization [facility] Address [address] [facility] [place] [address] Care Team Providers Care Director Of Outside Sales Name Role Phone Seven Duran MD Primary Care Provider [phone] Encounter Details Date Type Department Care Team (Late st Contact Info) Description 05/31/2018 Lab Requisition [facility] Care DermPath Lab [address] [place] [address] Yoel Patriico MD [address] [place] [address] Social History Tobacco Use Types Packs/Day Years Used Date Smoking Tobacco: Former Alcohol Use Standard Drinks/Week Comments Yes 0 (1 standard drink = 0.6 oz pur e alcohol) Comments Unknown Sex and Gender Information Value Date Recorded Sex Assigned at Not on file Legal Sex Female 5:39 PM HUMANE AGENT Gender Identity Not on file Sexual Orientation Not on file documented as of this encounter Plan of Treatment Not on file documented as of this encounter Procedures Procedure Name Priority Date/Time Associated Diagnosis Comments DERMATOPATHOLOGY Routine 05/30/2018 12:0 0 AM HUMANE AGENT documented in this encounter Results * DERMATOPATHOLOGY (05/30/2018 12:00 AM HUMANE AGENT) Case Report Dermatopathology Report Case: [id number] Authorizing Provider: Yoel Patricio MD Collected: 05/30/2018 12:00 AM Pathologist: Zahida Crowley MD Received: 05/31/2018 01:33 PM Specimen: Skin, left upper back 1:04 PM [facility] DERMATOPATHOLOGY LABORATORY Final Diagnosis Specimen A. 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 Check margins. 1:04 PM [facility] DERMATOPATHOLOGY LABORATORY Gross Description Specimen A: Received is one formalin filled container labeled with the patients name and designated left upper back. The specimen consists of a shave (2 pieces) removal measuring [id number], 6l2a9qg, the margin is inked green. Jar 0. 1:04 PM [facility] DERMATOPATHOLOGY LABORATORY Microscopic Description Specimen A. [...] margin of the specimen. 1:04 PM [facility] DERMATOPATHOLOGY LABORATORY Disclaimer An external and [...] purposes. Billing Codes Specimen Charges Stain Charges 84482 1 1:04 PM [facility] DERMATOPATHOLOGY LABORATORY Embedded Images 1:04 PM [facility] DERMATOPATHOLOGY LABORATORY Pathology/Cytolog y TISSUE SPECIMEN FROM SKIN / Unknown 05/30/2018 05/31/2018 1:33 PM HUMANE AGENT us Yoel Patricio MD LAB - PATHOLOGY/CYTOLOGY ORD ERABLES Final Result DERMATOPATHOLOGY LABORATORY [facility] - Department of Dermatology [address] [place] [address], 5th Floor Lab [address] [phone] documented in this encounter Visit Diagnoses Not on filedocumented in this encounter Care Teams Director Of Outside Sales Relationship Specialty Start Date End Date Seven Duran MD [address] [facility] [address] [place] [address] PCP - General 06/01/16 documented as of this encounter
--- OUTSIDE RECORDS SUMMARY | 2025-05-08 10:17 | XMS_ITS | Encounter Summary ---
Author Organization [facility] Address [address] [facility] [address] Care Team Providers Care Commercial Marketing Specialist Name Role Phone Seven Duran MD Primary Care Provider [phone] Encounter Details Date Type Department Care Team (Late st Contact Info) Description 01/08/2019 Lab Requisition [facility] DermPath Lab [address] [place] [address] Yoel Patricio MD [address] [place] [address] Social History Tobacco Use Types Packs/Day Years Used Date Smoking Tobacco: Former Alcohol Use Standard Drinks/Week Comments Yes 0 (1 standard drink = 0.6 oz pur e alcohol) Comments Unknown Sex and Gender Information Value Date Recorded Sex Assigned at Not on file Legal Sex Female 5:39 PM RN CVICU Gender Identity Not on file Sexual Orientation Not on file documented as of this encounter Plan of Treatment Not on file documented as of this encounter Procedures Procedure Name Priority Date/Time Associated Diagnosis Comments DERMATOPATHOLOGY Routine 01/07/2019 12:0 0 AM CDT documented in this encounter Results * DERMATOPATHOLOGY (01/07/2019 12:00 AM CDT) Case Report Dermatopathology Report Case: [id number] Authorizing Provider: Yoel Patricio MD Collected: 01/07/2019 12:00 AM Ordering Location: [facility] DermPath Lab Received: 01/08/2019 12:49 [...] specimen consists of a shave biopsy measuring 2v3h9mc. Jar 0. 4:46 PM CDT DERMATOPATHOLOGY LABORATORY [...] characteristic determined by the Dermatopathology Laboratory at [facility], directed by Dr. Tri Echavarria. These tests need not be, and therefore are not, approved by the [place] Food and Drug Administration. The tests are used for clinical purposes. Billing Codes Specimen Charges Stain Charges 73703 1 4:46 PM CDT DERMATOPATHOLOGY LABORATORY Embedded Images 4:46 PM CDT DERMATOPATHOLOGY LABORATORY Pathology/Cytolog y TISSUE SPECIMEN FROM SKIN / Unknown 01/07/2019 01/08/2019 12:49 PM CDT us Yoel Patricio MD LAB - PATHOLOGY/CYTOLOGY ORD ERABLES Final Result DERMATOPATHOLOGY LABORATORY [facility] - Department of Dermatology [address] [facility], 5th Floor Lab [address] [phone] documented in this encounter Visit Diagnoses Not on filedocumented in this encounter Care Teams Commercial Marketing Specialist Relationship Specialty Start Date End Date Seven Duran MD [address] [facility] [address] [place] [address] PCP - General 06/01/16 documented as of this encounter
--- OUTSIDE RECORDS SUMMARY | 2025-05-08 10:17 | XMS_ITS | Encounter Summary ---
Author Organization [facility] Address [facility] [facility] [address] Care Team Providers Care Welfare Eligibility Interviewer Name Role Phone Seven Duran MD Primary Care Provider [phone] Encounter Details Date Type Department Care Team (Late st Contact Info) Description 07/24/2024 Lab Requisition [facility] - DermPath Lab [address] [facility], [place] [phone] Kaye Santos DO [address] [facility] [address] [place] [address] Social History Tobacco Use Types Packs/Day Years Used Date Smoking Tobacco: Former Alcohol Use Standard Drinks/Week Comments Yes 0 (1 standard drink = 0.6 oz pur e alcohol) Comments Unknown Sex and Gender Information Value Date Recorded Sex Assigned at Not on file Legal Sex Female 5:39 PM 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 Gender Identity Not on file Sexual Orientation Not on file documented as of this encounter Plan of Treatment Not on file documented as of this encounter Procedures Procedure Name Priority Date/Time Associated Diagnosis Comments DERMATOPATHOLOGY Routine 07/24/2024 10:1 0 AM CDT documented in this encounter Results * DERMATOPATHOLOGY (07/24/2024 10:10 AM CDT) Case Report Dermatopathology Report Case: [id number] Authorizing Provider: Kaye Santos DO Collected: 07/24/2024 10:10 AM Ordering Location: [facility] - Received: 07/25/2024 07:09 AM DermPath Lab Pathologist: Jeanine Emmanuel MD Specimens: A) - Skin, right ventral forearm B) - Skin, right lower back 2:[address] [facility] DERMATOPATHOLOGY LABORATORY Final Diagnosis Specimen A. SKIN, right ventral forearm: SEBORRHEIC KERATOSIS, IRRITATED AND INFLAMED (L82.0) Specimen B. 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 DERMATOPATHOLOGY LABORATORY Gross Description Specimen A: [...] measuring 9x6x1 mm. Jar 0. 2:[address] [facility] DERMATOPATHOLOGY LABORATORY Microscopic Description Specimen A. [...] characteristic determined by the Dermatopathology Laboratory at [facility], directed by Dr. Tri Echavarria. These tests need not be, and therefore are not, approved by the [place] Food and Drug Administration. The tests are used for clinical purposes. Billing Codes Specimen Charges Stain Charges 37932 63659 1 1 03/17/202 5 2:22 PM CDT DERMATOPATHOLOGY LABORATORY Embedded Images 2:22 PM CDT DERMATOPATHOLOGY LABORATORY Pathology/Cytology TISSUE SPECIMEN FROM SKIN / Unknown 07/24/2024 10:10 AM CDT 07/25/2024 7:09 AM CDT Miscellaneous samples (specimen) TISSUE SPECIMEN FROM SKIN / Unknown 07/24/2024 10:10 AM CDT 07/25/2024 7:09 AM CDT us Kaye Santos DO LAB - PATHOLOGY/CYTOLOGY ORDERABLES Final Result DERMATOPATHOLOGY LABORATORY [facility] - Department of Dermatology Specialized Medicine [address] [place] [address], [address] [phone] documented in this encounter Visit Diagnoses Not on filedocumented in this encounter Care Teams Welfare Eligibility Interviewer Relationship Specialty Start Date End Date Seven Duran MD [address] [facility] [address] [place] [phone] PCP - General 06/01/16 documented as of this encounter
--- OUTSIDE RECORDS SUMMARY | 2025-05-08 10:17 | XMS_ITS | Encounter Summary ---
Author Organization [facility] Address [address] [facility] [address] Care Team Providers Care Blacksmith Assistant Name Role Phone Seven Duran MD Primary Care Provider [phone] Encounter Details Date Type Department Care Team (Late st Contact Info) Description 02/05/2025 Lab Requisition [facility] - DermPath Lab [address] [facility], [place] [phone] Kaye Santos DO [address] [facility] [address] [place] [address] Neoplasm of uncertain behavior of skin Social History Tobacco Use Types Packs/Day Years Used Date Smoking Tobacco: Former Alcohol Use Standard Drinks/Week Comments Yes 0 (1 standard drink = 0.6 oz pur e alcohol) Comments Unknown Sex and Gender Information Value Date Recorded Sex Assigned at Not on file Legal Sex Female 5:39 PM GIFT SHOP CLERK Gender Identity Not on file Sexual Orientation Not on file documented as of this encounter Plan of Treatment Not on file documented as of this encounter Procedures Procedure Name Priority Date/Time Associated Diagnosis Comments DERMATOPATHOLOGY Routine 02/05/2025 9:00 AM CDT Neoplasm of uncertain behavior of skin documented in this encounter Results * DERMATOPATHOLOGY (02/05/2025 9:00 AM CDT) Case Report Dermatopathology Report Case: [id number] Authorizing Provider: Kaye Santos DO Collected: 02/05/2025 09:00 AM Ordering Location: [facility] - Received: 02/06/2025 07:03 [...] characteristic determined by the Dermatopathology Laboratory at [facility], directed by Dr. Tri Echavarria. These tests need not be, and therefore are not, approved by the [place] Food and Drug Administration. The tests are used for clinical purposes. Billing Codes Specimen Charges Stain Charges 25892 1 3:05 PM CDT DERMATOPATHOLOGY LABORATORY Embedded Images 3:05 PM CDT DERMATOPATHOLOGY LABORATORY Pathology/Cytolo gy TISSUE SPECIMEN FROM SKIN / Unknown 02/05/2025 9:00 AM CDT 02/06/2025 7:03 AM CDT us Kaye Santos DO LAB - PATHOLOGY/CYTOLOGY ORDERABLES Final Result DERMATOPATHOLOGY LABORATORY [facility] - Department of Dermatology [facility] [address] [place] [address], [address] [phone] documented in this encounter Visit Diagnoses Diagnosis Neoplasm of uncertain behavior of skin documented in this encounter Care Teams Blacksmith Assistant Relationship Specialty Start Date End Date Seven Duran MD [address] [facility] [address] [place] [address] PCP - General 06/01/16 documented as of this encounter
--- NOTE | 2025-05-08 21:32 | ECG_ITS ---
Test Date: 2025-05-08 22:10:50 Measurements Intervals [place] Rate: 57 P: 55 SD: 195 QRS: 9 QRSD: 100 T: 21 QT: 465 QTc: 456 Interpretive Statements SINUS BRADYCARDIA BASELINE ARTIFACT- I, II, AVR, AVL, AVF, V1 BORDERLINE ECG Compared to ECG 05/08/2025 12:25:25 HEART RATE HAS DECREASED Electronically Signed On 05-09-2025 09:32:11 LEASING SALES CONSULTANT by Chris Malone D.O.
--- NOTE | 2025-05-08 22:13 | ECG_ITS ---
Test Date: 2025-05-08 12:25:25 Measurements Intervals [place] Rate: 64 P: 52 IN: 178 QRS: 10 QRSD: 85 T: 57 QT: 416 QTc: 429 Interpretive Statements SINUS RHYTHM BASELINE ARTIFACT- II, III, AVR, AVF BORDERLINE ECG Compared to ECG 05/08/2025 09:54:28 HEART RATE HAS INCREASED Electronically Signed On 05-08-2025 20:34:10 ROAD MACHINE OPERATOR by Chris Malone D.O.
--- NOTE | 2025-05-08 22:25 | PC.NURSE ---
eye block taped over pts right eye for protection while she sleeps since she had eye surgery on 05/04/25 for cataract removal.
[2025-05-09] VITALS (18 sets, daily range): BP systolic 134–153; BP diastolic 62–80; PULSE 56–77; RESP 14–20; TEMP 36.4–37.1; O2SAT 95–98
[2025-05-09 05:20] LABS: Anion Gap 6 mmol/L (4-12); Blood Urea Nitrogen 14 mg/dL (7-17); Calcium 8.9 mg/dL (8.4-10.2); Carbon Dioxide 24 mmol/L (22-30); Chloride 110 mmol/L (98-107); Estimated CRCL calculation 57 ml/min; Estimated Glomerular Filt Rate > 60; Glucose 89 mg/dL (65-110); Magnesium 1.9 mg/dL (1.6-2.3); Potassium 3.6 mmol/L (3.4-5.0); Sodium 140 mmol/L (137-145)
--- NOTE | 2025-05-09 08:45 | P.PNIM_ITS ---
Assessment and Plan Assessment and Plan (1) Atrial fibrillation with rapid ventricular response: Code(s): I48.91 - Unspecified atrial fibrillation Status: Acute Assessment and Plan: Patient presents here with palpitations that started upon awakening the morning of 1225. Upon arrival to the emergency department she was found to be in AFib with RVR, rate in the 130s-140s. She has a past medical history significant for paroxysmal atrial fibrillation and paroxysmal atrial flutter. She is on metoprolol ER 50 mg daily and Eliquis. - started on IV cardizem and converted to NSR -continue Eliquis -echo, previous (01/2025) reviewed. Showed an estimated EF of 65-70%, grade 1 diastolic dysfunction, no significant valvular disease -initial troponin negative, trending -cardiology consulted - stopped metoprolol and started sotalol load - monitor serial EKGs (2) Essential (primary) hypertension: Code(s): I10 - Essential (primary) hypertension Status: Acute Assessment and Plan: - chronic, currently 138/75, stable. - continue home medications: Lisinopril - monitor (3) Diastolic dysfunction: Code(s): I51.89 - Other ill-defined heart diseases Status: Acute Assessment and Plan: - No current evidence of volume overload, does have trace edema to her bilateral ankles that is nonpitting in no adventitious lung sounds or evidence of pulmonary edema on CXR. - Patient has history of grade 1 diastolic dysfunction with and preserved EF. - Last echo completed in January of 2025, see report for details (4) SILVERIO (obstructive sleep apnea): Code(s): G47.33 - Obstructive sleep apnea (adult) (pediatric) Status: Acute Assessment and Plan: - continue home CPAP Plan DVT Prophylaxis: Eliquis Code Status: Full code Dispo: home tomorrow after completion of sotalol load Medical Record Review I have reviewed the following patient records and this information was taken into consideration when formulating the assessment and plan.: previous labs Subjective Date/time seen: 05/09/25 08:45 Interval history: Patient seen and examined at bedside. Review of Systems Review of Systems: All systems reviewed & are unremarkable except as noted in HPI and below Exam Narrative: General: NAD Eyes: EOMI ENT: neck supple Cardiovascular: Regular rate and rhythm Respiratory: Clear to auscultation, respirations even and unlabored on RA Gastrointestinal: Soft, non tender Genitourinary: no suprapubic tenderness Musculoskeletal: No edema Skin: warm, dry Neuro: Alert. Psych: Mood appropriate Objective Data Vital Signs Vital Signs: Vital Signs - 24 hr 05/08/25 08:53 05/08/25 10:00 05/08/25 10:12 Temperature Pulse Rate 54 L 55 L 57 L Respiratory Rate Blood Pressure Pulse Oximetry Oxygen Delivery 05/08/25 10:49 05/08/25 11:53 05/08/25 12:00 Temperature 97.7 F Pulse Rate 57 L 58 L 63 Respiratory Rate 18 Blood Pressure 144/72 H Pulse Oximetry 95 Oxygen Delivery 05/08/25 14:00 05/08/25 15:58 05/08/25 16:00 Temperature 97.5 F L Pulse Rate 56 L 62 62 Respiratory Rate 16 Blood Pressure 141/67 H Pulse Oximetry 95 Oxygen Delivery 05/08/25 18:00 05/08/25 19:54 05/08/25 20:00 Temperature 97.6 F Pulse Rate 65 62 Respiratory Rate 16 Blood Pressure 136/57 L Pulse Oximetry 99 Oxygen Delivery Room Air 05/08/25 20:00 05/08/25 20:09 05/08/25 22:00 Temperature Pulse Rate 66 65 56 L Respiratory Rate Blood Pressure Pulse Oximetry Oxygen Delivery 05/08/25 23:10 05/08/25 23:46 05/09/25 00:00 Temperature 97.8 F Pulse Rate 63 63 Respiratory Rate 16 Blood Pressure 151/59 H Pulse Oximetry 96 Oxygen Delivery Room Air 05/09/25 02:00 05/09/25 03:35 05/09/25 04:00 Temperature Pulse Rate 60 59 L Respiratory Rate Blood Pressure Pulse Oximetry Oxygen Delivery Room Air 05/09/25 05:19 05/09/25 06:00 05/09/25 07:39 Temperature 98.8 F 97.7 F Pulse Rate 62 61 61 Respiratory Rate 15 20 Blood Pressure 148/65 H 142/71 H Pulse Oximetry 95 95 Oxygen Delivery Intake/Output Intake/Output: Intake & Output 05/06/25 05/07/25 05/08/25 05/09/25 23:59 23:59 23:59 23:59 Intake Total 1402.6 1279.7 400 Output Total 200 500 Balance 1202.6 779.7 400 Meds/Results Medications: Active Medications Generic Name Dose Route Start Last Admin Trade Name Freq PRN Reason Stop Dose Admin Acetaminophen 650 mg 05/07/25 17:02 05/08/25 01:55 Acetaminophen 325 Mg Tablet PO 650 mg Q6H PRN Administration Mild Pain (1-3) or Fever Apixaban 5 mg 05/08/25 09:00 05/08/25 17:54 Apixaban 5 Mg Tablet PO 5 mg BID MICHAEL Administration Calcium Carbonate 200 mg 05/07/25 17:02 Calcium Carbonate (Tums) 500 Mg (200 Mg Elemental) PO Q6H PRN Indigestion Docusate Sodium 100 mg 05/07/25 17:02 Docusate Sodium 100 Mg Capsule PO Q12H PRN Constipation Ergocalciferol 1,250 mcg 05/28/25 09:00 Ergocalciferol (Vitamin D2) 1,250 Mcg (50,000 Units) Capsule PO MONTHLY MICHAEL Ergocalciferol 1,250 mcg 05/14/25 09:00 Ergocalciferol (Vitamin D2) 1,250 Mcg (50,000 Units) Capsule PO MONTHLY [facility] Lisinopril 10 mg 05/08/25 21:00 05/08/25 20:09 Lisinopril 10 Mg Tablet PO 10 mg HS MICHAEL Administration Pantoprazole Sodium 40 mg 05/08/25 09:00 05/08/25 20:09 Pantoprazole 40 Mg Tablet PO 40 mg Q12HR MICHAEL Administration Sotalol HCl 40 mg 05/08/25 09:05 05/08/25 20:09 Sotalol Hcl 40 Mg Tablet PO 40 mg Q12HR MICHAEL Administration Radiology Results: ITS Impressions Chest X-Ray 05/07/25 14:41 IMPRESSION: 1: NO ACUTE CARDIOPULMONARY DISEASE. Labs Labs: Laboratory Results - last 24 hr 05/08/25 05/08/25 05/09/25 03:53 09:14 03:45 Sodium 138 140 Potassium 3.7 3.6 Chloride 107 110 H Carbon Dioxide 24 24 Anion Gap 7 6 BUN 12 14 Creatinine 0.83 0.89 Estim Creat Clear Calc 61 57 Estimated GFR > 60 > 60 Glucose 101 89 Calcium 8.9 8.9 Magnesium 1.9 1.7 1.9 TSH (Reflex) 3.870
[2025-05-09] MEDS: PANTOPRAZOLE 40 MG TABLET PO ×2 (08:57→20:55)
[2025-05-09] MEDS: APIXABAN 5 MG TABLET PO ×2 (08:57→16:58)
--- NOTE | 2025-05-09 11:00 | ECG_ITS ---
Test Date: 2025-05-09 11:42:24 Measurements Intervals [place] Rate: 54 P: 81 [place]: 186 QRS: 3 QRSD: 85 T: 13 QT: 458 QTc: 436 Interpretive Statements SINUS BRADYCARDIA VOLTAGE CRITERIA FOR LVH MINIMAL Q WAVES- HIGH LATERAL LEADS BORDERLINE T WAVE ABNORMALITY- INFERIOR LEADS BASELINE ARTIFACT- I, II, AVR, AVF, V1 BORDERLINE ECG Compared to ECG 05/08/2025 22:10:50 No significant changes Electronically Signed On 05-09-2025 21:52:22 [employer] OPER[employer] by Chris Malone D.O.
--- NOTE | 2025-05-09 12:40 | P.PNCA_ITS ---
Progress Note: A&P Assessment and Plan (1) Atrial fibrillation with rapid ventricular response: Code(s): I48.91 - Unspecified atrial fibrillation Status: Acute Plan 80-year-old lady with symptomatic paroxysmal AFib with frequent recurrences now taking sotalol for better rhythm control. She seems to be doing well for the last 24 hours with this. If she has no arrhythmias in the next 24 hours he can be discharged with outpatient follow-up. We will see her tomorrow Rolly Choi MD [facility] Subjective Date/time seen: Date of service: 05/09/25 12:40 Interval history: Follow-up visit in 80-year-old lady with: Recurrent paroxysmal atrial fibrillation started yesterday on sotalol for more aggressive rhythm control. She has had 3 doses no proarrhythmia QT interval looks fine. No complaints. Exam Const: General: comfortable and no acute distress Other: Pleasant obese woman no distress HENMT: Mouth: Yes moist mucous membranes Eyes: Sclera: sclerae normal Neck: Neck: supple Resp: Effort & Inspection: normal respiratory effort Auscultation: clear to auscultation bilaterally Cardio: Rate: regular rate Rhythm: regular rhythm GI: GI Palp: Yes Soft to palpation Auscultation: normal bowel sounds Skin: General skin exam: normal color Neuro: Other: Normal cognition, alert and oriented Extrem: General: normal to inspection Objective Data Vital Signs Vital Signs: Vital Signs - 24 hr 05/08/25 14:00 05/08/25 15:58 05/08/25 16:00 Temperature 36.4 C L Pulse Rate 56 L 62 62 Respiratory Rate 16 Blood Pressure 141/67 H Pulse Oximetry 95 Oxygen Delivery 05/08/25 18:00 05/08/25 19:54 05/08/25 20:00 Temperature 36.4 C Pulse Rate 65 62 Respiratory Rate 16 Blood Pressure 136/57 L Pulse Oximetry 99 Oxygen Delivery Room Air 05/08/25 20:00 05/08/25 20:09 05/08/25 22:00 Temperature Pulse Rate 66 65 56 L Respiratory Rate Blood Pressure Pulse Oximetry Oxygen Delivery 05/08/25 23:10 05/08/25 23:46 05/09/25 00:00 Temperature 36.6 C Pulse Rate 63 63 Respiratory Rate 16 Blood Pressure 151/59 H Pulse Oximetry 96 Oxygen Delivery Room Air 05/09/25 02:00 05/09/25 03:35 05/09/25 04:00 Temperature Pulse Rate 60 59 L Respiratory Rate Blood Pressure Pulse Oximetry Oxygen Delivery Room Air 05/09/25 05:19 05/09/25 06:00 05/09/25 07:39 Temperature 37.1 C 36.5 C Pulse Rate 62 61 61 Respiratory Rate 15 20 Blood Pressure 148/65 H 142/71 H Pulse Oximetry 95 95 Oxygen Delivery 05/09/25 08:00 05/09/25 08:00 05/09/25 08:57 Temperature Pulse Rate 65 77 65 Respiratory Rate 20 Blood Pressure Pulse Oximetry 95 Oxygen Delivery Room Air 05/09/25 10:00 05/09/25 11:49 Temperature 36.4 C Pulse Rate 60 56 L Respiratory Rate 18 Blood Pressure 149/77 H Pulse Oximetry 97 Oxygen Delivery Intake/Output Intake/Output: Intake & Output 05/06/25 05/07/25 05/08/25 05/09/25 23:59 23:59 23:59 23:59 Intake Total 1402.6 1279.7 640 Output Total 200 500 Balance 1202.6 779.7 640 Meds/Results Medications: Active Medications Generic Name Dose Route Start Last Admin Trade Name Freq PRN Reason Stop Dose Admin Acetaminophen 650 mg 05/07/25 17:02 05/08/25 01:55 Acetaminophen 325 Mg Tablet PO 650 mg Q6H PRN Administration Mild Pain (1-3) or Fever Apixaban 5 mg 05/08/25 09:00 05/09/25 08:57 Apixaban 5 Mg Tablet PO 5 mg BID MICHAEL Administration Calcium Carbonate 200 mg 05/07/25 17:02 Calcium Carbonate (Tums) 500 Mg (200 Mg Elemental) PO Q6H PRN Indigestion Docusate Sodium 100 mg 05/07/25 17:02 Docusate Sodium 100 Mg Capsule PO Q12H PRN Constipation Ergocalciferol 1,250 mcg 05/28/25 09:00 Ergocalciferol (Vitamin D2) 1,250 Mcg (50,000 Units) Capsule PO MONTHLY [facility] Ergocalciferol 1,250 mcg 05/14/25 09:00 Ergocalciferol (Vitamin D2) 1,250 Mcg (50,000 Units) Capsule PO MONTHLY [facility] Lisinopril 10 mg 05/08/25 21:00 05/08/25 20:09 Lisinopril 10 Mg Tablet PO 10 mg HS MICHAEL Administration Pantoprazole Sodium 40 mg 05/08/25 09:00 05/09/25 08:57 Pantoprazole 40 Mg Tablet PO 40 mg Q12HR MICHAEL Administration Sotalol HCl 40 mg 05/08/25 09:05 05/09/25 08:57 Sotalol Hcl 40 Mg Tablet PO 40 mg Q12HR MICHAEL Administration Radiology Results: ITS Impressions Chest X-Ray 05/07/25 14:41 IMPRESSION: 1: NO ACUTE CARDIOPULMONARY DISEASE. Labs Labs: Laboratory Results - last 24 hr 05/09/25 03:45 Sodium 140 Potassium 3.6 Chloride 110 H Carbon Dioxide 24 Anion Gap 6 BUN 14 Creatinine 0.89 Estim Creat Clear Calc 57 Estimated GFR > 60 Glucose 89 Calcium 8.9 Magnesium 1.9
[2025-05-10] VITALS (12 sets, daily range): BP systolic 140–157; BP diastolic 66–96; PULSE 53–92; RESP 12–20; TEMP 36.5–36.6; O2SAT 95–100
[2025-05-10 04:52] LABS: Anion Gap 5 mmol/L (4-12); Blood Urea Nitrogen 15 mg/dL (7-17); Calcium 8.9 mg/dL (8.4-10.2); Carbon Dioxide 25 mmol/L (22-30); Chloride 108 mmol/L (98-107); Estimated CRCL calculation 58 ml/min; Estimated Glomerular Filt Rate > 60; Glucose 88 mg/dL (65-110); Magnesium 1.8 mg/dL (1.6-2.3); Potassium 3.6 mmol/L (3.4-5.0); Sodium 138 mmol/L (137-145)
[2025-05-10] MEDS: PANTOPRAZOLE 40 MG TABLET PO (09:49)
[2025-05-10] MEDS: APIXABAN 5 MG TABLET PO (09:49)
--- NOTE | 2025-05-10 11:28 | PM.PNCARD ---
Progress Note: A&P Assessment and Plan (1) Atrial fibrillation with rapid ventricular response: Code(s): I48.91 - Unspecified atrial fibrillation Status: Acute Plan 80-year-old lady with paroxysmal atrial fibrillation she has been started on sotalol she is tolerating the medication without difficulty and has no evidence of proarrhythmia. She is stable for discharge today. She has follow-up scheduled in our office with Dr. Ramos for follow-up of this. Rolly Choi MD [facility] Subjective Date/time seen: Date of service: 05/10/25 11:28 Interval history: Follow-up visit in this 80-year-old lady with: Paroxysmal atrial fibrillation frequent recurrences resulting hospital admissions this year. Patient has therefore been transitioned to sotalol. She is tolerating it well maintaining sinus rhythm and has no complaints Exam Const: General: comfortable and no acute distress Other: Pleasant obese woman no distress HENMT: Mouth: Yes moist mucous membranes Eyes: Sclera: sclerae normal Neck: Neck: supple Resp: Effort & Inspection: normal respiratory effort Auscultation: clear to auscultation bilaterally Cardio: Rate: regular rate and bradycardic Rhythm: regular rhythm GI: Auscultation: normal bowel sounds Skin: General skin exam: normal color Neuro: Other: Normal cognition, alert and oriented Extrem: General: normal to inspection Objective Data Vital Signs Vital Signs: Vital Signs - 24 hr 05/09/25 11:49 05/09/25 12:00 05/09/25 12:00 Temperature 36.4 C Pulse Rate 56 L 56 L 67 Respiratory Rate 18 18 Blood Pressure 149/77 H Pulse Oximetry 97 97 Oxygen Delivery Room Air 05/09/25 14:00 05/09/25 16:00 05/09/25 16:00 Temperature 36.6 C Pulse Rate 68 67 67 Respiratory Rate 18 18 Blood Pressure 153/80 H Pulse Oximetry 96 96 Oxygen Delivery Room Air 05/09/25 16:00 05/09/25 18:00 05/09/25 19:36 Temperature 36.6 C Pulse Rate 67 70 65 Respiratory Rate 14 Blood Pressure 134/70 Pulse Oximetry 97 Oxygen Delivery 05/09/25 20:00 05/09/25 20:00 05/09/25 20:55 Temperature Pulse Rate 64 64 Respiratory Rate Blood Pressure Pulse Oximetry Oxygen Delivery Room Air 05/09/25 23:41 05/09/25 23:48 05/10/25 00:00 Temperature 36.4 C Pulse Rate 72 62 Respiratory Rate 14 Blood Pressure 143/62 H Pulse Oximetry 98 Oxygen Delivery Room Air 05/10/25 02:00 05/10/25 04:00 05/10/25 04:00 Temperature Pulse Rate 61 76 53 L Respiratory Rate Blood Pressure Pulse Oximetry Oxygen Delivery Room Air 05/10/25 04:49 05/10/25 06:00 05/10/25 08:00 Temperature 36.5 C Pulse Rate 62 70 Respiratory Rate 12 Blood Pressure 140/66 Pulse Oximetry 95 Oxygen Delivery Room Air 05/10/25 08:09 05/10/25 08:22 05/10/25 09:49 Temperature 36.6 C Pulse Rate 92 66 Respiratory Rate 20 Blood Pressure 151/69 H Pulse Oximetry 97 96 Oxygen Delivery Room Air Intake/Output Intake/Output: Intake & Output 05/07/25 05/08/25 05/09/25 05/10/25 23:59 23:59 23:59 23:59 Intake Total 1402.6 1279.7 1320 640 Output Total 200 500 Balance 1202.6 779.7 1320 640 Meds/Results Medications: Active Medications Generic Name Dose Route Start Last Admin Trade Name Freq PRN Reason Stop Dose Admin Acetaminophen 650 mg 05/07/25 17:02 05/08/25 01:55 Acetaminophen 325 Mg Tablet PO 650 mg Q6H PRN Administration Mild Pain (1-3) or Fever Apixaban 5 mg 05/08/25 09:00 05/10/25 09:49 Apixaban 5 Mg Tablet PO 5 mg BID [facility] Administration Calcium Carbonate 200 mg 05/07/25 17:02 Calcium Carbonate (Tums) 500 Mg (200 Mg Elemental) PO Q6H PRN Indigestion Docusate Sodium 100 mg 05/07/25 17:02 Docusate Sodium 100 Mg Capsule PO Q12H PRN Constipation Ergocalciferol 1,250 mcg 05/28/25 09:00 Ergocalciferol (Vitamin D2) 1,250 Mcg (50,000 Units) Capsule PO MONTHLY [facility] Ergocalciferol 1,250 mcg 05/14/25 09:00 Ergocalciferol (Vitamin D2) 1,250 Mcg (50,000 Units) Capsule PO MONTHLY [facility] Lisinopril 10 mg 05/08/25 21:00 05/09/25 20:54 Lisinopril 10 Mg Tablet PO 10 mg HS MICHAEL Administration Pantoprazole Sodium 40 mg 05/08/25 09:00 05/10/25 09:49 Pantoprazole 40 Mg Tablet PO 40 mg Q12HR MICHAEL Administration Sotalol HCl 40 mg 05/08/25 09:05 05/10/25 09:49 Sotalol Hcl 40 Mg Tablet PO 40 mg Q12HR MICHAEL Administration Radiology Results: ITS Impressions Chest X-Ray 05/07/25 14:41 IMPRESSION: 1: NO ACUTE CARDIOPULMONARY DISEASE. Labs Labs: Laboratory Results - last 24 hr 05/10/25 04:04 Sodium 138 Potassium 3.6 Chloride 108 H Carbon Dioxide 25 Anion Gap 5 BUN 15 Creatinine 0.87 Estim Creat Clear Calc 58 Estimated GFR > 60 Glucose 88 Calcium 8.9 Magnesium 1.8
--- NOTE | 2025-05-10 11:45 | P.DS_ITS ---
DS: Admitting Diagnosis Discharge Date 05/10/25 Admitting Diagnosis - AFib with RVR DS: Discharge Diagnosis Discharge Diagnosis (1) Atrial fibrillation with rapid ventricular response: Code(s): I48.91 - Unspecified atrial fibrillation Status: Acute (2) Essential (primary) hypertension: Code(s): I10 - Essential (primary) hypertension Status: Acute (3) Diastolic dysfunction: Code(s): I51.89 - Other ill-defined heart diseases Status: Acute (4) SILVERIO (obstructive sleep apnea): Code(s): G47.33 - Obstructive sleep apnea (adult) (pediatric) Status: Acute DS: Summary Hospital Course Reason for hospitalization: - afib with RVR Hospital Course: The patient is a 80-year-old female with a history of paroxysmal atrial fibrillation and atrial flutter on chronic anticoagulation with apixaban who presented on 05/07/25 with acute onset palpitations and was found to be in atrial fibrillation with rapid ventricular response. In the emergency department, heart rates were in the 130s?140s, and initial evaluation revealed no evidence of acute ischemia, infection, or electrolyte derangement. She was treated with IV diltiazem boluses followed by a continuous infusion with improvement in ventricular rate and was admitted to the IMU for telemetry monitoring. Serial troponins remained negative, and chest X-ray showed no acute cardiopulmonary disease. A prior echocardiogram from January 2025 was reviewed and demonstrated preserved left ventricular systolic function with an EF of 65?70%, grade 1 diastolic dysfunction, and no significant valvular disease. The patient spontaneously converted to normal sinus rhythm during hospitalization. Cardiology was consulted given recurrent symptomatic atrial fibrillation with multiple hospitalizations over the past year, and her home metoprolol was discontinued. She was transitioned from diltiazem to sotalol with inpatient loading and monitoring, which she tolerated well without evidence of arrhythmia or QT prolongation. She remained hemodynamically stable, maintained sinus rhythm, and had no recurrent symptoms. She was deemed stable for discharge home on sotalol and apixaban with close outpatient cardiology follow-up arranged. Status at Discharge Functional status at discharge: independent ambulation Time Spent with Patient Time attestation: Total time spent providing and/or coordinating discharge services: Time spent: Greater than 30 minutes Exam Narrative: General: NAD Eyes: EOMI ENT: neck supple Cardiovascular: Regular rate and rhythm Respiratory: Clear to auscultation, respirations even and unlabored on RA Gastrointestinal: Soft, non tender Genitourinary: no suprapubic tenderness Musculoskeletal: No edema Skin: warm, dry Neuro: Alert. Ambulates with steady gait. Psych: Mood appropriate DS: Data Data Completed and Pending Completed studies during hospitalization: ITS Impressions Chest X-Ray 05/07/25 14:41 IMPRESSION: 1: NO ACUTE CARDIOPULMONARY DISEASE. Labs on day of discharge: Labs from last 24 hours 05/10/25 04:04 Sodium 138 Potassium 3.6 Chloride 108 H Carbon Dioxide 25 Anion Gap 5 BUN 15 Creatinine 0.87 Estim Creat Clear Calc 58 Estimated GFR > 60 Glucose 88 Calcium 8.9 Magnesium 1.8 Discharge Plan Discharge Attending physician on discharge: Rebeca Jordan Consulting providers: Rolly Choi; Jojo Rdz Discharging Clinician: Jojo Rdz Anticipated Discharge Date/Time: 05/10/25 11:41 Patient Disposition: Home Activity: as tolerated Diet: heart healthy Discharge Instructions: Your Diagnosis You were admitted to the hospital with atrial fibrillation with rapid ventricular response (AFib with RVR). This means your heart's upper chambers were beating irregularly and your heart rate was too fast. We have treated this condition and are changing your medications to help keep your heart rhythm under better control. Medication Changes STOP taking:?Metoprolol START taking:?Sotalol - Take exactly as prescribed, typically twice daily. Do not skip doses or stop taking this medication without talking to your doctor first. Important information about sotalol: * Sotalol helps control your heart rhythm and rate * It is very important to take this medication at the same times each day * Do not take antacids containing aluminum or magnesium within 2 hours of taking sotalol, as they can reduce how well the medication works * Never stop this medication suddenly, as this can cause serious heart problems * If you miss a dose, take it as soon as you remember unless it is almost time for your next dose. Do not double up on doses Warning Signs - Call 911 or Go to the Emergency Room If You Experience: * Fainting or feeling like you might faint * Very fast or very slow heartbeat * Chest pain or pressure * Severe shortness of breath * Sudden weakness or inability to move one side of your body * Sudden difficulty speaking or understanding speech Contact Your Doctor If You Experience: * Dizziness or lightheadedness * Unusual tiredness or weakness * Swelling in your legs, ankles, or feet * Weight gain of more than 2-3 pounds in one day or 5 pounds in one week * Increased shortness of breath with activity * New or worsening cough * Palpitations (feeling your heart racing or skipping beats) Follow-Up Care You must attend your follow-up appointment?as scheduled. At this visit, your doctor will: * Check an electrocardiogram (ECG) to monitor your heart rhythm and QT interval * Check blood tests including kidney function, potassium, and magnesium levels * Assess how well the medication is working * Adjust your dose if needed Lifestyle Recommendations * Limit or avoid alcohol, as it can trigger atrial fibrillation * Limit caffeine intake * Maintain a healthy weight * Exercise as recommended by your doctor * Manage stress * Get adequate sleep * Stay well-hydrated Blood Thinner Information If you were prescribed a blood thinner (anticoagulant), take it exactly as directed. This medication helps prevent blood clots and stroke. Do not stop taking it without talking to your doctor first. Other Important Information * Keep a list of all your medications with you at all times * Tell all healthcare providers (including dentists) that you take sotalol * If you have diabetes, monitor your blood sugar closely as sotalol may mask symptoms of low blood sugar * Avoid becoming dehydrated, especially if you have diarrhea or vomiting, as this can affect your electrolyte levels Questions? If you have any questions or concerns about your condition or medications, please contact your doctor's office. Patient Instructions: Sotalol (By mouth) Patient Language: Citizen Of [place] Stand Alone Forms: General Discharge Information Follow-up/Referrals: Valerio Ramos MD [Physician, Cardiology] Referral Note: follow-up as scheduled Discharge Medications: New sotalol 80 mg tablet 40 mg PO BID Qty: 30 0RF Continued cholecalciferol (vitamin D3) [Vitamin D3] 125 mcg (5,000 unit) tablet 50,000 unit PO .COMPLEX Rx Instructions: 50,000 units orally the first and 15th every month cranberry fruit 400 mg Capsule 400 mg PO DAILY Eliquis 5 mg Tablet 5 mg PO BID Patient Comments: Instructed to stop pre-procedure on 03/29/19. omeprazole 40 mg capsule,delayed release(DR/EC) 40 mg PO .COMPLEX Qty: 90 1RF Rx Instructions: 40 mg PO; every other day lisinopril 10 mg tablet See Rx Instructions .ROUTE .COMPLEX Qty: 90 2RF Dose Instruction: TAKE 1 TABLET BY MOUTH EVERY DAY Rx Instructions: TAKE 1 TABLET BY MOUTH EVERY DAY Discontinued metoprolol tartrate 50 mg tablet 50 mg PO .COMPLEX Qty: 20 0RF Rx Instructions: 50 mg orally Take in addition to metoprolol succinate 50mg daily if heart rate is over 120.; metoprolol succinate 25 mg tablet extended release 24 hr 50 mg PO DAILY Qty: 90 0RF Date of admission: 05/09/25 13:20 Primary Care Provider: Yogesh Tamayo Admitting Provider: Boy Conte Attending physician on admission: Boy Conte Condition: Stable
--- NOTE | 2025-05-10 11:50 | ECG_ITS ---
Test Date: 2025-05-10 11:58:08 Measurements Intervals [place] Rate: 63 P: 38 [place]: 195 QRS: 0 QRSD: 91 T: 30 QT: 432 QTc: 443 Interpretive Statements SINUS RHYTHM VOLTAGE CRITERIA FOR LVH MINIMAL Q WAVES- HIGH LATERAL LEADS BORDERLINE ECG Compared to ECG 05/09/2025 11:42:24 HEART RATE HAS INCREASED Electronically Signed On 05-10-2025 20:25:50 [employer]ITAL MARKETING INTERN by Chris Maloen D.O.
== END 2025-05-10 11:44 | disposition home or self-care (01) | DRG 310 ==
LOC: ANHED 15:30 → ANHIMU 17:39
PROVIDERS: Emergency Medicine; Specialist; Student in an Organized Health Care Education/Training Program; Admitting Provider Internal Medicine; Emergency Provider Student in an Organized Health Care Education/Training Program; PCP Internal Medicine; Visit Provider Physician Assistant
DX: I48.0 Paroxysmal atrial fibrillation (principal); I48.92 Unspecified atrial flutter; I10 Essential (primary) hypertension; I51.89 Other ill-defined heart diseases; E78.5 Hyperlipidemia, unspecified; E55.9 Vitamin D deficiency, unspecified; K21.9 Gastro-esophageal reflux disease without esophagitis; M54.9 Dorsalgia, unspecified; G89.29 Other chronic pain; G47.33 Obstructive sleep apnea (adult) (pediatric); Z96.651 Presence of right artificial knee joint; Z85.820 Personal history of malignant melanoma of skin; Z79.01 Long term (current) use of anticoagulants; Z87.891 Personal history of nicotine dependence
CPT/HCPCS: 36415; 71046; 80048; 80053; 81003; 83690; 83735; 84443; 84484; 85025; 85610; 85730; 93005; 96361; 96366; 96374; 99285; A9270; G0378; J1163; J7030